=== PATIENT | female | born 1940 | race Caucasian/White ===

== ENCOUNTER 2018-11-20 01:53 | Inpatient (IN) | payer OTHER ==
--- OUTSIDE RECORDS SUMMARY | 2018-11-20 01:56 | XMS REPORT | Continuity of Care Document ---
:1940 Author Organization Interface Problems Problem Status Onset Classification Date Comments Source Date Reported INFECTION Active [address] WOUND INFECTION Active 017 [facility] Alzheimer's dementia Active Problem 05/30/2017 [facility] Benign hypertension Resolved Problem 05/30/2017 [facility] Cerebral embolism with Resolved Problem 05/30/2017 transient ischemic [place] attack (<span ID="[id number]">Conf irmed</span>) Chronic CHF Active Problem 05/30/2017 [facility] Hypercholesterolemia Active Problem 05/30/2017 [facility] Arthritis Active Problem 05/30/2017 [facility] UNSPECIFIED INFECTIOUS Active DISEASE [facility] Medications Medication Details Route Status Patient Ordering Order Source Instructions Provider Date 24 HR Nicotine =1 patch, Active 0.583 MG/HR TOP, Daily, X 2017 [facility] Transdermal 14 day, # 14 Patch patch, 0 Refill(s) Streptococcus 0.5 mL, Inactive pneumoniae Route: IM, 2017 [facility] serotype 1 Drug Form: capsular antigen INJ, Daily, diphtheria Start date: [id number] protein 05/27/17 conjugate 9:00:00 CDT, vaccine / Duration: 1 Streptococcus doses or pneumoniae times, Stop serotype 14 date: capsular antigen 05/27/17 diphtheria 9:00:00 [id number] protein CDTNotes: conjugate Shake well vaccine / prior to use Streptococcus (Same as: pneumoniae Prevnar 13) serotype 18C capsular antigen d tramadol 50 mg=1 tab, Active hydrochloride 50 PO, Q6H, PRN 2016 [place] [facility] Oral Tablet Pain, X 10 day, # 40 tab, 0 Refill(s) Acetaminophen 1 tab, PO, Active 300 MG / Codeine Q4H, PRN 2016 [facility] Phosphate 30 MG Pain, X 7 Oral Tablet day, # 42 [Tylenol with tab, 0 Codeine #3] Refill(s) potassium 40 mEq, 2 No Longer chloride 20 mEq tab, Route: Active 2016 oral tablet, PO, Drug extended release form: ERTAB, Daily, Dosing Weight 55.909, kg, Start date: 05/24/17 9:00:00 CDT, Duration: 30 day, Stop date: 06/22/17 9:00:00 CDTNotes: (Same as: K-Dur 20) "Do Not Crush" With food and full glass of water sodium chloride 1,000 mL, No Longer 05/24/ 0.9% 1000 ml INJ Rate: 75 Active 2016 [facility] 1,000 mL ml/hr, Infuse over: 13.3 hr, Route: IV, Dosing Weight 55.909 kg, Total Volume: 1,000, Start date: 05/24/17 8:04:00 CDT, Duration: 30 day, Stop date: 06/23/17 8:03:00 CDT potassium 10 mEq, 100 Inactive chloride mL, Route: 2016 [facility] IVPB, Drug form: INJ, Q1H, Dosing Weight 55.909, kg, Total Dose=40 meq, Start date: 05/23/17 11:00:00 CDT, Duration: 4 doses or times, Stop date: 05/23/17 14:00:00 CDT, Peripheral LineNotes: Infuse at a rate of 10 mEq/hr. (Same as: KCL) potassium 20 mEq, 1 No Longer chloride tab, Route: Active 2016 [facility] PO, Drug form: ERTAB, PRN, Dosing Weight 55.909, kg, PRN Abnormal Lab Result, For NON-ICU Patients Only, Start date: 05/23/17 9:32:00 CDT, Duration: 30 day, Stop date: 06/22/17 9:31:00 CDTNotes: (Same as: K-Dur 20) "Do Not Crush" With food and full glass of water potassium 30 mmol, 10 No Longer phosphate + mL, Route: Active 2016 [facility] sodium chloride IVPB, PRN, 0.9% INJ 250 mL Dosing Weight 55.909, kg, PRN Abnormal Lab Result, For NON-ICU Patients Only., Start date: 05/23/17 9:32:00 CDT, Duration: 30 day, Stop date: 06/22/17 9:31:00 CDTNotes: (Same as: K Phosphate.) 1 mMol phoshate has 1.47 mEq potassium Infuse over 4 hours potassium 2 pkt, Route: No Longer phosphate-sodium PO, Drug Active 2016 [facility] phosphate 250 Form: mg-280 mg-160 mg PDR/REC, oral powder for Dosing Weight reconstitution 55.909, kg, PRN, PRN Abnormal Lab Result, For NON-ICU Patients Only, Start date: 05/23/17 9:32:00 CDT, Duration: 30 day, Stop date: 06/22/17 9:31:00 CDTNotes: (Same as: Phos-NaK) Each 1.5 gm pkt has 250mg phosphorous. Mix w/2.5oz water and stir. sodium phosphate 15 mmol, 5 No Longer + D5W 250 mL mL, Route: Active 2016 [facility] IVPB, PRN, Dosing Weight 55.909, kg, PRN Abnormal Lab Result, For NON-ICU Patients Only., Start date: 05/23/17 9:32:00 CDT, Duration: 30 day, Stop date: 06/22/17 9:31:00 CDT Magnesium 1 gm, 100 mL, No Longer Sulfate Route: IVPB, Active 2016 [facility] Drug form: INJ, PRN, Dosing Weight 55.909, kg, PRN Abnormal Lab Result, For NON-ICU Patients Only., Start date: 05/23/17 9:32:00 CDT, Duration: 30 day, Stop date: 06/22/17 9:31:00 CDTNotes: WASTE: F/P - Sink; E - [employer] Trash [employer] Calcium 2 gm, 20 mL, No Longer Gluconate Route: IVPB, Active 2016 [facility] PRN, Dosing Weight 55.909, kg, PRN Abnormal Lab Result, For NON-ICU Patients Only., Start date: 05/23/17 9:32:00 CDT, Duration: 30 day, Stop date: 06/22/17 9:31:00 CDTNotes: WASTE: F/P - Sink; E - [employer]ash [employer] Magnesium Oxide 800 mg, 2 No Longer tab, Route: Active 2016 [facility] PO, Drug form: TAB, PRN, Dosing Weight 55.909, kg, PRN Abnormal Lab Result, For NON-ICU Patients Only., Start date: 05/23/17 9:32:00 CDT, Duration: 30 day, Stop date: 06/22/17 9:31:00 CDTNotes: (Same as: Mag-Ox 400) Magnesium oxide [id number] elemental magnesium Dose=____mg magnesium oxide (___mg elemental magnesium) Bacitracin 0.5 1 appl, No Longer UNT/MG / Route: TOP, Active 2016 [facility] Polymyxin B 10 BID, Drug UNT/MG Topical form: OINT, Ointment Start date: 05/21/17 17:00:00 CDT, Duration: 30 day, Stop date: 06/20/17 9:00:00 CDTNotes: (Same As: Polysporin) potassium 10 mEq, 100 Inactive chloride mL, Route: 2016 [facility] IVPB, Drug form: INJ, Q1H, Dosing Weight 55.909, kg, Total Dose=20 meq, Start date: 05/21/17 12:00:00 CDT, Duration: 2 doses or times, Stop date: 05/21/17 13:00:00 CDT, Peripheral LineNotes: Infuse at a rate of 10 mEq/hr. (Same as: KCL) potassium 40 mEq, 2 Inactive chloride 20 mEq tab, Route: 2016 [facility] oral tablet, PO, Drug extended release form: ERTAB, ONCE, Dosing Weight 55.909, kg, Start date: 05/21/17 10:45:00 CDT, Stop date: 05/21/17 10:45:00 CDTNotes: (Same as: K-Dur 20) "Do Not Crush" With food and full glass of water Bacitracin 1 appl, No Longer Route: [facility], Active 2016 [facility] Daily, Drug form: OINT, Start date: 05/20/17 9:00:00 CDT, Duration: 30 day, Stop date: 06/18/17 9:00:00 CDT Nicotine 21 mg, 1 No Longer patch, Route: Active 2016 [facility] TOP, Drug form: ERFILM, Daily, Dosing Weight 55.909, kg, Start date: 05/20/17 9:00:00 CDT, Duration: 30 day, Stop date: 06/18/17 9:00:00 CDTNotes: (Same as: Habitrol) "Remove old patch before application of new patch" WASTE: F/P - P Waste Black; E - P Waste Black Thyroxine 50 microgram, No Longer 1 tab, Route: Active 2016 [facility] PO, Drug form: TAB, Q630AM, Dosing Weight 55.909, kg, Start date: 05/20/17 6:30:00 CDT, Duration: 30 day, Stop date: 06/18/17 6:30:00 CDTNotes: Take 1 hour before or 2 hours after meal; Enteral feeds may interefere with the absorption of this medication.(S julia as:Levothroid , Synthroid) Lipitor 20 mg, 2 tab, No Longer Route: PO, Active 2016 [facility] Drug form: TAB, Bedtime, Start date: 05/19/17 21:00:00 CDT, Duration: 30 day, Stop date: 06/17/17 21:00:00 CDTNotes: (Same As: Lipitor) Trazodone 100 mg, 2 No Longer Hydrochloride tab, Route: Active 2016 100 MG Oral PO, Drug Tablet form: TAB, Bedtime, Dosing Weight 55.909, kg, Start date: 05/19/17 21:00:00 CDT, Duration: 30 day, Stop date: 06/17/17 21:00:00 CDTNotes: (Same As: Desyrel) Lovastatin 40 mg, Route: Inactive PO, Drug 2016 [facility] form: TAB, Bedtime, Dosing Weight 55.909, kg, Start date: 05/19/17 21:00:00 CDT, Duration: 30 day, Stop date: 06/17/17 21:00:00 CDT metoprolol 50 mg, 1 tab, No Longer tartrate Route: PO, Active 2016 [facility] Drug form: TAB, Q12H, Dosing Weight 55.909, kg, Start date: 05/19/17 9:00:00 CDT, Duration: 30 day, Stop date: 06/17/17 21:00:00 CDTNotes: (Same as: Lopressor) Furosemide 40 MG 40 mg, 1 tab, No Longer Oral Tablet Route: PO, Active 2016 [facility] Drug form: TAB, BID, Dosing Weight 55.909, kg, Start date: 05/19/17 9:00:00 CDT, Duration: 30 day, Stop date: 06/17/17 17:00:00 CDTNotes: (Same as: Lasix) May cause GI upset. Give with food or milk. Folic Acid 1 mg, 1 tab, No Longer Route: PO, Active 2016 [facility] Drug form: TAB, Daily, Dosing Weight 55.909, kg, Start date: 05/19/17 9:00:00 CDT, Duration: 30 day, Stop date: 06/17/17 9:00:00 CDTNotes: (Same as: Folvite) clopidogrel 75 mg, 1 tab, No Longer Route: PO, Active 2016 [facility] Drug form: TAB, Daily, Dosing Weight 55.909, kg, Start date: 05/19/17 9:00:00 CDT, Duration: 30 day, Stop date: 06/17/17 9:00:00 CDTNotes: (Same As: Plavix) Fentanyl 1 patch, No Longer Route: TOP, 2016 [facility] Drug form: ERFILM, Q72H, Dosing Weight 55.909, kg, Start date: 05/19/17 9:00:00 CDT, Duration: 30 day, Stop date: 06/15/17 9:00:00 CDTNotes: (Same as: Duragesic) Check for product integrity. Apply to intact skin "Remove old patch before application of new patch" Amitriptyline 10 mg, 1 tab, No Longer Route: PO, Active 2016 [facility] Drug form: TAB, Daily, Dosing Weight 55.909, kg, Start date: 05/19/17 9:00:00 CDT, Duration: 30 day, Stop date: 06/17/17 9:00:00 CDTNotes: (Same as: Elavil) Alprazolam 1 MG 1 mg, 1 tab, No Longer Oral Tablet Route: PO, Active 2016 [facility] Drug form: TAB, BID, Dosing Weight 55.909, kg, Start date: 05/19/17 9:00:00 CDT, Duration: 30 day, Stop date: 06/17/17 17:00:00 CDTNotes: With food or milk (Same as: Xanax) Nitroglycerin 0.4 mg, 1 No Longer 0.4 MG tab, Route: Active 2016 [facility] Sublingual SL, Drug Tablet form: TAB, Q5Min, Dosing Weight 55.909, kg, PRN Chest Pain, Start date: 05/19/17 8:09:00 CDT, Duration: 30 day, Stop date: 06/18/17 8:08:00 CDTNotes: (Same as:Nitroquick , Nitrostat) "Do Not Crush" Sublingual tablet potassium 40 mEq, 2 Inactive chloride 20 mEq tab, Route: 2016 [facility] oral tablet, PO, Drug extended release form: ERTAB, ONCE, Dosing Weight 55.909, kg, Start date: 05/19/17 7:56:00 CDT, Stop date: 05/19/17 7:56:00 CDTNotes: (Same as: K-Dur 20) "Do Not Crush" With food and full glass of water clopidogrel 75 75 mg=1 tab, Active MH mg oral tablet PO, Daily, 0 2016 Refill(s) potassium 20 mEq=1 tab, Active chloride 20 mEq PO, Daily, 0 2016 [facility] oral tablet, Refill(s) extended release Metoprolol 50 mg=1 tab, Active Tartrate 50 mg PO, BID, 0 2016 oral tablet Refill(s) lovastatin 40 mg 40 mg=1 tab, Active MH oral tablet PO, Bedtime, 2016 0 Refill(s) Furosemide 40 MG 40 mg=1 tab, Active [facility] Oral Tablet PO, BID, 0 2016 Refill(s) Folic Acid 1 MG 1 mg=1 tab, Active MH Oral Tablet PO, Daily, 0 2016 Refill(s) Alprazolam 1 MG 1 mg=1 tab, Active Oral Tablet PO, BID, 0 2016 Refill(s) Trazodone 100 mg=1 tab, Active Hydrochloride PO, Bedtime, 2016 [facility] 100 MG Oral 0 Refill(s) Tablet amitriptyline 10 10 mg=1 tab, Active mg oral tablet PO, Daily, 0 2016 [facility] Refill(s) Acetaminophen 1 tab, PO, Active 325 MG / Q6H, PRN Pain 2016 [facility] Hydrocodone Score 4-6, 0 Bitartrate 10 MG Refill(s) Oral Tablet [Alice 10/325] fentaNYL 50 50 Active mcg/hr microgram/hr= 2016 [facility] transdermal , TOP, Q72H, film, extended 0 Refill(s) release Nitroglycerin 0.4 mg=1 tab, Active 0.4 MG SL, Q5Min, 2016 [facility] Sublingual PRN as needed Tablet for chest pain, 0 Refill(s) levothyroxine 50 50 Active mcg (0.05 mg) microgram=1 2016 [facility] oral tablet tab, PO, Q630AM, 0 Refill(s) Unasyn 3 gm, 1 ea, No Longer Route: IVPB, Active 2016 [facility] ABXQ6H, Dosing Weight 55.455, kg, Start date: 05/18/17 17:00:00 CDT, Duration: 30 day, Stop date: 06/17/17 9:00:00 CDTNotes: Dosing based on Ampicillin component (Same as: Unasyn) Ondansetron 4 mg, 2 mL, No Longer Route: IVP, Active 2016 [facility] Drug form: INJ, Q6H, Dosing Weight 55.455, kg, PRN Nausea & Vomiting, Start date: 05/18/17 16:45:00 CDT, Duration: 30 day, Stop date: 06/17/17 16:44:00 CDTNotes: (Same as: Kathleen) MEDICATION WASTE Product Size: 4 mg Product Wasted: ___ mg Morphine 2 mg, 1 mL, No Longer Route: IVP, Active 2016 [facility] Drug form: SOLN, Q4H, Dosing Weight 55.455, kg, PRN Pain Score 7-10, Start date: 05/18/17 16:45:00 CDT, Duration: 30 day, Stop date: 06/17/17 16:44:00 CDT Acetaminophen 1 tab, Route: No Longer 325 MG / PO, Drug Active 2016 [facility] Hydrocodone Form: TAB, Bitartrate 5 MG Dosing Weight Oral Tablet 55.455, kg, Q4H, PRN Pain Score 4-6, Start date: 05/18/17 16:45:00 CDT, Duration: 30 day, Stop date: 06/17/17 16:44:00 CDTNotes: (Same as: Alice 325/5) Do not exceed 4gm/day of acetaminophen . Acetaminophen 650 mg, 2 No Longer tab, Route: Active 2016 [facility] PO, Drug form: TAB, Q4H, Dosing Weight 55.455, kg, PRN Pain 1-3/Temp > 100.4 F, Start date: 05/18/17 16:45:00 CDT, Duration: 30 day, Stop date: 06/17/17 16:44:00 CDTNotes: Do not exceed 4 gm/day. (Same as: Tylenol) Unasyn 3 gm, 1 ea, Inactive Route: IVPB, 2016 [facility] ONCE, Dosing Weight 55.455, kg, Priority: STAT, Start date: 05/18/17 15:12:00 CDT, Stop date: 05/18/17 15:12:00 CDTNotes: Dosing based on Ampicillin component (Same as: Unasyn) Morphine 4 mg, 1 mL, Inactive Route: IVP, 2016 [facility] Drug form: SOLN, ONCE, Dosing Weight 55.455, kg, Priority: STAT, Start date: 05/18/17 15:12:00 CDT, Stop date: 05/18/17 15:12:00 CDTNotes: (Same as:MORPhine Sulfate) Vancomycin 1 gm, Route: Inactive IVPB, ONCE, 2016 [facility] kg, Priority: STAT, Start date: 05/18/17 13:43:00 CDT, Stop date: 05/18/17 13:43:00 CDT, ABX Indication: Other (specify in Comments)Note s: TIME CRITICAL MEDICATION (Same As: Vancocin) Infusion rate 2001 mg: infuse over 2.5 hours MEDICATION WASTE Product Size: 1000 mg Product Wasted: ___ mg Allergies, Adverse Reactions, Alerts Substance Category Reaction Severity Reaction Status Date Comments Source type Reported iodine Assertion Drug Active allergy [facility] sulfa drugs Assertion Drug Active allergy [facility] Versed Assertion Drug Active allergy [facility] Immunizations Immunization Date Site Status Last Comments Source Given Updated pneumococcal Left completed [facility] 13-valent 7 deltoid vaccine Results Order Name Results Value Reference Date Interpretation Comments Source Range ELECTROLYT Potassium 3.7 meq/L 3.5 - 5.1 05/26 [facility] Lv [facility] ELECTROLYT AGAP 9.1 meq/L 10.0 - 05/26 [facility] 20.0 [facility] ELECTROLYT Calcium Lvl 8.7 mg/dL 8.5 - 10.5 05/26 [facility] ELECTROLYT Potassium 3.1 meq/L 3.5 - 5.1 05/26 [facility] ELECTROLYT Sodium Lvl 139 meq/L 135 - 145 05/26 [facility] ELECTROLYT eGFR 87 05/26 Result Comment: The eGFR is calculated using the CKD-EPI formula. In most young, healthy individuals the eGFR will be >90 mL/ min/1.73m2. The eGFR declines with age. An eGFR of 60-89 may be normal in mL/min/1. some populations, particularly the elderly, for whom the CKD-EPI formula has not been extensively validated. Use of the eGFR is not recommended in the following populations: [facility] 3m2 Individuals with unstable creatinine concentrations, including patients and those with serious co-morbid conditions. Patients with extremes in muscle mass or diet. The data above are obtained from the National Kidney Disease Education Program (NKDEP) which additionally recommends that when the eGFR is used in patients with extremes of body mass index for purposes of drug dosing, the eGFR should be multiplied by the estimated BMI. ELECTROLYT CO2 31 meq/L 24 - 32 05/26 [facility] ELECTROLYT Chloride Lvl 102 meq/L 95 - 109 05/26 [facility] ELECTROLYT Glucose Lvl 89 mg/dL 70 - 99 05/26 [facility] ELECTROLYT BUN 11 mg/dL 7 - 22 05/26 [facility] ELECTROLYT Creatinine 0.59 mg/dL 0.50 - 05/26 ES Lvl 1.40 /2016 [facility] HEMATOLOGY Hct 28.2 % 36.0 - 05/26 MH 48.0 /2016 [facility] MCH 31.5 pg 27.0 - 05/26 MH 31.0 [facility] Hgb 9.8 g/dL 12.0 - 05/26 MH 16.0 /2016 [facility] MCHC 35.0 g/dL 32.0 - 05/26 MH 36.0 /2016 [facility] MCV 90.0 fL 80.0 - 07 MH 98.0 /2016 [facility] RDW 12.8 % 11.5 - 07 MH 14.5 /2016 [facility] Platelet 274 K/CMM 133 - 450 05/26 [facility] MPV 8.1 fL 7.4 - 10.4 05/26 [facility] WBC 6.6 K/CMM 3.7 - 10.4 05/26 [facility] RBC 3.13 M/CMM 4.20 - 05/26 MH 5.40 [facility] HEMATOLOGY Segs 47.9 % 45.0 - 07 MH 75.0 /2016 [facility] HEMATOLOGY Lymphocytes 31.3 % 20.0 - 07 MH 40.0 [facility] HEMATOLOGY Monocytes 14.8 % 2.0 - 12.0 05/26 [facility] HEMATOLOGY Eosinophils 5.2 % 0.0 - 4.0 05/26 [facility] HEMATOLOGY Segs-Bands # 3.1 K/CMM 1.5 - 8.1 05/26 [facility] HEMATOLOGY Basophils 0.8 % 0.0 - 1.0 05/26 [facility] HEMATOLOGY Eosinophils 0.3 K/CMM 0.0 - 0.5 05/26 /2016 [facility] HEMATOLOGY Monocytes # 1.0 K/CMM 0.0 - 0.8 05/26 [facility] HEMATOLOGY Lymphocytes 2.1 K/CMM 1.0 - 5.5 05/26 [facility] HEMATOLOGY Basophils # 0.1 K/CMM 0.0 - 0.2 05/26 [facility] CHEM PANEL eGFR 85 05/25 Result Comment: The eGFR is calculated using the CKD-EPI formula. In most young, healthy individuals the eGFR will be >90 mL/ min/1.73m2. The eGFR declines with age. An eGFR of 60-89 may be normal in MH mL/min/1. some populations, particularly the elderly, for whom the CKD-EPI formula has not been extensively validated. Use of the eGFR is not recommended in the following populations: [address] Individuals with unstable creatinine concentrations, including patients and those with serious co-morbid conditions. Patients with extremes in muscle mass or diet. The data above are obtained from the National Kidney Disease Education Program (NKDEP) which additionally recommends that when the eGFR is used in patients with extremes of body mass index for purposes of drug dosing, the eGFR should be multiplied by the estimated BMI. CHEM PANEL Sodium Lvl 140 meq/L 135 - 145 05/25 [facility] CHEM PANEL Creatinine 0.64 mg/dL 0.50 - 05/25 Lvl 1.40 /2016 [facility] CHEM PANEL BUN 11 mg/dL 7 - 22 05/25 [facility] CHEM PANEL Chloride Lvl 103 meq/L 95 - 109 05/25 [facility] CHEM PANEL Potassium 3.3 meq/L 3.5 - 5.1 05/25 Lvl [facility] CHEM PANEL Glucose Lvl 83 mg/dL 70 - 99 05/25 [facility] CHEM PANEL CO2 29 meq/L 24 - 32 05/25 [facility] CHEM PANEL Calcium Lvl 8.0 mg/dL 8.5 - 10.5 05/25 [facility] CHEM PANEL AGAP 11.3 meq/L 10.0 - 05/25 MH 20.0 [facility] CHEM PANEL eGFR 90 05/25 Result Comment: The eGFR is calculated using the CKD-EPI formula. In most young, healthy individuals the eGFR will be >90 mL/ min/1.73m2. The eGFR declines with age. An eGFR of 60-89 may be normal in MH mL/min/1. some populations, particularly the elderly, for whom the CKD-EPI formula has not been extensively validated. Use of the eGFR is not recommended in the following populations: [address] Individuals with unstable creatinine concentrations, including patients and those with serious co-morbid conditions. Patients with extremes in muscle mass or diet. The data above are obtained from the National Kidney Disease Education Program (NKDEP) which additionally recommends that when the eGFR is used in patients with extremes of body mass index for purposes of drug dosing, the eGFR should be multiplied by the estimated BMI. CHEM PANEL Calcium Lvl 6.4 mg/dL 8.5 - 10.5 / [facility] CHEM PANEL AGAP 20.4 meq/L 10.0 - 07 MH 20.0 [facility] CHEM PANEL CO2 25 meq/L 24 - 32 05/25 [facility] CHEM PANEL Glucose Lvl 69 mg/dL 70 - 99 05/25 [facility] CHEM PANEL Sodium Lvl 155 meq/L 135 - 145 / [facility] CHEM PANEL BUN 10 mg/dL 7 - 22 05/25 [facility] CHEM PANEL Chloride Lvl 112 meq/L 95 - 109 07/ [facility] CHEM PANEL Creatinine 0.55 mg/dL 0.50 - 05/25 Lvl 1.40 /2016 [facility] HEMATOLOGY Hct 25.0 % 36.0 - 07 MH 48.0 /2016 [facility] HEMATOLOGY MCV 90.5 fL 80.0 - 05/25 MH 98.0 [facility] HEMATOLOGY Hgb 8.4 g/dL 12.0 - 05/25 16.0 [facility] HEMATOLOGY MCH 30.4 pg 27.0 - 05/25 MH 31.0 [facility] HEMATOLOGY MCHC 33.6 g/dL 32.0 - 05/25 MH 36.0 [facility] HEMATOLOGY RDW 13.2 % 11.5 - 05/25 MH 14.5 [facility] HEMATOLOGY MPV 8.1 fL 7.4 - 10.4 05/25 /2016 [facility] HEMATOLOGY Platelet 212 K/CMM 133 - 450 05/25 /2016 [facility] HEMATOLOGY RBC 2.76 M/CMM 4.20 - 07 MH 5.40 [facility] HEMATOLOGY WBC 5.7 K/CMM 3.7 - 10.4 05/25 [facility] HEMATOLOGY Monocytes # 0.8 K/CMM 0.0 - 0.8 /10 [facility] HEMATOLOGY Eosinophils 0.2 K/CMM 0.0 - 0.5 /10 MH # /2016 [facility] HEMATOLOGY Lymphocytes 26.0 % 20.0 - 07 MH 40.0 [facility] HEMATOLOGY Segs-Bands # 3.2 K/CMM 1.5 - 8.1 05/25 [facility] HEMATOLOGY Lymphocytes 1.5 K/CMM 1.0 - 5.5 07/10 MH # /2016 [facility] HEMATOLOGY Eosinophils 3.7 % 0.0 - 4.0 07/ /2016 [facility] HEMATOLOGY Monocytes 14.4 % 2.0 - 12.0 07/ /2016 [facility] HEMATOLOGY Basophils 0.5 % 0.0 - 1.0 / /2016 [facility] HEMATOLOGY Segs 55.4 % 45.0 - 07/ MH 75.0 /2016 [facility] ANEMIA Folate Lvl 54.1 ng/mL >=3.0 05/24 STUDY ng/mL /2016 [facility] ANEMIA Vitamin B12 1022 pg/mL 254 - 1320 / STUDY Lvl /2016 [facility] HEMATOLOGY MPV 7.6 fL 7.4 - 10.4 05/24 [facility] HEMATOLOGY Platelet 232 K/CMM 133 - 450 05/24 [facility] HEMATOLOGY MCV 89.7 fL 80.0 - 05/24 98.0 [facility] HEMATOLOGY Hct 30.2 % 36.0 - 05/24 MH 48.0 [facility] HEMATOLOGY RDW 13.4 % 11.5 - 05/24 MH 14.5 [facility] HEMATOLOGY MCHC 34.5 g/dL 32.0 - 05/24 36.0 /2016 [facility] HEMATOLOGY MCH 31.0 pg 27.0 - 05/24 MH 31.0 [facility] HEMATOLOGY WBC 7.2 K/CMM 3.7 - 10.4 05/24 [facility] HEMATOLOGY Hgb 10.4 g/dL 12.0 - 05/24 16.0 [facility] HEMATOLOGY RBC 3.36 M/CMM 4.20 - 05/24 MH 5.40 [facility] HEMATOLOGY Eosinophils 0.2 K/CMM 0.0 - 0.5 07/ MH # /2016 [facility] HEMATOLOGY Monocytes # 0.9 K/CMM 0.0 - 0.8 07/ [facility] HEMATOLOGY Lymphocytes 1.6 K/CMM 1.0 - 5.5 07/ MH # /2016 [facility] HEMATOLOGY Segs-Bands # 4.4 K/CMM 1.5 - 8.1 05/24 [facility] HEMATOLOGY Lymphocytes 22.1 % 20.0 - 07 MH 40.0 [facility] HEMATOLOGY Eosinophils 3.3 % 0.0 - 4.0 / [facility] HEMATOLOGY Monocytes 12.6 % 2.0 - 12.0 / [facility] HEMATOLOGY Basophils 0.5 % 0.0 - 1.0 05/24 [facility] HEMATOLOGY Segs 61.5 % 45.0 - 05/24 75.0 [facility] Chest Chest 1view Patient Name: REX VIVEROS 05/21 - [facility] Hospital : 1940; Age: 77 years y/o Female MR: [id number] Read by: Abisai Freire MD Dictated Date/time: 05/21/17 14:39 Electronically Signed by: Abisai Freire MD 05/21/17 14:40 FINAL REPORT * CHEST, portable, 1 view HISTORY: Status post PICC placement COMPARISON: None TECHNIQUE: A portable frontal radiograph of the chest was obtained following PICC placement IMPRESSION: 1. The tip of the right upper extremity PICC is in the lower superior vena cava. The catheter appears to be in good position to utilize for venous access. 2. No evidence of an active or acute process. The lungs are clear. There are no pleural effusions. 3. The heart is normal in size. 4. The regional skeleton is unremarkable. SL: [id number] URINE AND UA WBC null 0 - 5 05/18 [facility] URINE AND UA [place] Yeast Occasional None Seen 05/18 STOOL /HPF /HPF [facility] URINE AND UA Trans Epi 1 /LPF <=0 /LPF 05/18 [facility] URINE AND UA RBC 1 /HPF 0 - 2 05/18 STOOL [facility] URINE AND UA Bacteria Occasional None Seen 05/18 STOOL /HPF /HPF /2016 [facility] URINE AND UA Leuk Est Negative Negative 05/18 (05/18/17 3:37 PM) URINE AND UA Nitrite Negative Negative 05/18 (05/18/17 3:37 PM) URINE AND UA Sq Epi Few /LPF Few /LPF 05/18 URINE AND UA Bili Negative Negative 05/18 [facility] *NA* (05/18/17 3:37 PM) URINE AND UA Blood Negative Negative 05/18 [facility] (05/18/17 3:37 PM) URINE AND UA <=1.0 0.1 - 1.0 05/18 [facility] Urobilinogen mg/dL /2016 URINE AND UA Color Ltyellow 05/18 STOOL /2016 [facility] URINE AND UA Glucose Negative Negative 05/18 STOOL mg/dL mg/dL /2016 [facility] URINE AND UA Ketones Negative Negative 05/18 STOOL mg/dL mg/dL [facility] URINE AND UA pH 7.0 5.0 - 8.0 05/18 STOOL [facility] URINE AND UA Protein Negative Negative 05/18 STOOL mg/dL mg/dL [facility] URINE AND UA Turbidity Clear Clear 05/18 STOOL [facility] (05/18/17 3:37 PM) URINE AND UA Spec Grav 1.009 <=1.030 05/18 STOOL /2016 [facility] HEMATOLOGY PTT 28.0 s 22.9 - 05/18 MH 35.8 /2016 [facility] HEMATOLOGY INR 0.99 0.85 - 05/18 1.17 [facility] HEMATOLOGY PT 13.3 s 12.0 - 05/18 MH 14.7 /2016 [facility] CARDIAC Troponin-I 0.20 ng/mL 0.00 - 05/18 ENZYMES 0.40 /2016 [facility] CHEM PANEL ALT 17 unit/L 0 - 65 05/18 [facility] CHEM PANEL AST 30 unit/L 0 - 37 05/18 [facility] CHEM PANEL Albumin Lvl 3.1 g/dL 3.5 - 5.0 05/18 [facility] CHEM PANEL Alk Phos 63 unit/L 39 - 136 05/18 [facility] CHEM PANEL Bili Total 0.6 mg/dL 0.2 - 1.3 05/18 [facility] CHEM PANEL Total 7.1 g/dL 6.4 - 8.4 05/18 [facility] CHEM PANEL Globulin 4.0 g/dL 2.7 - 4.2 05/18 [facility] CHEM PANEL A/G Ratio 0.8 0.7 - 1.6 05/18 [facility] CHEM PANEL B/C Ratio 15 6 - 25 05/18 [facility] CHEM PANEL Lactic Acid 0.8 mMol/L 0.5 - 2.2 05/18 Lvl [facility] Hand 3 Hand 3 views Study: Right hand, 4 views 05/18 - views DX - Clinical Indication: Right hand pain post injury Read by: Marcus Tellez MD Dictated Date/time: 05/18/17 14:33 Electronically Signed by: Marcus Tellez MD 05/18/17 14:34 FINAL REPORT Comparison: None FINDINGS: Multiple views of the right hand show no acute bony fracture, joint dislocation, or discrete osseous erosion. Bones are demineralized. Diffuse soft tissue swelling along the dorsum of the hand is seen extending into the index and middle fingers. Lacerations throughout the index finger soft tissues about the middle phalanx are seen. No definitive radiopaque foreign body is seen. IMPRESSION: No acute bony abnormality of the right hand. SL: [id number] Vital Signs Vital Sign Value Date Comments Source Systolic (mm Hg) 102 05/27/2017 [facility] Diastolic (mm Hg) 58 05/27/2017 [facility] Heart Rate 85 05/27/2017 [facility] Respitory Rate 17 05/27/2017 [facility] Temperature Oral (F) 98.1 F 05/27/2017 [facility] Respitory Rate 18 05/27/2017 [facility] Systolic (mm Hg) 98 05/27/2017 [facility] Diastolic (mm Hg) 61 05/27/2017 [facility] Heart Rate 83 05/27/2017 [facility] Temperature Oral (F) 98.4 F 05/27/2017 [facility] Respitory Rate 18 05/27/2017 [facility] Systolic (mm Hg) 92 05/27/2017 [facility] Diastolic (mm Hg) 47 05/27/2017 [facility] Heart Rate 83 05/27/2017 [facility] Temperature Oral (F) 99.0 F 05/27/2017 [facility] BMI Calculated 19.3 05/19/2017 [facility] Weight 55.909 05/19/2017 [facility] Height 170.18 cm 05/19/2017 [facility] Weight 55.455 05/18/2017 [facility] Encounters Location Location Encounter Encounter Reason Attending ADM DC Status Source Details Type Number For Provider Date Date [facility] [id number] [facility] 05/18 05/27 [facility] /2016 [facility] Procedures Procedure Code Date Perfomer Comments Source
--- OUTSIDE RECORDS SUMMARY | 2018-11-20 01:57 | XMS REPORT | Summary of Care ---
:1940 Author Organization [facility] Address [address] [place], [place] [address]- Encounter HQ [email or web address]_yo(FIN) [id number] Date(s): 05/18/17 - 05/27/17 [facility] [address] [place] [address]- Discharge Disposition: Home or Self Care Attending Physician: Pastor Baca MD Admitting Physician: Pastor Baca MD Vital Signs Most recent to oldest 1 2 3 [Reference Range]: Height 170.18 cm (05/18/17 7:40 PM) Temperature Oral [96.4-99.1 98.1 DegF 98.4 DegF 99.0 DegF DegF] (05/27/17 8:42 AM) (05/27/17 4:00 AM) (05/27/17 12:00 AM) Blood Pressure [90-140/60-90 102/58 mmHg 98/61 mmHg 92/47 mmHg mmHg] (05/27/17 8:42 AM) (05/27/17 4:00 AM) (05/27/17 12:00 AM) Respiratory Rate [14-20 BRMIN] 17 BRMIN 18 BRMIN 18 BRMIN (05/27/17 8:42 AM) (05/27/17 4:00 AM) (05/27/17 12:00 AM) Peripheral Pulse Rate [60-100 85 bpm 83 bpm 83 bpm bpm] (05/27/17 8:42 AM) (05/27/17 4:00 AM) (05/27/17 12:00 AM) Weight 55.909 kg 55.455 kg (05/18/17 7:40 PM) (05/18/17 1:42 PM) Body Mass Index 19.3 m2 (05/18/17 7:40 PM) Problem List Condition Effective Dates Status Health Status Informant Alzheimer's dementia(Confirmed) Active Benign hypertension(Confirmed) Resolved Cerebral embolism with transient Resolved ischemic attack (TIA)(Confirmed) Chronic CHF(Confirmed) Active Hypercholesterolemia(Confirmed) Active Arthritis(Confirmed) Active Allergies, Adverse Reactions, Alerts Substance Reaction Severity Status iodine Active sulfa drugs Active Versed Active Medications acetaminophen 650 mg, 2 tab, Route: PO, Drug form: TAB, Q4H, Dosing Weight 55.455, kg, PRN Pain 1-3/Temp > 100.4 F, Start date: 05/18/17 16:45:00 CDT, Duration: 30 day, Stop date: 06/17/17 16:44:00 CDT Notes: Do not exceed 4 gm/day. (Same as: Tylenol) Start Date: 05/18/17 Stop Date: 05/27/17 Status: Discontinuedacetaminophen-hydrocodone 325 mg-5 mg oral tablet 1 tab, Route: PO, Drug Form: TAB, Dosing Weight 55.455, kg, Q4H, PRN Pain Score 4-6, Start date: 05/18/17 16:45:00 CDT, Duration: 30 day, Stop date: 06/17/17 16 :44:00 CDT Notes: (Same as: [place] 325/5) Do not exceed 4gm/day of acetaminophen. Start Date: 05/18/17 Stop Date: 05/27/17 Status: DiscontinuedALPRAZOLam 1 mg oral tablet 1 mg=1 tab, PO, BID, 0 Refill(s) Start Date: 05/18/17 Status: OrderedALPRAZOLam 1 mg oral tablet 1 mg, 1 tab, Route: PO, Drug form: TAB, BID, Dosing Weight 55.909, kg, Start date: 05/19/17 9:00:00 CDT, Duration: 30 day, Stop date: 06/17/17 17:00:00 CDT Notes: With food or milk(Same as: Xanax) Start Date: 05/19/17 Stop Date: 05/27/17 Status: Discontinuedamitriptyline 10 mg, 1 tab, Route: PO, Drug form: TAB, Daily, Dosing Weight 55.909, kg, Start date: 05/19/17 9:00:00 CDT, Duration: 30 day, Stop date: 06/17/17 9:00:00 CDT Notes: (Same as: Elavil) Start Date: 05/19/17 Stop Date: 05/27/17 Status: Discontinuedamitriptyline 10 mg oral tablet 10 mg=1 tab, PO, Daily, 0 Refill(s) Start Date: 05/18/17 Status: Orderedbacitracin topical 1 appl, Route: TOP, Daily, Drug form: OINT, Start date: 05/20/17 9:00:00 CDT, Duration: 30 day, Stopdate: 06/18/17 9:00:00 CDT Start Date: 05/20/17 Stop Date: 05/27/17 Status: Discontinuedbacitracin-polymyxin B topical ointment 1 appl, Route: TOP, BID, Drug form: OINT, Start date: 05/21/17 17:00:00 CDT, Duration: 30 day, Stop date: 06/20/17 9:00:00 CDT Notes: (Same As: Polysporin) Start Date: 05/21/17 Stop Date: 05/22/17 Status: Discontinuedcalcium gluconate + sodium chloride 0.9% INJ 120 mL 3 gm, 30 mL, Route: IVPB, Drug form: INJ, PRN, Dosing Weight 55.909, kg, PRN Abnormal Lab Result, For NON-ICU Patients Only., Start date: 05/23/17 9:32:00 CDT, Duration: 30 day, Stop date: 06/22/17 9:31:00 CDT Notes: WASTE: F/P - Sink; E - Municipal Trash Bin Start Date: 05/23/17 Stop Date: 05/27/17 Status: Discontinuedcalcium gluconate + sodium chloride 0.9% INJ 80 mL 2 gm, 20 mL, Route: IVPB, PRN, Dosing Weight 55.909, kg, PRN Abnormal Lab Result , For NON-ICU Patients Only., Start date: 05/23/17 9:32:00 CDT, Duration: 30 day , Stop date: 06/22/17 9:31:00 CDT Notes: WASTE: F/P - Sink; E - Municipal Trash Bin Start Date: 05/23/17 Stop Date: 05/27/17 Status: Discontinuedclopidogrel 75 mg, 1 tab, Route: PO, Drug form: TAB, Daily, Dosing Weight 55.909, kg, Start date: 05/19/17 9:00:00 CDT, Duration: 30 day, Stop date: 06/17/17 9:00:00 CDT Notes: (Same As: Plavix) Start Date: 05/19/17 Stop Date: 05/27/17 Status: Discontinuedclopidogrel 75 mg oral tablet 75 mg=1 tab, PO, Daily, 0 Refill(s) Start Date: 05/18/17 Status: OrderedfentaNYL 1 patch, Route: TOP, Drug form: ERFILM, Q72H, Dosing Weight 55.909, kg, Start date: 05/19/17 9:00:00CDT, Duration: 30 day, Stop date: 06/15/17 9:00:00 CDT Notes: (Same as: Duragesic)Check for product integrity. Apply to intact skin "Remove old patch before application of new patch" Start Date: 05/19/17 Stop Date: 05/27/17 Status: DiscontinuedfentaNYL 50 mcg/hr transdermal film, extended release 50 microgram/hr=, TOP, Q72H, 0 Refill(s) Start Date: 05/18/17 Status: Orderedfolic acid 1 mg, 1 tab, Route: PO, Drug form: TAB, Daily, Dosing Weight 55.909, kg, Start date: 05/19/17 9:00:00 CDT, Duration: 30 day, Stop date: 06/17/17 9:00:00 CDT Notes: (Same as: Folvite) Start Date: 05/19/17 Stop Date: 05/27/17 Status: Discontinuedfolic acid 1 mg oral tablet 1 mg=1 tab, PO, Daily, 0 Refill(s) Start Date: 05/18/17 Status: Orderedfurosemide 40 mg oral tablet 40 mg=1 tab, PO, BID, 0 Refill(s) Start Date: 05/18/17 Status: Orderedfurosemide 40 mg oral tablet 40 mg, 1 tab, Route: PO, Drug form: TAB, BID, Dosing Weight 55.909, kg, Start date: 05/19/17 9:00:00CDT, Duration: 30 day, Stop date: 06/17/17 17:00:00 CDT Notes: (Same as: Lasix) May cause GI upset. Give with food or milk. Start Date: 05/19/17 Stop Date: 05/27/17 Status: Discontinuedlevothyroxine 50 microgram, 1 tab, Route: PO, Drug form: TAB, Q630AM, Dosing Weight 55.909, kg , Start date: 05/20/17 6:30:00 CDT, Duration: 30 day, Stop date: 06/18/17 6:30: 00 CDT Notes: Take 1 hour before or 2 hours after meal; Enteral feeds may interefere with the absorption ofthis medication.(Same as:Levothroid, Synthroid) Start Date: 05/20/17 Stop Date: 05/27/17 Status: Discontinuedlevothyroxine 50 mcg (0.05 mg) oral tablet 50 microgram=1 tab, PO, Q630AM, 0 Refill(s) Start Date: 05/18/17 Status: OrderedLipitor 20 mg, 2 tab, Route: PO, Drug form: TAB, Bedtime, Start date: 05/19/17 21:00:00 CDT, Duration: 30 day, Stop date: 06/17/17 21:00:00 CDT Notes: (Same As: Lipitor) Start Date: 05/19/17 Stop Date: 05/27/17 Status: Discontinuedlovastatin 40 mg, Route: PO, Drug form: TAB, Bedtime, Dosing Weight 55.909, kg, Start date : 05/19/17 21:00:00 CDT, Duration: 30 day, Stop date: 06/17/17 21:00:00 CDT Start Date: 05/19/17 Stop Date: 05/19/17 Status: Deletedlovastatin 40 mg oral tablet 40 mg=1 tab, PO, Bedtime, 0 Refill(s) Start Date: 05/18/17 Status: Orderedmagnesium oxide 800 mg, 2 tab, Route: PO, Drug form: TAB, PRN, Dosing Weight 55.909, kg, PRN Abnormal Lab Result, For NON-ICU Patients Only., Start date: 05/23/17 9:32:00 CDT, Duration: 30 day, Stop date: 06/22/17 9:31:00 CDT Notes: (Same as: Mag-Ox 400)Magnesium oxide [id number] elemental magnesiumDose= ____mg magnesium oxide (___mg elemental magnesium) Start Date: 05/23/17 Stop Date: 05/27/17 Status: Discontinuedmagnesium sulfate 1 gm, 100 mL, Route: IVPB, Drug form: INJ, PRN, Dosing Weight 55.909, kg, PRN Abnormal Lab Result, For NON-ICU Patients Only., Start date: 05/23/17 9:32:00 CDT, Duration: 30 day, Stop date: 06/22/17 9:31:00 CDT Notes: WASTE: F/P - Sink; E - Municipal Trash Bin Start Date: 05/23/17 Stop Date: 05/27/17 Status: Discontinuedmagnesium sulfate 2 gm, 50 mL, Route: IVPB, Drug form: INJ, PRN, Dosing Weight 55.909, kg, PRN Abnormal Lab Result, For NON-ICU Patients Only., Start date: 05/23/17 9:32:00 CDT, Duration: 30 day, Stop date: 06/22/17 9:31:00 CDT Notes: WASTE: F/P - Sink; E - Municipal Trash Bin Start Date: 05/23/17 Stop Date: 05/27/17 Status: Discontinuedmetoprolol tartrate 50 mg, 1 tab, Route: PO, Drug form: TAB, Q12H, Dosing Weight 55.909, kg, Start date: 05/19/17 9:00:00 CDT, Duration: 30 day, Stop date: 06/17/17 21:00:00 CDT Notes: (Same as: Lopressor) Start Date: 05/19/17 Stop Date: 05/27/17 Status: DiscontinuedMetoprolol Tartrate 50 mg oral tablet 50 mg=1 tab, PO, BID, 0 Refill(s) Start Date: 05/18/17 Status: Orderedmorphine Sulfate 2 mg, 1 mL, Route: IVP, Drug form: SOLN, Q4H, Dosing Weight 55.455, kg, PRN Pain Score 7-10, Start date: 05/18/17 16:45:00 CDT, Duration: 30 day, Stop date : 06/17/17 16:44:00 CDT Start Date: 05/18/17 Stop Date: 05/27/17 Status: Discontinuedmorphine Sulfate 4 mg, 1 mL, Route: IVP, Drug form: SOLN, ONCE, Dosing Weight 55.455, kg, Priority: STAT, Start date:05/18/17 15:12:00 CDT, Stop date: 05/18/17 15:12:00 CDT Notes: (Same as:MORPhine Sulfate) Start Date: 05/18/17 Stop Date: 05/18/17 Status: Completednicotine 21 mg, 1 patch, Route: TOP, Drug form: ERFILM, Daily, Dosing Weight 55.909, kg, Start date: 179:00:00 CDT, Duration: 30 day, Stop date: 06/18/17 9:00:00 CDT Notes: (Same as: Habitrol)"Remove old patch before application of new patch "WASTE: F/P - P Waste Black; E - P Waste Black Start Date: 05/20/17 Stop Date: 05/27/17 Status: Discontinuednicotine 14 mg/24 hr transdermal film, extended release =1 patch, TOP, Daily, X 14 day, # 14 patch, 0 Refill(s) Start Date: 05/27/17 Stop Date: 06/10/17 Status: Orderednitroglycerin 0.4 mg sublingual tablet 0.4 mg, 1 tab, Route: SL, Drug form: TAB, Q5Min, Dosing Weight 55.909, kg, PRN Chest Pain, Start date: 05/19/17 8:09:00 CDT, Duration: 30 day, Stop date: 06/18 8:08:00 CDT Notes: (Same as:Nitroquick, Nitrostat)"Do Not Crush" Sublingual tablet Start Date: 05/19/17 Stop Date: 05/27/17 Status: Discontinuednitroglycerin 0.4 mg sublingual tablet 0.4 mg=1 tab, SL, Q5Min, PRN as needed for chest pain, 0 Refill(s) Start Date: 05/18/17 Status: OrderedNorco 10/325 oral tablet 1 tab, PO, Q6H, PRN Pain Score 4-6, 0 Refill(s) Start Date: 05/18/17 Status: Orderedondansetron 4 mg, 2 mL, Route: IVP, Drug form: INJ, Q6H, Dosing Weight 55.455, kg, PRN Nausea & Vomiting, Start date: 05/18/17 16:45:00 CDT, Duration: 30 day, Stop date: 06/17/17 16:44:00 CDT Notes: (Same as: Kathleen) MEDICATION WASTE Product Size: 4 mgProduct Wasted: ___ mg Start Date: 05/18/17 Stop Date: 05/27/17 Status: Discontinuedpneumococcal 13-valent vaccine 0.5 mL, Route: IM, Drug Form: INJ, Daily, Start date: 05/27/17 9:00:00 CDT, Duration: 1 doses or times, Stop date: 05/27/17 9:00:00 CDT Notes: Shake well prior to use (Same as: Prevnar 13) Start Date: 05/27/17 Stop Date: 05/27/17 Status: Completedpotassium chloride 20 mEq, 1 tab, Route: PO, Drug form: ERTAB, PRN, Dosing Weight 55.909, kg, PRN Abnormal Lab Result, For NON-ICU Patients Only, Start date: 05/23/17 9:32:00 CDT , Duration: 30 day, Stop date: 06/22/17 9:31:00 CDT Notes: (Same as: K-Dur 20)"Do Not Crush" With food and full glass of water Start Date: 05/23/17 Stop Date: 05/27/17 Status: Discontinuedpotassium chloride 20 mEq, 15 mL, Route: NJ, Drug form: LIQ, PRN, Dosing Weight 55.909, kg, PRN Abnormal Lab Result, For NON-ICU Patients Only, Start date: 05/23/17 9:32:00 CDT , Duration: 30 day, Stop date: 06/22/17 9:31:00 CDT Notes: (Same as: Potassium Chloride) Start Date: 05/23/17 Stop Date: 05/27/17 Status: Discontinuedpotassium chloride 10 mEq, 100 mL, Route: IVPB, Drug form: INJ, PRN, Dosing Weight 55.909, kg, PRN Abnormal Lab Result,For NON-ICU Patients Only, Start date: 05/23/17 9:32:00 CDT , Duration: 30 day, Stop date: 06/22/17 9:31:00 CDT Notes: Infuse at a rate of 10 mEq/hr.(Same as: KCL) Start Date: 05/23/17 Stop Date: 05/27/17 Status: Discontinuedpotassium chloride 10 mEq, 100 mL, Route: IVPB, Drug form: INJ, Q1H, Dosing Weight 55.909, kg, Total Dose=40 meq, Startdate: 05/23/17 11:00:00 CDT, Duration: 4 doses or times , Stop date: 05/23/17 14:00:00 CDT, Peripheral Line Notes: Infuse at a rate of 10 mEq/hr.(Same as: KCL) Start Date: 05/23/17 Stop Date: 05/23/17 Status: Completedpotassium chloride 10 mEq, 100 mL, Route: IVPB, Drug form: INJ, Q1H, Dosing Weight 55.909, kg, Total Dose=20 meq, Startdate: 05/21/17 12:00:00 CDT, Duration: 2 doses or times , Stop date: 05/21/17 13:00:00 CDT, Peripheral Line Notes: Infuse at a rate of 10 mEq/hr.(Same as: KCL) Start Date: 05/21/17 Stop Date: 05/21/17 Status: Completedpotassium chloride 20 mEq oral tablet, extended release 40 mEq, 2 tab, Route: PO, Drug form: ERTAB, ONCE, Dosing Weight 55.909, kg, Start date: 05/19/17 7:56:00 CDT, Stop date: 05/19/17 7:56:00 CDT Notes: (Same as: K-Dur 20)"Do Not Crush" With food and full glass of water Start Date: 05/19/17 Stop Date: 05/19/17 Status: Completedpotassium chloride 20 mEq oral tablet, extended release 20 mEq=1 tab, PO, Daily, 0 Refill(s) Start Date: 05/18/17 Status: Orderedpotassium chloride 20 mEq oral tablet, extended release 40 mEq, 2 tab, Route: PO, Drug form: ERTAB, Daily, Dosing Weight 55.909, kg, Start date: 05/24/17 9:00:00 CDT, Duration: 30 day, Stop date: 06/22/17 9:00:00 CDT Notes: (Same as: K-Dur 20)"Do Not Crush" With food and full glass of water Start Date: 05/24/17 Stop Date: 05/27/17 Status: Discontinuedpotassium chloride 20 mEq oral tablet, extended release 40 mEq, 2 tab, Route: PO, Drug form: ERTAB, ONCE, Dosing Weight 55.909, kg, Start date: 05/21/17 10:45:00 CDT, Stop date: 05/21/17 10:45:00 CDT Notes: (Same as: K-Dur 20)"Do Not Crush" With food and full glass of water Start Date: 05/21/17 Stop Date: 05/21/17 Status: Completedpotassium phosphate + sodium chloride 0.9% INJ 250 mL 30 mmol, 10 mL, Route: IVPB, PRN, Dosing Weight 55.909, kg, PRN Abnormal Lab Result, For NON-ICU Patients Only., Start date: 05/23/17 9:32:00 CDT, Duration: 30 day, Stop date: 06/22/17 9:31:00 CDT Notes: (Same as: K Phosphate.) 1 mMol phoshate has 1.47 mEq potassium Infuse over 4 hours Start Date: 05/23/17 Stop Date: 05/27/17 Status: Discontinuedpotassium phosphate + sodium chloride 0.9% INJ 250 mL 15 mmol, 5 mL, Route: IVPB, PRN, Dosing Weight 55.909, kg, PRN Abnormal Lab Result, For NON-ICU Patients Only., Start date: 05/23/17 9:32:00 CDT, Duration: 30 day, Stop date: 06/22/17 9:31:00 CDT Notes: (Same as: K Phosphate.) 1 mMol phoshate has 1.47 mEq potassium Infuse over 4 hours Start Date: 05/23/17 Stop Date: 05/27/17 Status: Discontinuedpotassium phosphate-sodium phosphate 250 mg-280 mg-160 mg oral powder for reconstitution 2 pkt, Route: PO, Drug Form: PDR/REC, Dosing Weight 55.909, kg, PRN, PRN Abnormal Lab Result, For NON-ICU Patients Only, Start date: 05/23/17 9:32:00 CDT , Duration: 30 day, Stop date: 06/22/17 9:31:00 CDT Notes: (Same as: Phos-NaK) Each 1.5 gm pkt has 250mg phosphorous. Mix w/2.5oz water and stir. Start Date: 05/23/17 Stop Date: 05/27/17 Status: Discontinuedsodium chloride 0.9% 1000 ml INJ 1,000 mL 1,000 mL, Rate: 75 ml/hr, Infuse over: 13.3 hr, Route: IV, Dosing Weight 55.909 kg, Total Volume: 1,000, Start date: 05/24/17 8:04:00 CDT, Duration: 30 day, Stop date: 06/23/17 8:03:00 CDT Start Date: 05/24/17 Stop Date: 05/25/17 Status: Discontinuedsodium phosphate + D5W 250 mL 15 mmol, 5 mL, Route: IVPB, PRN, Dosing Weight 55.909, kg, PRN Abnormal Lab Result, For NON-ICU Patients Only., Start date: 05/23/17 9:32:00 CDT, Duration: 30 day, Stop date: 06/22/17 9:31:00 CDT Start Date: 05/23/17 Stop Date: 05/27/17 Status: Discontinuedsodium phosphate + D5W 250 mL 30 mmol, 10 mL, Route: IVPB, PRN, Dosing Weight 55.909, kg, PRN Abnormal Lab Result, For NON-ICU Patients Only., Start date: 05/23/17 9:32:00 CDT, Duration: 30 day, Stop date: 06/22/17 9:31:00 CDT Start Date: 05/23/17 Stop Date: 05/27/17 Status: Discontinuedtramadol 50 mg oral tablet 50 mg=1 tab, PO, Q6H, PRN Pain, X 10 day, # 40 tab, 0 Refill(s) Start Date: 05/26/17 Stop Date: 06/05/17 Status: Orderedtrazodone 100 mg oral tablet 100 mg=1 tab, PO, Bedtime, 0 Refill(s) Start Date: 05/18/17 Status: Orderedtrazodone 100 mg oral tablet 100 mg, 2 tab, Route: PO, Drug form: TAB, Bedtime, Dosing Weight 55.909, kg, Start date: 05/19/17 21:00:00 CDT, Duration: 30 day, Stop date: 06/17/17 21:00: 00 CDT Notes: (Same As: Rimma) Start Date: 05/19/17 Stop Date: 05/27/17 Status: DiscontinuedTylenol with Codeine #3 oral tablet 1 tab, PO, Q4H, PRN Pain, X 7 day, # 42 tab, 0 Refill(s) Start Date: 05/26/17 Stop Date: 06/02/17 Status: OrderedUnasyn + sodium chloride 0.9% INJ 100 mL 3 gm, 1 ea, Route: IVPB, ABXQ6H, Dosing Weight 55.455, kg, Start date: 05/18/17 17:00:00 CDT, Duration: 30 day, Stop date: 06/17/17 9:00:00 CDT Notes: Dosing based on Ampicillin component (Same as: Unasyn) Start Date: 05/18/17 Stop Date: 05/27/17 Status: DiscontinuedUnasyn + sodium chloride 0.9% INJ 100 mL 3 gm, 1 ea, Route: IVPB, ONCE, Dosing Weight 55.455, kg, Priority: STAT, Start date: 05/18/17 15:12:00 CDT, Stop date: 05/18/17 15:12:00 CDT Notes: Dosing based on Ampicillin component (Same as: Unasyn) Start Date: 05/18/17 Stop Date: 05/18/17 Status: Completedvancomycin + sodium chloride 0.9% INJ 250 mL 1 gm, Route: IVPB, ONCE, kg, Priority: STAT, Start date: 05/18/17 13:43:00 CDT, Stop date: 05/18/17 13:43:00 CDT, ABX Indication: Other (specify in Comments) Notes: TIME CRITICAL MEDICATION(Same As: Vancocin)Infusion rate< 1000 mg: infuse over 1 [id number] - 1500 mg: infuse over 1.5 [id number] - 2000 mg: infuse over 2 hours> 2001 mg: infuse over 2.5 hours MEDICATION WASTE Product Size: 1000 mgProduct Wasted: ___ mg Start Date: 05/18/17 Stop Date: 05/18/17 Status: Completed Results ELECTROLYTES Most recent to oldest 1 2 3 [Reference Range]: Sodium Lvl [135-145 mEq/L] 139 mEq/L 140 mEq/L 155 mEq/L (05/26/17 4:48 AM) (05/25/17 10:09 AM) *HI* (05/25/17 7:31 AM) Potassium Lvl [3.5-5.1 3.7 mEq/L 3.1 mEq/L 3.3 mEq/L mEq/L] (05/26/17 12:29 PM) *LOW* *LOW* (05/26/17 4:48 AM) (05/25/17 10:09 AM) Chloride Lvl [95-109 mEq/L] 102 mEq/L 103 mEq/L 112 mEq/L (05/26/17 4:48 AM) (05/25/17 10:09 AM) *HI* (05/25/17 7:31 AM) CO2 [24-32 mEq/L] 31 mEq/L 29 mEq/L 25 mEq/L (05/26/17 4:48 AM) (05/25/17 10:09 AM) (05/25/17 7:31 AM) AGAP [10.0-20.0 mEq/L] 9.1 mEq/L 11.3 mEq/L 20.4 mEq/L *LOW* (05/25/17 10:09 AM) *HI* (05/26/17 4:48 AM) (05/25/17 7:31 AM) CHEM PANEL Most recent to oldest 1 2 3 [Reference Range]: Creatinine Lvl [0.50-1.40 0.59 mg/dL 0.64 mg/dL 0.55 mg/dL mg/dL] (05/26/17 4:48 AM) (05/25/17 10:09 AM) (05/25/17 7:31 AM) eGFR 87 mL/min/1.73m2 1 85 mL/min/1.73m2 2 90 mL/min/1.73m2 3 *NA* *NA* *NA* (05/26/17 4:48 AM) (05/25/17 10:09 AM) (05/25/17 7:31 AM) BUN [7-22 mg/dL] 11 mg/dL 11 mg/dL 10 mg/dL (05/26/17 4:48 AM) (05/25/17 10:09 AM) (05/25/17 7:31 AM) B/C Ratio [6-25] 15 (05/18/17 3:19 PM) Glucose Lvl [70-99 mg/dL] 89 mg/dL 83 mg/dL 69 mg/dL (05/26/17 4:48 AM) (05/25/17 10:09 AM) *LOW* (05/25/17 7:31 AM) Total Protein [6.4-8.4 g/dL] 7.1 g/dL (05/18/17 3:19 PM) Albumin Lvl [3.5-5.0 g/dL] 3.1 g/dL *LOW* (05/18/17 3:19 PM) Globulin [2.7-4.2 g/dL] 4.0 g/dL (05/18/17 3:19 PM) A/G Ratio [0.7-1.6] 0.8 (05/18/17 3:19 PM) Calcium Lvl [8.5-10.5 mg/dL] 8.7 mg/dL 8.0 mg/dL 6.4 mg/dL (05/26/17 4:48 AM) *LOW* *CRIT* (05/25/17 10:09 AM) (05/25/17 7:31 AM) ALT [0-65 unit/L] 17 unit/L (05/18/17 3:19 PM) AST [0-37 unit/L] 30 unit/L (05/18/17 3:19 PM) Alk Phos [39-136 unit/L] 63 unit/L (05/18/17 3:19 PM) Bili Total [0.2-1.3 mg/dL] 0.6 mg/dL (05/18/17 3:19 PM) Lactic Acid Lvl [0.5-2.2 0.8 mMol/L mMol/L] (05/18/17 3:19 PM) 1Result Comment: The eGFR is calculated using the CKD-EPI formula. In most young , healthy individualsthe eGFR will be >90 mL/min/1.73m2. The eGFR declines with age. An eGFR of 60-89 may be normal in some populations, particularly the elderly, for whom the CKD-EPI formula has not been extensively validated. Use of the eGFR is not recommended in the following populations: Individuals with unstable creatinine concentrations, including patients and those with serious co-morbid conditions. Patients with extremes in muscle mass or diet. The data above are obtained from the National Kidney Disease Education Program ( NK[employer]) which additionally recommends that when the eGFR is used in patients with extremes of body mass index for purposesof drug dosing, the eGFR should be multiplied by the estimated BMI.2Result Comment: The eGFR is calculated using the CKD-EPI formula. In most young, healthy individualsthe eGFR will be >90 mL/ min/1.73m2. The eGFR declines with age. An eGFR of 60-89 may be normal in some populations, particularly the elderly, for whom the CKD-EPI formula has not been extensively validated. Use of the eGFR is not recommended in the following populations: Individuals with unstable creatinine concentrations, including patients and those with serious co-morbid conditions. Patients with extremes in muscle mass or diet. The data above are obtained from the National Kid[employer] Disease Education Program ( NKDEP) which additionally recommends that when the eGFR is used in patients with extremes of body mass index for purposesof drug dosing, the eGFR should be multiplied by the estimated BMI.3Result Comment: The eGFR is calculated using the CKD-EPI formula. In most young, healthy individualsthe eGFR will be >90 mL/ min/1.73m2. The eGFR declines with age. An eGFR of 60-89 may be normal in some populations, particularly the elderly, for whom the CKD-EPI formula has not been extensively validated. Use of the eGFR is not recommended in the following populations: Individuals with unstable creatinine concentrations, including patients and those with serious co-morbid conditions. Patients with extremes in muscle mass or diet. The data above are obtained from the National Kidney Disease Education Program ( NKDEP) which additionally recommends that when the eGFR is used in patients with extremes of body mass index for purposesof drug dosing, the eGFR should be multiplied by the estimated BMI.CARDIAC ENZYMES Most recent to oldest [Reference Range]: 1 2 3 Troponin-I [0.00-0.40 ng/mL] 0.20 ng/mL (05/18/17 3:19 PM) ANEMIA STUDY Most recent to oldest [Reference Range]: 1 2 3 Vitamin B12 Lvl [254-1320 pg/mL] 1022 pg/mL (05/24/17 8:15 AM) Folate Lvl [>=3.0 ng/mL] 54.1 ng/mL (05/24/17 8:15 AM) URINE AND STOOL Most recent to oldest [Reference Range]: 1 2 3 UA Turbidity [Clear] Clear (05/18/17 3:37 PM) UA Color Ltyellow *NA* (05/18/17 3:37 PM) UA pH [5.0-8.0] 7.0 (05/18/17 3:37 PM) UA Spec Grav [<=1.030] 1.009 (05/18/17 3:37 PM) UA Glucose [Negative mg/dL] Negative mg/dL *NA* (05/18/17 3:37 PM) UA Blood [Negative] Negative (05/18/17 3:37 PM) UA Ketones [Negative mg/dL] Negative mg/dL *NA* (05/18/17 3:37 PM) UA Protein [Negative mg/dL] Negative mg/dL (05/18/17 3:37 PM) UA Urobilinogen [0.1-1.0 mg/dL] <=1.0 mg/dL *NA* (05/18/17 3:37 PM) UA Bili [Negative] Negative *NA* (05/18/17 3:37 PM) UA Leuk Est [Negative] Negative (05/18/17 3:37 PM) UA Nitrite [Negative] Negative (05/18/17 3:37 PM) UA WBC [0-5 /HPF] <1 /HPF (05/18/17 3:37 PM) UA RBC [0-2 /HPF] 1 /HPF (05/18/17 3:37 PM) UA Bacteria [None Seen /HPF] Occasional /HPF *NA* (05/18/17 3:37 PM) UA Sq Epi [Few /LPF] Few /LPF *NA* (05/18/17 3:37 PM) UA [place] Yeast [None Seen /HPF] Occasional /HPF *ABN* (05/18/17 3:37 PM) UA Trans Epi [<=0 /LPF] 1 /LPF *HI* (05/18/17 3:37 PM) HEMATOLOGY Most recent to oldest 1 2 3 [Reference Range]: WBC [3.7-10.4 K/CMM] 6.6 K/CMM 5.7 K/CMM 7.2 K/CMM (05/26/17 4:48 AM) (05/25/17 7:31 AM) (05/24/17 6:45 AM) RBC [4.20-5.40 M/CMM] 3.13 M/CMM 2.76 M/CMM 3.36 M/CMM *LOW* *LOW* *LOW* (05/26/17 4:48 AM) (05/25/17 7:31 AM) (05/24/17 6:45 AM) Hgb [12.0-16.0 g/dL] 9.8 g/dL 8.4 g/dL 10.4 g/dL *LOW* *LOW* *LOW* (05/26/17 4:48 AM) (05/25/17 7:31 AM) (05/24/17 6:45 AM) Hct [36.0-48.0 %] 28.2 % 25.0 % 30.2 % *LOW* *LOW* *LOW* (05/26/17 4:48 AM) (05/25/17 7:31 AM) (05/24/17 6:45 AM) MCV [80.0-98.0 fL] 90.0 fL 90.5 fL 89.7 fL (05/26/17 4:48 AM) (05/25/17 7:31 AM) (05/24/17 6:45 AM) MCH [27.0-31.0 pg] 31.5 pg 30.4 pg 31.0 pg *HI* (05/25/17 7:31 AM) (05/24/17 6:45 AM) (05/26/17 4:48 AM) MCHC [32.0-36.0 g/dL] 35.0 g/dL 33.6 g/dL 34.5 g/dL (05/26/17 4:48 AM) (05/25/17 7:31 AM) (05/24/17 6:45 AM) RDW [11.5-14.5 %] 12.8 % 13.2 % 13.4 % (05/26/17 4:48 AM) (05/25/17 7:31 AM) (05/24/17 6:45 AM) Platelet [133-450 K/CMM] 274 K/CMM 212 K/CMM 232 K/CMM (05/26/17 4:48 AM) (05/25/17 7:31 AM) (05/24/17 6:45 AM) MPV [7.4-10.4 fL] 8.1 fL 8.1 fL 7.6 fL (05/26/17 4:48 AM) (05/25/17 7:31 AM) (05/24/17 6:45 AM) Segs [45.0-75.0 %] 47.9 % 55.4 % 61.5 % (05/26/17 4:48 AM) (05/25/17 7:31 AM) (05/24/17 6:45 AM) Lymphocytes [20.0-40.0 %] 31.3 % 26.0 % 22.1 % (05/26/17 4:48 AM) (05/25/17 7:31 AM) (05/24/17 6:45 AM) Monocytes [2.0-12.0 %] 14.8 % 14.4 % 12.6 % *HI* *HI* *HI* (05/26/17 4:48 AM) (05/25/17 7:31 AM) (05/24/17 6:45 AM) Eosinophils [0.0-4.0 %] 5.2 % 3.7 % 3.3 % *HI* (05/25/17 7:31 AM) (05/24/17 6:45 AM) (05/26/17 4:48 AM) Basophils [0.0-1.0 %] 0.8 % 0.5 % 0.5 % (05/26/17 4:48 AM) (05/25/17 7:31 AM) (05/24/17 6:45 AM) Segs-Bands # [1.5-8.1 K/CMM] 3.1 K/CMM 3.2 K/CMM 4.4 K/CMM (05/26/17 4:48 AM) (05/25/17 7:31 AM) (05/24/17 6:45 AM) Lymphocytes # [1.0-5.5 K/CMM] 2.1 K/CMM 1.5 K/CMM 1.6 K/CMM (05/26/17 4:48 AM) (05/25/17 7:31 AM) (05/24/17 6:45 AM) Monocytes # [0.0-0.8 K/CMM] 1.0 K/CMM 0.8 K/CMM 0.9 K/CMM *HI* (05/25/17 7:31 AM) *HI* (05/26/17 4:48 AM) (05/24/17 6:45 AM) Eosinophils # [0.0-0.5 K/CMM] 0.3 K/CMM 0.2 K/CMM 0.2 K/CMM (05/26/17 4:48 AM) (05/25/17 7:31 AM) (05/24/17 6:45 AM) Basophils # [0.0-0.2 K/CMM] 0.1 K/CMM (05/26/17 4:48 AM) PT [12.0-14.7 seconds] 13.3 seconds (05/18/17 3:20 PM) INR [0.85-1.17] 0.99 (05/18/17 3:20 PM) PTT [22.9-35.8 seconds] 28.0 seconds (05/18/17 3:20 PM) Immunizations Given and Recorded Vaccine Date Status Refusal Reason pneumococcal 13-valent vaccine 05/27/17 Given Procedures No data available for this section Social History Social History Type Response Smoking Status Former smoker; Exposure to Tobacco Smoke None; Cigarette Smoking Last 365 Days No; Reg Smoking Cessation Counseling No Assessment and Plan Extracted from: Title: DC Summary Author: Marine Smith MD Date: 05/26/17 Discharge Summary Name: Rex Viveros Record Number: [id number] Diagnoses: Animal bite, cellulitis, deep wound infection Procedures: Incision and debridement Chief Complaint -pain secondary to animal bite Hospital course: Patient is a 77-year-old female who presents after dog bite to right hand. Patient initially presented to outside clinic where stitches were placed however the affected hand was training pulse with wor sening erythema patient presented to emergency department for further evaluation. Patient admitted for empiric therapy, started on broad-spectrum antibiotics. Plastic surgery was called for evaluation . Patient was evaluated by plastic surgery, bedside I&D, patient with no signs of nerve or tendon damage at that time. Plastic surgery recommending 7 days of IV antibiotics and follow-up as an out patient. It was attempted to transfer patient to [facility] however due to funding that was not successful. Patient completed 7 days of antibiotic therapy 2016. Patient was discharged home to follow-up with plastic surgery in 1 day. Patient and family understand importance and will follow up. No complications during hospital stay. Discharge condition: Stable Recent signficant physical findings: General: No acute distress, Alert. Eye: Extraocular movements are intact, Normal conjunctiva, Poor dentition. HENT: Normocephalic, Hard of hearing. Respiratory: Lungs are clear to auscultation, Respirations are non-labored. Cardiovascular: Normal rate, Regular rhythm, Good pulses equal in all extremities, No edema. Gastrointestinal: Soft, Normal bowel sounds. Integumentary: Right upper extremity with stitches present, bandaged, tender to touch. First digit edematous. Neurologic: Alert, Normal sensory, No focal deficits, Cranial Nerves II-XII are grossly intact. Psychiatric: Cooperative, Appropriate mood & affect. Discharge therapy: Medications printed and given the patient Diet -regular diet Activity as tolerated Follow up with plastic surgery, Santos Ashton MD, as soon as possible , likely tomorrow. Marine Smith MD Extracted from: Title: Progress Note * Author: Marine Smith MD Date: 05/25/17 Impression and Plan --Right hand wound with infection, traumatic, secondary to dog bite -WBC within normal limits, patient remains afebrile -We will continue empiric antibiotic therapy with IV Zosyn day 6/7 -Supportive care and pain management --Congestive heart failure, likely ischemic. Systolic, compensated -We will continue current management with Lasix, beta-sanjay (holding) -We will continue aspirin and statin --Hyperlipidemia, history of TIA, continue statin ASA --Bilateral foot pain, unknown etiology -Likely to be secondary to dog bite or infection -Neuropathy workup with B12 and folate negative, will continue to monitor --Hypertension, benign essential -Controlled, holding hypertensive secondary to low blood pressure --Dementia -We will continue supportive care, delirium precautions --Anemia, likely multifactorial -Hemoglobin 8.4, no evidence of blood loss. Unsure if this is curious, as patient had many spurious results this a.m. -We will repeat CBC in a.m. , if still low will need to investigate cause -no need for intervention at this time Code: FULL Diet: Heart healthy diet Ppx: SCDTEDS Dispo: Will likely discharge tomorrow to follow up with Plastic Surgery as an outpatient. Patient seen by Marine Smith MD Internal Medicine Hospitalist Extracted from: Title: History and Physical Author: Porfirio Stevens DO Date: 05/18/17 Assessment/Plan 1.Infection in right hand s/p stitch placements Ordered: Admit/Condition, 05/18/17 16:42:00 CDT, Status: Inpatient, Telemetry, Expected LOS: 3 or [facility], Porfirio Stevens DO, Admit MD Review/Approve Yes 2.Dementia supportive care, resume home meds 3.CHF (congestive heart failure) unknown EF, no exacerbations per daughter recently 4.HLD (hyperlipidemia) resume home meds once meds verified 5.HTN (hypertension) resume home meds as BP tolerates 6.TIA (transient ischemic attack) per history, appears confused at this time Prophylaxis amb Disposition pending hand/plastic surg evaluation
[2018-11-20 03:29] LABS: Absolute Lymphocytes (CBC) 0.9 K/uL (0.7-4.9); Absolute Monocytes 0.7 K/uL (0.1-1.3); Absolute Neutrophil 8.4 K/uL (1.8-8.0); Basophils % 0.4 % (0-1.3); Eosinophils % 1.4 % (0-4.4); Hematocrit 38.6 % (36.0-45.0); Lymphocytes % 9.1 % (15.3-44.8); MPV 8.4 fL (7.6-11.3); Monocytes % 6.8 % (3.3-12.3); RBC Red Blood Cell Count 4.17 M/uL (3.86-4.86)
[2018-11-20 03:36] LABS: Protime INR 0.9
[2018-11-20 03:49] LABS: ALT/SGPT 127 U/L (12-78); AST/SGOT 265 U/L (15-37); Albumin 3.5 g/dL (3.4-5.0); Alkaline Phosphatase 158 U/L (45-117); BUN Blood Urea Nitrogen 21 mg/dL (7-18); Bicarbonate 32 mmol/L (21-32); Bilirubin Direct 0.3 mg/dL (0-0.2); Bilirubin Total 0.5 mg/dL (0.2-1.0); Glucose Level 95 mg/dL (74-106); Magnesium 2.3 mg/dL (1.8-2.4); NT PRO-BNP 233 pg/mL (<450); Sodium Level 139 mmol/L (136-145); Troponin (Emerg Dept Use Only) < 0.02 ng/mL (0.0-0.045)
--- NOTE | 2018-11-20 05:12 | ER ---
Nurse's Notes [facility] Name: Dianna Marcano Age: 78 yrs Sex: Female : 1940 Arrival Date: 11/20/2018 Time: 02:10 Bed 16 Private MD: Diagnosis: Chest pain. Elevated liver functions Presentation: 11/20 01:45 Presenting complaint: EMS states: chest pain radiating to back 30 minutes prior to cc3 consult. Transition of care: patient was not received from another setting of care. Onset of symptoms was November 20, 2018. Risk Assessment: Do you want to hurt yourself or someone else? Patient reports no desire to harm self or others. Initial Sepsis Screen: Does the patient meet any 2 criteria? No. Patient's initial sepsis screen is negative. Does the patient have a suspected source of infection? No. Patient's initial sepsis screen is negative. Care prior to arrival: Medication(s) given: Aspirin 324 mg oral given by EMS. 01:45 Method Of Arrival: EMS: [facility] cc3 01:45 Acuity: SHERLYN 3 cc3 Triage Assessment: 01:45 General: Appears in no apparent distress. comfortable, Behavior is calm, cooperative, cc3 appropriate for age. Pain: Complains of pain in chest Pain radiates to back Pain currently is 2 out of 10 on a pain scale. Historical: - Allergies: 01:45 Iodine; cc3 01:45 Sulfa (Sulfonamide Antibiotics); cc3 01:45 Versed; cc3 - Home Meds: 01:45 amitriptyline 10 mg Oral tab daily [Active]; fentanyl 50 mcg/hr Topical pt72 1 patch cc3 every 72 hours [Active]; folic acid 1 mg Oral tab once daily [Active]; furosemide 40 mg Oral tab 1 tab 2 times per day [Active]; hydrocodone-acetaminophen 10-325 mg Oral tab 1 tab twice a day [Active]; levothyroxine 50 mcg tab 1 tab once daily [Active]; lovastatin 40 mg Oral tab 1 tab 2 times per day [Active]; metoprolol tartrate 50 mg Oral tab 1 tab 2 times per day [Active]; Nitrostat 0.4 mg SL subl 1 tab every 5 minutes [Active]; potassium chloride 20 mEq Oral TbER 1 tab once daily [Active]; trazadone nightly [Active]; Xanax 1 mg Oral tab 1 tab BID [Active]; - PMHx: 01:45 Anxiety; CHF; chronic back pain; Dementia; Hypertension; Hypothyroidism; cc3 - PSHx: 01:45 Appendectomy; Tonsillectomy; Hysterectomy; cc3 - Immunization history:: Adult Immunizations not up to date. - Social history:: Smoking status: Patient uses tobacco products, denies chronic smoking, but will smoke occasionally. - Ebola Screening: : No symptoms or risks identified at this time. Screenin:45 Abuse screen: Denies threats or abuse. Denies injuries from another. Nutritional cc3 screening: No deficits noted. Tuberculosis screening: No symptoms or risk factors identified. Fall Risk Ambulatory Aid- None/Bed Rest/Nurse Assist (0 pts). Gait- Normal/Bed Rest/Wheelchair (0 pts) Mental Status- Oriented to own ability (0 pts). Assessment: 02:20 Reassessment: Patient appears in no apparent distress at this time. Patient and/or cc3 family updated on plan of care and expected duration. Pain level reassessed. Patient is alert, oriented x 3, equal unlabored respirations, skin warm/dry/pink. 03:12 Reassessment: Patient appears in no apparent distress at this time. Patient and/or cc3 family updated on plan of care and expected duration. Pain level reassessed. Patient is alert, oriented x 3, equal unlabored respirations, skin warm/dry/pink. 04:18 Reassessment: Patient appears in no apparent distress at this time. Patient and/or cc3 family updated on plan of care and expected duration. Pain level reassessed. Patient is alert, oriented x 3, equal unlabored respirations, skin warm/dry/pink. 05:28 Reassessment: Patient and/or family updated on plan of care and expected duration. Pain ea level reassessed. Patient is alert, oriented x 3, equal unlabored respirations, skin warm/dry/pink. Pt ambulated to restroom tolerated well. Patient denies pain at this time. Patient states feeling better. 06:30 Reassessment: Patient appears in no apparent distress at this time. Patient and/or cc3 family updated on plan of care and expected duration. Pain level reassessed. Patient is alert, oriented x 3, equal unlabored respirations, skin warm/dry/pink. Patient for admission, room available at 405. Charge nurse Jackeline said to transfer patient after shift change, informed staff Padmini Castro from telemetry unit. 06:50 Reassessment: Dr. Baca at bedside assessing the patient. cc3 Vital Signs: 01:45 BP 133 / 53; Pulse 72; Resp 18 S; Temp 98.2(O); Pulse Ox 98% on R/A; Weight 51.26 kg cc3 (R); Height 5 ft. 7 in. (170.18 cm) (R); Pain 2/10; 02:30 BP 122 / 53; Pulse 65; Resp 19 S; Pulse Ox 97% on R/A; cc3 03:45 BP 154 / 64; Pulse 70; Resp 20 S; Pulse Ox 100% on R/A; cc3 04:45 BP 151 / 72; Pulse 83; Resp 18 S; Pulse Ox 100% on R/A; cc3 05:15 BP 96 / 78; Pulse 73; Resp 18; Pulse Ox 100% ; ea 06:12 BP 157 / 64; Pulse 80; Resp 19 S; Pulse Ox 99% on R/A; cc3 01:45 Body Mass Index 17.70 (51.26 kg, 170.18 cm) cc3 ED Course: 01:45 Arm band placed on right wrist. cc3 01:45 Patient has correct armband on for positive identification. Bed in low position. Call cc3 light in reach. Side rails up X 1. monitoring coordinator on. Pulse ox on. NIBP on. 02:10 Patient arrived in ED. em1 02:16 Liz Laurent is Primary Nurse. cc3 02:22 Triage completed. cc3 02:39 Taj Salinas MD is Attending Physician. pkl 02:56 X-ray completed. Portable x-ray completed in exam room. Patient tolerated procedure sg4 well. 02:58 XRAY Chest (1 view) In Process Unspecified. EDMS 03:12 Inserted saline lock: 22 gauge in left antecubital area, using aseptic technique. Blood gm collected. 03:13 Initial lab(s) drawn, by me, sent to lab. gm 03:40 Notified ED physician of a critical lab result(s). d dimer 720. fc 05:10 Emmy Baca MD is Hospitalizing Provider. pkl 07:00 Report given to JOSE ALBERTO Wall. cc3 07:45 Mae Pena, RN is Primary Nurse. jl7 07:50 No provider procedures requiring assistance completed. Patient admitted, IV remains in jl7 place. intact, No redness/swelling at site. Administered Medications: 07:05 Drug: Albuterol 2.5 mg Route: Inhalation; cc3 07:47 Follow up: Response: No adverse reaction jl7 Outcome: 05:11 Decision to Hospitalize by Provider. pk 07:50 Admitted to Tele accompanied by tech, via wheelchair, room 405, with chart, Report jl7 called to JOSE ALBERTO Guerra 07:50 Condition: stable 07:50 Discharge instructions given to patient, Instructed on the need for admit, Demonstrated understanding of instructions. 07:51 Patient left the ED. 7 Signatures: Dispatcher [employer] EDMS Taj Salinas MD MD pkJackeline Yousif RN Sylvester Gomes em1 Mae Pena RN RN jl7 Mindy Ervin RN Liz Topete ea cc3 Jody Ware 4 Sofya Srivastava gm Corrections: (The following items were deleted from the chart) 03:50 03:45 BP 154 / 64; cc3 cc3
--- NOTE | 2018-11-20 05:12 | EDPHYS ---
Physician Documentation [facility] Name: Dianna Marcano Age: 78 yrs Sex: Female : 1940 Arrival Date: 11/20/2018 Time: 02:10 Bed 16 Private MD: ED Physician Taj Salinas HPI: 11/20 02:45 This 78 yrs old Female presents to ER via EMS with complaints of Chest Pain. pkl 02:45 The patient or guardian reports chest pain that is located primarily in the substernal pkl area. Onset: just prior to arrival, 1 hour(s) ago. The pain radiates to back. Associated signs and symptoms: The patient has no apparent associated signs or symptoms. The chest pain is described as dull. The patient has experienced similar episodes in the past, a few times. Historical: - Allergies: 01:45 Iodine; cc3 01:45 Sulfa (Sulfonamide Antibiotics); cc3 01:45 Versed; cc3 - Home Meds: 01:45 amitriptyline 10 mg Oral tab daily [Active]; fentanyl 50 mcg/hr Topical pt72 1 patch cc3 every 72 hours [Active]; folic acid 1 mg Oral tab once daily [Active]; furosemide 40 mg Oral tab 1 tab 2 times per day [Active]; hydrocodone-acetaminophen 10-325 mg Oral tab 1 tab twice a day [Active]; levothyroxine 50 mcg tab 1 tab once daily [Active]; lovastatin 40 mg Oral tab 1 tab 2 times per day [Active]; metoprolol tartrate 50 mg Oral tab 1 tab 2 times per day [Active]; Nitrostat 0.4 mg SL subl 1 tab every 5 minutes [Active]; potassium chloride 20 mEq Oral TbER 1 tab once daily [Active]; trazadone nightly [Active]; Xanax 1 mg Oral tab 1 tab BID [Active]; - PMHx: 01:45 Anxiety; CHF; chronic back pain; Dementia; Hypertension; Hypothyroidism; cc3 - PSHx: 01:45 Appendectomy; Tonsillectomy; Hysterectomy; cc3 - Immunization history:: Adult Immunizations not up to date. - Social history:: Smoking status: Patient uses tobacco products, denies chronic smoking, but will smoke occasionally. - Ebola Screening: : No symptoms or risks identified at this time. ROS: 02:45 Eyes: Negative for injury, pain, redness, and discharge, ENT: Negative for injury, pkl pain, and discharge, Neck: Negative for injury, pain, and swelling. 02:45 Cardiovascular: Positive for chest pain. 02:45 Respiratory: Negative for cough, shortness of breath. 02:45 Abdomen/GI: Negative for abdominal pain, nausea, vomiting, and diarrhea. 02:45 Back: Negative for acute changes. 02:45 : Negative for urinary symptoms. 02:45 MS/extremity: Negative for acute changes. 02:45 Skin: Negative for rash. 02:45 Neuro: Negative for altered mental status. Exam: 02:45 Head/Face: Normocephalic, atraumatic. Eyes: Pupils equal round and reactive to light, pkl extra-ocular motions intact. Lids and lashes normal. Conjunctiva and sclera are non-icteric and not injected. Cornea within normal limits. Periorbital areas with no swelling, redness, or edema. ENT: Nares patent. No nasal discharge, no septal abnormalities noted. Tympanic membranes are normal and external auditory canals are clear. Oropharynx with no redness, swelling, or masses, exudates, or evidence of obstruction, uvula midline. Mucous membranes moist. Neck: Trachea midline, no thyromegaly or masses palpated, and no cervical lymphadenopathy. Supple, full range of motion without nuchal rigidity, or vertebral point tenderness. No Meningismus. Chest/axilla: Normal chest wall appearance and motion. Nontender with no deformity. No lesions are appreciated. Cardiovascular: Regular rate and rhythm with a normal S1 and S2. No gallops, murmurs, or rubs. Normal PMI, no JVD. No pulse deficits. Respiratory: Lungs have equal breath sounds bilaterally, clear to auscultation and percussion. No rales, rhonchi or wheezes noted. No increased work of breathing, no retractions or nasal flaring. Abdomen/GI: Soft, non-tender, with normal bowel sounds. No distension or tympany. No guarding or rebound. No evidence of tenderness throughout. Back: No spinal tenderness. No costovertebral tenderness. Full range of motion. Skin: Warm, dry with normal turgor. Normal color with no rashes, no lesions, and no evidence of cellulitis. MS/ Extremity: Pulses equal, no cyanosis. Neurovascular intact. Full, normal range of motion. Neuro: Awake and alert, GCS 15, oriented to person, place, time, and situation. Cranial nerves II-XII grossly intact. Motor strength 5/5 in all extremities. Sensory grossly intact. Cerebellar exam normal. Normal gait. Vital Signs: 01:45 BP 133 / 53; Pulse 72; Resp 18 S; Temp 98.2(O); Pulse Ox 98% on R/A; Weight 51.26 kg cc3 (R); Height 5 ft. 7 in. (170.18 cm) (R); Pain 2/; 02:30 BP 122 / 53; Pulse 65; Resp 19 S; Pulse Ox 97% on R/A; cc3 03:45 BP 154 / 64; Pulse 70; Resp 20 S; Pulse Ox 100% on R/A; cc3 04:45 BP 151 / 72; Pulse 83; Resp 18 S; Pulse Ox 100% on R/A; cc3 05:15 BP 96 / 78; Pulse 73; Resp 18; Pulse Ox 100% ; ea 06:12 BP 157 / 64; Pulse 80; Resp 19 S; Pulse Ox 99% on R/A; cc3 01:45 Body Mass Index 17.70 (51.26 kg, 170.18 cm) cc3 MDM: 02:39 Patient medically screened. pkl 05:10 Data reviewed: vital signs, nurses notes, lab test result(s), EKG, radiologic studies, pkl plain films. 11/20 02:44 Order name: Basic Metabolic Panel; Complete Time: 03:53 pkl 11/20 02:44 Order name: CBC with Diff; Complete Time: 03:40 pkl 11/20 02:44 Order name: LFT's; Complete Time: 03:53 pkl 11/20 02:44 Order name: Magnesium; Complete Time: 03:53 pkl 11/20 02:44 Order name: NT PRO-BNP; Complete Time: 03:53 pkl 11/20 02:44 Order name: PT-INR; Complete Time: 03:41 pkl 11/20 02:44 Order name: Troponin (emerg Dept Use Only); Complete Time: 03:53 pkl 11/20 02:44 Order name: D-Dimer; Complete Time: 03:41 pkl 11/20 05:53 Order name: Urinalysis EDMS 11/20 05:53 Order name: CBC with Automated Diff EDMS 11/20 05:53 Order name: CBC with Automated Diff EDMS 11/20 05:53 Order name: Comprehensive Metabolic Panel EDMS 11/20 05:53 Order name: Comprehensive Metabolic Panel EDMS 11/20 05:53 Order name: Magnesium EDMS 11/20 02:44 Order name: XRAY Chest (1 view) pkl 11/20 02:44 Order name: EKG; Complete Time: 02:44 pkl 11/20 05:53 Order name: CONS Physician Consult EDMS 11/20 05:53 Order name: Magnesium EDMS 11/20 05:53 Order name: Phosphorus EDMS 11/20 05:53 Order name: Phosphorus EDMS 11/20 05:53 Order name: Protime (+INR) EDMS 11/20 05:53 Order name: Protime (+INR) EDMS 11/20 05:53 Order name: PTT, Activated Partial Thromb EDMS 11/20 05:53 Order name: PTT, Activated Partial Thromb EDMS 11/20 05:53 Order name: Troponin I EDMS 11/20 05:53 Order name: Troponin I EDMS 11/20 05:53 Order name: Troponin I EDMS 11/20 02:44 Order name: Cardiac monitoring; Complete Time: 03:48 pkl 11/20 02:44 Order name: EKG - Nurse/Tech; Complete Time: 03:48 pkl 11/20 02:44 Order name: IV Saline Lock; Complete Time: 03:48 pkl 11/20 02:44 Order name: Labs collected and sent; Complete Time: 03:48 pkl 11/20 02:44 Order name: O2 Per Protocol; Complete Time: 03:48 pkl 11/20 02:44 Order name: O2 Sat Monitoring; Complete Time: 03:48 pkl 11/20 05:53 Order name: Heart Healthy EDMS 11/20 05:53 Order name: EKG Electrocardiogram EDMS 11/20 05:53 Order name: EKG Electrocardiogram EDMS Administered Medications: 07:05 Drug: Albuterol 2.5 mg Route: Inhalation; cc3 07:47 Follow up: Response: No adverse reaction jl7 Disposition: 11/20/18 05:11 Hospitalization ordered by Emmy Baca for Observation. Preliminary diagnosis is Chest pain. Elevated liver functions. - Bed requested for Telemetry/MedSurg (observation). - Status is Observation. jl7 - Condition is Stable. - Problem is new. - Symptoms are unchanged. UTI on Admission? No Signatures: Dispatcher [employer] EDTaj Skinner MD MD pkl Ruthie Ware, RN RN cg Mae Pena RN RN jl7 Liz Laurent cc3 Corrections: (The following items were deleted from the chart) 04:39 03:56 Abdomen Pelvis W Con+CT.RAD.BRZ ordered. EDKS EDMS 04:40 03:56 Chest For PE Angio+CT.RAD.BRZ ordered. [facility] EDKS 06:02 05:11 Hospitalization Ordered by Emmy Baca MD for Observation. Preliminary cg diagnosis is Chest pain. Elevated liver functions. Bed requested for Telemetry/MedSurg (observation). Status is Observation. Condition is Stable. Problem is new. Symptoms are unchanged. UTI on Admission? No. pkl 07:51 06:02 11/20/2018 05:11 Hospitalization Ordered by Emmy Baca MD for Observation. jl7 Preliminary diagnosis is Chest pain. Elevated liver functions. Bed requested for Telemetry/MedSurg (observation). Status is Observation. Condition is Stable. Problem is new. Symptoms are unchanged. UTI on Admission? No. cg
[2018-11-20] MEDS ORDERED: ONDANSETRON 4 MG/2 ML VIAL IV PRN (05:47)
[2018-11-20] MEDS ORDERED: ACETAMINOPHEN 500 MG TAB PO PRN (05:47)
[2018-11-20] MEDS ORDERED: ALPRAZOLAM 0.25 MG TABLET PO PRN (05:47)
[2018-11-20] MEDS ORDERED: MAGNESIUM HYDROXIDE 8% 30 ML PO PRN (05:47)
[2018-11-20] MEDS ORDERED: NA CHLORIDE 0.9% 1,000 ML IV SCH (06:00)
[2018-11-20] MEDS ORDERED: ALBUTEROL 2.5 MG/3 ML NEB SOL ONE (07:17)
--- NOTE | 2018-11-20 07:35 | P.HP ---
Certification for Inpatient Patient admitted to: Observation With expected LOS: <2 Midnights Patient will require the following post-hospital care: None Practitioner: I am a practitioner with admitting privileges, knowledge of patient current condition, hospital course, and medical plan of care. Services: Services provided to patient in accordance with Admission requirements found in Title 42 Section 412.3 of the Code of Federal Regulations Patient History Date of Service: 11/20/18 Reason for admission: Chest pain rule out acute coronary syndrome History of Present Illness: Patient is an 78-year-old female came to the hospital with chest discomfort. Pain was mainly in the sternal region and radiated to her back. This occurred when she woke up this evening. However the pain had gone away after a couple of hr. She came to the ER after she had taken a couple of nitros and the pain subsided. She still is a little short of breath. She uses an inhaler every day and she is requesting a treatment. Decision was made to admit patient to the hospital for further evaluation. Patient has a history of hypertension and tobacco use. She will need further evaluation at this time. Allergies iodine Allergy (Verified 03/11/17 18:10) Anaphylaxis midazolam [From Versed] Allergy (Verified 08/01/17 17:36) Unknown Sulfa (Sulfonamide Antibiotics) Allergy (Verified 08/01/17 17:36) Unknown unknown antibio Allergy (Uncoded 03/11/17 11:38) Unknown unknown antibiotic Allergy (Uncoded 04/03/17 20:39) Unknown Home Medications: ALPRAZolam [Xanax*] 1 mg PO BID PRN 08/01/17 Amitriptyline [Elavil*] 10 mg PO DAILY 08/01/17 Fentanyl 1 each TD EVERY 3RD DAY 08/01/17 Furosemide 1 tab PO DAILY 08/01/17 Hydrocodone/Acetaminophen [Hydrocodone-Acetamin 10-325 mg] 1 each PO BID PRN Levothyroxine [Synthroid*] 50 mcg PO [id number] 08/01/17 Lovastatin 40 mg PO BEDTIME 08/01/17 Potassium Chloride 20 meq PO DAILY 08/01/17 Trazodone HCl 1 tab PO BEDTIME 08/01/17 Albuterol Inhaler [Ventolin Inhaler*] 2 puff IH Q6H PRN #1 hfa.aer.ad 08/02/17 Hydrocodone/Chlorphen Polis [Tussionex Oral Susp*] 5 ml PO BID PRN #30 osyr levoFLOXacin [Levaquin] 500 mg PO DAILY #14 tab 08/02/17 - Past Medical/Surgical History Diabetic: No -: TIA -: HTN -: Hypothyroidism -: Anxiety -: Chronic back pain -: dementia -: Cholecystectomy -: Appendititis -: Hysterectomy - Family History Father Family History: Reviewed- Non-Contributory - Social History Smoking Status: Heavy Tobacco smoker (>10 cigarettes/day) Alcohol use: No CD- Drugs: No Caffeine use: Yes Review of Systems 10-point ROS is otherwise unremarkable Physical Examination - Vital Signs Temperature: 98 F Blood Pressure: 150/80 Pulse: 87 Respirations: 18 Pulse Ox (%): 96 - Physical Exam General: Alert, In no apparent distress, Oriented x3 HEENT: Atraumatic, PERRLA, Mucous membr. moist/pink, EOMI, Sclerae nonicteric Neck: Supple, 2+ carotid pulse no bruit, No LAD, Without JVD or thyroid abnormality Respiratory: Clear to auscultation bilaterally, Normal air movement Cardiovascular: Regular rate/rhythm, Normal S1 S2, No murmurs Gastrointestinal: Normal bowel sounds, Soft and benign, Non-distended, No tenderness Musculoskeletal: No clubbing, No swelling, No tenderness Integumentary: No rashes Neurological: Normal gait, Normal speech, Normal strength at 5/5 x4 extr, Normal tone, Sensation intact, Cranial nerves 3-12 intact, Normal affect Lymphatics: No axilla or inguinal lymphadenopathy - Studies Laboratory Data (last 24 hrs) 11/20/18 03:09: PT 10.6, INR 0.90 11/20/18 03:09: WBC 10.3, Hgb 13.2, Hct 38.6, Plt Count 246 11/20/18 03:09: Sodium 139, Potassium 4.0, BUN 21 H, Creatinine 1.15, Glucose 95 , Magnesium 2.3, Total Bilirubin 0.5, AST 265 H, ALT 127 H, Alkaline Phosphatase 158 H Assessment & Plan - Problems (Diagnosis) (1) Chest pain, rule out acute myocardial infarction Current Visit: Yes Status: Acute (2) Chronic obstructive pulmonary disease Onset Date: 03/12/17 Current Visit: No Status: Chronic Qualifiers: (3) Essential (primary) hypertension Onset Date: 03/12/17 Current Visit: No Status: Chronic (4) Hyperlipidemia Onset Date: 03/12/17 Current Visit: No Status: Chronic Qualifiers: (5) Hypothyroidism Onset Date: 03/12/17 Current Visit: No Status: Chronic Qualifiers: - Plan Plan: 1. Serial troponins and EKG 2. Cardiology consultation 3. Echocardiogram and stress test if cardiology is agreeable 4. Anti-platelet therapy, anti coagulation, beta-sanjay, statin, and O2 as needed 5. IV morphine for pain 6. Nitro p.r.n. 7. Albuterol inhaler therapy 8. V/Q scan has been ordered 9. GI and DVT prophylaxis Discharge Plan: Home Plan to discharge in: Greater than 2 days - Advance Directives Does patient have a Living Will: No Does patient have a Durable POA for Healthcare: Yes - Code Status/Comfort Care Code Status Assessed: Yes Code Status: Full Code Critical Care: No Time Spent Managing PTS Care (In Minutes): 50
[2018-11-20] MEDS: IPRATROPIUM BROM 0.5MG/2.5ML NEB SCH ×3 (08:58→20:32)
[2018-11-20] MEDS: ALBUTEROL 2.5 MG/3 ML NEB SOL NEB SCH ×3 (08:58→20:32)
[2018-11-20 09:27] VITALS: BMI 17.4
--- NOTE | 2018-11-20 10:48 | RAD REPORT ---
EXAM DESCRIPTION: Bhargavi Single View11/20/2018 2:58 am CLINICAL HISTORY: Chest pain COMPARISON: July 2017 FINDINGS: The lungs appear clear of acute infiltrate. The heart is normal size IMPRESSION: No acute abnormalities displayed
[2018-11-20] MEDS ORDERED: PNEUMOCOCCAL VACCINE 0.5 ML IMVAC ONE (12:00)
[2018-11-20] MEDS ORDERED: HYDROCODONE/APAP 10/325 TAB PO PRN (12:24)
--- NOTE | 2018-11-20 13:54 | EKG ---
Test Date: 2018-11-20 Test Time: 02:06:51 Conciliator: FABIAN MEASUREMENT RESULTS: Intervals: Rate: 66 NE: 152 QRSD: 76 QT: 428 QTc: 448 [place]: P: 83 NE: 152 QRS: 82 T: 81 INTERPRETIVE STATEMENTS: Normal sinus rhythm Normal ECG Compared to ECG 08/01/2017 15:03:35 Sinus arrhythmia no longer present Prolonged QT interval no longer present Electronically Signed On 11-20-18 13:53:39 UNDERGROUND HEAVY EQUIPMENT OPERATOR by Tres Alvarado
[2018-11-20 15:36] LABS: Albumin 3.2 g/dL (3.4-5.0); Bilirubin Total 0.4 mg/dL (0.2-1.0); Potassium 3.6 mmol/L (3.5-5.1); Protein, Total 6.4 g/dL (6.4-8.2)
[2018-11-20] MEDS ORDERED: POTASSIUM CL SA 10 MEQ TAB PO ONE (16:00)
[2018-11-20] MEDS: NICOTINE 14 MG/PAT TD SCH (16:23)
[2018-11-20] MEDS: ENOXAPARIN 40 MG/0.4 ML SQ SCH (16:23)
[2018-11-20] MEDS ORDERED: ACETYLCYST 6,000 MG/30 ML VIAL PO ONE (18:03)
[2018-11-20] MEDS ORDERED: HYDROMORPHONE HCL 0.5 MG/0.5 ML INJ IV ONE (19:44)
[2018-11-20] MEDS ORDERED: ATORVASTATIN 20 MG TAB PO SCH (21:00)
[2018-11-20] MEDS ORDERED: HYDRALAZINE HCL 25 MG TABLET PO SCH (21:00)
[2018-11-20] MEDS: ACETYLCYST 6,000 MG/30 ML VIAL PO SCH (21:59)
[2018-11-20] MEDS: TRAMADOL HCL 50 MG TAB PO PRN (23:52)
[2018-11-20] MEDS: TRAZODONE 50 MG TABLET PO SCH (23:52)
[2018-11-21] MEDS: ACETYLCYST 6,000 MG/30 ML VIAL PO SCH ×6 (01:37→22:18)
[2018-11-21] MEDS: IPRATROPIUM BROM 0.5MG/2.5ML NEB SCH ×4 (01:55→19:34)
[2018-11-21] MEDS: ALBUTEROL 2.5 MG/3 ML NEB SOL NEB SCH ×4 (01:55→19:34)
[2018-11-21 02:19] LABS: Urine Appearance CLEAR; Urine Bilirubin NEGATIVE (NEG); Urine Blood NEGATIVE (NEG); Urine Color YELLOW; Urine Glucose NEGATIVE (NEG); Urine Microscopic Reflex ORDER UMIC; Urine Protein NEGATIVE (NEG); Urine pH 6.5 (5.0-7.0)
[2018-11-21 02:38] LABS: Urine Bacteria <20 /HPF (<20); Urine Culture Reflex Order REFLEXED; Urine RBC <5 /HPF (NONE SEEN)
[2018-11-21] MEDS: METOPROLOL TAR 25 MG TAB PO SCH ×2 (05:54→17:08)
[2018-11-21 06:39] LABS: Absolute Lymphocytes (CBC) 0.9 K/uL (0.7-4.9); Absolute Monocytes 0.6 K/uL (0.1-1.3); Absolute Neutrophil 6.3 K/uL (1.8-8.0); Basophils % 0.6 % (0-1.3); Eosinophils % 0.6 % (0-4.4); Hematocrit 38.5 % (36.0-45.0); MPV 8.2 fL (7.6-11.3); RBC Red Blood Cell Count 4.22 M/uL (3.86-4.86)
[2018-11-21 06:43] LABS: Protime INR 0.98
[2018-11-21 07:32] LABS: ALT/SGPT 318 U/L (12-78); AST/SGOT 280 U/L (15-37); Albumin 3.1 g/dL (3.4-5.0); Alkaline Phosphatase 164 U/L (45-117); BUN Blood Urea Nitrogen 12 mg/dL (7-18); Bicarbonate 25 mmol/L (21-32); Bilirubin Total 0.5 mg/dL (0.2-1.0); Glucose Level 97 mg/dL (74-106); Magnesium 2.1 mg/dL (1.8-2.4); Phosphorus 2.8 mg/dL (2.5-4.9); Potassium 3.1 mmol/L (3.5-5.1); Protein, Total 6.7 g/dL (6.4-8.2); Sodium Level 142 mmol/L (136-145)
[2018-11-21] MEDS ORDERED: POTASSIUM CL SA 10 MEQ TAB PO ONE ×4 (07:35→21:00)
[2018-11-21] MEDS: ENOXAPARIN 40 MG/0.4 ML SQ SCH (08:57)
[2018-11-21] MEDS: NICOTINE 14 MG/PAT TD SCH (08:57)
[2018-11-21] MEDS: HYDRALAZINE HCL 25 MG TABLET PO SCH ×3 (08:58→20:40)
[2018-11-21] MEDS: FUROSEMIDE 40 MG TABLET PO SCH (08:58)
[2018-11-21] MEDS: FOLIC ACID 1 MG TABLET PO SCH (08:59)
[2018-11-21] MEDS ORDERED: METOPROLOL TAR 50 MG TAB PO SCH (09:00)
[2018-11-21] MEDS ORDERED: FENTANYL 25 MCG/PATCH TD SCH (12:00)
[2018-11-21] MEDS ORDERED: FENTANYL 50 MCG/PATCH TD SCH (12:00)
--- NOTE | 2018-11-21 12:08 | RAD REPORT ---
EXAM DESCRIPTION: US - Abdomen Exam Complete - 11/21/2018 11:27 am CLINICAL HISTORY: Abdominal pain. Elevated liver enzymes COMPARISON: No comparisons FINDINGS: The liver is normal in size, shape and echotexture. No focal liver lesions or intrahepatic biliary dilatation is seen. Cholecystectomy. Common bile duct is normal in caliber measuring 5-6 mm. Both kidneys are normal in size, shape and echotexture. No hydronephrosis, focal lesion of concern or perinephric fluid. The spleen is normal in size measuring 8 cm. The pancreas and aorta are obscured by bowel gas. The visualized aspects of the IVC are grossly normal. IMPRESSION: Cholecystectomy.
[2018-11-21 13:07] LABS: Albumin 3.5 g/dL (3.4-5.0); Bilirubin Total 0.5 mg/dL (0.2-1.0); Potassium 3.1 mmol/L (3.5-5.1); Protein, Total 7.4 g/dL (6.4-8.2)
--- NOTE | 2018-11-21 13:59 | P.PN ---
Subjective Date of Service: 11/21/18 Chief Complaint: Chest pain rule out acute coronary syndrome Patient seen and examined at bedside with RN. Chart reviewed. Case discussed with cardiology at this time. No complaints to offer overnight. Doing well overall Review of Systems 10-point ROS is otherwise unremarkable Physical Examination - Vital Signs Temperature: 97.7 F Blood Pressure: 168/82 Pulse: 82 Respirations: 20 Pulse Ox (%): 97 - Physical Exam General: Alert, In no apparent distress HEENT: Atraumatic, PERRLA, EOMI Neck: Supple, JVD not distended Respiratory: Clear to auscultation bilaterally, Normal air movement Cardiovascular: Regular rate/rhythm, Normal S1 S2 Gastrointestinal: Normal bowel sounds, No tenderness Musculoskeletal: No tenderness Integumentary: No rashes Neurological: Normal speech, Normal tone, Normal affect Lymphatics: No axilla or inguinal lymphadenopathy - Studies Medications List Reviewed: Yes Assessment And Plan - Current Problems (Diagnosis) (1) Tylenol toxicity Current Visit: Yes Status: Acute Plan: Patient states that she takes hydrocodone with her pain management doctor for pain in her back. Has been taking a couple of extra tablets due to increasing pain. -started on Mucomyst at this time. -AST ALT improving today. -Will continue at time. Qualifiers: Encounter type: initial encounter Injury intent: accidental or unintentional Qualified Code(s): T39.1X1A - Poisoning by 4-Aminophenol derivatives, accidental (unintentional), initial encounter (2) Chest pain, rule out acute myocardial infarction Current Visit: Yes Status: Acute Plan: Chest pain rule out acute PR. No more chest pain noted -cardiology consulted appreciated recommendations at this time -medical management an echocardiogram on Thursday (3) Essential (primary) hypertension Onset Date: 03/12/17 Current Visit: No Status: Chronic (4) Hyperlipidemia Onset Date: 03/12/17 Current Visit: No Status: Chronic Qualifiers: Hyperlipidemia type: mixed hyperlipidemia Qualified Code(s): E78.2 - Mixed hyperlipidemia (5) Hypothyroidism Onset Date: 03/12/17 Current Visit: No Status: Chronic Qualifiers: Hypothyroidism type: acquired Qualified Code(s): E03.9 - Hypothyroidism, unspecified (6) Chronic obstructive pulmonary disease Onset Date: 03/12/17 Current Visit: No Status: Chronic Qualifiers: COPD type: chronic bronchitis Chronic bronchitis type: simple Qualified Code(s): J41.0 - Simple chronic bronchitis Discharge Plan: Home Plan to discharge in: 48 Hours - Code Status/Comfort Care Code Status Assessed: Yes Critical Care: Yes
[2018-11-21 17:24] VITALS: O2SAT 98
[2018-11-21] MEDS: TRAZODONE 50 MG TABLET PO SCH (20:41)
[2018-11-21] MEDS: ENSURE ENLIVE 237 ML CAN PO SCH (20:44)
--- NOTE | 2018-11-21 23:07 | CON ---
Date of Consultation: 11/20/[address] Caslte's service on 11/20/2018. I saw the patient on 11/20/2018. Reason For Consultation: Chest pain. History Of Present Illness: The patient is an 78-year-old woman, has a history of anxiety, congestiv e heart failure, dementia, hypothyroidism, hypertension, and dyslipidemia. She came in complaining o f sharp stabbing chest pain that was moving around from her left chest to her right chest and left sh oulder. No nausea, vomiting, diaphoresis, PND, orthopnea, pedal edema, palpitations, or syncope. Allergies: INCLUDE IODINE AND SULFA. Review of Systems: Negative. Social History: Positive for tobacco and alcohol. Family History: Negative. Medications: At home include Xanax, inhalers, fentanyl, Lasix, hydralazine, metoprolol, lovastatin, and potassium. Physical Examination: General: Ms. Marcano was anxious to go home because she wanted to take care of her dog, otherwise did not complain any chest pain. HEENT: Negative. Neck: Supple without any bruit, lymphadenopathy, JVD, or thyromegaly. Chest: Revealed wheezing on expiration. Cardiac: Revealed a regular rhythm and rate with occasional ectopy. No murmurs, gallops, or rubs. Abdomen: Benign. Extremities: Revealed no clubbing, cyanosis, or edema. Diagnostic Data: She had an elevated D-dimer of 720. Her AST, ALT, and alkaline phosphatase were el evated. Impression And Plan: 1.Atypical chest pain. If the patient stays in the hospital, certainly an echocardiogram and a Deysi scan would be indicated. 2.History of congestive heart failure. I do not have any records documenting that. 3.Dementia. 4.Chronic pain. 5.Hypothyroidism. 6.Hypertension. 7.Dyslipidemia. 8.Alcohol abuse. 9.Elevated liver function enzymes, probably secondary to alcohol. I will continue to follow the patient along. ANTONIO/NHUNG Voice ID: [id number] Report ID: [id number]
[2018-11-22] MEDS: ACETYLCYST 6,000 MG/30 ML VIAL PO SCH ×3 (01:52→12:07)
[2018-11-22] MEDS: METOPROLOL TAR 25 MG TAB PO SCH (01:52)
[2018-11-22] MEDS: ALBUTEROL 2.5 MG/3 ML NEB SOL NEB SCH ×2 (02:38→08:15)
[2018-11-22] MEDS: IPRATROPIUM BROM 0.5MG/2.5ML NEB SCH ×2 (02:38→08:15)
[2018-11-22 03:50] LABS: Potassium 4.1 mmol/L (3.5-5.1)
[2018-11-22 08:32] VITALS: TEMP 98.1
[2018-11-22] MEDS ORDERED: REGADENOSON 0.4 MG/5 ML SYR IV ONE (08:53)
[2018-11-22] MEDS: ENSURE ENLIVE 237 ML CAN PO SCH (09:00)
--- NOTE | 2018-11-22 10:08 | ECHO ---
HEIGHT: 5 ft 7 in WEIGHT: 111 lb 0 oz DATE OF STUDY: 11/22/[address]: Tres Alvarado MD 2-DIMENSIONAL: YES M.MODE: YES DOPPLER: YES COLOR FLOW: YES TDS: NO PORTABLE: NO DEFINITY: NO BUBBLE STUDY: NO DIAGNOSIS: CHEST PAIN CARDIAC HISTORY: CATHERIZATION: NO SURGERY: NO PROSTHETIC VALVE: NO PACEMAKER: NO MEASUREMENTS (cm) DIASTOLIC (NORMALS) SYSTOLIC (NORMALS) IVSd 1.1 (0.6-1.2) LA Diam (1.9-4.0) LVEF 67% LVIDd 4.2 (3.5-5.7) LVIDs (2.0-3.5) %FS 37% LVPWd 1.0 (0.6-1.2) Ao Diam 2.7 (2.0-3.7) 2 DIMENSIONAL ASSESSMENT: RIGHT ATRIUM: NORMAL LEFT ATRIUM: NORMAL RIGHT VENTRICLE: NORMAL LEFT VENTRICLE: NORMAL TRICUSPID VALVE: NORMAL MITRAL VALVE: NORMAL PULMONIC VALVE: NORMAL AORTIC VALVE: SCLEROSIS PERICARDIAL EFFUSION: NONE AORTIC ROOT: NORMAL LEFT VENTRICULAR WALL MOTION: NORMAL DOPPLER/COLOR FLOW: NORMAL NO AORTIC STENOSIS OR AORTIC REGURGITATION. COMMENTS: NORMAL LEFT VENTRICULAR EJECTION FRACTION. AORTIC SCLEROSIS WITH NO AORTIC STENOSIS OR AORTIC REGURGITATION. OTHERWISE NORMAL 2D ECHOCARDIOGRAM WITH DOPPLER. TECHNOLOGIST: Conrado CHILDS
--- NOTE | 2018-11-22 10:19 | TREADPHA ---
DX: CHEST PAIN Date of Study: 11/22/2018 Ht: 5 7 Wt: 111 lb 0 oz Consulting Physician: VIVIAN MEDICATIONS: ACETYLCYSTEINE, ALBUTEROL, LOVENOX, FENTANL HISTORY: 78 YEAR OLD FEMALE HERE FOR CHEST PAIN. HISTORY OF ANXIETY, CONGESTIVE HEART FAILURE, HYPERTENSION, CHRONIC BACK PAIN, DEMENTIA AND HYPOTHROIDISM. PHYSICIAL EXAMINATION: RESTING B.P.: 148/84 RESTING H.R.: 82 RESTING EKG: NORMAL PROTOCOL: LEXISCAN EXERCISE TIME: 3:30 B.P. AT PEAK STRESS: 148/71 IMPRESSION: LEXISCAN STRESS TEST PERFORMED. CARDIOLITE INJECTED PER PROTOCOL. NO PREMATURE VENTRICULAR COMPLEXES AND PREMATURE ATRIAL COMPLEXES NOTED. DENIES ANY PAIN. SEE NUCLEAR MEDICINE REPORT. NON DIAGNOSTIC EKG WITH LEXISCAN STRESS
[2018-11-22 10:20] LABS: Albumin 3.2 g/dL (3.4-5.0); Bilirubin Direct 0.2 mg/dL (0-0.2); Bilirubin Total 0.4 mg/dL (0.2-1.0)
[2018-11-22] MEDS: NICOTINE 14 MG/PAT TD SCH (11:04)
[2018-11-22] MEDS: ENOXAPARIN 40 MG/0.4 ML SQ SCH (11:06)
[2018-11-22] MEDS: HYDRALAZINE HCL 25 MG TABLET PO SCH (11:07)
[2018-11-22] MEDS: FOLIC ACID 1 MG TABLET PO SCH (11:07)
[2018-11-22] MEDS: FUROSEMIDE 40 MG TABLET PO SCH (11:07)
--- NOTE | 2018-11-22 11:07 | RAD REPORT ---
EXAM DESCRIPTION: NM - Rest Stress Cardiac Imaging - 11/22/2018 10:54 am CLINICAL HISTORY: CP Chest pain. COMPARISON: REST STRESS CARDIAC dated 12/23/2012 TECHNIQUE: The patient was administered approximately 10mCi of Tc 99m Sestamibi prior to resting SPE CT imaging of the heart. The patient was then administered approximately 30 mCi of Tc 99m Sestamibi f ollowing exercise or pharmacologic stress. Multiplanar SPECT images were reviewed. FINDINGS: No stress induced ischemic defect is seen to suggest stress induced ischemia. Diminished r adiopharmaceutical accumulation involving the inferior wall likely related to scarring. The end diastolic volume is 74 ml, the end systolic volume is 28 ml, and the ejection fraction is 63 %. IMPRESSION: No stress induced ischemia.
[2018-11-22] MEDS: TRAMADOL HCL 50 MG TAB PO PRN (11:16)
[2018-11-22 12:53] VITALS: BP 137/70
--- NOTE | 2018-11-22 16:08 | P.DS ---
Admission Date: 11/21/18 Discharge Date: 11/22/18 Disposition: ROUTINE DISCHARGE Discharge Condition: GOOD Reason for Admission: Chest pain rule out acute coronary syndrome Consultations: Cardiology - Problems (1) Tylenol toxicity Onset Date: 11/22/18 Status: Acute Qualifiers: Encounter type: initial encounter Injury intent: accidental or unintentional Qualified Code(s): T39.1X1A - Poisoning by 4-Aminophenol derivatives, accidental (unintentional), initial encounter (2) Chest pain, rule out acute myocardial infarction Onset Date: 11/22/18 Status: Acute (3) Essential (primary) hypertension Onset Date: 03/12/17 Status: Chronic (4) Hyperlipidemia Onset Date: 03/12/17 Status: Chronic Qualifiers: Hyperlipidemia type: mixed hyperlipidemia Qualified Code(s): E78.2 - Mixed hyperlipidemia (5) Hypothyroidism Onset Date: 03/12/17 Status: Chronic Qualifiers: Hypothyroidism type: acquired Qualified Code(s): E03.9 - Hypothyroidism, unspecified (6) Chronic obstructive pulmonary disease Onset Date: 03/12/17 Status: Chronic Qualifiers: COPD type: chronic bronchitis Chronic bronchitis type: simple Qualified Code(s): J41.0 - Simple chronic bronchitis Brief History of Present Illness: Patient is an 78-year-old female came to the hospital with chest discomfort. Pain was mainly in the sternal region and radiated to her back. This occurred when she woke up this evening. However the pain had gone away after a couple of hr. She came to the ER after she had taken a couple of nitros and the pain subsided. She still is a little short of breath. She uses an inhaler every day and she is requesting a treatment. Decision was made to admit patient to the hospital for further evaluation. Patient has a history of hypertension and tobacco use. She will need further evaluation at this time. Hospital Course: Patient seen and examined at bedside with RN. Chart reviewed. Overall patient did well while here in the hospital Patient was initially admitted to the hospital for chest pain rule out ACS. Cardiology was consulted who recommended patient get a stress test and echocardiogram. Patient had echocardiogram and stress test done here in the hospital which were both within normal limits. And negative for any acute cardiac abnormality. Cardiology at that time cleared patient for discharge home. Patient also had elevated LFTs was found to have Tylenol toxicity is she was taking multiple pills of her Printer for pain. Patient was asked to stop taking the Printer and continue with the fentanyl patch. Mucomyst was started. Patient's LFT did improved here significantly. Patient then was discharged home under stable condition was continued on Mucomyst for total of 11 more doses. Patient was asked to not take Tylenol or any Tylenol containing products. Patient demonstrated understanding and thus was discharged home under stable condition. Patient was able to ambulate and tolerate her diet well before discharge. No other complaints were offered. Vital Signs/Physical Exam: Temp Pulse Resp BP Pulse Ox 98.1 F 66 18 137/70 99 11/22/18 12:00 11/22/18 12:00 11/22/18 12:00 11/22/18 12:00 11/22/18 12:00 General: Alert, In no apparent distress HEENT: Atraumatic, PERRLA, EOMI Neck: Supple, JVD not distended Respiratory: Clear to auscultation bilaterally, Normal air movement Cardiovascular: Regular rate/rhythm, Normal S1 S2 Gastrointestinal: Normal bowel sounds, No tenderness Musculoskeletal: No tenderness Integumentary: No rashes Neurological: Normal speech, Normal tone, Normal affect Lymphatics: No axilla or inguinal lymphadenopathy Laboratory Data at Discharge: WBC 7.9 K/uL (4.3-10.9) D 11/21/18 06:12 Hgb 13.2 g/dL (12.0-15.0) 11/21/18 06:12 Hct 38.5 % (36.0-45.0) 11/21/18 06:12 Plt Count 253 K/uL (152-406) 11/21/18 06:12 PT 11.6 SECONDS (9.5-12.5) 11/21/18 06:12 INR 0.98 11/21/18 06:12 APTT 28.5 SECONDS (24.3-36.9) 11/21/18 06:12 Sodium 143 mmol/L (136-145) 11/22/18 03:26 Potassium 4.1 mmol/L (3.5-5.1) 11/22/18 03:26 BUN 19 mg/dL (7-18) H 11/22/18 03:26 Creatinine 0.73 mg/dL (0.55-1.3) 11/22/18 03:26 Glucose 96 mg/dL (74-106) 11/22/18 03:26 Phosphorus 2.8 mg/dL (2.5-4.9) 11/21/18 06:12 Magnesium 2.1 mg/dL (1.8-2.4) 11/21/18 06:12 Total Bilirubin 0.4 mg/dL (0.2-1.0) 11/22/18 03:26 AST 114 U/L (15-37) H D 11/22/18 03:26 ALT 242 U/L (12-78) H 11/22/18 03:26 Alkaline Phosphatase 143 U/L (45-117) H 11/22/18 03:26 Troponin I < 0.02 ng/mL (0.0-0.045) 11/20/18 16:30 Home Medications: ALPRAZolam [Xanax*] 1 mg PO BID PRN 08/01/17 Fentanyl 1 each TD EVERY 3RD DAY 08/01/17 Furosemide 1 tab PO DAILY 08/01/17 Lovastatin 40 mg PO BEDTIME 08/01/17 Potassium Chloride 20 meq PO DAILY 08/01/17 Trazodone HCl 1 tab PO BEDTIME 08/01/17 Albuterol Inhaler [Ventolin Inhaler*] 2 puff IH Q6H PRN #1 hfa.aer.ad 08/02/17 Budesonide/Formoterol Fumarate [Symbicort 160-4.5 Mcg Inhaler] 1 puff IH BID 04/03 Folic Acid 1 mg PO DAILY 11/20/18 Hydralazine HCl [Apresoline] 50 mg PO BID 11/20/18 Metoprolol Tartrate [Lopressor*] 50 mg PO DAILY 11/20/18 Acetylcyst [Mucomyst 20%*] 18 ml PO Q4H #7 vial 11/22/18 New Medications: Acetylcyst [Mucomyst 20%*] 18 ml PO Q4H #7 vial Patient Discharge Instructions: Please f.u with PCP and GI in 1 to 2 week post discharge. New medication. Mucomyst 18ml PO q4h for total of 11 more dose. You are not to take Acetomenophen or Acetomenophen containing products like Tylenol or NORCO as it will cause worsening of your liver Toxicity. Diet: Regular Activity: Ad shree Followup: Carlos Marie MD [ASSOCIATE-ACTIVE - CAN ADMIT] - 1 Week (call to schedule appoinment)
[2018-11-24 04:45] LABS: HBsAG Nonreactive (Nonreactive); Hepatitis A IgM Antibody Nonreactive
== END 2018-11-22 13:29 | disposition home or self-care (01) | DRG 918 ==
LOC: ER 01:53 → ERHOLD 06:11 → 4TH 06:22 → OBSVTOIN 11-21 20:52
PROVIDERS: ADMIT Hospitalist; ATTEND Family Medicine
DX: T39.1X1A Poisoning by 4-Aminophenol derivatives, accidental (unintentional), initial encounter (principal); E03.9 Hypothyroidism, unspecified; F41.9 Anxiety disorder, unspecified; G89.29 Other chronic pain; F03.90 Unspecified dementia, unspecified severity, without behavioral disturbance, psychotic disturbance, mood disturbance, and anxiety; Z86.73 Personal history of transient ischemic attack (TIA), and cerebral infarction without residual deficits; F17.210 Nicotine dependence, cigarettes, uncomplicated; J44.9 Chronic obstructive pulmonary disease, unspecified; E78.5 Hyperlipidemia, unspecified; I10 Essential (primary) hypertension; Y92.019 Unspecified place in single-family (private) house as the place of occurrence of the external cause; Z88.2 Allergy status to sulfonamides; Z91.048 Other nonmedicinal substance allergy status; F10.10 Alcohol abuse, uncomplicated; R94.5 Abnormal results of liver function studies; R07.89 Other chest pain
CPT/HCPCS: 36415; 71045; 76700; 78452; 80048; 80053; 80074; 80076; 80329; 81003; 81015; 83735; 83880; 84100; 84132; 84484; 85025; 85379; 85610; 85730; 87086; 87088; 93005; 93017; 93306; 99285; A9500; J1170; J1650; J2785; J7030

== ENCOUNTER 2019-12-20 08:39 | Inpatient (IN) | payer OTHER ==
--- NOTE | 2019-12-20 09:31 | RAD REPORT ---
EXAM DESCRIPTION: RAD - Chest Single View - 12/20/2019 9:23 am CLINICAL HISTORY: Cough;COPD Chest pain. COMPARISON: Chest Single View dated 11/20/2018; Chest Single View dated 08/01/2017; Chest Single View d ated 04/03/2017; Chest Single View dated 03/12/2017 FINDINGS: Portable technique limits examination quality. The lungs are underinflated resulting in vascular crowding. Mild elevation left hemidiaphragm, chroni c. The heart is normal in size. No displaced fractures. IMPRESSION: No acute intrathoracic process suspected.
[2019-12-20] MEDS ORDERED: NA CHLORIDE 0.9% 500 ML ONE (09:46)
--- NOTE | 2019-12-20 09:48 | RAD REPORT ---
EXAM DESCRIPTION: CT - Head Brain Wo Cont - 12/20/2019 9:37 am CLINICAL HISTORY: weakness, syncope Recent fall with head injury COMPARISON: Ct Stroke Brain Wo Cont dated 03/11/2017; HEAD BRAIN W O CONTRAST dated 04/06/2014; Abdome n Pelvis Wo Contrast dated 12/20/2019 TECHNIQUE: All CT scans are performed using dose optimization technique as appropriate and may inclu de automated exposure control or mA/KV adjustment according to patient size. FINDINGS: No intracranial hemorrhage, hydrocephalus or extra-axial fluid collection.Mild brain atrop hy is present. Mild periventricular deep white matter chronic microvascular ischemic changes.No areas of brain edema or evidence of midline shift. The paranasal sinuses and mastoids are clear. The calvarium is intact. IMPRESSION: No acute intracranial abnormality.
--- NOTE | 2019-12-20 09:59 | RAD REPORT ---
EXAM DESCRIPTION: CT - Abdomen Pelvis Wo Contrast - 12/20/2019 9:37 am CLINICAL HISTORY: Abdominal pain. abd pain, syncope COMPARISON: No comparisons TECHNIQUE: CT imaging of the abdomen and pelvis was performed without contrast. Solid organ, bowel a nd vascular assessment is limited due to lack of IV and oral contrast. All CT scans are performed using dose optimization technique as appropriate and may include automated exposure control or mA/KV adjustment according to patient size. FINDINGS: Linear subsegmental atelectasis is present posterior left lung base. The liver, spleen, pancreas, adrenal glands and kidneys are within normal limits for a limited non-co ntrast examination.Cholecystectomy clips. No bowel obstruction, free air, free fluid or abscess. The appendix is not identified as a discrete structure, however, no secondary findings of appendicitis are identified. Degenerative changes are present lower lumbar spine.No acute fracture evident. IMPRESSION: No acute intra-abdominal or pelvic findings. A limited non-contrast examination was performed as detailed.
[2019-12-20 10:23] LABS: Urine Blood TRACE (NEG); Urine Glucose NEGATIVE (NEG); Urine Protein NEGATIVE (NEG); Urine pH 6.5 (5.0-7.0)
[2019-12-20 10:32] LABS: Absolute Lymphocytes (CBC) 0.6 K/uL (0.7-4.9); Basophils % 0.2 % (0-1.3); Lymphocytes % 5.7 % (15.3-44.8); MPV 7.6 fL (7.6-11.3); RBC Red Blood Cell Count 3.84 M/uL (3.86-4.86)
[2019-12-20 10:40] LABS: Urine Bacteria NONE SEEN /HPF (<20)
[2019-12-20 10:41] LABS: Urine Culture Reflex Order NOT NEEDED; Urine Urothelial Cells <5 /HPF (NONE SEEN)
[2019-12-20 10:49] LABS: Albumin 2.8 g/dL (3.4-5.0); Bilirubin Direct 0.4 mg/dL (0-0.2); Bilirubin Total 0.8 mg/dL (0.2-1.0); Potassium 3.7 mmol/L (3.5-5.1); Protein, Total 6.7 g/dL (6.4-8.2)
--- NOTE | 2019-12-20 11:12 | EDPHYS ---
Physician Documentation [facility] Name: Dianna Marcano Age: 79 yrs Sex: Female : 1940 Arrival Date: 12/20/2019 Time: 08:47 Bed 17 Private MD: ED Physician Swapnil Layton HPI: 12/20 09:30 This 79 yrs old Female presents to ER via Ambulatory with complaints of Fall rn Injury. 09:30 This 79 yrs old Female presents to ER via Ambulatory with complaints of rn weakness. 09:31 Reports on living room floor for unknown period of time, not sure if she fell or passed rn out, reports decreased PO intake, no fever, reports a few days of congestion, no sob. No focal pain. . Onset: The symptoms/episode began/occurred today. Severity of symptoms: At their worst the symptoms were mild in the emergency department the symptoms are unchanged. It is unknown whether or not the patient has had similar symptoms in the past. The patient has not recently seen a physician. Historical: - Allergies: 08:54 Iodine; jl7 08:54 Sulfa (Sulfonamide Antibiotics); jl 08:54 Versed; jl7 - Home Meds: 08:54 amitriptyline 10 mg Oral tab daily [Active]; fentanyl 50 mcg/hr Topical pt72 1 patch jl7 every 72 hours [Active]; folic acid 1 mg Oral tab once daily [Active]; furosemide 40 mg Oral tab 1 tab 2 times per day [Active]; hydrocodone-acetaminophen 10-325 mg Oral tab 1 tab twice a day [Active]; levothyroxine 50 mcg tab 1 tab once daily [Active]; lovastatin 40 mg Oral tab 1 tab 2 times per day [Active]; metoprolol tartrate 50 mg Oral tab 1 tab 2 times per day [Active]; Nitrostat 0.4 mg SL subl 1 tab every 5 minutes [Active]; potassium chloride 20 mEq Oral TbER 1 tab once daily [Active]; trazadone nightly [Active]; Xanax 1 mg Oral tab 1 tab BID [Active]; - PMHx: 08:54 Anxiety; CHF; chronic back pain; Dementia; Hypertension; Hypothyroidism; jl7 - PSHx: 08:54 Hysterectomy; Tonsillectomy; Appendectomy; jl7 - Immunization history:: Adult Immunizations unknown. - Coronavirus screen:: The patient has NOT traveled to [place] [address], [place], or [place] in the past 14 days. Proceed with normal triage process as indicated. - Social history:: Smoking status: Patient denies any tobacco usage or history of. - Family history:: not pertinent. - Ebola Screening: : No symptoms or risks identified at this time. - Hospitalizations: : No recent hospitalization is reported. ROS: 09:31 Constitutional: Negative for fever, chills, and weight loss, Eyes: Negative for injury, rn pain, redness, and discharge, ENT: Negative for injury, pain, and discharge, Neck: Negative for injury, pain, and swelling, Cardiovascular: Negative for chest pain, palpitations, and edema, Respiratory: Negative for shortness of breath, cough, wheezing, and pleuritic chest pain, Abdomen/GI: Negative for abdominal pain, nausea, vomiting, diarrhea, and constipation, Back: Negative for injury and pain, : Negative for injury, bleeding, discharge, and swelling, MS/Extremity: Negative for injury and deformity, Skin: Negative for injury, rash, and discoloration, Neuro: Negative for headache, numbness, tingling, and seizure. Exam: 09:31 Constitutional: This is a well developed, well nourished patient who is awake, alert, rn and in no acute distress. Head/Face: Normocephalic, atraumatic. Eyes: Pupils equal round and reactive to light, extra-ocular motions intact. Lids and lashes normal. Conjunctiva and sclera are non-icteric and not injected. Cornea within normal limits. Periorbital areas with no swelling, redness, or edema. ENT: dry MM with dry cracked lips Neck: Trachea midline, no thyromegaly or masses palpated, and no cervical lymphadenopathy. Supple, full range of motion without nuchal rigidity, or vertebral point tenderness. No Meningismus. Cardiovascular: Regular rate and rhythm. No pulse deficits. Respiratory: Faint exp wheezing. No increased work of breathing, no retractions or nasal flaring. Abdomen/GI: soft, non-tender, no masses Back: No spinal tenderness. No costovertebral tenderness. Full range of motion. MS/ Extremity: Pulses equal, no cyanosis. Neurovascular intact. Full, normal range of motion. Equal circumference. Neuro: Awake and alert, GCS 15, oriented to person, place and situation. Cranial nerves II-XII grossly intact. Motor strength 4/5 in all extremities. Sensory grossly intact Vital Signs: 08:51 BP 138 / 55; Pulse 65; Resp 19 S; Temp 97.8(O); Pulse Ox 100% on R/A; jl7 09:44 BP 138 / 62; Pulse 74; Resp 13; Temp 98.0(O); Pulse Ox 100% on R/A; mh5 10:00 BP 143 / 57; Pulse 70; Resp 14 S; Pulse Ox 98% on R/A; jl7 11:00 BP 150 / 59; Pulse 70; Resp 15 S; Pulse Ox 98% on R/A; jl7 13:27 BP 155 / 58; Pulse 77; Resp 17 S; Pulse Ox 97% on R/A; jl7 Chinyere Coma Score: 08:51 Eye Response: spontaneous(4). Verbal Response: oriented(5). Motor Response: obeys jl7 commands(6). Total: 15. 09:44 Eye Response: spontaneous(4). Verbal Response: oriented(5). Motor Response: obeys jl7 commands(6). Total: 15. 10:00 Eye Response: spontaneous(4). Verbal Response: oriented(5). Motor Response: obeys jl7 commands(6). Total: 15. Trauma Score (Adult): 08:51 Eye Response: spontaneous(1); Verbal Response: oriented(1); Motor Response: obeys jl7 commands(2); Systolic BP: > 89 mm Hg(4); Respiratory Rate: 10 to 29 per min(4); Chinyere Score: 15; Trauma Score: 12 MDM: 08:50 Patient medically screened. rn 11:08 Differential Diagnosis UTI, dehydration, CVA, worsening dementia, pneumonia, viral rn syndrome. Data reviewed: vital signs, nurses notes, lab test result(s), EKG, radiologic studies, CT scan, plain films, and as a result, I will admit patient. Counseling: I had a detailed discussion with the patient and/or guardian regarding: the historical points, exam findings, and any diagnostic results supporting the discharge/admit diagnosis, lab results, radiology results, the need for further work-up and treatment in the hospital. Response to treatment: the patient's symptoms have mildly improved after treatment, and as a result, I will admit patient. Admission orders: after a detailed discussion of the patient's condition and case, the admit orders are written by me. ED course: Patient without acute traumatic findings, + clinically dehydrated but bloodwork well appearing, family here, state not at baseline, seems much weaker than normal, will admit to Dr. Pantoja for further w/u and observation/fluids.. 12/20 08:57 Order name: Urine Microscopic Only; Complete Time: 10:55 rn 12/20 08:57 Order name: CBC with Diff rn 12/20 08:57 Order name: Basic Metabolic Panel; Complete Time: 10:55 rn 12/20 08:57 Order name: Creatinine for Radiology; Complete Time: 10:55 rn 12/20 08:57 Order name: Hepatic Function; Complete Time: 10:55 rn 12/20 08:57 Order name: Lipase; Complete Time: 10:55 rn 12/20 08:57 Order name: CT Head Brain wo Cont; Complete Time: 10:35 rn 12/20 08:57 Order name: CT Abd/Pelvis - Without Contrast; Complete Time: 10:35 rn 12/20 08:57 Order name: Flu; Complete Time: 10:55 rn 12/20 08:57 Order name: XRAY Chest (1 view) rn 12/20 09:34 Order name: RAD; Complete Time: 10:35 EDMS 12/20 10:16 Order name: Urine Dipstick--Ancillary (enter results); Complete Time: 10:35 bd 12/20 12:21 Order name: CBC Smear Scan EDMS 12/20 08:57 Order name: IV Start; Complete Time: 10:17 rn 12/20 08:57 Order name: Urine Dipstick-Ancillary (obtain specimen); Complete Time: 10:17 rn 12/20 08:57 Order name: Labs collected and sent; Complete Time: 10:17 rn Administered Medications: 10:16 Drug: NS 0.9% 500 ml Route: IV; Rate: bolus; Site: left antecubital; jl7 10:45 Follow up: Response: No adverse reaction; IV Status: Completed infusion; IV Intake: jl7 500ml Disposition: 12/20/19 11:10 Hospitalization ordered by Lyle Pantoja for Observation. Preliminary diagnosis are Dehydration, Weakness, Altered mental status, unspecified. - Bed requested for Telemetry/MedSurg (observation). - Status is Observation. jl7 - Condition is Stable. - Problem is new. - Symptoms are unchanged. Signatures: Dispatcher [employer] Denita Singh RN RN dw Nieto, Roman, MD MD rn Leal, Jahala, RN RN jl7 Corrections: (The following items were deleted from the chart) 12:53 11:10 Hospitalization Ordered by Lyle Pantoja DO for Observation. Preliminary dw diagnosis is Dehydration; Weakness; Altered mental status, unspecified. Bed requested for Telemetry/MedSurg (observation). Status is Observation. Condition is Stable. Problem is new. Symptoms are unchanged. rn 13:51 12:53 12/20/2019 11:10 Hospitalization Ordered by Lyle Pantoja DO for Observation. jl7 Preliminary diagnosis is Dehydration; Weakness; Altered mental status, unspecified. Bed requested for Telemetry/MedSurg (observation). Status is Observation. Condition is Stable. Problem is new. Symptoms are unchanged. juan pablo
--- NOTE | 2019-12-20 11:12 | ER ---
Nurse's Notes [facility] Name: Dianna Marcano Age: 79 yrs Sex: Female : 1940 Arrival Date: 12/20/2019 Time: 08:47 Bed 17 Private MD: Diagnosis: Dehydration;Weakness;Altered mental status, unspecified Presentation: 12/20 08:47 Presenting complaint: EMS states: She fell last night, could not get off the floor for jl7 3 hours, EMS went through the window to get to her, daughter told EMS she hasn't been drinking a lot of water and she's been feeling weak for a few days now. Care prior to arrival: Medication(s) given: Normal saline infusion, 100 cc IV initiated. 20 GA, in the left antecubital area. Mechanism of Injury: Fall unknown. 08:47 Acuity: SHERLYN 3 jl7 08:47 Method Of Arrival: Ambulatory jl7 09:00 Transition of care: patient was not received from another setting of care. Onset of jl7 symptoms is unknown. Risk Assessment: Do you want to hurt yourself or someone else? Patient reports no desire to harm self or others. Initial Sepsis Screen: Does the patient meet any 2 criteria? No. Patient's initial sepsis screen is negative. Does the patient have a suspected source of infection? No. Patient's initial sepsis screen is negative. Triage Assessment: 09:00 General: Appears in no apparent distress. uncomfortable, Behavior is calm, cooperative, jl7 appropriate for age. Pain: Denies pain. Historical: - Allergies: 08:54 Iodine; jl7 08:54 Sulfa (Sulfonamide Antibiotics); jl7 08:54 Versed; jl7 - Home Meds: 08:54 amitriptyline 10 mg Oral tab daily [Active]; fentanyl 50 mcg/hr Topical pt72 1 patch jl7 every 72 hours [Active]; folic acid 1 mg Oral tab once daily [Active]; furosemide 40 mg Oral tab 1 tab 2 times per day [Active]; hydrocodone-acetaminophen 10-325 mg Oral tab 1 tab twice a day [Active]; levothyroxine 50 mcg tab 1 tab once daily [Active]; lovastatin 40 mg Oral tab 1 tab 2 times per day [Active]; metoprolol tartrate 50 mg Oral tab 1 tab 2 times per day [Active]; Nitrostat 0.4 mg SL subl 1 tab every 5 minutes [Active]; potassium chloride 20 mEq Oral TbER 1 tab once daily [Active]; trazadone nightly [Active]; Xanax 1 mg Oral tab 1 tab BID [Active]; - PMHx: 08:54 Anxiety; CHF; chronic back pain; Dementia; Hypertension; Hypothyroidism; jl7 - PSHx: 08:54 Hysterectomy; Tonsillectomy; Appendectomy; jl7 - Immunization history:: Adult Immunizations unknown. - Coronavirus screen:: The patient has NOT traveled to [place], [place], or [place] in the past 14 days. Proceed with normal triage process as indicated. - Social history:: Smoking status: Patient denies any tobacco usage or history of. - Family history:: not pertinent. - Ebola Screening: : No symptoms or risks identified at this time. - Hospitalizations: : No recent hospitalization is reported. Screenin:00 Abuse screen: Denies threats or abuse. Denies injuries from another. Tuberculosis jl7 screening: No symptoms or risk factors identified. Fall Risk Fall in past 12 months (25 points). Secondary diagnosis (15 points) dementia, IV access (20 points). Ambulatory Aid- None/Bed Rest/Nurse Assist (0 pts). Gait- Weak (10 pts.). Mental Status- Overestimates/Forgets Limitations (15 pts.). Total Gerardo Fall Scale indicates High Risk Score (45 or more points). Fall prevention measures have been instituted. Side Rails Up X 2 Placed Close to Nursing Station Frequent Obs/Assessments Occuring Family Present and informed to notify staff if the need to leave the bedside As available patient and family educated on Fall Prevention Program and Strategies. 11:00 Nutritional screening: No deficits noted. jl7 11:10 The patient has not been NPO before screening. The patient is currently on the jl7 following diet: Regular The patient is alert, able to follow commands. The patient does not exhibit slurred or garbled speech The patient is not exhibiting difficulty speaking. The patient does not exhibit difficulty understanding words. The patient is able to swallow own secretions with no drooling or need for suction. Patient tolerated one teaspoon of water. No drooling, immediate coughing, gurgling, or clearing of the throat was noted. The patient tolerated 90mL of water. No drooling, immediate coughing, gurgling, or clearing of the throat was noted. The patient passed the bedside swallow screening. Oral medications may be given as ordered. Contact Physician for further diet orders. Provider notified of bedside swallow screening results: Swapnil Layton MD. Assessment: 08:47 General: Appears. jl7 10:00 Reassessment: Patient appears in no apparent distress at this time. No changes from jl7 previously documented assessment. Patient and/or family updated on plan of care and expected duration. Pain level reassessed. Patient is alert, oriented x 3, equal unlabored respirations, skin warm/dry/pink. 11:04 Reassessment: Patient appears in no apparent distress at this time. Patient and/or jl7 family updated on plan of care and expected duration. Pain level reassessed. Pt laying in bed with eyes closed, respirations even and unlabored. Family and bedside. ERD at bedside discussing results and POC with family. Daughter reports "She is not acting right. She does not just lay around and sleep." Family leaving at this time, call daughter Samira with any changes [phone]. Vital Signs: 08:51 BP 138 / 55; Pulse 65; Resp 19 S; Temp 97.8(O); Pulse Ox 100% on R/A; jl7 09:44 BP 138 / 62; Pulse 74; Resp 13; Temp 98.0(O); Pulse Ox 100% on R/A; mh5 10:00 BP 143 / 57; Pulse 70; Resp 14 S; Pulse Ox 98% on R/A; jl7 11:00 BP 150 / 59; Pulse 70; Resp 15 S; Pulse Ox 98% on R/A; jl7 13:27 BP 155 / 58; Pulse 77; Resp 17 S; Pulse Ox 97% on R/A; jl7 Chinyere Coma Score: 08:51 Eye Response: spontaneous(4). Verbal Response: oriented(5). Motor Response: obeys jl7 commands(6). Total: 15. 09:44 Eye Response: spontaneous(4). Verbal Response: oriented(5). Motor Response: obeys jl7 commands(6). Total: 15. 10:00 Eye Response: spontaneous(4). Verbal Response: oriented(5). Motor Response: obeys jl7 commands(6). Total: 15. Trauma Score (Adult): 08:51 Eye Response: spontaneous(1); Verbal Response: oriented(1); Motor Response: obeys jl7 commands(2); Systolic BP: > 89 mm Hg(4); Respiratory Rate: 10 to 29 per min(4); Chinyere Score: 15; Trauma Score: 12 ED Course: 08:47 Patient arrived in ED. jl7 08:50 Swapnil Layton MD is Attending Physician. rn 08:50 Triage completed. jl7 08:54 Arm band placed on right wrist. jl7 09:00 Maintain EMS IV. Dressing intact. Good blood return noted. Site clean \\T\\ dry. Gauge \\T\\ jl 7 site: 20 left AC. 09:25 Mae Pena RN is Primary Nurse. jl7 09:42 CT Head Brain wo Cont In Process Unspecified. EDMS 09:42 CT Abd/Pelvis - Without Contrast In Process Unspecified. EDMS 09:44 Patient has correct armband on for positive identification. Placed in gown. Bed in low mh5 position. Call light in reach. Side rails up X2. Warm blanket given. security monitor on. Pulse ox on. NIBP on. 09:51 EKG done, by business office technology instructor. reviewed by Swapnil Layton MD. at1 10:00 Initial lab(s) drawn, by nc, sent to lab. Flu and/or RSV swab sent to lab. jl7 10:00 Straight cath inserted, using sterile technique, 16 Fr. Specimen obtained. Returned jl7 clear yellow urine. Patient tolerated well. 11:10 Lyle Pantoja DO is Hospitalizing Provider. rn 12:05 Admitting physician to see patient. jl7 13:25 Inserted saline lock: 22 gauge in right wrist, using aseptic technique. jl7 13:25 No provider procedures requiring assistance completed. Patient admitted, IV remains in jl7 place. intact, No redness/swelling at site. Administered Medications: 10:16 Drug: NS 0.9% 500 ml Route: IV; Rate: bolus; Site: left antecubital; jl7 10:45 Follow up: Response: No adverse reaction; IV Status: Completed infusion; IV Intake: jl7 500ml Intake: 10:45 IV: 500ml; Total: 500ml. jl7 Outcome: 11:10 Decision to Hospitalize by Provider. rn 13:50 Admitted to Med/surg accompanied by tech, via stretcher, room 427, with chart, Report jl7 called to JOSE ALBERTO Bowles 13:50 Condition: stable 13:50 Discharge instructions given to patient, family, Instructed on the need for admit, Demonstrated understanding of instructions. 13:51 Patient left the ED. [email or web address] Signatures: Dispatcher [employer] EDMS Swapnil Layton MD MD rn Gonzales, Amanda, finance teacher EKG [facility] Valery Arce [facility] Mae Pena RN RN [email or web address]
[2019-12-20 12:20] LABS: Blood Morphology Comment NOT SEEN (NOT SEEN); Platelet Estimate ADEQ; Urine White Blood Cell Casts OK
--- NOTE | 2019-12-20 13:59 | P.HP ---
Certification for Inpatient Patient admitted to: Observation With expected LOS: <2 Midnights Patient will require the following post-hospital care: Home Health Services Practitioner: I am a practitioner with admitting privileges, knowledge of patient current condition, hospital course, and medical plan of care. Services: Services provided to patient in accordance with Admission requirements found in Title 42 Section 412.3 of the Code of Federal Regulations Patient History Date of Service: 12/20/19 Primary Care Provider: Dr. Portillo; Neurology-Dr. Jimenez Reason for admission: Altered mental status History of Present Illness: 79-year-old female with history of COPD, hypertension, hyperlipidemia , hypothyroidism, chronic back pain and dementia. Most information came from the ER physician and nurse. Patient was brought in by EMS after she was found on the ground in her house likely for several hr. There was no evidence of trauma. Patient was not able to recall the events. ER physician reports family did not indicate that she had had any recent upper respiratory infection. Patient was recently hospitalized in November for chest pain. Echocardiogram and cardiac stress test unremarkable. She also had elevated liver function tests likely related to Tylenol toxicity. Patient has chronic pain and uses pain medication. Patient was evaluated the emergency room. CT head unremarkable. CT abdomen unremarkable. Chest x-ray unremarkable. Influenza test negative. Urinalysis unremarkable. White count 10.4, hemoglobin 11.9. Sodium 130, potassium 3.7. Blood sugar 101. AST 107, ALT 134, alk-phos 208. Patient was admitted for further evaluation. When I saw the patient ER, she did not appear septic. Blood pressure stable. Patient was able to converse and appropriate to commands. Allergies iodine Allergy (Verified 03/11/17 18:10) Anaphylaxis midazolam [From Versed] Allergy (Verified 08/01/17 17:36) Unknown Sulfa (Sulfonamide Antibiotics) Allergy (Verified 08/01/17 17:36) Unknown unknown antibio Allergy (Uncoded 03/11/17 11:38) Unknown unknown antibiotic Allergy (Uncoded 04/03/17 20:39) Unknown Home medications list reviewed: Yes Home Medications: ALPRAZolam [Xanax*] 1 mg PO BID PRN 08/01/17 Fentanyl 1 each TD EVERY 3RD DAY 08/01/17 Furosemide 1 tab PO DAILY 08/01/17 Lovastatin 40 mg PO BEDTIME 08/01/17 Potassium Chloride 20 meq PO DAILY 08/01/17 Trazodone HCl 1 tab PO BEDTIME 08/01/17 Albuterol Inhaler [Ventolin Inhaler*] 2 puff IH Q6H PRN #1 [id number] 08/02/17 Budesonide/Formoterol Fumarate [Symbicort 160-4.5 Mcg Inhaler] 1 puff IH BID 04/03 Folic Acid 1 mg PO DAILY 11/20/18 Hydralazine HCl [Apresoline] 50 mg PO BID 11/20/18 Metoprolol Tartrate [Lopressor*] 50 mg PO DAILY 11/20/18 Acetylcyst [Mucomyst 20%*] 18 ml PO Q4H #7 vial 11/22/18 - Past Medical/Surgical History Diabetic: No -: History TIA -: HTN -: Hypothyroidism -: Depression with anxiety -: Chronic back pain -: Dementia -: Cholecystectomy -: Appendititis -: Hysterectomy Psychosocial/ Personal History: Patient lives at home - Family History Family History: Reviewed- Non-Contributory - Social History Smoking Status: Unknown if ever smoked Alcohol use: No CD- Drugs: No Caffeine use: Yes Place of Residence: Home Review of Systems is unable to be obtained Physical Examination - Physical Exam General: Alert, In no apparent distress, Cooperative, Other (Patient likely with underlying dementia. Patient was confused but cooperative) HEENT: Atraumatic, Normocephalic, Other (Dry mucous membranes) Neck: Supple Respiratory: Clear to auscultation bilaterally, Normal air movement Cardiovascular: Normal pulses, Regular rate/rhythm Gastrointestinal: Normal bowel sounds, Soft and benign, Non-distended, No tenderness, No masses, No rebound, No guarding Musculoskeletal: No erythema, No tenderness, No warmth Integumentary: No tenderness/swelling, No erythema, No warmth, No cyanosis Neurological: Normal speech, Normal strength at 5/5 x4 extr, Normal tone, Other (As above), Dementia - Studies Laboratory Data (last 24 hrs) 12/20/19 09:50: Creatinine 0.80 12/20/19 09:50: Sodium 130 L, Potassium 3.7, BUN 13, Creatinine 0.76, Glucose 101, Total Bilirubin 0.8, AST 107 H, ALT 134 H, Alkaline Phosphatase 205 H, Lipase 100 12/20/19 09:50: WBC 10.4, Hgb 11.9 L, Hct 34.0 L, Plt Count 279 Microbiology Data (last 24 hrs): 12/20/19 09:50 Nasopharnyx Influenza Type A Antigen Screen - Final 12/20/19 09:50 Nasopharnyx Influenza Type B Antigen Screen - Final Assessment and Plan - Plan Impression: Altered mental status with syncope complicated with history of dementia Mild dehydration Recent history of Tylenol toxicity due to over use of pain medication Hypertension Hyperlipidemia COPD Hypothyroidism Chronic back pain Plan: Altered mental status with syncope complicated with history of dementia: Patient admitted for further evaluation and treatment. Neurology consulted. Case discussed with Neurology. Will rule out CVA. Will obtain stroke protocol MRI, echo, and carotid Doppler. Will obtain procalcitonin to rule out infection. Blood cultures obtained. No evidence of infection at this time. Will start DVT prophylaxis-Lovenox. Will hold off on restarting statin medication due to recent elevation of liver function test. Need to rule out overuse of pain medication. Will need to get an accurate record of what she takes at home. Will need to obtain further information from family. Patient likely with worsening dementia. Will have physical therapy assess ambulation tomorrow. Will monitor lab closely. Will provide aspirin 81 mg and folic acid. Will continue to reassess. Fall precautions in place. I will turn the service over to the hospitalist team tomorrow. I will go over the plan of care with him. Anticipate discharge within the next 24 hr with clinical improvement. Mild dehydration: Will provide IV fluids. Will monitor electrolytes closely. Replacement protocol in place. Recent history of Tylenol toxicity due to over use of pain medication: Patient is seen in November for Tylenol toxicity likely related to overuse of pain medication. Will need to verify home medications at home. Will recommend to discontinue Tylenol or pain medication at this time. Will monitor and reassess. Monitor liver function test. Patient received Mucomyst on the last hospitalization. Will obtain Tylenol level. Hypertension: Will need to obtain and restart home medication. Hyperlipidemia: Will hold off on restarting statin medication due to elevated liver function. COPD: Restart home medication. Maintain sats above 90%. Hypothyroidism: Will check tsh and free T4. Continue medication. Chronic back pain: Will hold all pain medication at this time. Will confirm what she is taking at home. Will need to eliminate as much pain medication as possible. This may be contributing to the altered mental status. Discharge Plan: Home Plan to discharge in: 24 Hours - Advance Directives Does patient have a Living Will: No Does patient have a Durable POA for Healthcare: Yes - Code Status/Comfort Care Code Status Assessed: No (Unknown) Time Spent Managing Pts Care (In Minutes): 55
[2019-12-20] MEDS ORDERED: ALBUTEROL 2.5 MG/3 ML NEB SOL NEB PRN (14:25)
[2019-12-20] MEDS ORDERED: ONDANSETRON 4 MG/2 ML VIAL IV PRN (14:25)
[2019-12-20] MEDS ORDERED: IPRATROPIUM BROM 0.5MG/2.5ML NEB PRN (14:25)
[2019-12-20 14:38] VITALS: BMI 21.7
[2019-12-20] MEDS ORDERED: POTASSIUM CL SA 10 MEQ TAB PO ONE (15:02)
[2019-12-20] MEDS: NA CHLORIDE 0.9% 1,000 ML IV SCH (16:06)
[2019-12-20] MEDS: ENOXAPARIN 40 MG/0.4 ML SQ SCH (16:06)
--- NOTE | 2019-12-20 18:21 | RAD REPORT ---
EXAM DESCRIPTION: MRI - MRA Head Wo Cont - 12/20/2019 5:50 pm CLINICAL HISTORY: Syncope, fall, altered mental status, history of CVA COMPARISON: None. TECHNIQUE: Axial and coronal 3D [id number] image acquisition was performed. 3D rotational images were generated with source and reconstruction images reviewed. Horizontal and vertical axis rotation al views generated using MIP protocol. FINDINGS: No aneurysm or vascular malformation identified. The basilar artery and distal internal ca rotid arteries show no stenosis, dissection or significant vascular finding. Mild to moderate atherosclerotic changes are present in the left anterior cerebral artery A1 segment with moderate disease in the peripheral branches of the left middle cerebral artery. Prominent athero sclerotic narrowing present in the M2 branches of the right middle cerebral artery. Posterior cerebra l artery branches show no significant disease. IMPRESSION: Basilar artery and distal internal carotid artery show no significant finding. Advanced atherosclerotic changes in the right middle cerebral artery distribution with mild to modera te atherosclerotic changes in the left anterior and middle cerebral artery distributions.
--- NOTE | 2019-12-20 18:28 | RAD REPORT ---
EXAM DESCRIPTION: MRI - MRA Neck W/Wo Cont - 12/20/2019 5:50 pm CLINICAL HISTORY: Altered mental status, stroke-like symptoms, syncope TECHNIQUE: MR angiography of the cervical vasculature performed. Coronal imaging plane acquisition u tilized. A 14 MultiHance contrast volume was utilized. Coronal reformatted images were generated and reviewed. Vertical axis 3D rotational projections obtained using maximum intensity projection protoco l. FINDINGS: Innominate artery shows no significant finding. The right subclavian and right common lucas tid arteries are without significant finding. Proximal portion of the right internal carotid artery i s very tortuous but otherwise unremarkable. Right-side basilar artery without suspicious finding. The left vertebral artery also without suspicious finding. Left common carotid artery origin is obscu red somewhat by a brachiocephalic vein contrast contamination. Stenosis is not suspected. No left com mon carotid or internal carotid artery stenosis or dissection. The left subclavian artery origin is truncated between its origin and the left vertebral artery origi n. This may be from atherosclerotic disease or surgical procedure. There is collateralized or bypasse d vasculature supply to the left subclavian artery. No acute finding seen. Primary supply to the left subclavian artery appears to come from an anastomosis with the left common carotid artery. No aneurysm or vascular malformation. IMPRESSION: No stenosis, dissection or acute vascular finding identifiable. 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 Primary left subclavian supply comes fr om anastomosis with the left common carotid artery.
--- NOTE | 2019-12-20 18:29 | RAD REPORT ---
EXAM DESCRIPTION: MRI - Brain W/Wo Cont - 12/20/2019 5:50 pm CLINICAL HISTORY: Syncope, weakness, stroke-like symptoms COMPARISON: CT head December 20 TECHNIQUE: Sagittal and axial T1-weighted images were obtained. Axial PD/heavily T2-weighted and T2- FLAIR images were obtained along with axial DWI/ADC mapping sequences. Coronal heavily T2 weighted s equence obtained. Axial and coronal post-contrast T1-weighted images were also obtained. A 14 ml Mul tihance contrast following utilized. FINDINGS: No intracranial hemorrhage, mass or acute infarction. There is no edema or shift of midli ne structures. No extra-axial fluid collections. Blanco-matter/white matter junction is preserved. Sig nal voids are seen as a normal finding in the major intracranial vessels. Mild to moderate atrophy ch anges are present along with moderate chronic ischemic change. Ventricles are in proportion to volume loss. Post-contrast images show normal enhancement. No dural thickening. Mastoid air cells and paranasal sinuses are clear. IMPRESSION: No acute infarction change. No mass, hemorrhage or acute intracranial finding. Mild to moderate atrophy and moderate chronic ischemic change. Ventricles are in proportion to volume loss.
--- NOTE | 2019-12-20 18:57 | RAD REPORT ---
EXAM DESCRIPTION: US - CP - 12/20/2019 6:20 pm CLINICAL HISTORY: Syncope COMPARISON: MRA Neck W/Wo Cont dated 12/20/2019 TECHNIQUE: Real-time sonographic evaluation of bilateral carotid and vertebral systems was performed . Blanco scale and Doppler interrogation were performed with waveform tracing bilaterally. FINDINGS: Normal high resistance waveforms are noted in both external carotid arteries. The common c arotid arteries and internal carotid arteries show normal low resistance waveforms. Calcified plaquing changes are present at the right carotid bulb. This does not cause significant lum inal narrowing. This does not create stenosis or abnormal velocity values. Peak systolic and end cai tolic velocity values and the ICA/CCA ratios are in the non-hemodynamically significant range. Antegrade flow seen in both vertebral arteries. Velocity values and ratios were recorded and are retained in the patient's imaging records. IMPRESSION: Calcified plaquing changes are present at the right carotid bulb. Currently the atherosclerotic changes do not cause hemodynamically significant stenosis.
[2019-12-20 19:49] LABS: Troponin I < 0.02 ng/mL (0.0-0.045)
[2019-12-20 19:55] LABS: Creatine Phosphokinase 1033 U/L (26-192)
[2019-12-20] MEDS ORDERED: HOME MED 1 EA UNK (Lovastatin [Lovastatin] 40 MG) PO SCH (21:00)
[2019-12-20] MEDS ORDERED: METOPROLOL TAR 50 MG TAB PO SCH (21:00)
[2019-12-20] MEDS ORDERED: HOME MED 1 EA UNK (Trazodone Hcl [Trazodone Hcl] 1 TAB) PO SCH (21:00)
[2019-12-20] MEDS: TRAZODONE 50 MG TABLET PO SCH (21:07)
[2019-12-20 21:41] LABS: Urine Appearance CLEAR; Urine Bilirubin NEGATIVE (NEG); Urine Blood NEGATIVE (NEG); Urine Color YELLOW; Urine Glucose NEGATIVE (NEG); Urine Protein NEGATIVE (NEG); Urine pH 6.5 (5.0-7.0)
[2019-12-20 21:42] LABS: Urine Microscopic Reflex ORDER UMIC
[2019-12-20 22:04] LABS: Barbiturates NEGATIVE (NEGATIVE); Benzodiazepines POSITIVE (NEGATIVE); Cocaine NEGATIVE (NEGATIVE); METHAMPHETAM NEGATIVE (NEGATIVE); Methadone NEGATIVE (NEGATIVE); Opiates NEGATIVE (NEGATIVE); Phencyclidine NEGATIVE (NEGATIVE); THC Cannibis NEGATIVE (NEGATIVE)
[2019-12-20 22:14] LABS: Urine Bacteria 20-50 /HPF (<20); Urine Culture Reflex Order REFLEXED; Urine RBC <5 /HPF (NONE SEEN); Urine Urothelial Cells <5 /HPF (NONE SEEN)
--- NOTE | 2019-12-21 02:04 | CON ---
Date of Consultation: 12/20/2019 Reason For Consultation: Possible stroke. History: This is an 79-year-old patient with history of chronic pain and some memory problems as wel l as hypertension and hypothyroidism. She was just found down by family this morning, just found on the ground apparently unresponsive. EMS had to by history crawl in through the window. She was brou ght to the emergency department. Patient was recently hospitalized in November for chest discomfort. Evaluation in the emergency department was unremarkable with regard to the neurologic issues. White count normal, hemoglobin 11.9. Patient does have some elevated liver function tests with ALT of 134 and AST of 107. CPK is elevated as at 1000, procalcitonin is also elevated at 1.9, acetaminophen is negative. There was a question if patient may have possibly experienced TIA. She does appear to carvalho ve truncated left subclavian, but brain MRI does not demonstrate any evidence of an acute infarct. C arotid Doppler, calcified plaque right carotid without hemodynamically significant stenosis. MRA of the cervical vessels, no dissection, no stenosis. Left subclavian was noted to be truncated with zaira johanna supply coming from the left common carotid. She feels well now. She is not complaining of head ache and visual difficulties, focal numbness or weakness. Consultation was requested. Past Medical History: Prior TIA, hypertension, depression, chronic pain, hypothyroidism. Social History: Does not drink. Smoking status unknown. Medications: Chronically, Synthroid, amitriptyline, meloxicam, gabapentin, Xanax, Lasix, Ventolin, f olic acid, fentanyl, Lopressor, lovastatin, trazodone, and potassium. Allergies: SULFA, IODINE, MIDAZOLAM. SOCIAL HISTORY; ALLUDED TO. Review of Systems: General: Chronically ill. Eyes: Negative. Ears, Nose, Throat: Negative. Cardiovascular: As alluded to. Pulmonary: Negative. GI: Negative. : Negative. Musculoskeletal: Chronic pain. Neurologic: As noted. Psychiatric: Negative. Endocrine: Negative. Physical Examination: Vital Signs: 98.6, 82, 18, 149/66. General: She is a pleasant lady, lying in bed, awake, alert, knows she is in the hospital. Knows he r name, knows the year. HEENT: Pupils reactive. Extraocular motions full. Visual salmeron full. Facial strength and sensati on normal. Tongue protrudes evenly. Soft palate elevates symmetrically bilaterally. Neuro: Extremity strength is full. Sensation decreased symmetrically distally. Reflexes are 1/4. Ankle jerks are trace. Toes are downgoing. Cerebellar exam demonstrates no ataxia. Impression: Syncope. There is no evidence for a stroke. There is some questionable subclavian sten osis versus occlusion that is what appears to have good collateralization suggesting a chronic proble m. Plan: In general supportive care as you are doing. We will check an EEG given the syncope. Procalc itonin is somewhat elevated as well. We will have nursing check blood pressure both arm every shift to further evaluate the possible subclavian stenosis, although it is unclear at 79 if an intervention would be necessary. I think trying to taper the patient's fentanyl and benzodiazepines as well as p ossibly decreasing the amitriptyline may provide to be fruitful as intervention as well. Continue as pirin as you are doing. If the EEG cannot be done tomorrow, it can readily be done as outpatient. P atient should not be driving post discharge after the syncopal spell. Thank you for the consult. DIANA/NHUNG Voice ID: [id number] Report ID: [id number]
[2019-12-21 04:31] LABS: Absolute Lymphocytes (CBC) 1.1 K/uL (0.7-4.9); Basophils % 0.7 % (0-1.3); CKMB Creatine Kinase MB 3.4 ng/mL (0.3-3.6); Creatine Phosphokinase 570 U/L (26-192); Hematocrit 32.6 % (36.0-45.0); Lymphocytes % 12.8 % (15.3-44.8); MPV 8.1 fL (7.6-11.3); RBC Red Blood Cell Count 3.64 M/uL (3.86-4.86); Troponin I < 0.02 ng/mL (0.0-0.045)
[2019-12-21 04:36] LABS: Albumin 2.3 g/dL (3.4-5.0); Bilirubin Total 0.4 mg/dL (0.2-1.0); Potassium 3.6 mmol/L (3.5-5.1); Protein, Total 5.6 g/dL (6.4-8.2); Thyroid Stimulating Hormone 2.16 uIU/mL (0.360-3.740)
[2019-12-21] MEDS: TRAMADOL HCL 50 MG TAB PO PRN ×2 (04:50→14:40)
[2019-12-21] MEDS: LEVOTHYROXINE SOD 0.05 MG TABLET PO SCH (04:51)
[2019-12-21 05:14] LABS: Blood Morphology Comment NOTED (NOT SEEN); Burr Cells 2+; Platelet Estimate ADEQ
[2019-12-21] MEDS ORDERED: POTASSIUM CL SA 10 MEQ TAB PO ONE (08:00)
--- NOTE | 2019-12-21 08:03 | ECHO ---
HEIGHT: 5 ft 7 in WEIGHT: 138 lb 9.6 oz DATE OF STUDY: 12/20/[address]: Lyle Pantoja DO 2-DIMENSIONAL: YES M.MODE: YES DOPPLER: YES COLOR FLOW: YES TDS: NO PORTABLE: NO DEFINITY: NO BUBBLE STUDY: NO DIAGNOSIS: SYNCOPE CARDIAC HISTORY: CATHERIZATION: NO SURGERY: NO PROSTHETIC VALVE: NO PACEMAKER: NO MEASUREMENTS (cm) DIASTOLIC (NORMALS) SYSTOLIC (NORMALS) IVSd 1.0 (0.6-1.2) LA Diam 3.0 (1.9-4.0) LVEF 81% LVIDd 4.1 (3.5-5.7) LVIDs 2.1 (2.0-3.5) %FS 49% LVPWd 1.1 (0.6-1.2) Ao Diam 2.4 (2.0-3.7) 2 DIMENSIONAL ASSESSMENT: RIGHT ATRIUM: NORMAL LEFT ATRIUM: NORMAL RIGHT VENTRICLE: NORMAL LEFT VENTRICLE: NORMAL TRICUSPID VALVE: NORMAL MITRAL VALVE: NORMAL PULMONIC VALVE: NORMAL AORTIC VALVE: MILD SCLEROSIS PERICARDIAL EFFUSION: NONE AORTIC ROOT: NORMAL LEFT VENTRICULAR WALL MOTION: NORMAL DOPPLER/COLOR FLOW: NO AORTIC STENOSIS OR AORTIC REGURGITATION. MILD MITRAL AND TRICUSPID REGURGITATION. NORMAL RIGHT VENTRICULAR SYSTOLIC PRESSURE. COMMENTS: NORMAL LEFT VENTRICULAR EJECTION FRACTION. MILD AORTIC SCLEROSIS WITH NO AORTIC STENOSIS OR AORTIC REGURGITATION. MILD MITRAL AND TRICUSPID REGURGITATION. TECHNOLOGIST: Jasen GEE
[2019-12-21] MEDS: THIAMINE HCL 100 MG TABLET PO SCH (08:32)
[2019-12-21] MEDS: METOPROLOL TAR 25 MG TAB PO SCH (08:33)
[2019-12-21] MEDS: ENOXAPARIN 40 MG/0.4 ML SQ SCH (08:33)
[2019-12-21] MEDS: FOLIC ACID 1 MG TABLET PO SCH (08:33)
[2019-12-21] MEDS ORDERED: FOLIC ACID 1 MG TABLET PO SCH (09:00)
[2019-12-21] MEDS ORDERED: LEVOTHYROXINE SOD 0.05 MG TABLET PO SCH (09:00)
[2019-12-21] MEDS ORDERED: METOPROLOL TAR 50 MG TAB PO SCH (09:00)
--- NOTE | 2019-12-21 09:15 | EKG ---
Test Date: 2019-12-20 Test Time: 09:48:23 Telegraphic Typewriter Repairer: ANAMARIA MEASUREMENT RESULTS: Intervals: Rate: 67 UT: 154 QRSD: 76 QT: 442 QTc: 467 [place]: P: 90 UT: 154 QRS: 85 T: 87 INTERPRETIVE STATEMENTS: Sinus rhythm with premature atrial complexes Otherwise normal ECG Compared to ECG 11/20/2018 02:06:51 Atrial premature complex(es) now present Electronically Signed On 12-21-19 09:14:52 [employer] by Chris Thomas
--- NOTE | 2019-12-21 12:47 | P.PN ---
Subjective Date of Service: 12/21/19 Primary Care Provider: Dr. Portillo; Neurology-Dr. Jimenez Chief Complaint: Altered mental status Subjective: No C/O voiced (seen today , conversant , state she feels she can ambulate but held by staff - no confuion or agitation overnight -she recall syncope episode but denies nay chest pain or dizziness prior to event), New changes, Doing well Review of Systems 10-point ROS is otherwise unremarkable Physical Examination - Vital Signs Temperature: 97.1 F Blood Pressure: 136/60 Pulse: 89 Respirations: 16 Pulse Ox (%): 94 - Physical Exam General: Alert, Oriented x3, Cooperative HEENT: Normocephalic, PERRLA Neck: 2+ carotid pulse no bruit, JVD not distended Respiratory: Clear to auscultation bilaterally, Normal air movement Cardiovascular: Normal pulses, Regular rate/rhythm, Normal S1 S2 Gastrointestinal: Normal bowel sounds, Soft and benign, Non-distended Integumentary: No rashes, No breakdown Neurological: Normal speech, Normal tone - Studies Laboratory Last Values WBC 8.5 K/uL (4.3-10.9) D 12/21/19 03:34 RBC 3.64 M/uL (3.86-4.86) L 12/21/19 03:34 Hgb 11.0 g/dL (12.0-15.0) L 12/21/19 03:34 Hct 32.6 % (36.0-45.0) L 12/21/19 03:34 MCV 89.3 fL (80-100) 12/21/19 03:34 MCH 30.3 pg (27.0-35.0) 12/21/19 03:34 MCHC 33.9 g/dL (32.0-36.0) 12/21/19 03:34 RDW 13.3 % (12.1-15.2) 12/21/19 03:34 Plt Count 237 K/uL (152-406) 12/21/19 03:34 MPV 8.1 fL (7.6-11.3) 12/21/19 03:34 Neutrophils % 72.3 % (41.7-73.7) 12/21/19 03:34 Lymphocytes % 12.8 % (15.3-44.8) L 12/21/19 03:34 Monocytes % 10.6 % (3.3-12.3) 12/21/19 03:34 Eosinophils % 3.6 % (0-4.4) 12/21/19 03:34 Basophils % 0.7 % (0-1.3) 12/21/19 03:34 Absolute Neutrophils 6.2 K/uL (1.8-8.0) 12/21/19 03:34 Segmented Neutrophils 61 % (40-80) 12/21/19 03:34 Band Neutrophils 11 % (0-1) H* 12/21/19 03:34 Absolute Lymphocytes 1.1 K/uL (0.7-4.9) 12/21/19 03:34 Lymphocytes 15 % (15-42) 12/21/19 03:34 Monocytes 7 % (0-10) 12/21/19 03:34 Absolute Monocytes 0.9 K/uL (0.1-1.3) 12/21/19 03:34 Eosinophils 3 % (0-3) 12/21/19 03:34 Absolute Eosinophils 0.3 K/uL (0-0.5) 12/21/19 03:34 Basophils 2 % (0-1) H 12/21/19 03:34 Absolute Basophils 0.1 K/uL (0-0.5) 12/21/19 03:34 Reactive Lymphocytes 1 % 12/21/19 03:34 [place] Cells 2+ 12/21/19 03:34 Morphology Comment Noted (NOT SEEN) 12/21/19 03:34 Sodium 134 mmol/L (136-145) L 12/21/19 03:34 Potassium 3.6 mmol/L (3.5-5.1) 12/21/19 03:34 Chloride 101 mmol/L (98-107) 12/21/19 03:34 Carbon Dioxide 27 mmol/L (21-32) 12/21/19 03:34 BUN 12 mg/dL (7-18) 12/21/19 03:34 Creatinine 0.86 mg/dL (0.55-1.3) 12/21/19 03:34 Estimated GFR 63 mL/min (=/>90) L 12/21/19 03:34 Glucose 91 mg/dL (74-106) 12/21/19 03:34 Calcium 7.6 mg/dL (8.5-10.1) L 12/21/19 03:34 Magnesium 2.0 mg/dL (1.8-2.4) 12/21/19 03:34 Total Bilirubin 0.4 mg/dL (0.2-1.0) 12/21/19 03:34 Direct Bilirubin 0.4 mg/dL (0-0.2) H 12/20/19 09:50 AST 72 U/L (15-37) H 12/21/19 03:34 ALT 91 U/L (12-78) H 12/21/19 03:34 Alkaline Phosphatase 166 U/L (45-117) H 12/21/19 03:34 Creatine Kinase 570 U/L (26-192) H 12/21/19 03:34 CK-MB (CK-2) 3.4 ng/mL (0.3-3.6) 12/21/19 03:34 Troponin I < 0.02 ng/mL (0.0-0.045) 12/21/19 03:34 Serum Total Protein 5.6 g/dL (6.4-8.2) L 12/21/19 03:34 Albumin 2.3 g/dL (3.4-5.0) L 12/21/19 03:34 Globulin 3.3 g/dL (2.3-3.5) D 12/21/19 03:34 Albumin/Globulin Ratio 0.7 (1.1-1.8) L 12/21/19 03:34 Triglycerides 157 mg/dL (<150) H 12/21/19 03:34 Cholesterol 104 mg/dL (<200) 12/21/19 03:34 LDL Cholesterol, Calc 49 (<130) 12/21/19 03:34 HDL Cholesterol 24 mg/dL (40-60) L 12/21/19 03:34 Cholesterol/HDL Ratio 4.33 12/21/19 03:34 Lipase 100 U/L (73-393) 12/20/19 09:50 Procalcitonin 1.90 ng/mL (<0.50) H 12/20/19 14:22 TSH 2.160 uIU/mL (0.360-3.740) 12/21/19 03:34 Free T4 1.09 ng/dL (0.76-1.46) 12/21/19 03:34 Urine Color Yellow 12/20/19 21:21 Urine Appearance Clear 12/20/19 21:21 Urine pH 6.5 (5.0-7.0) 12/20/19 21:21 Ur Specific [place] 1.010 (1.005-1.030) 12/20/19 21:21 Glucose (UA)(Auto) Negative (NEG) 12/20/19 21:21 Urine Ketones 1+ (NEG) H 12/20/19 21:21 Urine Blood Negative (NEG) 12/20/19 21:21 Urine Nitrite Negative (NEG) 12/20/19 21:21 Urine Bilirubin Negative (NEG) 12/20/19 21:21 Urine Urobilinogen 1.0 mg/dL (0.2-1.0) 12/20/19 21:21 Ur Leukocyte Esterase 1+ (NEG) H 12/20/19 21:21 Urine RBC <5 /HPF (NONE SEEN) 12/20/19 21:21 Urine WBC 5-10 /HPF (<5) H 12/20/19 21:21 Ur Squamous Epith Cells <5 /HPF (NONE SEEN) 12/20/19 21:21 Ur Urothelial Cells <5 /HPF (NONE SEEN) 12/20/19 21:21 Urine Bacteria 20-50 /HPF (<20) H 12/20/19 21:21 Urine Culture Reflexed Reflexed 12/20/19 21:21 Urine Total Protein Negative (NEG) 12/20/19 21:21 Opiates Screen Negative (NEGATIVE) 12/20/19 21:21 Methadone Screen Negative (NEGATIVE) 12/20/19 21:21 Acetaminophen < 2.0 ug/mL (10.0-30.0) L 12/20/19 14:22 Ur Barbiturates Screen Negative (NEGATIVE) 12/20/19 21:21 Ur Phencyclidine Scrn Negative (NEGATIVE) 12/20/19 21:21 Amphetamines Screen Negative (NEGATIVE) 12/20/19 21:21 Benzodiazepines Screen Positive (NEGATIVE) H 12/20/19 21:21 Cocaine Screen Negative (NEGATIVE) 12/20/19 21:21 Ur THC Screen Negative (NEGATIVE) 12/20/19 21:21 Microbiology Data (last 24 hrs): 12/20/19 09:50 Nasopharnyx Influenza Type A Antigen Screen - Final 12/20/19 09:50 Nasopharnyx Influenza Type B Antigen Screen - Final Assessment & Plan - Problems (Diagnosis) (1) Altered mental status Onset Date: 03/12/17 Current Visit: No Status: Acute (2) Syncope and collapse Onset Date: 04/06/17 Current Visit: No Status: Acute (3) Urinary tract infection Onset Date: 03/12/17 Current Visit: No Status: Acute (4) Essential (primary) hypertension Onset Date: 03/12/17 Current Visit: No Status: Chronic (5) Hyperlipidemia Onset Date: 03/12/17 Current Visit: No Status: Chronic Qualifiers: Hyperlipidemia type: mixed hyperlipidemia Qualified Code(s): E78.2 - Mixed hyperlipidemia Physician Review: Patient Assessed, Agree with Above Assessment and Plan Physician Review Additional Text: carotid US -Currently the atherosclerotic changes do not cause hemodynamically significant stenosis. Echo - normal EF , no valve disease Impression: Altered mental status with syncope complicated with history of dementia Mild dehydration Recent history of Tylenol toxicity due to over use of pain medication Hypertension Hyperlipidemia COPD Hypothyroidism Chronic back pain Rhabdomyolysis UTI Plan: Altered mental status with syncope complicated with history of dementia: resolved -syncope episode may be due to pain meds but will need to r/o any arrhythmias -no tele changes since admission but continue for now -may be due to UTI -agree with teleneuro- follow EEG , carotid US noted but no intervention needed now as brain MRI was normal -c/w aspirin 81 mg and folic acid. -c/w to hold her pain meds- fentanyl Rhabdomyolysis - improving , continue gentle IVF -follow repeat in am UTI - with gram neg rods -may be reason for elevated procalcitonin and bandemia -follow urine cx -start emprical Rocephin Mild dehydration: c/w IVF Recent history of Tylenol toxicity due to over use of pain medication: normaL TYLENOL LEVEL NOW Hypertension: Will need to obtain and restart home medication. Hyperlipidemia: Will hold off on restarting statin medication due to elevated liver function. COPD: Restart home medication. Maintain sats above 90%. Hypothyroidism: normal tsh and free T4. Continue medication. Chronic back pain: hold pain medication at this time.
--- NOTE | 2019-12-21 14:28 | CON ---
Identification: 79-year-old woman. Reason For Consult: Syncope. History Of Present Illness: Mrs. Marcano has no memory of the event. She remembers awakening being o n the floor and unable to get up and ambulance was called, and since being here, she has had a lot of tests indicating no significant abnormality. There are no signs of stroke or carotid stenosis. 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 She seemed to have some memory problems. She is treated as an outpatient with fentanyl patch, potassium chloride, furos emide, lovastatin, trazodone, alprazolam, metoprolol, folic acid, amitriptyline, meloxicam, gabapenti n, levothyroxine, and albuterol inhaler. She denies tobacco use now. She denies chest pain, shortne ss of breath. She does not recall any episodes of syncope between the one in 2017 and now, although again her memory is suspect. Physical Examination: General: She is 5 feet 7 inches, 138 pounds. HEENT: Unremarkable. Neck: No carotid bruit. Lungs: Clear. Cardiac: Normal. Radial pulses are symmetric. Vital Signs: Her blood pressure is 150/68, pulse 90, O2 saturation 93% on room air. I think the patient should have blood pressures taken simultaneously right and left arm to compare an d should have orthostatic vital signs done. Most likely, we need to cut down on the number of medica tion she takes, even allowing her to be slightly hypertensive and probably better than having a fall as mu ch as she does. SH/MODL Voice ID: [id number] Report ID: [id number]
[2019-12-21] MEDS: CEFTRIAXONE/SWI 1gm 1 GM/10 ML SYR IV SCH (14:35)
[2019-12-21] MEDS: NA CHLORIDE 0.9% 1,000 ML IV SCH (14:36)
[2019-12-21] MEDS: TRAZODONE 50 MG TABLET PO SCH (21:17)
[2019-12-22 04:41] LABS: Absolute Lymphocytes (CBC) 1.1 K/uL (0.7-4.9); Basophils % 0.8 % (0-1.3); Hematocrit 29.6 % (36.0-45.0); Lymphocytes % 17.6 % (15.3-44.8); MPV 7.7 fL (7.6-11.3); RBC Red Blood Cell Count 3.32 M/uL (3.86-4.86)
[2019-12-22 04:48] LABS: Albumin 2.3 g/dL (3.4-5.0); Bilirubin Total 0.4 mg/dL (0.2-1.0); Potassium 3.7 mmol/L (3.5-5.1); Protein, Total 5.4 g/dL (6.4-8.2)
[2019-12-22] MEDS: LEVOTHYROXINE SOD 0.05 MG TABLET PO SCH (05:47)
[2019-12-22] MEDS: NA CHLORIDE 0.9% 1,000 ML IV SCH (05:48)
[2019-12-22] MEDS: ENOXAPARIN 40 MG/0.4 ML SQ SCH (08:08)
[2019-12-22] MEDS: THIAMINE HCL 100 MG TABLET PO SCH (08:08)
[2019-12-22] MEDS: CEFTRIAXONE/SWI 1gm 1 GM/10 ML SYR IV SCH (08:08)
[2019-12-22] MEDS: FOLIC ACID 1 MG TABLET PO SCH (08:08)
[2019-12-22] MEDS: METOPROLOL TAR 25 MG TAB PO SCH (08:08)
[2019-12-22] MEDS ORDERED: POTASSIUM CL SA 10 MEQ TAB PO ONE (09:00)
--- NOTE | 2019-12-22 13:28 | P.PN ---
Subjective Date of Service: 12/22/19 Primary Care Provider: Dr. Portillo; Neurology-Dr. Jimenez Chief Complaint: Altered mental status Subjective: Tolerating diet, Working w/ PT (- pt reports she lives alone , states family unable to provide assist for her now -), Doing well Review of Systems 10-point ROS is otherwise unremarkable Physical Examination - Vital Signs Temperature: 97.4 F Blood Pressure: 147/83 Pulse: 56 Respirations: 18 Pulse Ox (%): 99 - Physical Exam General: Alert, In no apparent distress, Oriented x3 HEENT: Atraumatic, Normocephalic, PERRLA Neck: Supple, 2+ carotid pulse no bruit Respiratory: Clear to auscultation bilaterally, Diminished Cardiovascular: No edema, Regular rate/rhythm, Normal S1 S2 Gastrointestinal: Normal bowel sounds, Soft and benign, Non-distended Musculoskeletal: No clubbing, No swelling Neurological: Normal speech, Cranial nerves 3-12 intact, Abnormal strength - Studies Laboratory Last Values WBC 6.3 K/uL (4.3-10.9) D 12/22/19 03:45 RBC 3.32 M/uL (3.86-4.86) L 12/22/19 03:45 Hgb 10.1 g/dL (12.0-15.0) L 12/22/19 03:45 Hct 29.6 % (36.0-45.0) L 12/22/19 03:45 MCV 89.1 fL (80-100) 12/22/19 03:45 MCH 30.4 pg (27.0-35.0) 12/22/19 03:45 MCHC 34.1 g/dL (32.0-36.0) 12/22/19 03:45 RDW 13.3 % (12.1-15.2) 12/22/19 03:45 Plt Count 248 K/uL (152-406) 12/22/19 03:45 MPV 7.7 fL (7.6-11.3) 12/22/19 03:45 Neutrophils % 60.1 % (41.7-73.7) 12/22/19 03:45 Lymphocytes % 17.6 % (15.3-44.8) 12/22/19 03:45 Monocytes % 16.6 % (3.3-12.3) H 12/22/19 03:45 Eosinophils % 4.9 % (0-4.4) H 12/22/19 03:45 Basophils % 0.8 % (0-1.3) 12/22/19 03:45 Absolute Neutrophils 3.8 K/uL (1.8-8.0) 12/22/19 03:45 Segmented Neutrophils 61 % (40-80) 12/21/19 03:34 Band Neutrophils 11 % (0-1) H* 12/21/19 03:34 Absolute Lymphocytes 1.1 K/uL (0.7-4.9) 12/22/19 03:45 Lymphocytes 15 % (15-42) 12/21/19 03:34 Monocytes 7 % (0-10) 12/21/19 03:34 Absolute Monocytes 1.1 K/uL (0.1-1.3) 12/22/19 03:45 Eosinophils 3 % (0-3) 12/21/19 03:34 Absolute Eosinophils 0.3 K/uL (0-0.5) 12/22/19 03:45 Basophils 2 % (0-1) H 12/21/19 03:34 Absolute Basophils 0.0 K/uL (0-0.5) 12/22/19 03:45 Reactive Lymphocytes 1 % 12/21/19 03:34 Platinum Cells 2+ 12/21/19 03:34 Morphology Comment Noted (NOT SEEN) 12/21/19 03:34 Sodium 137 mmol/L (136-145) 12/22/19 03:45 Potassium 3.7 mmol/L (3.5-5.1) 12/22/19 03:45 Chloride 105 mmol/L (98-107) 12/22/19 03:45 Carbon Dioxide 26 mmol/L (21-32) 12/22/19 03:45 BUN 8 mg/dL (7-18) 12/22/19 03:45 Creatinine 0.68 mg/dL (0.55-1.3) 12/22/19 03:45 Estimated GFR 83 mL/min (=/>90) L 12/22/19 03:45 Glucose 86 mg/dL (74-106) 12/22/19 03:45 Calcium 7.9 mg/dL (8.5-10.1) L 12/22/19 03:45 Magnesium 2.0 mg/dL (1.8-2.4) 12/21/19 03:34 Total Bilirubin 0.4 mg/dL (0.2-1.0) 12/22/19 03:45 Direct Bilirubin 0.4 mg/dL (0-0.2) H 12/20/19 09:50 AST 50 U/L (15-37) H 12/22/19 03:45 ALT 68 U/L (12-78) 12/22/19 03:45 Alkaline Phosphatase 148 U/L (45-117) H 12/22/19 03:45 Creatine Kinase 570 U/L (26-192) H 12/21/19 03:34 CK-MB (CK-2) 3.4 ng/mL (0.3-3.6) 12/21/19 03:34 Troponin I < 0.02 ng/mL (0.0-0.045) 12/21/19 03:34 Serum Total Protein 5.4 g/dL (6.4-8.2) L 12/22/19 03:45 Albumin 2.3 g/dL (3.4-5.0) L 12/22/19 03:45 Globulin 3.1 g/dL (2.3-3.5) 12/22/19 03:45 Albumin/Globulin Ratio 0.7 (1.1-1.8) L 12/22/19 03:45 Triglycerides 157 mg/dL (<150) H 12/21/19 03:34 Cholesterol 104 mg/dL (<200) 12/21/19 03:34 LDL Cholesterol, Calc 49 (<130) 12/21/19 03:34 HDL Cholesterol 24 mg/dL (40-60) L 12/21/19 03:34 Cholesterol/HDL Ratio 4.33 12/21/19 03:34 Lipase 100 U/L (73-393) 12/20/19 09:50 Procalcitonin 1.90 ng/mL (<0.50) H 12/20/19 14:22 TSH 2.160 uIU/mL (0.360-3.740) 12/21/19 03:34 Free T4 1.09 ng/dL (0.76-1.46) 12/21/19 03:34 Urine Color Yellow 12/20/19 21:21 Urine Appearance Clear 12/20/19 21:21 Urine pH 6.5 (5.0-7.0) 12/20/19 21:21 Ur Specific [place] 1.010 (1.005-1.030) 12/20/19 21:21 Glucose (UA)(Auto) Negative (NEG) 12/20/19 21:21 Urine Ketones 1+ (NEG) H 12/20/19 21:21 Urine Blood Negative (NEG) 12/20/19 21:21 Urine Nitrite Negative (NEG) 12/20/19 21:21 Urine Bilirubin Negative (NEG) 12/20/19 21:21 Urine Urobilinogen 1.0 mg/dL (0.2-1.0) 12/20/19 21:21 Ur Leukocyte Esterase 1+ (NEG) H 12/20/19 21:21 Urine RBC <5 /HPF (NONE SEEN) 12/20/19 21:21 Urine WBC 5-10 /HPF (<5) H 12/20/19 21:21 Ur Squamous Epith Cells <5 /HPF (NONE SEEN) 12/20/19 21:21 Ur Urothelial Cells <5 /HPF (NONE SEEN) 12/20/19 21:21 Urine Bacteria 20-50 /HPF (<20) H 12/20/19 21:21 Urine Culture Reflexed Reflexed 12/20/19 21:21 Urine Total Protein Negative (NEG) 12/20/19 21:21 Opiates Screen Negative (NEGATIVE) 12/20/19 21:21 Methadone Screen Negative (NEGATIVE) 12/20/19 21:21 Acetaminophen < 2.0 ug/mL (10.0-30.0) L 12/20/19 14:22 Ur Barbiturates Screen Negative (NEGATIVE) 12/20/19 21:21 Ur Phencyclidine Scrn Negative (NEGATIVE) 12/20/19 21:21 Amphetamines Screen Negative (NEGATIVE) 12/20/19 21:21 Benzodiazepines Screen Positive (NEGATIVE) H 12/20/19 21:21 Cocaine Screen Negative (NEGATIVE) 12/20/19 21:21 Ur THC Screen Negative (NEGATIVE) 12/20/19 21:21 Assessment & Plan - Problems (Diagnosis) (1) Altered mental status Onset Date: 03/12/17 Current Visit: No Status: Acute (2) Syncope and collapse Onset Date: 04/06/17 Current Visit: No Status: Acute (3) Urinary tract infection Onset Date: 03/12/17 Current Visit: No Status: Acute (4) Essential (primary) hypertension Onset Date: 03/12/17 Current Visit: No Status: Chronic (5) Hyperlipidemia Onset Date: 03/12/17 Current Visit: No Status: Chronic Qualifiers: Hyperlipidemia type: mixed hyperlipidemia Qualified Code(s): E78.2 - Mixed hyperlipidemia Discharge Plan: [facility] Plan to discharge in: 48 Hours Physician Review: Patient Assessed, Agree with Above Assessment and Plan Physician Review Additional Text: carotid US -Currently the atherosclerotic changes do not cause hemodynamically significant stenosis. Echo - normal EF , no valve disease Impression: Altered mental status with syncope complicated with history of dementia Mild dehydration Recent history of Tylenol toxicity due to over use of pain medication Hypertension Hyperlipidemia COPD Hypothyroidism Chronic back pain Rhabdomyolysis UTI Plan: Altered mental status with syncope complicated with history of dementia: resolved - no new issues /-syncope episode may be due to pain meds but will need to r/o any arrhythmias -no tele changes since admission but continue for now -may be due to UTI -agree with teleneuro- follow EEG , carotid US noted but no intervention needed now as brain MRI was normal -c/w aspirin 81 mg and folic acid. -c/w to hold her pain meds- fentanyl Rhabdomyolysis - improving , will dc IVF and follow now UTI - improving , c/w abx - with gram neg rods -may be reason for elevated procalcitonin and bandemia Weakness/Debility - due to acute illness, follow PT/OT -Noted with some cognitive difficulties -will consult case management for SNF -Daughter d/w today Mild dehydration: c/w IVF Recent history of Tylenol toxicity due to over use of pain medication: normaL TYLENOL LEVEL NOW Hypertension: controlled Hyperlipidemia: c/w to hold statin medication due to elevated liver function. COPD: c/w home medication. Maintain sats above 90%. Hypothyroidism: normal tsh and free T4. Continue medication. Chronic back pain: hold pain medication at this time.
[2019-12-22] MEDS: TRAMADOL HCL 50 MG TAB PO PRN (15:50)
[2019-12-22] MEDS: TRAZODONE 50 MG TABLET PO SCH (20:34)
[2019-12-23] MEDS: MELATONIN 5 MG TABLET PO SCH ×2 (00:41→20:18)
--- NOTE | 2019-12-23 01:25 | PN ---
Reason: Syncope. History: The patient is stable, ambulating with PT. No recurrent episodes of syncope. Seen by Card teddyogdonald as well. No epileptiform abnormalities on EEG. Generalized slowing with some intermittent fr ontal delta, primarily consistent with the patient's age in use of multiple medications. Likewise, b lood pressure left and right arm are the same. She is not orthostatic. The patient states she does not drive anyway normally. Physical Examination: Vital Signs: On exam, she is afebrile. Vitals are stable. General: She is awake, alert, oriented. Neurologic: Pupils reactive. Ocular motion full. Gregory full. Facial strength and sensation gloria l. Tongue protrudes evenly. Soft palate elevates symmetrically bilaterally. Extremity strength ful l. Sensation intact. Reflexes symmetric. Pertinent Laboratory Data: White count 6.3, hemoglobin 10.1. She had a neutrophilic predominance ye sterday, but that is not present on today's CBC. Transaminases are improving. ALT down to 68 and CP K was down to 570 yesterday. Impression: Syncope. Plan: Continue aspirin. No evidence for stroke or seizure. We did not initiate any medications emp irically. The patient has chronic pain and it is unlikely she will be able to come off all narcotics abruptly or in the [facility] consider discharging her on a lower dose of the benzodiazepine and carmen riptyline that she normally takes. Thank you for the consult. As noted, there is no neurologic contraindication at [facility]. DIANA/NHUNG Voice ID: [id number] Report ID: [id number]
[2019-12-23 04:45] LABS: Absolute Lymphocytes (CBC) 1.2 K/uL (0.7-4.9); Basophils % 0.7 % (0-1.3); Hematocrit 31.7 % (36.0-45.0); Lymphocytes % 17.9 % (15.3-44.8); MPV 7.9 fL (7.6-11.3); RBC Red Blood Cell Count 3.54 M/uL (3.86-4.86)
[2019-12-23 04:59] LABS: Albumin 2.5 g/dL (3.4-5.0); BUN Blood Urea Nitrogen 8 mg/dL (7-18); Bicarbonate 26 mmol/L (21-32); CKMB Creatine Kinase MB 1.5 ng/mL (0.3-3.6); Glucose Level 86 mg/dL (74-106); Phosphorus 3.7 mg/dL (2.5-4.9); Potassium 3.9 mmol/L (3.5-5.1); Sodium Level 139 mmol/L (136-145)
[2019-12-23] MEDS ORDERED: POTASSIUM CL SA 10 MEQ TAB PO ONE (05:08)
[2019-12-23] MEDS: LEVOTHYROXINE SOD 0.05 MG TABLET PO SCH (05:38)
[2019-12-23] MEDS: TRAMADOL HCL 50 MG TAB PO PRN (09:05)
[2019-12-23] MEDS: THIAMINE HCL 100 MG TABLET PO SCH (09:06)
[2019-12-23] MEDS: ENOXAPARIN 40 MG/0.4 ML SQ SCH (09:06)
[2019-12-23] MEDS: FOLIC ACID 1 MG TABLET PO SCH (09:06)
[2019-12-23] MEDS: CEFTRIAXONE/SWI 1gm 1 GM/10 ML SYR IV SCH (09:06)
[2019-12-23] MEDS: METOPROLOL TAR 25 MG TAB PO SCH (09:07)
--- NOTE | 2019-12-23 09:59 | EEG ---
CHART: [id number] TEST ID#: [id number] DATE OF STUDY: 12/21/2019 THE EEG WAS RECORDED PORTABLE IN THE PATIENTS ROOM ON A 17 CHANNEL MACHINE. ELECTRODES WERE APPLIED IN THE USUAL MANNER USING THE INTERNATIONAL 10-20 SYSTEM. THE WAKING BACKGROUND RHYTHM IN THIS RECORD CONSISTS OF POORLY DEVELOPED AND POORLY ORGANIZED WAVES OF 7.5-8 HZ., IN A WIDE DISTRIBUTION WHICH ATTENUATE POORLY WITH EYE OPENING. MODERATE VOLTAGE 4-6 HZ ACTIVITY MIXED WITH OCCASIONAL 1.5-3 HZ ACTIVITY IS EXPRESSED IN THE FRONTAL REGIONS. THERE ARE NO FOCAL OR LATERALIZING FEATURES. NO EPILEPTIFORM ACTIVITY APPEARS. SLEEP DID NOT OCCUR. HYPERVENTILATION WAS NOT PERFORMED. PHOTIC STIMULATION PRODUCED NO DRIVING BILATERALLY. IMPRESSION: THI SIS A MILDLY ABNORMAL ROUTINE AWAKE EEG DUE TO THE PRESENCE OF A MILDLY SLOW BACKGROUND AND POSTERIOR DOMINANT RHYTHM. THESE ARE NON-SPECIFIC FINDINGS CONSISTENT WITH A MILD DIFFUSE DISTURBANCE IN CEREBRAL FUNCTION.
--- NOTE | 2019-12-23 12:39 | P.PN ---
Subjective Date of Service: 12/23/19 Primary Care Provider: Dr. Portillo; Neurology-Dr. Jimenez Chief Complaint: Altered mental status Subjective: No new changes, No C/O voiced (anxious to go home , refusing NH) Review of Systems 10-point ROS is otherwise unremarkable Physical Examination - Vital Signs Temperature: 97.3 F Blood Pressure: 140/80 Pulse: 53 Respirations: 16 Pulse Ox (%): 98 - Physical Exam General: In no apparent distress, Oriented x3 HEENT: Atraumatic, Normocephalic, PERRLA Neck: 2+ carotid pulse no bruit, JVD not distended Respiratory: Clear to auscultation bilaterally, Normal air movement Cardiovascular: Normal pulses, Regular rate/rhythm, Normal S1 S2 Gastrointestinal: Normal bowel sounds, Soft and benign, Non-distended Musculoskeletal: No clubbing Integumentary: No rashes, No breakdown Neurological: Normal speech, Normal strength at 5/5 x4 extr, Normal tone - Studies Laboratory Data (last 24 hrs) 12/23/19 03:35: WBC 6.9, Hgb 10.7 L, Hct 31.7 L, Plt Count 292 12/23/19 03:31: Sodium 139, Potassium 3.9, BUN 8, Creatinine 0.59, Glucose 86, Phosphorus 3.7 Laboratory Last Values WBC 6.9 K/uL (4.3-10.9) 12/23/19 03:35 RBC 3.54 M/uL (3.86-4.86) L 12/23/19 03:35 Hgb 10.7 g/dL (12.0-15.0) L 12/23/19 03:35 Hct 31.7 % (36.0-45.0) L 12/23/19 03:35 MCV 89.5 fL (80-100) 12/23/19 03:35 MCH 30.2 pg (27.0-35.0) 12/23/19 03:35 MCHC 33.8 g/dL (32.0-36.0) 12/23/19 03:35 RDW 13.4 % (12.1-15.2) 12/23/19 03:35 Plt Count 292 K/uL (152-406) 12/23/19 03:35 MPV 7.9 fL (7.6-11.3) 12/23/19 03:35 Neutrophils % 63.7 % (41.7-73.7) 12/23/19 03:35 Lymphocytes % 17.9 % (15.3-44.8) 12/23/19 03:35 Monocytes % 13.6 % (3.3-12.3) H 12/23/19 03:35 Eosinophils % 4.1 % (0-4.4) 12/23/19 03:35 Basophils % 0.7 % (0-1.3) 12/23/19 03:35 Absolute Neutrophils 4.4 K/uL (1.8-8.0) 12/23/19 03:35 Segmented Neutrophils 61 % (40-80) 12/21/19 03:34 Band Neutrophils 11 % (0-1) H* 12/21/19 03:34 Absolute Lymphocytes 1.2 K/uL (0.7-4.9) 12/23/19 03:35 Lymphocytes 15 % (15-42) 12/21/19 03:34 Monocytes 7 % (0-10) 12/21/19 03:34 Absolute Monocytes 0.9 K/uL (0.1-1.3) 12/23/19 03:35 Eosinophils 3 % (0-3) 12/21/19 03:34 Absolute Eosinophils 0.3 K/uL (0-0.5) 12/23/19 03:35 Basophils 2 % (0-1) H 12/21/19 03:34 Absolute Basophils 0.0 K/uL (0-0.5) 12/23/19 03:35 Reactive Lymphocytes 1 % 12/21/19 03:34 Roney Cells 2+ 12/21/19 03:34 Morphology Comment Noted (NOT SEEN) 12/21/19 03:34 Sodium 139 mmol/L (136-145) 12/23/19 03:31 Potassium 3.9 mmol/L (3.5-5.1) 12/23/19 03:31 Chloride 107 mmol/L (98-107) 12/23/19 03:31 Carbon Dioxide 26 mmol/L (21-32) 12/23/19 03:31 BUN 8 mg/dL (7-18) 12/23/19 03:31 Creatinine 0.59 mg/dL (0.55-1.3) 12/23/19 03:31 Estimated GFR > 90 mL/min (=/>90) 12/23/19 03:31 Glucose 86 mg/dL (74-106) 12/23/19 03:31 Calcium 8.5 mg/dL (8.5-10.1) 12/23/19 03:31 Phosphorus 3.7 mg/dL (2.5-4.9) 12/23/19 03:31 Magnesium 2.0 mg/dL (1.8-2.4) 12/21/19 03:34 Total Bilirubin 0.4 mg/dL (0.2-1.0) 12/22/19 03:45 Direct Bilirubin 0.4 mg/dL (0-0.2) H 12/20/19 09:50 AST 50 U/L (15-37) H 12/22/19 03:45 ALT 68 U/L (12-78) 12/22/19 03:45 Alkaline Phosphatase 148 U/L (45-117) H 12/22/19 03:45 Creatine Kinase 570 U/L (26-192) H 12/21/19 03:34 CK-MB (CK-2) 1.5 ng/mL (0.3-3.6) 12/23/19 03:31 Troponin I < 0.02 ng/mL (0.0-0.045) 12/21/19 03:34 Serum Total Protein 5.4 g/dL (6.4-8.2) L 12/22/19 03:45 Albumin 2.5 g/dL (3.4-5.0) L 12/23/19 03:31 Globulin 3.1 g/dL (2.3-3.5) 12/22/19 03:45 Albumin/Globulin Ratio 0.7 (1.1-1.8) L 12/22/19 03:45 Triglycerides 157 mg/dL (<150) H 12/21/19 03:34 Cholesterol 104 mg/dL (<200) 12/21/19 03:34 LDL Cholesterol, Calc 49 (<130) 12/21/19 03:34 HDL Cholesterol 24 mg/dL (40-60) L 12/21/19 03:34 Cholesterol/HDL Ratio 4.33 12/21/19 03:34 Lipase 100 U/L (73-393) 12/20/19 09:50 Procalcitonin 1.90 ng/mL (<0.50) H 12/20/19 14:22 TSH 2.160 uIU/mL (0.360-3.740) 12/21/19 03:34 Free T4 1.09 ng/dL (0.76-1.46) 12/21/19 03:34 Urine Color Yellow 12/20/19 21:21 Urine Appearance Clear 12/20/19 21:21 Urine pH 6.5 (5.0-7.0) 12/20/19 21:21 Ur Specific [place] 1.010 (1.005-1.030) 12/20/19 21:21 Glucose (UA)(Auto) Negative (NEG) 12/20/19 21:21 Urine Ketones 1+ (NEG) H 12/20/19 21:21 Urine Blood Negative (NEG) 12/20/19 21:21 Urine Nitrite Negative (NEG) 12/20/19 21:21 Urine Bilirubin Negative (NEG) 12/20/19 21:21 Urine Urobilinogen 1.0 mg/dL (0.2-1.0) 12/20/19 21:21 Ur Leukocyte Esterase 1+ (NEG) H 12/20/19 21:21 Urine RBC <5 /HPF (NONE SEEN) 12/20/19 21:21 Urine WBC 5-10 /HPF (<5) H 12/20/19 21:21 Ur Squamous Epith Cells <5 /HPF (NONE SEEN) 12/20/19 21:21 Ur Urothelial Cells <5 /HPF (NONE SEEN) 12/20/19 21:21 Urine Bacteria 20-50 /HPF (<20) H 12/20/19 21:21 Urine Culture Reflexed Reflexed 12/20/19 21:21 Urine Total Protein Negative (NEG) 12/20/19 21:21 Opiates Screen Negative (NEGATIVE) 12/20/19 21:21 Methadone Screen Negative (NEGATIVE) 12/20/19 21:21 Acetaminophen < 2.0 ug/mL (10.0-30.0) L 12/20/19 14:22 Ur Barbiturates Screen Negative (NEGATIVE) 12/20/19 21:21 Ur Phencyclidine Scrn Negative (NEGATIVE) 12/20/19 21:21 Amphetamines Screen Negative (NEGATIVE) 12/20/19 21:21 Benzodiazepines Screen Positive (NEGATIVE) H 12/20/19 21:21 Cocaine Screen Negative (NEGATIVE) 12/20/19 21:21 Ur THC Screen Negative (NEGATIVE) 12/20/19 21:21 Medications List Reviewed: Yes Assessment & Plan - Problems (Diagnosis) (1) Altered mental status Onset Date: 03/12/17 Current Visit: No Status: Acute (2) Syncope and collapse Onset Date: 04/06/17 Current Visit: No Status: Acute (3) Urinary tract infection Onset Date: 03/12/17 Current Visit: No Status: Acute (4) Essential (primary) hypertension Onset Date: 03/12/17 Current Visit: No Status: Chronic (5) Hyperlipidemia Onset Date: 03/12/17 Current Visit: No Status: Chronic Qualifiers: Hyperlipidemia type: mixed hyperlipidemia Qualified Code(s): E78.2 - Mixed hyperlipidemia Physician Review: Patient Assessed, Agree with Above Assessment and Plan Physician Review Additional Text: carotid US -Currently the atherosclerotic changes do not cause hemodynamically significant stenosis. Echo - normal EF , no valve disease Impression: Altered mental status with syncope complicated with history of dementia Mild dehydration Recent history of Tylenol toxicity due to over use of pain medication Hypertension Hyperlipidemia COPD Hypothyroidism Chronic back pain Rhabdomyolysis UTI Plan: Altered mental status with syncope complicated with history of dementia: resolved -no new issues 2/5-syncope episode may be due to pain meds but will need to r/o any arrhythmias -no tele changes since admission but continue for now -may be due to UTI -agree with teleneuro- follow EEG , carotid US noted but no intervention needed now as brain MRI was normal -c/w aspirin 81 mg and folic acid. -c/w to hold her pain meds- fentanyl Rhabdomyolysis - improving , will dc IVF UTI - improving , c/w abx - with gram neg rods -may be reason for elevated procalcitonin and bandemia Weakness/Debility - follow case management for SNF -Daughter d/w today - still wants rehab placement for patient -after discussion patient agreeable to short term rehab Mild dehydration: c/w IVF Recent history of Tylenol toxicity due to over use of pain medication: normaL TYLENOL LEVEL NOW Hypertension: controlled Hyperlipidemia: c/w to hold statin medication due to elevated liver function. COPD: c/w home medication. Maintain sats above 90%. Hypothyroidism: normal tsh and free T4. Continue medication. Chronic back pain: hold pain medication at this time.
[2019-12-23] MEDS: TRAZODONE 50 MG TABLET PO SCH (20:18)
[2019-12-24 05:51] LABS: Absolute Lymphocytes (CBC) 1.5 K/uL (0.7-4.9); Basophils % 0.9 % (0-1.3); Hematocrit 34.4 % (36.0-45.0); Lymphocytes % 18.9 % (15.3-44.8); MPV 7.6 fL (7.6-11.3); RBC Red Blood Cell Count 3.91 M/uL (3.86-4.86)
[2019-12-24 05:52] LABS: BUN Blood Urea Nitrogen 8 mg/dL (7-18); Bicarbonate 24 mmol/L (21-32); Glucose Level 89 mg/dL (74-106); Potassium 3.6 mmol/L (3.5-5.1); Sodium Level 136 mmol/L (136-145)
[2019-12-24] MEDS ORDERED: POTASSIUM CL SA 10 MEQ TAB PO ONE (05:57)
[2019-12-24] MEDS: LEVOTHYROXINE SOD 0.05 MG TABLET PO SCH (06:21)
[2019-12-24 08:05] LABS: Blood Morphology Comment NOT SEEN (NOT SEEN); Platelet Estimate ADEQ
[2019-12-24] MEDS: FOLIC ACID 1 MG TABLET PO SCH (08:05)
[2019-12-24] MEDS: METOPROLOL TAR 25 MG TAB PO SCH (08:05)
[2019-12-24] MEDS: THIAMINE HCL 100 MG TABLET PO SCH (08:05)
[2019-12-24] MEDS: CEFTRIAXONE/SWI 1gm 1 GM/10 ML SYR IV SCH (08:08)
[2019-12-24] MEDS: ENOXAPARIN 40 MG/0.4 ML SQ SCH (08:09)
[2019-12-24] MEDS: TRAMADOL HCL 50 MG TAB PO PRN ×3 (08:09→23:59)
--- NOTE | 2019-12-24 13:09 | P.DS ---
Admission Date: 12/23/19 Discharge Date: 12/24/19 Primary Care Provider: Dr. Portillo; Neurology-Dr. Jimenez Disposition: DC HOME/HOME HEALTH CARE Discharge Condition: FAIR Reason for Admission: Altered mental status - Problems (1) Altered mental status Onset Date: 03/12/17 Current Visit: No Status: Acute (2) Syncope and collapse Onset Date: 04/06/17 Current Visit: No Status: Acute (3) Urinary tract infection Onset Date: 03/12/17 Current Visit: No Status: Acute (4) Essential (primary) hypertension Onset Date: 03/12/17 Current Visit: No Status: Chronic (5) Hyperlipidemia Onset Date: 03/12/17 Current Visit: No Status: Chronic Qualifiers: Hyperlipidemia type: mixed hyperlipidemia Qualified Code(s): E78.2 - Mixed hyperlipidemia Brief History of Present Illness: History of Present Illness: 79-year-old female with history of COPD, hypertension, hyperlipidemia , hypothyroidism, chronic back pain and dementia. Most information came from the ER physician and nurse. Patient was brought in by EMS after she was found on the ground in her house likely for several hr. There was no evidence of trauma. Patient was not able to recall the events. ER physician reports family did not indicate that she had had any recent upper respiratory infection. Patient was recently hospitalized in November for chest pain. Echocardiogram and cardiac stress test unremarkable. She also had elevated liver function tests likely related to Tylenol toxicity. Patient has chronic pain and uses pain medication. Patient was evaluated the emergency room. CT head unremarkable. CT abdomen unremarkable. Chest x-ray unremarkable. Influenza test negative. Urinalysis unremarkable. White count 10.4, hemoglobin 11.9. Sodium 130, potassium 3.7. Blood sugar 101. AST 107, ALT 134, alk-phos 208. Patient was admitted for further evaluation. When I saw the patient ER, she did not appear septic. Blood pressure stable. Patient was able to converse and appropriate to commands. Allergies iodine Allergy (Verified 03/11/17 18:10) Anaphylaxis midazolam [From Versed] Allergy (Verified 08/01/17 17:36) Unknown Sulfa (Sulfonamide Antibiotics) Allergy (Verified 08/01/17 17:36) Unknown unknown antibio Allergy (Uncoded 03/11/17 11:38) Unknown unknown antibiotic Allergy (Uncoded 04/03/17 20:39) Unknown Hospital Course: Patient on admission was workup for dizziness and syncope. MRI of the brain was negative for any acute infarct. MRI of the head and neck did not show any abnormality except for one significant plaque in the right carotid. She had a carotid ultrasound done with similar findings. She was evaluated by Cardiology and no intervention was recommended. Patient was noted to have a urinary tract infection, started on empirical antibiotics. She subsequently improved after hold off of her multiple sedative medications including discontinuation of her fentanyl and initial hold of her Xanax. Alprazolam will be restarted at a low dose. She was evaluated by Physical therapy started on ambulation exercises. Patient subsequently improve and able to ambulate independently. Family wanted patient to go to SNF however patient insistent on going home. She is anxious to go home today and will be discharged home as she states she will have her ex- spouse provide help for her at home. Vital Signs/Physical Exam: Temp Pulse Resp BP Pulse Ox 97.6 F 84 17 135/82 97 12/24/19 08:00 12/24/19 08:05 12/24/19 09:09 12/24/19 08:05 12/24/19 09:09 General: Alert, In no apparent distress, Oriented x3 HEENT: Atraumatic, Normocephalic, PERRLA Respiratory: Clear to auscultation bilaterally, Normal air movement Cardiovascular: No edema, Normal pulses, Regular rate/rhythm Capillary refill: <2 Seconds Gastrointestinal: Normal bowel sounds, Soft and benign, Non-distended Musculoskeletal: No clubbing, No swelling Neurological: Normal speech, Normal strength at 5/5 x4 extr, Sensation intact Laboratory Data at Discharge: WBC 7.8 K/uL (4.3-10.9) 12/24/19 05:17 Hgb 11.5 g/dL (12.0-15.0) L 12/24/19 05:17 Hct 34.4 % (36.0-45.0) L 12/24/19 05:17 Plt Count 340 K/uL (152-406) 12/24/19 05:17 Sodium 136 mmol/L (136-145) 12/24/19 05:17 Potassium 3.6 mmol/L (3.5-5.1) 12/24/19 05:17 BUN 8 mg/dL (7-18) 12/24/19 05:17 Creatinine 0.60 mg/dL (0.55-1.3) 12/24/19 05:17 Glucose 89 mg/dL (74-106) 12/24/19 05:17 Phosphorus 3.7 mg/dL (2.5-4.9) 12/23/19 03:31 Magnesium 2.0 mg/dL (1.8-2.4) 12/21/19 03:34 Total Bilirubin 0.4 mg/dL (0.2-1.0) 12/22/19 03:45 AST 50 U/L (15-37) H 12/22/19 03:45 ALT 68 U/L (12-78) 12/22/19 03:45 Alkaline Phosphatase 148 U/L (45-117) H 12/22/19 03:45 Troponin I < 0.02 ng/mL (0.0-0.045) 12/21/19 03:34 Triglycerides 157 mg/dL (<150) H 12/21/19 03:34 Cholesterol 104 mg/dL (<200) 12/21/19 03:34 HDL Cholesterol 24 mg/dL (40-60) L 12/21/19 03:34 Cholesterol/HDL Ratio 4.33 12/21/19 03:34 Lipase 100 U/L (73-393) 12/20/19 09:50 Home Medications: Furosemide 1 tab PO BID 08/01/17 Lovastatin 40 mg PO BEDTIME 08/01/17 Potassium Chloride 20 meq PO DAILY 08/01/17 Trazodone HCl 1 tab PO BEDTIME 08/01/17 Folic Acid 1 mg PO DAILY 11/20/18 Metoprolol Tartrate [Lopressor*] 25 mg PO DAILY 11/20/18 Albuterol Inhaler [Ventolin Inhaler*] 2 puff IH BID 12/20/19 Amitriptyline [Elavil*] 50 mg PO DAILY 12/20/19 Gabapentin [Neurontin*] 100 mg PO BID 12/20/19 Levothyroxine [Synthroid*] 1 tab PO DAILY 12/20/19 Meloxicam [Mobic*] 7.5 mg PO DAILY 12/20/19 ALPRAZolam [Xanax*] 1 mg PO BID #60 tab 12/24/19 Ciprofloxacin HCl [Cipro 250 MG Tablet*] 250 mg PO BID 4 Days #8 tab 12/24/19 New Medications: ALPRAZolam [Xanax*] 1 mg PO BID #60 tab Ciprofloxacin HCl [Cipro 250 MG Tablet*] 250 mg PO BID 4 Days #8 tab Patient Discharge Instructions: -follow with her PCP in 3-5 days. -follow-up plans for home physical therapy Diet: Regular Activity: Fall precautions Time spent managing pt's care (in minutes): 35
[2019-12-24] MEDS: MELATONIN 5 MG TABLET PO SCH (20:00)
[2019-12-24] MEDS: TRAZODONE 50 MG TABLET PO SCH (20:00)
[2019-12-25] MEDS: LEVOTHYROXINE SOD 0.05 MG TABLET PO SCH (05:43)
[2019-12-25 05:51] LABS: BUN Blood Urea Nitrogen 8 mg/dL (7-18); Bicarbonate 25 mmol/L (21-32); Glucose Level 89 mg/dL (74-106); Potassium 3.7 mmol/L (3.5-5.1); Sodium Level 137 mmol/L (136-145)
[2019-12-25] MEDS ORDERED: POTASSIUM CL SA 10 MEQ TAB PO ONE (06:54)
[2019-12-25] MEDS: METOPROLOL TAR 25 MG TAB PO SCH (07:47)
[2019-12-25] MEDS: FOLIC ACID 1 MG TABLET PO SCH (07:47)
[2019-12-25] MEDS: THIAMINE HCL 100 MG TABLET PO SCH (07:47)
[2019-12-25] MEDS: ENOXAPARIN 40 MG/0.4 ML SQ SCH (07:48)
[2019-12-25] MEDS: CEFTRIAXONE/SWI 1gm 1 GM/10 ML SYR IV SCH (09:00)
--- NOTE | 2019-12-25 10:24 | P.PN ---
Subjective Date of Service: 12/25/19 Primary Care Provider: Dr. Portillo; Neurology-Dr. Jimenez Chief Complaint: Altered mental status Subjective: No new changes, No C/O voiced (after discussion with family yesterday , patient now agreeable with daughter for SNF - dc not done again - flees fine today) Review of Systems Unremarkable Physical Examination - Vital Signs Temperature: 97.4 F Blood Pressure: 169/87 Pulse: 97 Respirations: 16 Pulse Ox (%): 98 - Physical Exam General: Alert, In no apparent distress, Oriented x3 HEENT: Atraumatic, Normocephalic Neck: Supple, 2+ carotid pulse no bruit Respiratory: Clear to auscultation bilaterally, Normal air movement Cardiovascular: No edema, Normal pulses Neurological: Normal speech, Cranial nerves 3-12 intact, Normal reflexes 2+ - Studies Microbiology Data (last 24 hrs): 12/20/19 21:21 Clean Catch Urine [place] Count - Final BETWEEN 10,000 & 100,000 CFU/ML 12/20/19 21:21 Clean Catch Urine - Final Escherichia Coli Medications List Reviewed: Yes Assessment & Plan - Problems (Diagnosis) (1) Altered mental status Onset Date: 03/12/17 Current Visit: No Status: Acute (2) Syncope and collapse Onset Date: 04/06/17 Current Visit: No Status: Acute (3) Urinary tract infection Onset Date: 03/12/17 Current Visit: No Status: Acute (4) Essential (primary) hypertension Onset Date: 03/12/17 Current Visit: No Status: Chronic (5) Hyperlipidemia Onset Date: 03/12/17 Current Visit: No Status: Chronic Qualifiers: Hyperlipidemia type: mixed hyperlipidemia Qualified Code(s): E78.2 - Mixed hyperlipidemia Physician Review: Patient Assessed, Agree with Above Assessment and Plan Physician Review Additional Text: carotid US -Currently the atherosclerotic changes do not cause hemodynamically significant stenosis. Echo - normal EF , no valve disease Impression: Altered mental status with syncope complicated with history of dementia Mild dehydration Recent history of Tylenol toxicity due to over use of pain medication Hypertension Hyperlipidemia COPD Hypothyroidism Chronic back pain Rhabdomyolysis UTI Plan: Altered mental status with syncope complicated with history of dementia: resolved -no new issues 2/5-syncope episode may be due to pain meds but will need to r/o any arrhythmias -no tele changes since admission but continue for now -may be due to UTI -agree with teleneuro- follow EEG , carotid US noted but no intervention needed now as brain MRI was normal -c/w aspirin 81 mg and folic acid. -c/w to hold her pain meds- fentanyl Rhabdomyolysis - improved UTI - with E coli - switch abx to cipro po -was cause of elevated procalcitonin and bandemia Weakness/Debility - follow case management for SNF Mild dehydration: c/w IVF Hypertension: controlled Hyperlipidemia: c/w to hold statin medication due to elevated liver function. COPD: c/w home medication. Maintain sats above 90%. Hypothyroidism: normal tsh and free T4. Continue medication. Chronic back pain: hold pain medication at this time.
[2019-12-25] MEDS: CIPROFLOXACIN HCL 250 MG TAB PO SCH ×2 (10:52→20:28)
[2019-12-25] MEDS: TRAMADOL HCL 50 MG TAB PO PRN ×2 (16:59→23:38)
[2019-12-25] MEDS: MELATONIN 5 MG TABLET PO SCH (20:27)
[2019-12-25] MEDS: TRAZODONE 50 MG TABLET PO SCH (20:28)
[2019-12-26] MEDS: LEVOTHYROXINE SOD 0.05 MG TABLET PO SCH (05:33)
[2019-12-26] MEDS: METOPROLOL TAR 25 MG TAB PO SCH (07:56)
[2019-12-26] MEDS: CIPROFLOXACIN HCL 250 MG TAB PO SCH ×2 (07:57→20:34)
[2019-12-26] MEDS: THIAMINE HCL 100 MG TABLET PO SCH (07:57)
[2019-12-26] MEDS: FOLIC ACID 1 MG TABLET PO SCH (07:57)
[2019-12-26] MEDS: ENOXAPARIN 40 MG/0.4 ML SQ SCH (07:58)
[2019-12-26] MEDS: TRAMADOL HCL 50 MG TAB PO PRN ×3 (08:23→20:33)
[2019-12-26 09:23] VITALS: O2SAT 98
--- NOTE | 2019-12-26 13:42 | P.PN ---
Subjective Date of Service: 12/26/19 Primary Care Provider: Dr. Portillo; Neurology-Dr. Jimenez Chief Complaint: Altered mental status Subjective: No new changes, Doing well Review of Systems General: Weakness Eyes: Unremarkable ENT: Unremarkable Respiratory: Unremarkable Cardiovascular: Unremarkable Gastrointestinal: Unremarkable Genitourinary: Unremarkable Musculoskeletal: Unremarkable Neurological: Unremarkable Physical Examination - Vital Signs Temperature: 97.7 F Blood Pressure: 162/75 Pulse: 70 Respirations: 16 Pulse Ox (%): 99 - Physical Exam General: Alert, Oriented x2, Cooperative HEENT: Atraumatic, Normocephalic, PERRLA Neck: Supple, No LAD Respiratory: Clear to auscultation bilaterally, Normal air movement Cardiovascular: No edema, Normal pulses Gastrointestinal: Normal bowel sounds, Hypoactive Musculoskeletal: No clubbing, No swelling Neurological: Normal gait, Normal speech - Studies Microbiology Data (last 24 hrs): 12/20/19 15:21 Blood - Blood Aerobic Blood Culture - Final No growth in 5 days. 12/20/19 15:21 Blood - Blood Anaerobic Blood Culture - Final No growth in 5 days. Medications List Reviewed: Yes Assessment And Plan - Current Problems (Diagnosis) (1) Altered mental status Onset Date: 03/12/17 Current Visit: No Status: Acute (2) Syncope and collapse Onset Date: 04/06/17 Current Visit: No Status: Acute (3) Urinary tract infection Onset Date: 03/12/17 Current Visit: No Status: Acute (4) Essential (primary) hypertension Onset Date: 03/12/17 Current Visit: No Status: Chronic (5) Hypothyroidism Onset Date: 03/12/17 Current Visit: No Status: Chronic Qualifiers: Hypothyroidism type: acquired Qualified Code(s): E03.9 - Hypothyroidism, unspecified - Plan Patient will be transferred to SNF for PT. Waiting for placement. Altered mental status with syncope complicated with history of dementia: resolved -no new issues 2/5-syncope episode may be due to pain meds -no tele changes since admission but continue for now -may be due to UTI -brain MRI was normal -c/w aspirin 81 mg and folic acid. -c/w to hold her pain meds- fentanyl Rhabdomyolysis - improved UTI - with E coli - switch abx to cipro po. Will give ceftin on DC -was cause of elevated procalcitonin and bandemia Weakness/Debility - follow case management for SNF Mild dehydration: c/w IVF Hypertension: controlled Hyperlipidemia: c/w to hold statin medication due to elevated liver function. COPD: c/w home medication. Maintain sats above 90%. Hypothyroidism: normal tsh and free T4. Continue medication. Chronic back pain: hold pain medication at this time. Discharge Plan: Long-Term Plan to discharge in: 24 Hours Physician Review: Patient Assessed, Agree with Above Assessment and Plan
[2019-12-26] MEDS: TRAZODONE 50 MG TABLET PO SCH (20:34)
[2019-12-26] MEDS: MELATONIN 5 MG TABLET PO SCH (20:34)
[2019-12-27] MEDS: TRAMADOL HCL 50 MG TAB PO PRN ×3 (02:36→20:35)
[2019-12-27] MEDS: LEVOTHYROXINE SOD 0.05 MG TABLET PO SCH (05:49)
[2019-12-27] MEDS: ENOXAPARIN 40 MG/0.4 ML SQ SCH (08:24)
[2019-12-27] MEDS: THIAMINE HCL 100 MG TABLET PO SCH (08:24)
[2019-12-27] MEDS: CIPROFLOXACIN HCL 250 MG TAB PO SCH ×2 (08:24→20:35)
[2019-12-27] MEDS: METOPROLOL TAR 25 MG TAB PO SCH (08:25)
[2019-12-27] MEDS: FOLIC ACID 1 MG TABLET PO SCH (08:25)
[2019-12-27] MEDS: AMLODIPINE 5 MG TAB PO SCH (09:00)
--- NOTE | 2019-12-27 15:51 | P.PN ---
Subjective Date of Service: 12/27/19 Primary Care Provider: Dr. Portillo; Neurology-Dr. Jimenez Chief Complaint: Altered mental status Subjective: No new changes, New changes, Doing well Review of Systems General: Weakness Eyes: Unremarkable ENT: Unremarkable Respiratory: Unremarkable Cardiovascular: Unremarkable Gastrointestinal: Unremarkable Genitourinary: Unremarkable Musculoskeletal: Unremarkable Neurological: Unremarkable Physical Examination - Vital Signs Temperature: 97.3 F Blood Pressure: 158/68 Pulse: 61 Respirations: 18 Pulse Ox (%): 95 - Physical Exam General: Alert, In no apparent distress, Oriented x3, Cooperative HEENT: Atraumatic, Normocephalic, PERRLA, Mucous membr. moist/pink Neck: Supple, 2+ carotid pulse no bruit, JVD not distended Respiratory: Clear to auscultation bilaterally, Normal air movement Cardiovascular: No edema, Normal pulses, Regular rate/rhythm Gastrointestinal: Normal bowel sounds, Soft and benign, Non-distended Musculoskeletal: No clubbing, No swelling, No contractures, No erythema, No tenderness, No warmth Neurological: Normal gait, Normal speech - Studies Medications List Reviewed: Yes Assessment And Plan - Current Problems (Diagnosis) (1) Altered mental status Onset Date: 03/12/17 Current Visit: No Status: Acute (2) Syncope and collapse Onset Date: 04/06/17 Current Visit: No Status: Acute (3) Urinary tract infection Onset Date: 03/12/17 Current Visit: No Status: Acute (4) Essential (primary) hypertension Onset Date: 03/12/17 Current Visit: No Status: Chronic (5) Hypothyroidism Onset Date: 03/12/17 Current Visit: No Status: Chronic Qualifiers: Hypothyroidism type: acquired Qualified Code(s): E03.9 - Hypothyroidism, unspecified - Plan Pt is doing well. Waiting for SNF placement. Avoidable day. Altered mental status with syncope complicated with history of dementia: resolved -no new issues 2/5-syncope episode may be due to pain meds -no tele changes since admission but continue for now -may be due to UTI -brain MRI was normal -c/w aspirin 81 mg and folic acid. -c/w to hold her pain meds- fentanyl Rhabdomyolysis - improved UTI - with E coli - switch abx to cipro po. Will give ceftin on DC -was cause of elevated procalcitonin and bandemia -Will be given ceftin on DC Weakness/Debility - follow case management for SNF Mild dehydration: s/p IVF Hypertension: controlled Hyperlipidemia: c/w to hold statin medication due to elevated liver function. COPD: c/w home medication. Maintain sats above 90%. Hypothyroidism: normal tsh and free T4. Continue medication. Chronic back pain: hold pain medication at this time. Physician Review: Patient Assessed, Agree with Above Assessment and Plan
[2019-12-27] MEDS: MELATONIN 5 MG TABLET PO SCH (20:35)
[2019-12-27] MEDS: TRAZODONE 50 MG TABLET PO SCH (20:35)
[2019-12-28] MEDS: TRAMADOL HCL 50 MG TAB PO PRN ×3 (03:01→14:41)
[2019-12-28] MEDS: LEVOTHYROXINE SOD 0.05 MG TABLET PO SCH (05:52)
[2019-12-28] MEDS: THIAMINE HCL 100 MG TABLET PO SCH (08:15)
[2019-12-28] MEDS: AMLODIPINE 5 MG TAB PO SCH (08:16)
[2019-12-28] MEDS: ENOXAPARIN 40 MG/0.4 ML SQ SCH (08:16)
[2019-12-28] MEDS: CIPROFLOXACIN HCL 250 MG TAB PO SCH (08:16)
[2019-12-28] MEDS: METOPROLOL TAR 25 MG TAB PO SCH (08:18)
[2019-12-28] MEDS: FOLIC ACID 1 MG TABLET PO SCH (08:18)
[2019-12-28 16:16] VITALS: BP 123/73; TEMP 97.1
--- NOTE | 2019-12-29 01:55 | DS ---
Date of Discharge: 12/28/2019 Hospital Course: This patient is an 79-year-old female, who presented for altered mental status. She has a history of COPD, hypertension, hyperlipidemia, hypothyroidism, chronic back pain, and dementia. This patient was found to be on the floor in her house. There was no evidence of trauma. The patient could not remember what happened. Thus, patient was brought to the emergency room. Her head CT was unremarkable. CT abdomen, unremarkable. Influenza test negative. Sodium 130, potassium 3.7, AST 107, ALT 134, alkaline phosphatase 208. The patient was admitted. Neurologist was consulted. MRI unremarkable. Head and cervical MRA does not demonstrate significant findings. Carotid ultrasound demonstrated calcified plaquing without hemodynamically significant stenosis. Echo demonstrates ejection fraction 81%. Urine culture grew E coli, which is pansensitive. The patient was treated with IV fluid and IV Levaquin. She has been getting much better. Her mental status is greatly improved. She is orientedx3. Initially, family requested SNF placement, and bilingual patient support caseworker was consulted. However, physical therapy reported that the patient can walk more than 200 yards. The request for SNF placement was declined by her insurance company. The patient is eager to go home. We discussed the situation with her daughter, Xochitl who understood the situation and agreed with home with home health. Her vitals are stable. No confusion. Instructed her to follow her PCP in 1 week. Physical Examination On Discharge: Vital Signs: Temperature 97.5, pulse 69, blood pressure 144/62, oxygen saturation 97 on room air. HEENT: PERRLA. EOMI. Chest: Clear to auscultation. No respiratory distress or wheezing. Heart: Normal S1, S2. No murmur. Regular rhythm and rate. Abdomen: Soft, nontender. Bowel sounds present. Extremities: No edema. No cyanosis. Neuro: Patient is awake, alert, and oriented x3. Nonfocal. Laboratory Data: WBC 7.8, hemoglobin 9.5, platelet is 340. Sodium 137, potassium 4, creatinine 0.69. Discharge Diagnoses: 1. Altered mental status, this has resolved. 2. Syncope, this has resolved. 3. Urinary tract infection. 4. Hypertension. 5. Hypothyroidism. 6. Dementia. 7. Rhabdomyolysis. 8. Dehydration. 9. Chronic obstructive pulmonary disease. 10. Chronic back pain. Discharge Instructions: 1. Please follow PCP in 1 week. 2. Please be compliant with physical therapy with home health. 3. Please call emergency room if having confusion, fall, or other concerns. Discharge Medications: Please see discharge medication list. Discharge Activity: As tolerated, fall precaution. Discharge Diet: Healthy heart diet. I spent at least 30 minutes to discharge patient including reviewing the chart, educating the patient, prescription and discharge summary. QT/MODL Voice ID: [id number] Report ID: [id number]
== END 2019-12-28 16:59 | disposition home health service (06) | DRG 690 ==
LOC: ER 08:39 → ERHOLD 12:32 → 4TH 13:42 → OBSVTOIN 12-23 09:38
PROVIDERS: ADMIT Family Medicine; ATTEND Internal Medicine
DX: N39.0 Urinary tract infection, site not specified (principal); M62.82 Rhabdomyolysis; R41.82 Altered mental status, unspecified; B96.20 Unspecified Escherichia coli [E. coli] as the cause of diseases classified elsewhere; R55 Syncope and collapse; E86.0 Dehydration; R53.81 Other malaise; D72.825 Bandemia; J44.9 Chronic obstructive pulmonary disease, unspecified; I10 Essential (primary) hypertension; E78.2 Mixed hyperlipidemia; E03.9 Hypothyroidism, unspecified; M54.9 Dorsalgia, unspecified; F03.90 Unspecified dementia, unspecified severity, without behavioral disturbance, psychotic disturbance, mood disturbance, and anxiety; Y92.009 Unspecified place in unspecified non-institutional (private) residence as the place of occurrence of the external cause
CPT/HCPCS: 36415; 51702; 70450; 70544; 70549; 70553; 71045; 74176; 80048; 80053; 80061; 80069; 80076; 80307; 80329; 81003; 81015; 82550; 82553; 83690; 83735; 84145; 84439; 84443; 84484; 85025; 87040; 87070; 87077; 87086; 87088; 87186; 87205; 87804; 93005; 93306; 93880; 95819; 97112; 97116; 97161; 97165; 97530; 99285; A9577; G0378; J0696; J1650; J7030; J7040

== ENCOUNTER 2021-02-10 16:12 | Inpatient (IN) | payer OTHER ==
--- OUTSIDE RECORDS SUMMARY | 2021-02-10 16:16 | XMS REPORT | Continuity of Care Document ---
:1940 Author Organization [facility] t Address [address] [place] [address] 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 AND/OR AND/OR 00:00: Practic anxiolytic Anxiolytic 00 e -related -related disorder Disorder Chronic Chronic Problem Active [facility] kidney Kidney 8-14 Family disease Disease 00:00: Practic stage 3 Stage 3 00 e Recurrent Recurrent Problem Active Chante shanda falls Falls 3-30 Family 00:00: Practic 00 e 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 00 e 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 1-13 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 Failure 00:00: Practic 00 e Dementia Dementia Problem Active [place] ge 7- Family 00:00: Practic 00 e Anxiety Anxiety Problem Active [place] 7- Family 00:00: Practic 00 e Chronic Chronic Problem Active [facility] pain Pain 7- Family 00:00: Practic 00 e Essential Essential Problem Active Chante shanda hypertensi Hypertensi 05-16 Alejandro pearce on on 00:00: Practic 00 e Chronic Chronic Problem Active [place] obstructiv Obstructiv 05-16 Alejandro pearce e lung e Lung 00:00: Practic disease Disease 00 e Arthritis Arthritis Problem Active Chante marcuse 05-16 Family 00:00: Practic 00 e WOUND Diagnosis Active 2017-05-18 Mem oria INFECTION 05-18 15:19:00 l WOUND 00:00: Chemo INFECTION 00 Active 05/18/2017 [facility] INFECTION Diagnosis Active 2017-06-08 Memoria 05-18 22:00:00 l 00:00: Chemo INFECTION 00 Active 05/18/2017 [facility] Alzheimer' Problem Active 2017-05-30 M emoria s disease 00:46:38 l (disorder) Alfredo n Alzheimer' s disease (disorder) Active Problem 05/30/2017 [facility] Chronic Problem Active 2017-05-30 Chase katie congestive 00:46:38 l heart Chronic Chemo failure congestive (disorder) heart failure (disorder) Active Problem 05/30/2017 [facility] Hyperchole Problem Active 2017-05-30 M emoria sterolemia 00:46:38 l (disorder) Alfredo n Hyperchole sterolemia (disorder) Active Problem 05/30/2017 [facility] UNSPECIFIE Diagnosis Active 2017-06-08 Memoria D 22:00:00 l INFECTIOUS Alfredo n DISEASE UNSPECIFIE D INFECTIOUS DISEASE Active [facility] Benign Problem Resolve 2017-05-30 Chase katie hypertensi d 00:46:38 l on Benign Chemo (disorder) hypertensi on (disorder) Resolved Problem 05/30/2017 [facility] Cerebral Problem Resolve 2017-05-30 Me moria embolism d 00:46:38 l (disorder) Cerebral He rmann embolism (disorder) Resolved Problem 05/30/2017 [facility] Allergies, Adverse Reactions, Alerts Allergy Allergy Status Severity Reaction(s) Onset Inactive Treating Comm ents Source Name Type Date Date Clinician iodine iodine Active Memoria l Chemo sulfa sulfa Active Memoria drugs drugs l Chemo Versed Versed Active Memoria l Cheom Social History Smoking Status Start Date Stop Date Source Social History 2017-05-18 19:31:53 2017-05-18 19:31:53 [facility] Chemo Medications Ordered Filled Start Stop Current Ordering Indication Dosage Frequency Signature Comments Components Source Medication Medication Date Date Medication? Clinician (SIG) Name Name 24 HR Yes = 1 patch, Memori a Nicotine 12 TOP, l 0.583 MG/HR 15:55: Daily, X He rmann Transdermal 00 14 day, # Patch 14 patch, 0 Refill(s) Streptococc No Notes: Chase katie us 05-27 Shake well l pneumoniae 14:00: prior to Her [place] serotype 1 00 use (Same capsular as: antigen Prevnar diphtheria 13) [id number] protein conjugate vaccine / Streptococc us pneumoniae serotype 14 capsular antigen diphtheria CIX028 protein conjugate vaccine / Streptococc us pneumoniae serotype 18C capsular antigen d tramadol Yes 50 mg = 1 Chase katie hydrochlori 7-11 tab, PO, l de 50 MG 19:32: Q6H, PRN Kamla nn Oral Tablet 00 Pain, X 10 day, # 40 tab, 0 Refill(s) Acetaminoph Yes 1 tab, PO, Memoria en 300 MG / 7-11 Q4H, PRN l Codeine 19:32: Pain, X 7 Kamla nn Phosphate 00 day, # 42 30 MG Oral tab, 0 Tablet Refill(s) [Tylenol with Codeine #3] potassium No Notes: Memori a chloride 20 - (Same as: l mEq oral 14:00: K-Dur 20) Herm levy tablet, 00 "Do Not extended Crush" release With food and full glass of water sodium No 1,000 mL, Memori a chloride 05-24 Rate: 75 l 0.9% 1000 13:04: ml/hr, Alfredo n ml INJ 00 Infuse 1,000 mL over: 13.3 hr, Route: IV, Dosing Weight 55.909 kg, Total Volume: 1,000, Start date: 05/24/17 8:04:00 CDT, Duration: 30 day, Stop date: 06/23/17 8:03:00 CDT potassium No Notes: Memori a chloride 7-08 Infuse at l 16:00: a rate of Chemo 00 10 mEq/hr. (Same as: KCL) potassium No Notes: Memori a chloride -08 (Same as: l 14:32: K-Dur 20) Cameron 00 "Do Not Crush" With food and full glass of water potassium No Notes: Memori a phosphate + 7-08 (Same as: l sodium 14:32: K Chemo chloride 00 Phosphate. 0.9% INJ ) 1 mMol 250 mL phoshate has 1.47 mEq potassium Infuse over 4 hours potassium No Notes: Memori a phosphate-s -08 (Same as: l odium 14:32: Phos-NaK) Cheom phosphate 00 Each 1.5 250 mg-280 gm pkt has mg-160 mg 250mg oral powder phosphorou for s. Mix reconstitut w/2.5oz ion water and stir. sodium No 15 mmol, 5 Memor ia phosphate + 7-08 mL, Route: l D5W 250 mL 14:32: IVPB, PRN, H ermann 00 Dosing Weight 55.909, kg, PRN Abnormal Lab Result, For NON-ICU Patients Only., Start date: 05/23/17 9:32:00 CDT, Duration: 30 day, Stop date: 06/22/17 9:31:00 CDT Magnesium No Notes: Memori a Sulfate 05-23 WASTE: F/P l 14:32: - Sink; E Chemo - [employer] Trash Bin Calcium No Notes: Memoria Gluconate 05-23 WASTE: F/P l 14:32: - Sink; E Cameron - [facility] Trash Bin Magnesium No Notes: Memori a Oxide 05-23 (Same as: l 14:32: Mag-Ox Cameron 00 400) Magnesium oxide 877lc=812g g elemental magnesium Dose=____m g magnesium oxide (___mg elemental magnesium) Bacitracin No Notes: Memor ia 0.5 UNT/MG 05-21 (Same As: l / Polymyxin 22:00: Polysporin Cameron B 10 UNT/MG 00 ) Topical Ointment potassium No Notes: Memori a chloride 7-06 Infuse at l 17:00: a rate of Cameron 00 10 mEq/hr. (Same as: KCL) potassium No Notes: Memori a chloride 20 7-06 (Same as: l mEq oral 15:45: K-Dur 20) Herm levy tablet, 00 "Do Not extended Crush" release With food and full glass of water Bacitracin No 1 appl, Chase katie 7-05 Route: l 14:00: TOP, Cameron 00 Daily, Drug form: OINT, Start date: 05/20/17 9:00:00 CDT, Duration: 30 day, Stop date: 06/18/17 9:00:00 CDT Nicotine No Notes: Memoria 7-05 (Same as: l 14:00: Habitrol) Chemo 00 "Remove old patch before applicatio n of new patch" WASTE: F/P - P Waste Black; E - P Waste Black Thyroxine No Notes: Memori a 7-05 Take 1 l 11:30: hour before or 2 hours after meal; Enteral feeds may interefere with the absorption of this medication .(Same as:Levothr oid, Synthroid) Lipitor No Notes: Memoria 7-05 (Same As: l 02:00: Lipitor) Trazodone No Notes: Memori a Hydrochlori -05 (Same As: l de 100 MG 02:00: Desyrel) Herm levy Oral Tablet 00 Lovastatin No 40 mg, Memor ia 05-20 Route: PO, l 02:00: Drug form: Chemo 00 TAB, Bedtime, Dosing Weight 55.909, kg, Start date: 05/19/17 21:00:00 CDT, Duration: 30 day, Stop date: 06/17/17 21:00:00 CDT metoprolol No Notes: Memor ia tartrate 7-04 (Same as: l 14:00: Lopressor) Furosemide No Notes: Memor ia 40 MG Oral 7-04 (Same as: l Tablet 14:00: Lasix) May cause GI upset. Give with food or milk. Folic Acid No Notes: Memor ia 7-04 (Same as: l 14:00: Folvite) clopidogrel No Notes: Chase katie 7-04 (Same As: l 14:00: Plavix) Fentanyl No Notes: Memoria 7-04 (Same as: l 14:00: Duragesic) Cameron 00 Check for product integrity. Apply to intact skin "Remove old patch before applicatio n of new patch" Amitriptyli No Notes: Chase katie ne 05-19 (Same as: l 14:00: Elavil) Chemo 00 Alprazolam No Notes: Memor ia 1 MG Oral 05-19 With food l Tablet 14:00: or milk Chemo (Same as: Xanax) Nitroglycer No Notes: Chase katie in 0.4 MG 05-19 (Same l Sublingual 13:09: as:Nitroqu H ermann Tablet 00 ick, Nitrostat) "Do Not Crush" Sublingual tablet potassium No Notes: Memori a chloride 20 05-19 (Same as: l mEq oral 12:56: K-Dur 20) Herm levy tablet, 00 "Do Not extended Crush" release With food and full glass of water clopidogrel Yes 75 mg = 1 M emoria 75 mg oral 7-03 tab, PO, l tablet 22:22: Daily, 0 Chemo 00 Refill(s) potassium Yes 20 mEq = 1 Me moria chloride 20 7-03 tab, PO, l mEq oral 22:21: Daily, 0 Kamla nn tablet, 00 Refill(s) extended release Metoprolol Yes 50 mg = 1 Me moria Tartrate 50 7-03 tab, PO, l mg oral 22:21: BID, 0 Cameron tablet 00 Refill(s) lovastatin Yes 40 mg = 1 Me moria 40 mg oral 7-03 tab, PO, l tablet 22:21: Bedtime, 0 Kamla nn 00 Refill(s) Furosemide Yes 40 mg = 1 Me moria 40 MG Oral 7-03 tab, PO, l Tablet 22:21: BID, 0 Cameron 00 Refill(s) Folic Acid Yes 1 mg = 1 Mem oria 1 MG Oral 7-03 tab, PO, l Tablet 22:21: Daily, 0 Cameron 00 Refill(s) Alprazolam Yes 1 mg = 1 Mem oria 1 MG Oral 7-03 tab, PO, l Tablet 22:21: BID, 0 Chemo 00 Refill(s) Trazodone Yes 100 mg = 1 Me moria Hydrochlori 7-03 tab, PO, l de 100 MG 22:20: Bedtime, 0 He rmann Oral Tablet 00 Refill(s) amitriptyli Yes 10 mg = 1 M emoria ne 10 mg 7-03 tab, PO, l oral tablet 22:20: Daily, 0 He rmann 00 Refill(s) Acetaminoph Yes 1 tab, PO, Memoria en 325 MG / -03 Q6H, PRN l Hydrocodone 22:20: Pain Score Chemo Bitartrate 00 4-6, 0 10 MG Oral Refill(s) Tablet [[place] 10/325] fentaNYL 50 Yes 50 Memori a mcg/hr 7-03 microgram/ l transdermal 22:20: hr =, TOP, Chemo film, 00 Q72H, 0 extended Refill(s) release Nitroglycer Yes 0.4 mg = 1 Memoria in 0.4 MG -03 tab, SL, l Sublingual 22:20: Q5Min, PRN H ermann Tablet 00 as needed for chest pain, 0 Refill(s) levothyroxi Yes 50 Memori a ne 50 mcg 7-03 microgram l (0.05 mg) 22:19: = 1 tab, Herm levy oral tablet 00 PO, Q630AM, 0 Refill(s) Unasyn No Notes: Memoria - Dosing l 22:00: based on Ampicillin component (Same as: Unasyn) Ondansetron No Notes: Chase katie 05-18 (Same as: l 21:45: Zofran) MEDICATION WASTE Product Size: 4 mg Product Wasted: ___ mg Morphine No 2 mg, 1 Memori a 05-18 mL, Route: l 21:45: IVP, Drug form: SOLN, Q4H, Dosing Weight 55.455, kg, PRN Pain Score 7-10, Start date: 05/18/17 16:45:00 CDT, Duration: 30 day, Stop date: 06/17/17 16:44:00 CDT Acetaminoph No Notes: Chase katie en 325 MG / 7-03 (Same as: l Hydrocodone 21:45: [place] Kamla nn Bitartrate 00 325/5) Do 5 MG Oral not exceed Tablet 4gm/day of acetaminop hen. Acetaminoph No Notes: Do M emoria en 05-18 not exceed l 21:45: 4 gm/day. Cameron 00 (Same as: Tylenol) Unasyn No Notes: Memoria 05-18 Dosing l 20:12: based on Ampicillin component (Same as: Unasyn) Morphine No Notes: Memoria 05-18 (Same l 20:12: as:MORPhin e Sulfate) Vancomycin No 2000 mg: Me moria 05-18 infuse l 18:43: over 2.5 hours MEDICATION WASTE Product Size: 1000 mg Product Wasted: ___ mg albuterol albuterol No 2puff(s Q4H albuterol [facility] sulf 90 sulf 90 ) sulf 90 Family mcg/actuati mcg/actuati mcg/actuat Practic on breath on breath ion breath e activated activated activated powder powder powder inhaler,sen inhaler,sen inhaler,se sor Inhale sor Inhale nsor 2 puffs 2 puffs Inhale 2 every 4 every 4 puffs hours by hours by every 4 inhalation inhalation hours by route. route. inhalation route. alprazolam alprazolam No 1 Q1D alprazolam [facility] 0.5 mg 0.5 mg 0.5 mg Family disintegrat disintegrat disintegra Practic ing tablet ing tablet ting e Take 1 Take 1 tablet tablet tablet Take 1 every day every day tablet by oral by oral every day route. route. by oral route. amitriptyli amitriptyli No 1 Q1D amitriptyl [facility] ne 50 mg ne 50 mg ine 50 mg Fa ramses tablet Take tablet Take tablet Practic 1 tablet 1 tablet Take 1 e every day every day tablet by oral by oral every day route. route. by oral route. furosemide furosemide No 1 Q1D furosemide [facility] 20 mg 20 mg 20 mg Family tablet Take tablet Take tablet Practic 1 tablet 1 tablet Take 1 e every day every day tablet by oral by oral every day route. route. by oral route. gabapentin gabapentin No 1capsul TID gabapentin [facility] 100 mg 100 mg e(s) 100 mg Family capsule capsule capsule Practi c Take 1 Take 1 Take 1 e capsule 3 capsule 3 capsule 3 times a day times a day times a by oral by oral day by route. route. oral route. levothyroxi levothyroxi No 1capsul Q1D levothyrox [facility] ne 50 mcg ne 50 mcg e(s) ine 50 mcg Family capsule capsule capsule Practi c Take 1 Take 1 Take 1 e capsule capsule capsule every day every day every day by oral by oral by oral route. route. route. lovastatin lovastatin No 1 Q1D lovastatin [facility] 40 mg 40 mg 40 mg Family tablet Take tablet Take tablet Practic 1 tablet 1 tablet Take 1 e every day every day tablet by oral by oral every day route. route. by oral route. meloxicam meloxicam No 1 Q1D meloxicam [facility] 7.5 mg 7.5 mg 7.5 mg Family tablet Take tablet Take tablet Practic 1 tablet 1 tablet Take 1 e every day every day tablet by oral by oral every day route. route. by oral route. metoprolol metoprolol No 1capsul Q1D metoprolol [facility] succinate succinate e(s) succinate [facility] ER 25 mg ER 25 mg ER 25 mg Pra ctic capsule capsule capsule e sprinkle, sprinkle, sprinkle, ext. ext. ext. release 24 release 24 release 24 hr Take 1 hr Take 1 hr Take 1 capsule capsule capsule every day every day every day by oral by oral by oral route. route. route. potassium potassium No 1 Q1D potassium [facility] chloride ER chloride ER chloride [facility] 20 mEq 20 mEq ER 20 mEq Practi c tablet,exte tablet,exte tablet,ext e nded nded ended release release release Take 1 Take 1 Take 1 tablet tablet tablet every day every day every day by oral by oral by oral route. route. route. Symbicort Symbicort No 2puff(s BID Symbicort [facility] 160 mcg-4.5 160 mcg-4.5 ) 160 F amily mcg/actuati mcg/actuati mcg-4.5 Practic on HFA on HFA mcg/actuat e aerosol aerosol ion HFA inhaler inhaler aerosol Inhale 2 Inhale 2 inhaler puffs twice puffs twice Inhale 2 a day by a day by puffs inhalation inhalation twice a route. route. day by inhalation route. trazodone trazodone No 1 BID trazodone [facility] 100 mg 100 mg 100 mg Family tablet Take tablet Take tablet Practic 1 tablet 1 tablet Take 1 e twice a day twice a day tablet by oral by oral twice a route. route. day by oral route. Vital Signs Vital Name Observation Time Observation Value Comments Source Height 2020-08-31 00:00:00 67 [in_i] [facility] BMI (Body Mass Index) 2020-08-31 00:00:00 21.1 kg/m2 [facility] Body Weight 2020-08-31 00:00:00 135 [lb_av] [facility] Systolic (mm Hg) 2017-05-27 13:42:00 Chase rial Cameron Diastolic (mm Hg) 2017-05-27 13:42:00 Mem orial Chemo Heart Rate 2017-05-27 13:42:00 [facility] Chemo Respitory Rate 2017-05-27 13:42:00 Memori al Cameron Temperature Oral (F) 2017-05-27 13:42:00 98.1 F [facility] Respitory Rate 2017-05-27 09:00:00 Memori al Cameron Systolic (mm Hg) 2017-05-27 09:00:00 Chase rial Cameron Diastolic (mm Hg) 2017-05-27 09:00:00 Mem orial Cameron Heart Rate 2017-05-27 09:00:00 [facility] Chemo Temperature Oral (F) 2017-05-27 09:00:00 98.4 F [facility] Respitory Rate 2017-05-27 05:00:00 Memori al Chemo Systolic (mm Hg) 2017-05-27 05:00:00 Chase rial Chemo Diastolic (mm Hg) 2017-05-27 05:00:00 Mem orial Chemo Heart Rate 2017-05-27 05:00:00 [facility] Chemo Temperature Oral (F) 2017-05-27 05:00:00 99.0 F [facility] Chemo BMI Calculated 2017-05-19 00:40:00 Memori al Cameron Weight 2017-05-19 00:40:00 [facility] Chemo Height 2017-05-19 00:40:00 170.18 cm [facility] Weight 2017-05-18 18:42:00 [facility] This patient has no known procedures. Encounters Start End Encounter Admission Attending Care Care Encounter Source Date/Time Date/Time Type Type Clinicians Facility Department ID 2020-11-05 2020-11-05 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 2017-05-18 2017-05-27 Outpatient ROGER Baca [facility] [id number] 13:25:00 11:02:00 Pastor 00 Faiz Results Test Description Test Time Test Comments Results Result Comments Source ELECTROLYTES 2017-05-26 3.7 [facility] [place] 17:29:00 ELECTROLYTES 2017-05-26 139 [facility] [place] 09:48:36 ELECTROLYTES 2017-05-26 87 [facility] [place] 09:48:36 ELECTROLYTES 2017-05-26 31 [facility] [place] 09:48:36 ELECTROLYTES 2017-05-26 102 [facility] [place] 09:48:36 ELECTROLYTES 2017-05-26 89 [facility] [place] 09:48:36 ELECTROLYTES 2017-05-26 11 [facility] [place] 09:48:36 ELECTROLYTES 2017-05-26 0.59 [facility] [place] 09:48:36 HEMATOLOGY 2017-05-26 28.2 [facility] Kamla nn 09:48:36 HEMATOLOGY 2017-05-26 09:48:36 Test Item Value Reference Range Interpretation Comme nts MCH (test code = MCH) 31.5 pg 27.0-31.0 [facility] BryfjhoLAQNOEAEWY0839-04-30 09:48:369.8[facility]annHEMATOLOGY 2017-05-26 09:48:3635.0[facility] UettlroBRAZDMZPCA1719-39-28 09:48:3690.0[facility] EvrczsvQBRZOCTTAY9703-24-22 09:48:3612.8[facility] MzuwudoGZKZBTGUTR2766-21-52 09:48:28225Ekwbnomn PadyjihGRYZKGBXTO3070-41-90 09:48:368.1[facility] ANFTLQAHPF7207-00-70 09:48:366.6[facility] GserlhiPQELDGOVCD6987-56-67 09:48:36 3.13[facility] DumrvgyVCRKZDFEKU8117-61-60 09:48:3647.9[facility] HermannHEMATOLOGY 2017-05-26 09:48:3631.3[facility] SudcnwtUETYAUDXGR0651-46-12 09:48:3614.8[facility] PoqiuakJAJUZDOWLS8953-05-40 09:48:365.2[facility] EqubknpVSCCYWSOCE4583-22-12 09:48:363.1[facility] XfcccmyWCOMCTYWYA4515-38-64 09:48:360.8[facility] MWHMFYHFYS5018-44-48 09:48:360.3[facility] NshnsvmSOFAONAADJ2937-09-32 09:48:361.0 [facility] ZgvlmlkGWEIRQINRE7449-80-14 09:48:362.1[facility] HermannHEMATOLOGY 2017-05-26 09:48:360.1[facility] UwwcedrNNDVOHWIUKZG5762-67-22 09:48:369.1[facility] OwwoqmpJTPIJANCFJJE4523-33-22 09:48:368.7[facility] OvrdbmhTHOJYMKWAYBM6839-41-42 09:48:363.1[facility] HermannCHEM XRUAH8621-81-41 15:09:0085[facility] HermannCHEM KYKTC4204-78-46 15:09:00611Pnhzpnqp HermannCHEM NUHPY7507-28-47 15:09:000.64 [facility] HermannCHEM ZTXXF9341-07-21 15:09:0011[facility] HermannCHEM PANEL 2017-05-25 15:09:62593Rkqcybtg HermannCHEM LZIUJ8894-65-09 15:09:003.3[facility] HermannCHEM DCCMB7690-82-83 15:09:0083[facility] HermannCHEM LRWKX6004-52-30 15:09:0029[facility] HermannCHEM HCUIZ8609-45-06 15:09:008.0[facility] HermannCHEM UQBQH7569-13-45 15:09:0011.3[facility] HermannCHEM WWZQN7818-39-52 12:31:0090 [facility] HermannCHEM HZAJM9784-89-32 12:31:006.4[facility] HermannCHEM PANEL 2017-05-25 12:31:0020.4[facility] HermannCHEM WXOLR9808-70-73 12:31:0025[facility] HermannCHEM MALVR7437-58-10 12:31:0069[facility] HermannCHEM KEOJM3498-01-48 12:31:88802Klgfwaew HermannCHEM KFKEQ4987-89-61 12:31:0010[facility] HermannCHEM QSPHD5423-42-82 12:31:54861Lfinabuc HermannCHEM GYWCG5538-29-52 12:31:000.55 [facility] KvinvoiWBDRXYAGGE1125-15-13 12:31:0025.0[facility] HermannHEMATOLOGY 2017-05-25 12:31:0090.5[facility] XsjpaohHEWDOVFKFI6058-11-65 12:31:008.4[facility] DldwbefPTTHQJANPQ3320-67-19 12:31:00 Test Item Value Reference Range Interpretation Comments MCH (test code = MCH) 30.4 pg 27.0-31.0 [facility] OphnumeGVHVQCYUIH9151-92-24 12:31:0033.6[facility] HermannHEMATOLOGY 2017-05-25 12:31:0013.2[facility] GytkvdbDIYYNRKNRY7980-53-69 12:31:008.1[facility] QqcrtqtVIODZOATBX9914-42-06 12:31:10389Eaxcaqpe JprxbhiWFOTEADTCS4006-25-78 12:31:002.76[facility] RndhfyvLIZCIGTOLW9217-52-56 12:31:005.7[facility] NWQHBAKDLS7411-62-40 12:31:000.8[facility] ViqqgrvXUNJFWITZO8958-81-30 12:31:000.2 Memorial ZmoziclPDUNQKERUG8574-84-33 12:31:0026.0[facility] HermannHEMATOLOGY 2017-05-25 12:31:003.2[facility] RwetfkrYSTPIAMRKV7354-69-63 12:31:001.5[facility] UkyfhijMDBGJZILZR0306-34-00 12:31:003.7[facility] GnchxpyTGMWQUQVNM0053-37-46 12:31:0014.4[facility] NytrkdmZFHYDKHNCR5136-16-14 12:31:000.5[facility] CDKNCDRURP0426-38-57 12:31:0055.4[facility] HermannANEMIA SLTOV7493-12-09 13:15:00 54.1[facility] HermannANEMIA JZBII1331-85-35 13:15:587597Lhxrvhdp Chemo CFPQBLZEFZ3261-21-77 11:45:007.6[facility] SklotvzVKETWLSMYI2663-43-29 11:45:25936 Memorial KstxqeiXEARIYMLZG1196-66-03 11:45:0089.7[facility] HermannHEMATOLOGY 2017-05-24 11:45:0030.2[facility] PwoqgrmPTGWEVUBHX5461-70-11 11:45:0013.4[facility] LbfxqxjKBXQBFLWKY2596-99-96 11:45:0034.5[facility] AoxmuvrDCMWWHUPPG6407-83-90 11:45:00 Test Item Value Reference Range Interpretation Comments MCH (test code = MCH) 31.0 pg 27.0-31.0 Memorial IroluqbNZKIUKIJXO5205-97-75 11:45:007.2[facility] HermannHEMATOLOGY 2017-05-24 11:45:0010.4[facility] QvjwnliUJSARCPJDQ8450-20-14 11:45:003.36[facility] KgrjjdnTWETOADZEV0671-80-04 11:45:000.2[facility] OmelqbtPBLHKFXCRW6694-16-77 11:45:000.9[facility] UnmuhblCPZCFEQKQS4654-10-41 11:45:001.6[facility] Chemo NAUWOKAQHY9568-90-25 11:45:004.4[facility] TvfwafaUSIXZXPVCI3851-29-71 11:45:00 22.1[facility] CbdwinsAZNNDNDXAN7172-23-90 11:45:003.3[facility] HermannHEMATOLOGY 2017-05-24 11:45:0012.6[facility] UuqbfhoZHCVNEIXFA0746-92-56 11:45:000.5[facility] UapftkuVYNAJLZBMH0761-54-97 11:45:0061.5[facility] HermannURINE AND STOOL 2017-05-18 20:37:00<1[facility]annURINE AND HUQVB2728-90-65 20:37:001 [facility]ann[facility] AND EHZZJ3055-13-90 20:37:001[facility]annUR[facility] AND UCEBB0454-40-99 20:37:00Negative (05/18/17 3:37 PM)[facility]ann[facility] AND STOOL 2017-05-18 20:37:00Negative (05/18/17 3:37 PM)[facility] 2017-05-18 20:37:00Negative *NA*(05/18/17 3:37 PM)[facility] 2017-05-18 20:37:00Negative (05/18/17 3:37 PM)[facility] 2017-05-18 20:37:007.0[facility] [id number] 20:37:00Clear (05/18/17 3:37 PM)[facility] [id number] 20:37:001.009[facility] [id number] 20:20:00 Test Item Value Reference Range Interpretation Comments PTT (test code = PTT) 28.0 s 22.9-35.8 [facility] [id number] 20:20:000.99[facility] 2017-05-18 20:20:00 Test Item Value Reference Range Interpretation Comments PT (test code = PT) 13.3 s 12.0-14.7 [facility] HermannCARDIAC [id number] 20:19:000.20[facility]annCHEM PANEL 2017-05-18 20:19:0017[facility] HermannCHEM [id number] 20:19:0030[facility] HermannCHEM [id number] 20:19:003.1[facility] HermannCHEM [id number] 20:19:0063[facility] HermannCHEM [id number] 20:19:000.6[facility] HermannCHEM [id number] 20:19:007.1[facility] HermannCHEM [id number] 20:19:004.0 [facility]annCHEM [id number] 20:19:000.8[facility] HermannCHEM PANEL 2017-05-18 20:19:0015[facility] HermannCHEM [id number] 20:19:000.8[facility]
[2021-02-10 17:17] LABS: Protime INR 0.97
[2021-02-10] MEDS ORDERED: NA CHLORIDE 0.9% 500 ML ONE (17:20)
[2021-02-10 17:26] LABS: Absolute Lymphocytes (CBC) 0.6 K/uL (0.7-4.9); Basophils % 0.2 % (0-1.3); Hematocrit 36.6 % (36.0-45.0); Lymphocytes % 4.6 % (15.3-44.8); MPV 7.3 fL (7.6-11.3); RBC Red Blood Cell Count 4.12 M/uL (3.86-4.86)
[2021-02-10 17:46] LABS: Albumin 4.1 g/dL (3.4-5.0); Bilirubin Direct 0.2 mg/dL (0-0.2); Bilirubin Total 0.8 mg/dL (0.2-1.0); Magnesium 1.8 mg/dL (1.8-2.4); Potassium 3.7 mmol/L (3.5-5.1); Protein, Total 8.1 g/dL (6.4-8.2); Troponin (Emerg Dept Use Only) 0.06 ng/mL (0.0-0.045)
--- NOTE | 2021-02-10 17:53 | RAD REPORT ---
EXAM DESCRIPTION: CT - Head Brain Wo Cont - 02/10/2021 5:26 pm CLINICAL HISTORY: Fall with head injury. Head pain and weakness COMPARISON: December 2020 TECHNIQUE: Computed axial tomography of the head was obtained. IV contrast was not requested. All CT scans are performed using dose optimization technique as appropriate and may include automated exposure control or mA/KV adjustment according to patient size. FINDINGS: An intracranial bleed is not seen . The ventricles are normal in caliber. No extra-axial fluid collection is noted. 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 Mild low-density areas within periventricular, deep and subcortical white matter likely represent isc hemic changes secondary to small vessel disease. Fluid within the sinuses/ mastoids is not seen. IMPRESSION: No acute intracranial abnormality is seen. If patient's symptoms persist MRI of the bra in would be recommended.
--- NOTE | 2021-02-10 18:10 | RAD REPORT ---
EXAM DESCRIPTION: Bhargavi Single View02/10/2021 5:37 pm CLINICAL HISTORY: Chest pain status post fall COMPARISON: 2019 FINDINGS: The lungs appear clear of acute infiltrate. The heart is normal size. Left hemidiaphragm elevation unchanged IMPRESSION: No acute abnormalities displayed
--- NOTE | 2021-02-10 18:53 | ER ---
Nurse's Notes [facility] Name: Dianna Marcano Age: 80 yrs Sex: Female : 1940 Arrival Date: 02/10/2021 Time: 16:23 Bed 20 Private MD: Diagnosis: Dehydration;Rhabdomyolysis;Fall on same level, unspecified Presentation: 02/10 16:24 Chief complaint: EMS states: called by pt's daughter. Pt had fallen last night around sv 1999 and has been on the ground since then and managed to crawl herself to her bedroom. Has been on the ground for about 14 hours. Denies head injury or pain. Daughter reports that she has had multiple falls over the last couple of months. Risk Assessment: Do you want to hurt yourself or someone else? Patient reports no desire to harm self or others. Onset of symptoms was February 09, 2021. 16:24 Method Of Arrival: EMS: [facility] 16:24 Acuity: SHERLYN 3 sv 16:31 Care prior to arrival: None. Mechanism of Injury: Fall unknown. Trauma event details: sv Injury occurred in the [facility], Injury occurred: at home. Injury occurred: February 09, 2021. 20:06 Coronavirus screen: Client denies travel out of the [place] in the last 14 days. Ebola rv Screen: No symptoms or risks identified at this time. Initial Sepsis Screen: Does the patient meet any 2 criteria? No. Patient's initial sepsis screen is negative. Does the patient have a suspected source of infection? No. Patient's initial sepsis screen is negative. Triage Assessment: 16:54 General: Appears in no apparent distress. Behavior is calm, cooperative, appropriate bw for age. Pain: Complains of pain in back. EENT: No deficits noted. Neuro: Oriented to person, place, time, situation, Machine Tracer are equal bilaterally Weakness Reports weakness in generalized. Cardiovascular: No deficits noted. Respiratory: No deficits noted. GI: No signs and/or symptoms were reported involving the gastrointestinal system. : No signs and/or symptoms were reported regarding the genitourinary system. Derm: No signs and/or symptoms reported regarding the dermatologic system. Musculoskeletal: Range of motion: limited in all extremities, Reports weakness in generalized. Injury Description: fall at home. Trauma Activation: Not Applicable Physician: ED Physician; Name: ; Notified At: ; Arrived At: Physician: General Surgeon; Name: ; Notified At: ; Arrived At: Physician: Radiology; Name: ; Notified At: ; Arrived At: Physician: Respiratory; Name: ; Notified At: ; Arrived At: Physician: Lab; Name: ; Notified At: ; Arrived At: Historical: - Allergies: 16:24 Iodine; sv 16:24 Sulfa (Sulfonamide Antibiotics); sv 16:24 Versed; sv - PMHx: 16:24 Anxiety; CHF; chronic back pain; Hypothyroidism; Dementia; Hypertension; sv - PSHx: 16:24 Hysterectomy; Tonsillectomy; Appendectomy; sv - Immunization history:: Adult Immunizations up to date. - Immunization history: Last tetanus immunization: - up to date. - Social history:: Smoking status: Patient reports the use of cigarette tobacco products, smokes one pack cigarettes per day. Screenin:56 Abuse screen: Denies threats or abuse. Nutritional screening: No deficits noted. bw Tuberculosis screening: No symptoms or risk factors identified. 20:06 Fall Risk Fall in past 12 months (25 points). Secondary diagnosis (15 points) dementia, rv No IV (0 pts). Ambulatory Aid- None/Bed Rest/Nurse Assist (0 pts). Gait- Normal/Bed Rest/Wheelchair (0 pts) Mental Status- Overestimates/Forgets Limitations (15 pts.). Total Gerardo Fall Scale indicates High Risk Score (45 or more points). Fall prevention measures have been instituted. Side Rails Up X 2 Frequent Obs/Assessments Occuring As available patient and family educated on Fall Prevention Program and Strategies. Primary Survey: 20:06 NO uncontrolled hemorrhage observed. A: Airway: patent. Breathing/Chest: Respiratory rv pattern: regular. Circulation: Cardiac rhythm: sinus rhythm. Disability Alert. Exposure/Environment: There is no evidence of uncontrolled external bleeding. No obvious injuries are noted at this time. A warming method has been applied: A warm blanket has been provided to the patient. 20:07 Reassessment Airway Airway Patent Breathing/Chest Respiratory pattern Regular rv Circulation Heart rhythm Sinus rhythm Disability Alert. Assessment: 16:56 Reassessment: See triage assessment. 18:01 Reassessment: Patient appears in no apparent distress at this time. Patient and/or bw family updated on plan of care and expected duration. Pain level reassessed. Patient is alert, oriented x 3, equal unlabored respirations, skin warm/dry/pink. 20:18 Reassessment: PATIENT IS COMPLAINING OF CHRONIC BACK PAIN. VITAL SIGNS STABLE. REFERRED rv TO BRAYAN RUSSELL, RECEIVED NEW ORDERS. Vital Signs: 16:54 BP 146 / 56; Pulse 78; Resp 18; Temp 98.3; Pulse Ox 100% on R/A; Pain 4/10; bw 18:01 BP 141 / 71; Pulse 76; Resp 12; Pulse Ox 96% on R/A; bw 19:30 BP 127 / 43; Pulse 87; Resp 17; Pulse Ox 100% on R/A; rv 20:08 BP 145 / 67; Pulse 87; Resp 14; Pulse Ox 99% on R/A; rv Chinyere Coma Score: 19:30 Eye Response: spontaneous(4). Verbal Response: oriented(5). Motor Response: obeys rv commands(6). Total: 15. Trauma Score (Adult): 19:30 Eye Response: spontaneous(1); Verbal Response: oriented(1); Motor Response: obeys rv commands(2); Systolic BP: > 89 mm Hg(4); Respiratory Rate: 10 to 29 per min(4); Chinyere Score: 15; Trauma Score: 12 ED Course: 16:23 Patient arrived in ED. sv 16:26 Triage completed. sv 16:27 Arm band placed on. sv 16:28 Valentin Morrison NP is PHCP. pm1 16:28 Swapnil Layton MD is Attending Physician. pm1 16:42 Mirlande Mueller, JOSE ALBERTO is Primary Nurse. bw 16:54 Initial lab(s) drawn, by de, sent to lab. Inserted saline lock: 22 gauge in right jp3 forearm, using aseptic technique. Blood collected. Patient maintains SpO2 saturation greater than 95% on room air. 16:55 Warm blanket given. Pillow given. Verbal reassurance given. Pulse ox on. NIBP on. jp3 16:56 Patient has correct armband on for positive identification. Bed in low position. Call bw light in reach. Side rails up X2. 16:56 No provider procedures requiring assistance completed. bw 17:26 CT Head Brain wo Cont In Process Unspecified. EDMS 17:35 XRAY Chest (1 view) In Process Unspecified. EDMS 17:35 EKG done, by ED staff, reviewed by Valentin Morrison NP. jp3 18:02 CBC with Diff Sent. sv 18:02 Basic Metabolic Panel Sent. sv 18:48 Urine Dipstick--Ancillary (enter results) Sent. sv 18:52 Cory Muñiz PA is Hospitalizing Provider. pm1 19:43 COVID swab sent to lab. jp3 20:07 Thermoregulation: warm blanket given to patient. rv 20:50 IV is patent, with fluids infusing freely, with good blood return, Patient admitted, IV rv remains in place. Administered Medications: 18:18 Drug: NS 0.9% 500 ml Volume: 500 ml; Route: IV; Rate: 1 bolus; Site: right antecubital; bw 20:11 Follow up: IV Status: Completed infusion; IV Intake: 1000ml rv 19:50 Drug: NS 0.9% 1000 ml Route: IV; Rate: 100 ml/hr; Site: right forearm; rv 20:11 Follow up: IV Status: Completed infusion; IV Intake: 1000ml rv 20:17 Drug: morphine 2 mg Route: IVP; Site: right forearm; rv 20:48 Follow up: Response: No adverse reaction; Pain is decreased; RASS: Alert and Calm (0) rv Intake: 20:11 IV: 1000ml; Total: 1000ml. rv 20:11 IV: 1000ml; Total: 2000ml. rv 20:50 IV: 500ml; Total: 2500ml. rv Output: 20:50 Urine: 0ml; Total: 0ml. rv Outcome: 18:52 Decision to Hospitalize by Provider. pm1 20:07 Patient's length of stay in the Emergency Department was greater than 2 hours. rv ADMITTEDPatient's length of stay extended due to 20:49 Admitted to Med/surg accompanied by tech, via stretcher, room 219, Other SBAR, EKG rv Report called to JASPREET ABRAMS 20:49 Condition: good 20:51 Patient left the ED. rv Signatures: Dispatcher [employer] EDAdrianna Denny, RN RN sv Valentin Morrison NP BURLAP SPREADER pm1 Roberth Melendez RN RN rv Duncan Moct[place]uma jp3 Mirlande Mueller RN RN Corrections: (The following items were deleted from the chart) 16:32 16:24 Chief complaint: EMS states: called by pt's daughter. Pt had fallen last night sv around 1999 and has been on the ground since then and managed to crawl herself to her bedroom. Denies head injury or pain. Daughter reports that she has had multiple falls over the last couple of months. sv
--- NOTE | 2021-02-10 18:53 | EDPHYS ---
Physician Documentation [facility] Name: Dianna Marcano Age: 80 yrs Sex: Female : 1940 Arrival Date: 02/10/2021 Time: 16:23 Bed 20 Private MD: ED Physician Swapnil Layton HPI: 02/10 17:06 This 80 yrs old Female presents to ER via EMS with complaints of Fall Injury. pm1 17:06 Details of fall: The patient fell from an upright position, while walking, and struck pm1 Floor. Onset: The symptoms/episode began/occurred last night. Associated injuries: The patient sustained no obvious injury. The patient has experienced similar episodes in the past, a few times. Patient with fall last night in her house. Denies any prior chest pain, shortness of breath, dizziness. Patient with multiple falls over the past few months. Reports that she has been unsteady on her feet. Patient was on the floor unable to get up. She was able to crawl to another room. Reports that she was not eating or drinking well prior to falling and did not eaten or drank fluids during the time she was on the floor. Historical: - Allergies: 16:24 Iodine; sv 16:24 Sulfa (Sulfonamide Antibiotics); sv 16:24 Versed; sv - PMHx: 16:24 Anxiety; CHF; chronic back pain; Hypothyroidism; Dementia; Hypertension; sv - PSHx: 16:24 Hysterectomy; Tonsillectomy; Appendectomy; sv - Immunization history:: Adult Immunizations up to date. - Immunization history: Last tetanus immunization: - up to date. - Social history:: Smoking status: Patient reports the use of cigarette tobacco products, smokes one pack cigarettes per day. ROS: 17:06 Constitutional: Negative for fever, chills, and weight loss, Neck: Negative for injury, pm1 pain, and swelling, Cardiovascular: Negative for chest pain, palpitations, and edema, Respiratory: Negative for shortness of breath, cough, wheezing, and pleuritic chest pain, Abdomen/GI: Negative for abdominal pain, nausea, vomiting, diarrhea, and constipation, MS/Extremity: Negative for injury and deformity, Skin: Negative for injury, rash, and discoloration. 17:06 Back: Positive for chronic back pain. 17:06 Neuro: Positive for Generalized weakness, Negative for numbness, tingling, focal weakness. Exam: 17:06 Head/Face: Normocephalic, atraumatic. pm1 17:06 Skin: Warm, dry with normal turgor. Normal color with no rashes, no lesions, and no evidence of cellulitis. MS/ Extremity: Pulses equal, no cyanosis. Neurovascular intact. Full, normal range of motion. 17:06 Constitutional: The patient appears in no acute distress, alert, awake, comfortable, non-diaphoretic, non-toxic, well developed, unkempt, dirt inside patient's slippers 17:06 Cardiovascular: Exam negative for acute changes, Rate: normal, Rhythm: regular, Pulses: no pulse deficits are appreciated. 17:06 Respiratory: Exam negative for acute changes, respiratory distress, shortness of breath, Breath sounds: are clear throughout. 17:06 Abdomen/GI: Inspection: abdomen appears normal, Palpation: abdomen is soft and non-tender, in all quadrants. 17:06 Neuro: Exam negative for acute changes, Orientation: is normal, to person, place, time, situation, Mentation: appropriate for stated age, Motor: is normal, moves all fours, Sensation: is normal, no obvious gross deficits. Vital Signs: 16:54 BP 146 / 56; Pulse 78; Resp 18; Temp 98.3; Pulse Ox 100% on R/A; Pain 4/10; bw 18:01 BP 141 / 71; Pulse 76; Resp 12; Pulse Ox 96% on R/A; bw 19:30 BP 127 / 43; Pulse 87; Resp 17; Pulse Ox 100% on R/A; rv 20:08 BP 145 / 67; Pulse 87; Resp 14; Pulse Ox 99% on R/A; rv Davenport Coma Score: 19:30 Eye Response: spontaneous(4). Verbal Response: oriented(5). Motor Response: obeys rv commands(6). Total: 15. Trauma Score (Adult): 19:30 Eye Response: spontaneous(1); Verbal Response: oriented(1); Motor Response: obeys rv commands(2); Systolic BP: > 89 mm Hg(4); Respiratory Rate: 10 to 29 per min(4); Chinyere Score: 15; Trauma Score: 12 MDM: 16:41 Patient medically screened. pm1 18:51 Data reviewed: vital signs. Data interpreted: Pulse oximetry: on room air is 96 %. pm1 Interpretation: normal. Counseling: I had a detailed discussion with the patient and/or guardian regarding: the historical points, exam findings, and any diagnostic results supporting the discharge/admit diagnosis, lab results, radiology results, the need for further work-up and treatment in the hospital. 19:28 Physician consultation: Cory CASE was called at 19:28, was contacted at 19:28, pm1 regarding admission, patient's condition, and will see patient. 02/10 16:39 Order name: Basic Metabolic Panel pm1 02/10 16:39 Order name: CBC with Diff pm1 02/10 16:39 Order name: LFT's; Complete Time: 17:49 pm1 02/10 16:39 Order name: Magnesium; Complete Time: 17:50 pm1 02/10 16:39 Order name: NT PRO-BNP; Complete Time: 17:49 pm1 02/10 16:39 Order name: PT-INR; Complete Time: 17:39 pm1 02/10 16:39 Order name: Troponin (emerg Dept Use Only); Complete Time: 17:49 pm1 02/10 16:39 Order name: CPK; Complete Time: 17:49 pm1 02/10 16:39 Order name: Basic Metabolic Panel; Complete Time: 17:50 EDMS 02/10 16:39 Order name: CBC with Automated Diff EDMS 02/10 16:49 Order name: Urine Microscopic Only; Complete Time: 20:08 pm1 02/10 18:47 Order name: Urine Dipstick--Ancillary (enter results); Complete Time: 20:08 eb 02/10 20:10 Order name: CBC Smear Scan EDMS 02/10 16:39 Order name: XRAY Chest (1 view); Complete Time: 18:24 pm1 02/10 16:39 Order name: EKG; Complete Time: 16:39 pm1 02/10 16:39 Order name: Cardiac monitoring; Complete Time: 17:35 pm1 02/10 16:39 Order name: EKG - Nurse/Tech; Complete Time: 17:35 pm1 02/10 16:39 Order name: IV Saline Lock; Complete Time: 16:55 pm1 02/10 16:39 Order name: Labs collected and sent; Complete Time: 16:55 pm1 02/10 16:39 Order name: O2 Per Protocol; Complete Time: 16:55 pm1 02/10 16:39 Order name: O2 Sat Monitoring; Complete Time: 16:55 pm1 02/10 16:49 Order name: Urine Dipstick-Ancillary (obtain specimen); Complete Time: 18:48 pm1 02/10 16:49 Order name: CT Head Brain wo Cont; Complete Time: 18:10 pm1 02/10 20:24 Order name: SARS-COV-2 RT PCR EDMS Administered Medications: 18:18 Drug: NS 0.9% 500 ml Volume: 500 ml; Route: IV; Rate: 1 bolus; Site: right antecubital; bw 20:11 Follow up: IV Status: Completed infusion; IV Intake: 1000ml rv 19:50 Drug: NS 0.9% 1000 ml Route: IV; Rate: 100 ml/hr; Site: right forearm; rv 20:11 Follow up: IV Status: Completed infusion; IV Intake: 1000ml rv 20:17 Drug: morphine 2 mg Route: IVP; Site: right forearm; rv 20:48 Follow up: Response: No adverse reaction; Pain is decreased; RASS: Alert and Calm (0) rv Disposition: 02/10/21 18:52 Hospitalization ordered by Cory Muñiz for Observation. Preliminary diagnosis are Rhabdomyolysis, Dehydration, Fall on same level, unspecified. - Bed requested for Telemetry/MedSurg (observation). - Status is Observation. rv - Condition is Stable. - Problem is new. - Symptoms have improved. Addendum: 02/12/2021 23:04 Co-signature as Attending Physician, Swapnil Layton MD. r n Signatures: Dispatcher [employer] EDIN Adrianna Samayoa RN RN sv Webb, Martha, RN RN mw Nieto, Roman, MD MD rn Marinas, Patrick, WO[employer] NECK WHIPPER [employer] NECK WHIPPER pm1 Roberth Melendez RN RN rv Webb, Bethany, RN RN bw Corrections: (The following items were deleted from the chart) 02/10 19:43 19:25 CORONAVIRUS+MR.LAB.BRZ ordered. EDMS EDMS 20:33 18:52 Hospitalization Ordered by Cory CASE for Observation. Preliminary diagnosis mw is RhabdomyolysisDehydration; Fall on same level, unspecified. Bed requested for Telemetry/MedSurg (observation). Status is Observation. Condition is Stable. Problem is new. Symptoms have improved. pm1 20:51 20:33 02/10/2021 18:52 Hospitalization Ordered by Cory CASE for Observation. rv Preliminary diagnosis is RhabdomyolysisDehydration; Fall on same level, unspecified. Bed requested for Telemetry/MedSurg (observation). Status is Observation. Condition is Stable. Problem is new. Symptoms have improved. mw
[2021-02-10 19:35] LABS: Urine Blood NEGATIVE (Negative); Urine Glucose NEGATIVE (Negative); Urine Protein NEGATIVE (NEG); Urine Specific Gravity 1.015 (1.005-1.030)
[2021-02-10 19:45] LABS: Urine Bacteria <20 /HPF (<20); Urine RBC <5 /HPF (NONE SEEN)
[2021-02-10] MEDS ORDERED: NA CHLORIDE 0.9% 1,000 ML ONE (19:45)
[2021-02-10 20:10] LABS: Blood Morphology Comment NOT SEEN (NOT SEEN); Platelet Estimate ADEQ; White Blood Cell Scan OK (OK)
[2021-02-10] MEDS ORDERED: MORPHINE 2 MG/ML SYR ONE (20:30)
[2021-02-10] MEDS ORDERED: ONDANSETRON 4 MG/2 ML VIAL IV PRN (21:11)
[2021-02-10] MEDS ORDERED: ALBUTEROL INHALER 60 PUFF/8 GM IH PRN (21:11)
[2021-02-10 21:18] VITALS: BMI 21.7
[2021-02-10 21:59] LABS: Thyroid Stimulating Hormone 1.95 uIU/mL (0.360-3.740); Troponin I 0.08 ng/mL (0.0-0.045)
--- NOTE | 2021-02-10 22:11 | P.HP ---
Certification for Inpatient Patient admitted to: Inpatient With expected LOS: >2 Midnights Patient will require the following post-hospital care: None Practitioner: I am a practitioner with admitting privileges, knowledge of patient current condition, hospital course, and medical plan of care. Services: Services provided to patient in accordance with Admission requirements found in Title 42 Section 412.3 of the Code of Federal Regulations <Cory Muñiz - Last Filed: 02/10/21 22:06> Patient History Date of Service: 02/10/21 Primary Care Provider: unknown Reason for admission: rhabdomyolysis, fall History of Present Illness: Ms. Marcano is an 80 yo female with COPD, HTN, HLD, hypothyroidism, and dementia here today after a fall last night. She was in the kitchen when she stood up, lost balance and fell forward. She says she did not hit her head but was unable to get up on her own. She was on the floor over night until she was able to get to her phone to call her daughter. She reports pain in her shoulders. She says she has fallen before. WBC 12.9. Na 128. Cl 92. AST 92. CK 3086. Trop 0.06. BNP 689. CXR with no acute abnormalities. CT head without acute abnormalities. - Past Medical/Surgical History Has patient received pneumonia vaccine in the past: No Diabetic: No -: History TIA -: HTN -: Hypothyroidism -: Depression with anxiety -: Chronic back pain -: Dementia -: Cholecystectomy -: Appendititis -: Hysterectomy Psychosocial/ Personal History: Patient lives at home - Social History Smoking Status: Current every day smoker Counseled patient to stop smoking for: less than 10 minutes Smoking therapy provided: Yes Patient receptive to therapy: No Alcohol use: Yes CD- Drugs: No Caffeine use: Yes Place of Residence: Home <Cory Muñiz - Last Filed: 02/10/21 22:06> Date of Service: 02/11/21 <hunter jasso - Last Filed: 02/11/21 11:28> Allergies iodine Allergy (Verified 02/11/21 00:02) Anaphylaxis midazolam [From Versed] Allergy (Verified 02/11/21 00:02) Unknown Sulfa (Sulfonamide Antibiotics) Allergy (Verified 02/11/21 00:02) Unknown Home Medications: Furosemide 40 mg PO DAILY PRN 08/01/17 Lovastatin 40 mg PO BEDTIME 08/01/17 Potassium Chloride 20 meq PO DAILY 08/01/17 Trazodone HCl 100 mg PO BEDTIME 08/01/17 Folic Acid 1 mg PO DAILY 11/20/18 Metoprolol Tartrate [Lopressor*] 25 mg PO DAILY 11/20/18 Albuterol Inhaler [Ventolin Inhaler*] 2 puff IH Q6HP PRN 12/20/19 Amitriptyline [Elavil*] 50 mg PO DAILY 12/20/19 Gabapentin [Neurontin*] 100 mg PO BID 12/20/19 Levothyroxine [Synthroid*] 0.05 mg PO DAILY 12/20/19 Meloxicam [Mobic*] 7.5 mg PO DAILY 12/20/19 clonazePAM [Klonopin*] 0.5 mg PO BID 02/10/21 Review of Systems General: Unremarkable Eyes: Unremarkable ENT: Unremarkable Respiratory: Unremarkable Cardiovascular: Unremarkable Gastrointestinal: Unremarkable Genitourinary: Unremarkable Musculoskeletal: Shoulder Pain, Back Pain, As per HPI Integumentary: Bruising Neurological: Unremarkable Lymphatics: Unremarkable <Cory Muñiz S - Last Filed: 02/10/21 22:06> Physical Examination - Vital Signs Temperature: 98.0 F Blood Pressure: 160/67 Pulse: 85 Respirations: 16 Pulse Ox (%): 98 - Physical Exam General: Alert, In no apparent distress, Oriented x3, Cooperative, Demented HEENT: Atraumatic, Normocephalic, PERRLA, Mucous membr. moist/pink, EOMI, Sclerae nonicteric Neck: Supple, 2+ carotid pulse no bruit, JVD not distended, No Thyromegaly, No LAD Respiratory: Clear to auscultation bilaterally, Normal air movement Cardiovascular: No edema, Normal pulses, Regular rate/rhythm, Normal S1 S2, No gallops, No rubs, No murmurs Capillary refill: <2 Seconds Gastrointestinal: Normal bowel sounds, Soft and benign, Non-distended, No ascites, No tenderness, No masses, No rebound, No guarding Musculoskeletal: No clubbing, No contractures, No erythema, No warmth, Swelling, Tenderness Integumentary: No rashes, No breakdown, No erythema, No warmth, No cyanosis, Skin lesion (brusing on calfs ), Tenderness/swelling Neurological: Normal speech, Normal tone, Sensation intact, Cranial nerves 3-12 intact, Dementia Lymphatics: No axilla or inguinal lymphadenopathy - Studies Laboratory Data (last 24 hrs) 02/10/21 16:52: PT 11.2, INR 0.97 02/10/21 16:52: WBC 12.90 H, Hgb 12.4, Hct 36.6, Plt Count 290 02/10/21 16:52: Sodium 128 L, Potassium 3.7, BUN 13, Creatinine 0.77, Glucose 88, Magnesium 1.8, Total Bilirubin 0.8, AST 92 H, ALT 42, Alkaline Phosphatase 95 <Cory Muñiz - Last Filed: 02/10/21 22:06> - Studies Laboratory Data (last 24 hrs) 02/10/21 16:52: PT 11.2, INR 0.97 02/10/21 16:52: WBC 12.90 H, Hgb 12.4, Hct 36.6, Plt Count 290 02/10/21 16:52: Sodium 128 L, Potassium 3.7, BUN 13, Creatinine 0.77, Glucose 88, Magnesium 1.8, Total Bilirubin 0.8, AST 92 H, ALT 42, Alkaline Phosphatase 95 <hunter jasso - Last Filed: 02/11/21 11:28> Assessment and Plan - Problems (Diagnosis) (1) Rhabdomyolysis Current Visit: Yes Status: Acute Qualifiers: Rhabdomyolysis type: traumatic Encounter type: initial encounter Qualified Code(s): T79.6XXA - Traumatic ischemia of muscle, initial encounter (2) Fall Current Visit: Yes Status: Acute Qualifiers: Encounter type: initial encounter Qualified Code(s): W19.XXXA - Unspecified fall, initial encounter (3) Chronic obstructive pulmonary disease Onset Date: 03/12/17 Current Visit: No Status: Chronic Qualifiers: COPD type: chronic bronchitis Chronic bronchitis type: simple Qualified Code(s): J41.0 - Simple chronic bronchitis (4) Essential (primary) hypertension Onset Date: 03/12/17 Current Visit: No Status: Chronic (5) Hyperlipidemia Onset Date: 03/12/17 Current Visit: No Status: Chronic Qualifiers: Hyperlipidemia type: mixed hyperlipidemia Qualified Code(s): E78.2 - Mixed hyperlipidemia (6) Hypothyroidism Onset Date: 03/12/17 Current Visit: No Status: Chronic Qualifiers: Hypothyroidism type: acquired Qualified Code(s): E03.9 - Hypothyroidism, unspecified - Plan - gentle rehydration - pain control with morphine 2mg q6hr PRN - recheck CK and BMP in the morning - physical therapy for evaluation of weakness - CXR and CT head within normal limits - reconcile and continue home medications for COPD, HTN, HLD, hypothyroidism - nicotine patch for tobacco use dependence Discharge Plan: Home Plan to discharge in: 48 Hours - Advance Directives Does patient have a Living Will: No Does patient have a Durable POA for Healthcare: No - Code Status/Comfort Care Code Status Assessed: Yes (full code) Critical Care: No Time Spent Managing Pts Care (In Minutes): 70 <Cory Muñiz - Last Filed: 02/10/21 22:06> Physician Review: Patient Assessed, Agree with Above Assessment and Plan Physician Review Additional Text: Fall Rhabdomyolysis History of chronic diastolic heart failure Osteoarthritis. Plan: Slow IV hydration. Hold Lasix Monitor CK levels PT consult. Hold psychotropic medications. <hunter jasso - Last Filed: 02/11/21 11:28>
[2021-02-10] MEDS: NA CHLORIDE 0.9% 1,000 ML IV SCH (22:57)
[2021-02-11] MEDS ORDERED: PNEUMOCOCCAL VACCINE 0.5 ML IMVAC ONE (06:00)
[2021-02-11 06:07] LABS: Absolute Lymphocytes (CBC) 1.3 K/uL (0.7-4.9); Basophils % 0.8 % (0-1.3); Hematocrit 29.8 % (36.0-45.0); Lymphocytes % 20.5 % (15.3-44.8); MPV 7.5 fL (7.6-11.3); RBC Red Blood Cell Count 3.38 M/uL (3.86-4.86)
[2021-02-11 06:39] LABS: ALT/SGPT 31 U/L (12-78); AST/SGOT 60 U/L (15-37); Albumin 2.7 g/dL (3.4-5.0); Alkaline Phosphatase 64 U/L (45-117); BUN Blood Urea Nitrogen 8 mg/dL (7-18); Bicarbonate 28 mmol/L (21-32); Bilirubin Total 0.5 mg/dL (0.2-1.0); Glucose Level 80 mg/dL (74-106); Magnesium 1.7 mg/dL (1.8-2.4); Potassium 3.2 mmol/L (3.5-5.1); Protein, Total 5.7 g/dL (6.4-8.2); Sodium Level 135 mmol/L (136-145)
[2021-02-11 06:40] LABS: Creatine Phosphokinase 1425 U/L (26-192)
[2021-02-11] MEDS: MORPHINE 2 MG/ML SYR IV PRN ×2 (06:46→17:08)
[2021-02-11] MEDS ORDERED: MAGNESIUM SULFATE 1 gm IVPB 1 GM/100 ML BAG IV ONE (07:45)
[2021-02-11] MEDS ORDERED: POTASSIUM CL SA 10 MEQ TAB PO ONE (08:00)
[2021-02-11] MEDS: POTASS/SODIUM PHOSPHATE 1 PKT POWD.PACK PO SCH ×3 (08:18→10:25)
[2021-02-11] MEDS: NICOTINE 7 MG/PAT TD SCH (10:24)
[2021-02-11] MEDS: ACETAMINOPHEN 500 MG TAB PO PRN ×2 (11:18→21:05)
[2021-02-11] MEDS: NA CHLORIDE 0.9% 1,000 ML IV SCH (11:20)
[2021-02-11] MEDS ORDERED: ALBUTEROL INHALER 60 PUFF/8 GM IH PRN (11:21)
--- NOTE | 2021-02-11 11:33 | P.PN ---
Subjective Date of Service: 02/11/21 Primary Care Provider: unknown Chief Complaint: rhabdomyolysis, fall Patient complaining of bilateral knee pain. CK level is trending down. She appear confused. Physical Examination - Vital Signs Temperature: 98.3 F Blood Pressure: 153/70 Pulse: 78 Respirations: 16 Pulse Ox (%): 92 - Physical Exam General: In no apparent distress, Oriented x2 HEENT: Mucous membr. moist/pink Neck: Supple, JVD not distended Respiratory: Clear to auscultation bilaterally, Normal air movement Cardiovascular: No edema, Regular rate/rhythm, Normal S1 S2 Gastrointestinal: Normal bowel sounds, Soft and benign, Non-distended, No tenderness Musculoskeletal: Other (Bilateral knee tenderness. Right knee is swollen compared to the left.) Integumentary: No rashes Neurological: Other (No focal motor deficit.) - Studies Laboratory Data (last 24 hrs) 02/10/21 16:52: PT 11.2, INR 0.97 02/10/21 16:52: WBC 12.90 H, Hgb 12.4, Hct 36.6, Plt Count 290 02/10/21 16:52: Sodium 128 L, Potassium 3.7, BUN 13, Creatinine 0.77, Glucose 88, Magnesium 1.8, Total Bilirubin 0.8, AST 92 H, ALT 42, Alkaline Phosphatase 95 Assessment And Plan - Current Problems (Diagnosis) (1) Osteoarthritis Current Visit: Yes Status: Acute (2) Fall Current Visit: Yes Status: Acute Qualifiers: Encounter type: initial encounter Qualified Code(s): W19.XXXA - Unspecified fall, initial encounter (3) Rhabdomyolysis Current Visit: Yes Status: Acute Qualifiers: Rhabdomyolysis type: traumatic Encounter type: initial encounter Qualified Code(s): T79.6XXA - Traumatic ischemia of muscle, initial encounter (4) Essential (primary) hypertension Onset Date: 03/12/17 Current Visit: No Status: Chronic (5) Hyponatremia Current Visit: Yes Status: Acute (6) Vascular dementia Current Visit: Yes Status: Acute - Plan Continue IV hydration to treat rhabdomyolysis. Hold Lasix Monitor BMP. Hyponatremia likely secondary to Lasix use. Sodium level has improved with IV normal saline. Obtain x-ray of the bilateral knees. She may need joint fluid tap if she has significant right knee effusion. PT to evaluate. Pain management as needed. Resume fentanyl patch. Hold other psychotropic medications as they might have contributed to the falls. Family is looking at long-term care. Disposition: Skilled rehab Lovenox for DVT prophylaxis.
[2021-02-11] MEDS: FENTANYL 25 MCG/PATCH TD SCH (12:22)
--- NOTE | 2021-02-11 14:22 | RAD REPORT ---
EXAM DESCRIPTION: RAD - Knee Right 3 View - 02/11/2021 2:09 pm CLINICAL HISTORY: Knee joint pain and effusion Pain and swelling COMPARISON: No comparisons FINDINGS: The bones are diffusely demineralized. Advanced tricompartmental osteoarthritis is present , greatest in the medial joint compartment. Moderate joint effusion. No acute fracture or dislocation . Mild meniscal chondrocalcinosis seen.
--- NOTE | 2021-02-11 14:26 | RAD REPORT ---
EXAM DESCRIPTION: RAD - Knee Left 3 View - 02/11/2021 2:09 pm CLINICAL HISTORY: Knee joint pain. COMPARISON: Knee Left 3 View dated 04/03/2017 FINDINGS: The bones are demineralized. Severe osteoarthritic changes are present with chondrocalcino sis seen. Small suprapatellar joint effusion is seen with mild calcifications along the joint capsula r. An acute fracture is not seen.
[2021-02-11] MEDS ORDERED: HOME MED 1 EA UNK (Lovastatin [Lovastatin] 40 MG Tablet) PO SCH (21:00)
[2021-02-11] MEDS: ATORVASTATIN 20 MG TAB PO SCH (21:02)
[2021-02-11] MEDS: MELATONIN 5 MG TABLET PO PRN (21:05)
[2021-02-11 22:38] LABS: Urine Appearance CLEAR (Clear); Urine Bilirubin NEGATIVE (NEG); Urine Blood NEGATIVE (Negative); Urine Color YELLOW (Yellow); Urine Glucose NEGATIVE (Negative); Urine Protein NEGATIVE (NEG); Urine pH 6.5 (5.0-7.0)
[2021-02-11 22:39] LABS: Urine Microscopic Reflex NO UMIC
[2021-02-12] MEDS: NA CHLORIDE 0.9% 1,000 ML IV SCH ×2 (00:31→15:57)
[2021-02-12] MEDS: MORPHINE 2 MG/ML SYR IV PRN ×4 (00:36→21:28)
[2021-02-12 04:22] LABS: Absolute Lymphocytes (CBC) 1.1 K/uL (0.7-4.9); Basophils % 0.7 % (0-1.3); Hematocrit 29.2 % (36.0-45.0); Lymphocytes % 17.7 % (15.3-44.8); MPV 7.5 fL (7.6-11.3); RBC Red Blood Cell Count 3.29 M/uL (3.86-4.86)
[2021-02-12 04:35] LABS: BUN Blood Urea Nitrogen 7 mg/dL (7-18); Bicarbonate 26 mmol/L (21-32); Creatine Phosphokinase 636 U/L (26-192); Glucose Level 89 mg/dL (74-106); Magnesium 1.9 mg/dL (1.8-2.4); Phosphorus 2.4 mg/dL (2.5-4.9); Sodium Level 137 mmol/L (136-145)
[2021-02-12] MEDS: LEVOTHYROXINE SOD 0.05 MG TABLET PO SCH (05:58)
[2021-02-12] MEDS: METOPROLOL TAR 25 MG TAB PO SCH (09:33)
[2021-02-12] MEDS: FOLIC ACID 1 MG TABLET PO SCH (09:33)
[2021-02-12] MEDS: ENOXAPARIN 40 MG/0.4 ML SQ SCH (09:34)
[2021-02-12] MEDS: NICOTINE 7 MG/PAT TD SCH (09:41)
--- NOTE | 2021-02-12 12:10 | P.PN ---
Subjective Date of Service: 02/12/21 Primary Care Provider: unknown Chief Complaint: rhabdomyolysis, fall Subjective: No new changes (continues with LLE pain, difficult to obtain accurate history. Reports chronic pain, but this is worse since fall. Unable to answer clearly of where the pain is. seems to grab lower back / thigh. Pain in b/l knees as well but tolerable.) Review of Systems 10-point ROS is otherwise unremarkable Physical Examination - Vital Signs Temperature: 97.8 F Blood Pressure: 129/75 Pulse: 87 Respirations: 17 Pulse Ox (%): 95 Assessment & Plan Physician Review Additional Text: Physical Exam General: mild distress, AAOx2 HEENT: Mucous membr. moist/pink Respiratory: Clear to auscultation bilaterally, Normal air movement Cardiovascular: No edema, Regular rate/rhythm, Normal S1 S2 Gastrointestinal: Soft and benign, Non-distended, No tenderness Musculoskeletal: Bilateral knee tenderness. Right knee more swollen than left, LLE: unable to lift leg secondary to pain, distal intact sensation/pulse Neuro: AAOx2, strength appears intact, however difficult to assess hip flexion due to pain Problem List: Fall b/l knee effusions LLE pain Rhabdomyolysis, traumatic Osteoarthritis Essential (primary) hypertension Hyponatremia Vascular dementia fall likely vasovagal / orthostatic hypotension continue gently IVF hydration for rhabdomyolysis - CPK improving. Hold Lasix Monitor BMP. Hyponatremia likely secondary to Lasix use. Sodium level has improved with IVF b/l knee x -rays: moderate R effusion, mild L effusion, patient seems to tolerate ok pain seems more in LLE - thigh/lower back area will obtain CT pelvis eval for any occult fracture / hematoma that may be contributing to pain Pain management as needed. Resume fentanyl patch. Hold other psychotropic medications as they might have contributed to the falls. PT to evaluate. VTE: lovenox Code: full Dispo: SNF for PT, possible long-term care eventually Time Spent Managing Pts Care (In Minutes): 35
--- NOTE | 2021-02-12 13:52 | RAD REPORT ---
EXAM DESCRIPTION: CT - Pelvis Wo Cont - 02/12/2021 1:40 pm CLINICAL HISTORY: Pelvic pain status post fall COMPARISON: None. TECHNIQUE: Computed axial tomography of the pelvis was obtained. Coronal and sagittal reconstruction performed All CT scans are performed using dose optimization technique as appropriate and may include automated exposure control or mA/KV adjustment according to patient size. FINDINGS: No fracture or dislocation is seen. A large left hip joint effusion is present with marked narrowing of the right hip joint space, subcho ndral sclerosis, osteophytes, subchondral cysts and cortical irregularity. Left gluteus muscle is thickened with stranding in the adjacent fat. IMPRESSION: Large left hip joint effusion Marked degenerative changes left hip Thickened left gluteus muscle with stranding in the adjacent fat could be secondary to prior trauma o r inflammation
[2021-02-12] MEDS: GABAPENTIN 100 MG CAP PO SCH ×2 (14:13→20:31)
[2021-02-12] MEDS: clonazePAM 0.5 MG TAB PO SCH ×2 (14:13→20:31)
[2021-02-12] MEDS: POTASS/SODIUM PHOSPHATE 1 PKT POWD.PACK PO SCH ×3 (19:29→21:29)
[2021-02-12] MEDS: ATORVASTATIN 20 MG TAB PO SCH (20:32)
[2021-02-12] MEDS: AMITRIPTYLINE 50 MG TAB PO SCH (20:32)
[2021-02-12] MEDS: MELATONIN 5 MG TABLET PO PRN (22:38)
[2021-02-13] MEDS: NA CHLORIDE 0.9% 1,000 ML IV SCH ×2 (04:13→15:51)
[2021-02-13 04:24] LABS: Absolute Lymphocytes (CBC) 1.5 K/uL (0.7-4.9); Basophils % 0.7 % (0-1.3); Hematocrit 27.9 % (36.0-45.0); Lymphocytes % 20.4 % (15.3-44.8); MPV 7.2 fL (7.6-11.3); RBC Red Blood Cell Count 3.15 M/uL (3.86-4.86)
[2021-02-13 05:12] LABS: BUN Blood Urea Nitrogen 6 mg/dL (7-18); Bicarbonate 28 mmol/L (21-32); Creatine Phosphokinase 376 U/L (26-192); Glucose Level 89 mg/dL (74-106); Magnesium 1.8 mg/dL (1.8-2.4); Phosphorus 3.2 mg/dL (2.5-4.9); Potassium 3.9 mmol/L (3.5-5.1); Sodium Level 139 mmol/L (136-145)
[2021-02-13] MEDS: LEVOTHYROXINE SOD 0.05 MG TABLET PO SCH (05:53)
[2021-02-13] MEDS ORDERED: POTASSIUM 25 MEQ EFFERV TAB PO ONE (06:00)
[2021-02-13] MEDS ORDERED: MAGNESIUM SULFATE 1 gm IVPB 1 GM/100 ML BAG IV ONE (06:00)
--- NOTE | 2021-02-13 09:04 | RAD REPORT ---
EXAM DESCRIPTION: MRI - Pelvis Wo Cont - 02/12/2021 10:14 pm CLINICAL HISTORY: L hip pain / effusion, eval occult fracture Hip pain, swelling COMPARISON: Pelvis Wo Cont dated 02/12/2021 FINDINGS: Degenerative changes are present involving the left hip, with [id number] along the super ior aspect of the joint space. There is moderate sized left hip joint effusion present. Edema is seen in the surrounding soft tissues. There is an area of linear diminished T1 signal in the intratrochanteric region of the proximal left femur. This linear signal abnormality extends laterally to the region of the greater trochanter. No m arrow surrounding this region is edematous. Findings raise suspicion for a nondisplaced fracture. IMPRESSION: Linear hypointense T1 signal in the intratrochanteric region of the proximal left femur noted. The findings raise suspicion for nondisplaced fracture, particularly if the patient has trauma history and difficulty with weight-bearing. Severe osteoarthritis of the left hip with moderate joint effusion.
[2021-02-13] MEDS: MORPHINE 2 MG/ML SYR IV PRN ×3 (09:07→21:37)
[2021-02-13] MEDS: NICOTINE 7 MG/PAT TD SCH (09:08)
[2021-02-13] MEDS: clonazePAM 0.5 MG TAB PO SCH ×2 (09:08→20:59)
[2021-02-13] MEDS: GABAPENTIN 100 MG CAP PO SCH ×2 (09:08→20:59)
[2021-02-13] MEDS: ENOXAPARIN 40 MG/0.4 ML SQ SCH (09:08)
[2021-02-13] MEDS: FOLIC ACID 1 MG TABLET PO SCH (09:08)
[2021-02-13] MEDS: METOPROLOL TAR 25 MG TAB PO SCH (09:08)
--- NOTE | 2021-02-13 15:17 | P.DS ---
Admission Date: 02/10/21 Discharge Date: 02/13/21 Primary Care Provider: unknown Disposition: TRANSFER TO [facility] Discharge Condition: FAIR Reason for Admission: rhabdomyolysis, fall Procedures: CXR (02/10): The lungs appear clear of acute infiltrate. The heart is normal size. Left hemidiaphragm elevation unchanged CT Head (02/10): No acute intracranial abnormality is seen. Mild low-density areas within periventricular, deep and subcortical white matter likely represent ischemic changes secondary to small vessel disease. L Knee X-ray (02/11): The bones are demineralized. Severe osteoarthritic changes are present with chondrocalcinosis seen. Small suprapatellar joint effusion is seen with mild calcifications along the joint capsular. An acute fracture is not seen. R Knee X-ray (02/11): The bones are diffusely demineralized. Advanced tricompartmental osteoarthritis is present, greatest in the medial joint compartment. Moderate joint effusion. No acute fracture or dislocation. Mild meniscal chondrocalcinosis seen. CT Pelvis (02/12): A large left hip joint effusion is present with marked narrowing of the right hip joint space, subchondral sclerosis, osteophytes, subchondral cysts and cortical irregularity. Left gluteus muscle is thickened with stranding in the adjacent fat. MRI Pelvis (02/12): FINDINGS: Degenerative changes are present involving the left hip, with [id number] along the superior aspect of the joint space. There is moderate sized left hip joint effusion present. Edema is seen in the surrounding soft tissues. There is an area of linear diminished T1 signal in the intratrochanteric region of the proximal left femur. This linear signal abnormality extends laterally to the region of the greater trochanter. No marrow surrounding this region is edematous. Findings raise suspicion for a nondisplaced fracture. IMPRESSION: Linear hypointense T1 signal in the intratrochanteric region of the proximal left femur noted. The findings raise suspicion for nondisplaced fracture, particularly if the patient has trauma history and difficulty with weight-bearing. Severe osteoarthritis of the left hip with moderate joint effusion. Problem list: Fall likely due to orthostasis Left intratrochanteric femur fracture s/p fall b/l knee effusions (R>L) Rhabdomyolysis, traumatic Osteoarthritis Essential (primary) hypertension Vascular dementia Hyponatremia, resolved Brief History of Present Illness: Ms. Marcano is an 80 yo female with COPD, HTN, HLD, hypothyroidism, and dementia presented to ED after a fall on the night prior to presentation. She was in the kitchen when she stood up, lost balance and fell forward. She says she did not hit her head but was unable to get up on her own. She was on the floor over night until she was able to get to her phone to call her daughter. She reports pain in her shoulders. She says she has fallen before. WBC 12.9. Na 128. Cl 92. AST 92. CK 3086. Trop 0.06. BNP 689. CXR with no acute abnormalities. CT head without acute abnormalities. Hospital Course: Patient was admitted, underwent initial evaluation, and social work/case management were looking into possible placement for the patient given her recent falls. The patient continued to report bilateral knee swelling in left lower extremity severe pain. Bilateral knee x-rays were obtained which showed effusions as noted above. Given her ongoing left lower extremity pain and recent fall, a CT was obtained on 02/12 which revealed a moderate left hip effusion. Overnight on 02/12 into 02/13 an MRI was obtained to evaluate for occult femur fracture, and this returned positive. This was discussed with the patient and her daughter, who understood the need for transfer for orthopedic surgery, as we do not have any orthopedic surgeon available at this time. [facility] in [place] was contacted and accepted the patient. (Dr. Holt - hospitalist, and Dr. Pandey, Ortho). Patient's CPK on admission was 3086, which improved down to 376 on day of transf er/discharge with IV fluids. Her mild hyponatremia 128 also resolved to 139 with IVF as well. Patient was monitored on telemetry without any acute events. Vital Signs/Physical Exam: Physical Exam General: NAD, AAOx2 HEENT: Mucous membr. moist/pink, normal conjunctiva, sclerae anicteric Respiratory: Clear to auscultation bilaterally, Normal air movement, nonlabored respirations on room air Cardiovascular: No edema, Regular rate/rhythm, Normal S1 S2 Gastrointestinal: Soft and benign, Non-distended, No tenderness Musculoskeletal: Bilateral knee tenderness. Right knee more swollen than left, LLE: unable to lift leg secondary to pain (with hip flexion/extension), distal intact sensation/pulse Neuro: AAOx2, strength appears intact, however difficult to assess hip flexion/extension due to pain Skin: no erythema/rash Temp Pulse Resp BP Pulse Ox 97.6 F 75 17 148/89 H 95 02/13/21 12:00 02/13/21 12:00 02/13/21 12:00 02/13/21 12:00 02/13/21 12:00 Laboratory Data at Discharge: WBC 7.30 K/uL (4.3-10.9) D 02/13/21 04:09 Hgb 9.9 g/dL (12.0-15.0) L 02/13/21 04:09 Hct 27.9 % (36.0-45.0) L 02/13/21 04:09 Plt Count 235 K/uL (152-406) 02/13/21 04:09 PT 11.2 SECONDS (9.5-12.5) 02/10/21 16:52 INR 0.97 02/10/21 16:52 Sodium 139 mmol/L (136-145) 02/13/21 04:09 Potassium 3.9 mmol/L (3.5-5.1) 02/13/21 04:09 BUN 6 mg/dL (7-18) L 02/13/21 04:09 Creatinine 0.47 mg/dL (0.55-1.3) L 02/13/21 04:09 Glucose 89 mg/dL (74-106) 02/13/21 04:09 Phosphorus 3.2 mg/dL (2.5-4.9) 02/13/21 04:09 Magnesium 1.8 mg/dL (1.8-2.4) 02/13/21 04:09 Total Bilirubin 0.5 mg/dL (0.2-1.0) 02/11/21 05:18 AST 60 U/L (15-37) H 02/11/21 05:18 ALT 31 U/L (12-78) 02/11/21 05:18 Alkaline Phosphatase 64 U/L (45-117) 02/11/21 05:18 Troponin I 0.08 ng/mL (0.0-0.045) H 02/10/21 21:20 Home Medications: Furosemide 40 mg PO DAILY PRN 08/01/17 Lovastatin 40 mg PO BEDTIME 09/16/17 Potassium Chloride 20 meq PO DAILY 08/01/17 Trazodone HCl 100 mg PO BEDTIME 08/01/17 Folic Acid 1 mg PO DAILY 11/20/18 Metoprolol Tartrate [Lopressor*] 25 mg PO DAILY 11/20/18 Albuterol Inhaler [Ventolin Inhaler*] 2 puff IH Q6HP PRN 12/20/19 Amitriptyline [Elavil*] 50 mg PO DAILY 12/20/19 Gabapentin [Neurontin*] 100 mg PO BID 12/20/19 Levothyroxine [Synthroid*] 0.05 mg PO DAILY 12/20/19 Meloxicam [Mobic*] 7.5 mg PO DAILY 12/20/19 clonazePAM [Klonopin*] 0.5 mg PO BID 02/10/21 Followup: NONE,NONE [Primary Care Provider] - Time spent managing pt's care (in minutes): 45
[2021-02-13] MEDS: ACETAMINOPHEN 500 MG TAB PO PRN (19:40)
[2021-02-13] MEDS: ATORVASTATIN 20 MG TAB PO SCH (20:59)
[2021-02-13] MEDS: AMITRIPTYLINE 50 MG TAB PO SCH (20:59)
[2021-02-13] MEDS ORDERED: ACETAMINOPHEN 325 MG TABLET PO ONE (21:18)
[2021-02-13 22:54] LABS: Urine Appearance CLEAR (Clear); Urine Bilirubin NEGATIVE (Negataive); Urine Blood NEGATIVE (Negative); Urine Color YELLOW (Yellow); Urine Glucose NEGATIVE (Negative); Urine Protein NEGATIVE (Negative)
[2021-02-13 23:09] LABS: Urine Bacteria <20 /HPF (<20); Urine RBC <5 /HPF (NONE SEEN); Urine Urothelial Cells <5 /HPF (NONE SEEN)
[2021-02-13 23:31] LABS: SARS-COV-2 RT PCR NEGATIVE (NEGATIVE)
[2021-02-14 04:52] LABS: BUN Blood Urea Nitrogen 9 mg/dL (7-18); Bicarbonate 29 mmol/L (21-32); Glucose Level 93 mg/dL (74-106); Magnesium 1.8 mg/dL (1.8-2.4); Sodium Level 138 mmol/L (136-145)
[2021-02-14 05:10] LABS: Absolute Lymphocytes (CBC) 1.6 K/uL (0.7-4.9); Basophils % 0.7 % (0-1.3); Hematocrit 28.2 % (36.0-45.0); Lymphocytes % 18.1 % (15.3-44.8); MPV 7.9 fL (7.6-11.3); RBC Red Blood Cell Count 3.17 M/uL (3.86-4.86)
[2021-02-14] MEDS: MORPHINE 2 MG/ML SYR IV PRN ×2 (05:17→11:53)
[2021-02-14] MEDS: NA CHLORIDE 0.9% 1,000 ML IV SCH ×2 (05:18→21:23)
[2021-02-14] MEDS: LEVOTHYROXINE SOD 0.05 MG TABLET PO SCH (05:26)
[2021-02-14] MEDS ORDERED: MAGNESIUM SULFATE 1 gm IVPB 1 GM/100 ML BAG IV ONE (05:28)
[2021-02-14] MEDS: GABAPENTIN 100 MG CAP PO SCH ×2 (09:00→21:20)
[2021-02-14] MEDS: FENTANYL 25 MCG/PATCH TD SCH (09:00)
[2021-02-14] MEDS: clonazePAM 0.5 MG TAB PO SCH ×2 (09:00→21:20)
[2021-02-14] MEDS: FOLIC ACID 1 MG TABLET PO SCH (09:00)
[2021-02-14] MEDS: METOPROLOL TAR 25 MG TAB PO SCH (09:00)
[2021-02-14] MEDS: NICOTINE 7 MG/PAT TD SCH (09:00)
--- NOTE | 2021-02-14 10:33 | RAD REPORT ---
EXAM DESCRIPTION: USExtrem Venous W Compress Bil02/14/2021 10:00 am CLINICAL HISTORY: Leg swelling COMPARISON: none FINDINGS: The common femoral, superficial femoral, popliteal and posterior tibial veins bilaterally are compressible and demonstrate augmentation. Doppler demonstrates good flow. Ill-defined fluid is present within the left popliteal fossa IMPRESSION: No evidence of deep venous thrombosis involving either lower extremity. Ill-defined fluid within the left popliteal fossa may be secondary to a ruptured Jhaveri cyst
--- NOTE | 2021-02-14 11:09 | RAD REPORT ---
EXAM DESCRIPTION: RAD - Chest Single View - 02/13/2021 9:39 pm CLINICAL HISTORY: Fever TECHNIQUE: Frontal view of the chest. COMPARISON: No relevant prior studies available. FINDINGS: Lungs: Diffuse mild bilateral bronchovascular thickening identified without consolidatio n. Minimal linear atelectasis or scar present left lung base. Pleural space: No pneumothorax. No pleural effusion. Heart: Normal cardiac size and configuration. Mediastinum: No abnormality noted. Bones/joints: No osseous destruction or sclerosis noted. IMPRESSION: Diffuse mild bilateral bronchial thickening consistent with bronchitis. No confluent p neumonia. Electronically signed by: Dee Ornelas MD 02/13/2021 9:55 PM CDT Due to temporary technical issues with the PACS/Fluency reporting system, reports are being signed by the in house radiologists without review as a courtesy to insure prompt reporting. The interpreting radiologist is fully responsible for the content of the report.
--- NOTE | 2021-02-14 11:12 | P.PN ---
Subjective Date of Service: 02/14/21 Primary Care Provider: unknown Chief Complaint: fall, LLE pain Subjective: Other (Discharge held yesterday. The family did not want patient to go to [facility], after daughter spoke to pt's lease analyst at [facility] stated they would have a bed for her. As of this morning [facility] report no bed availability for the patient. Febrile o/n, asymptomatic) Review of Systems 10-point ROS is otherwise unremarkable Physical Examination - Vital Signs Temperature: 98.6 F Blood Pressure: 118/68 Pulse: 94 Respirations: 18 Pulse Ox (%): 99 Assessment & Plan Physician Review Additional Text: Physical Exam General: NAD, AAOx3, mild confusion/dementia, hard of hearing HEENT: Mucous membr. moist/pink Respiratory: Clear to auscultation bilaterally, Normal air movement Cardiovascular: No edema, Regular rate/rhythm, Normal S1 S2 Gastrointestinal: Soft and benign, Non-distended, No tenderness Musculoskeletal: Bilateral knee tenderness. Right knee more swollen than left, LLE: unable to lift leg secondary to pain, distal intact sensation/pulse skin/Ext: no calf swelling/tenderness, no lesions, no rash Neuro: AAOx3, strength appears intact, however still difficult to assess hip flexion due to pain in L hip Problem List: Fall L intertrochanteric femur fracture b/l knee effusions febrile 02/13 Rhabdomyolysis, traumatic, resolved Osteoarthritis Essential (primary) hypertension Hyponatremia, resolved Vascular dementia reported h/o CHF, diastolic fall likely vasovagal / orthostatic hypotension. improved with IVF continue gentle IVF hydration for rhabdomyolysis - CPK improving. Hold Lasix for now Monitor BMP. Hyponatremia likely secondary to Lasix use. Sodium level has improved with IVF, appears euvolemic at this time b/l knee x -rays: moderate R effusion, mild L effusion, patient seems to tolerate ok pain seems more in LLE - thigh/lower back area MRI pelvis: Consistent with left intratrochanteric hip fracture. Patient was set up to be transferred to [facility] for orthopedic surgery, however last min family did not want patient to go after all. They had spoken with her lease analyst, Dr. Gaines, he stated facilitated transportation to [facility] he is thin. Unfortunately there has been no bed availability for the patient. Orthopedic surgery was available today at our facility, family were in agreement to cancel transfer and stay here. Cardiology consulted for cardiac clearance. Daughter reports the patient has a history of CHF, and "Heart attack" based on blood tests, but did not need any stenting or surgery. Review of EMR reveals negative stress test in 2019, and echocardiogram (12/2019): Normal LV EF, mild aortic sclerosis without aortic stenosis, mild MR, mild TR. Pain management as needed. fever overnight - CXR with possible bronchitis, no leukocytosis, pt reports mild cough, no abdominal pain, no diarrhea afebrile this morning. procal negative. UA with +leuk est, only 5-10 WBCs, <20 bacteria, and without symptoms - more consistent with asymptomatic bacteruria will hold off on antibiotics at this point. VTE: lovenox Code: full Dispo: needs hip repair, then SNF for PT, possible long-term care eventually Time Spent Managing Pts Care (In Minutes): 35
--- NOTE | 2021-02-14 12:20 | P.CNS ---
Date of Consult: 02/14/21 Primary Care Provider: unknown Chief Complaint: fall, LLE pain History of Present Illness: fell at home spending 14-20 hours on the floor before being found. ate breakfast today npo since then. localizes pain to left hip. Allergies iodine Allergy (Verified 02/11/21 00:02) Anaphylaxis midazolam [From Versed] Allergy (Verified 02/11/21 00:02) Unknown Sulfa (Sulfonamide Antibiotics) Allergy (Verified 02/11/21 00:02) Unknown Home Medications: Furosemide 40 mg PO DAILY PRN 08/01/17 Lovastatin 40 mg PO BEDTIME 08/01/17 Potassium Chloride 20 meq PO DAILY 08/01/17 Trazodone HCl 100 mg PO BEDTIME 08/01/17 Folic Acid 1 mg PO DAILY 11/20/18 Metoprolol Tartrate [Lopressor*] 25 mg PO DAILY 11/20/18 Albuterol Inhaler [Ventolin Inhaler*] 2 puff IH Q6HP PRN 12/20/19 Amitriptyline [Elavil*] 50 mg PO DAILY 12/20/19 Gabapentin [Neurontin*] 100 mg PO BID 12/20/19 Levothyroxine [Synthroid*] 0.05 mg PO DAILY 12/20/19 Meloxicam [Mobic*] 7.5 mg PO DAILY 12/20/19 clonazePAM [Klonopin*] 0.5 mg PO BID 02/10/21 - Past Medical/Surgical History Diabetic: No -: History TIA -: HTN -: Hypothyroidism -: Depression with anxiety -: Chronic back pain -: Dementia -: Cholecystectomy -: Appendititis -: Hysterectomy Psychosocial/ Personal History: Patient lives at home - Social History Smoking Status: Current every day smoker Alcohol use: Yes CD- Drugs: No Caffeine use: Yes Place of Residence: Home Review of Systems 10-point ROS is otherwise unremarkable Physical Examination Temp Pulse Resp BP Pulse Ox 97.2 F 69 18 130/63 99 02/14/21 12:00 02/14/21 12:00 02/14/21 12:00 02/14/21 12:00 02/14/21 12:00 General: Alert, In no apparent distress HEENT: Atraumatic Musculoskeletal: Other (left hip pain) Imagings Data: EXAM DESCRIPTION: CT - Pelvis Wo Cont - 02/12/2021 1:40 pm CLINICAL HISTORY: Pelvic pain status post fall COMPARISON: None. TECHNIQUE: Computed axial tomography of the pelvis was obtained. Coronal and sagittal reconstruction performed All CT scans are performed using dose optimization technique as appropriate and may include automated exposure control or mA/KV adjustment according to patient size. FINDINGS: No fracture or dislocation is seen. A large left hip joint effusion is present with marked narrowing of the right hip joint space, subchondral sclerosis, osteophytes, subchondral cysts and cortical irregularity. Left gluteus muscle is thickened with stranding in the adjacent fat. IMPRESSION: Large left hip joint effusion Marked degenerative changes left hip Thickened left gluteus muscle with stranding in the adjacent fat could be secondary to prior trauma or inflammation Dictated By: Fran Patel MD 02/12/21 1352 Signed By: Fran Patel MD 02/12/21 1352 EXAM DESCRIPTION: MRI - Pelvis Wo Cont - 02/12/2021 10:14 pm CLINICAL HISTORY: L hip pain / effusion, eval occult fracture Hip pain, swelling COMPARISON: Pelvis Wo Cont dated 02/12/2021 FINDINGS: Degenerative changes are present involving the left hip, with [id number] along the superior aspect of the joint space. There is moderate sized left hip joint effusion present. Edema is seen in the surrounding soft tissues. There is an area of linear diminished T1 signal in the intratrochanteric region of the proximal left femur. This linear signal abnormality extends laterally to the region of the greater trochanter. No marrow surrounding this region is edematous. Findings raise suspicion for a nondisplaced fracture. IMPRESSION: Linear hypointense T1 signal in the intratrochanteric region of the proximal left femur noted. The findings raise suspicion for nondisplaced fracture, particularly if the patient has trauma history and difficulty with weight-bearing. Severe osteoarthritis of the left hip with moderate joint effusion. - Problems (1) Closed intertrochanteric fracture of left hip Current Visit: Yes Status: Acute Plan: remain NPO, schedule IM rodding left hip for 5:00pm today Qualifiers: Encounter type: initial encounter Fracture alignment: nondisplaced Qualified Code(s): S72.145A - Nondisplaced intertrochanteric fracture of left femur, initial encounter for closed fracture
[2021-02-14] MEDS ORDERED: CEFAZOLIN/SWI 1gm 1 GM/10 ML SYR ONE (17:50)
--- NOTE | 2021-02-14 18:08 | CON ---
Date of Consultation: 02/14/2021 Reason For Consultation: Preoperative evaluation for hip surgery. History Of Present Illness: This is an 80-year-old female with history of dementia, hypertension, hy pothyroidism, depression. She was found in the floor after a fall and sustained left hip pain, found to have left hip fracture. I was consulted for cardiac preop evaluation. The patient is a poor his morenita; however, there is no active chest pain or known history of coronary artery disease and she carvalho s been bed-bound due to the hip fracture. Does not have any shortness of breath or chest pain at the present time. Past Medical History: As outlined above in the HPI. Medications: Refer to reconciliation sheet for detailed list. Allergies: ALLERGY LIST REVIEWED. Social History: She smokes socially. Does not drink. Does not use any drugs. Review of Systems: All systems reviewed and they were negative except what mentioned in the HPI. Physical Examination: Vital Signs: Temperature is 97.2, pulse 69, breathing 18, blood pressure 130/63, saturating 99%. General: Pleasant elderly female, in no apparent distress. Head and Neck: Pupils are equal, reactive to light. Intact eye movements. No JVD. No cervical lym phadenopathy. Neck: Supple. Thyroid is not enlarged. Lungs: Clear to auscultation bilaterally. No rhonchi, rales, or crackles. No accessory muscle use. Heart: Regular rate and rhythm. No extra sounds. Abdomen: Soft, nontender. Bowel sounds positive. No organomegaly. No masses or hernia. No rigidi ty or rebound. Extremities: No clubbing or cyanosis. Intact pulses. Skin: No rash noted. Neurologic: Alert, awake. No acute focal deficits appreciated. Lymph Nodes: No cervical or inguinal lymphadenopathy. Investigations: Labs were reviewed. Troponin initially was 0.06, but with a CK of 3086. Creatinine is 0.7. Hemoglobin is 9.9. Assessment And Recommendations: Preoperative evaluation. The patient does not have any history of c ardiac disease and has no active symptoms. Has a left hip fracture that required intervention. At t his point, she is at moderate cardiac risk for noncardiac surgery and I would recommend to proceed wi th surgery without further testing and due to the urgency at top of the surgery as she is bed-bound i n which more complication will come up delaying the surgery at this point. For the troponin leak, it is likely related to the rhabdomyolysis and elevated CK. Please recheck troponin today before surge ry to make sure that it is not trending up. Since the CK level has come down, likely the troponin wi ll be normalized by now. Again, proceed with the surgery knowing she is at moderate risk, but I rishi mmend no delay on the surgical intervention due to more complication to be expected if the patient co ntinues to be bed-bound. Thank you for the consult. /NHUNG Voice ID: [id number] Report ID: [id number]
[2021-02-14] MEDS ORDERED: LIDOCAINE 1% MPF 2 ML AMPULE ONE (18:50)
[2021-02-14] MEDS ORDERED: LIDOCAINE 1% MPF 30 ML VIAL ONE (18:50)
[2021-02-14] MEDS ORDERED: propofoL 200 MG/20 ML VIAL IV ONE (18:50)
[2021-02-14] MEDS ORDERED: LIDOCAINE 1% MPF 5 ML VIAL ONE (18:51)
[2021-02-14] MEDS ORDERED: EPHEDRINE SULF 50 MG/ML VIAL ONE (18:52)
[2021-02-14] MEDS ORDERED: GLYCOPYRROLATE 0.2 MG/ML SYR ONE (19:12)
[2021-02-14] MEDS ORDERED: Ringers Lactate 1,000 ML IV ONE (19:20)
[2021-02-14] MEDS ORDERED: FENTANYL CITR 100 MCG/2 ML ONE (19:29)
[2021-02-14] MEDS ORDERED: dexAMETHasone 10 MG/ML VIAL ONE (19:30)
[2021-02-14] MEDS ORDERED: KETOROLAC 30 MG/ML INJ ONE (19:30)
[2021-02-14] MEDS ORDERED: ONDANSETRON 4 MG/2 ML VIAL ONE (19:30)
[2021-02-14] MEDS: MORPHINE 4 MG/ML SYR ONE ×5 (19:50→20:27)
--- NOTE | 2021-02-14 20:42 | RAD REPORT ---
EXAM DESCRIPTION: RAD - Hip In Or - 02/14/2021 8:37 pm FINDINGS: A single image from fluoroscopic assisted left femur fracture repair noted. Fluoro time was 0.8 minutes. Cumulative dose was 7.08 mGy.
--- NOTE | 2021-02-14 20:42 | RAD REPORT ---
EXAM DESCRIPTION: RAD - Pelvis - 02/14/2021 8:20 pm CLINICAL HISTORY: S/P LEFT HIP FEM/KIMBERLI COMPARISON: MRI Pelvis Wo Cont dated 02/12/2021 TECHNIQUE: AP imaging of the pelvis was obtained. FINDINGS: Surgical hardware has been placed transfixing proximal femur fracture detailed on the Roman h 30 MRI study. Hardware is in good position. Severe left hip joint degenerative changes are present. Sclerosis and flattening changes are present in the femoral head with deformity of the left acetabulum and advanced joint space narrowing. No acute left hemipelvis finding. Right hip joint degenerative change is comparatively mild. IMPRESSION: Left proximal femur hardware in good positioning.
[2021-02-14] MEDS: ATORVASTATIN 20 MG TAB PO SCH (21:20)
[2021-02-14] MEDS: AMITRIPTYLINE 50 MG TAB PO SCH (21:20)
[2021-02-14] MEDS ORDERED: NACHLORIDE 0.45% 1,000 ML IV SCH (23:00)
[2021-02-15] MEDS ORDERED: CEFAZOLIN/NS 1gm 1 GM/50 ML BAG IVPB SCH (01:00)
[2021-02-15] MEDS: CEFAZOLIN/SWI 1gm 1 GM/10 ML SYR IV SCH ×2 (01:18→09:00)
--- NOTE | 2021-02-15 01:57 | OP ---
Surgeon: Fran Costa MD Preoperative Diagnosis: Left hip occult fracture. Postoperative Diagnosis: Left hip occult fracture. Procedure Performed: IM rodding, left hip. Professional Bass Fisherman: Shakila. Complications: None. Disposition: Recovery room in stable. Procedure In Detail: The patient was taken to the operative suite, placed in supine position, induce d anesthesia. Left hip was prepped and draped in usual sterile fashion. Incision was made over the tip of the greater trochanter. A 9 x 125 andres was selected. The patient was quite tight, 9 was a andie y snug fit. Guidewire was passed. Lag screw was advanced under biplane radiography for 95 lag screw . It was statically locked. The distal interlock screw was then attempted. It was missing the guid e. However, the fracture pattern was quite stable. It was elected not to place a screw. A layered closure was performed followed by application of sterile dressing. The patient should be reversed fr om anesthesia at time of dictation. FINN/NHUNG Voice ID: [id number] Report ID: [id number]
[2021-02-15 05:45] LABS: Absolute Lymphocytes (CBC) 0.6 K/uL (0.7-4.9); Basophils % 0.4 % (0-1.3); Hematocrit 30.3 % (36.0-45.0); Lymphocytes % 6.9 % (15.3-44.8); MPV 7.5 fL (7.6-11.3); RBC Red Blood Cell Count 3.39 M/uL (3.86-4.86)
[2021-02-15] MEDS: LEVOTHYROXINE SOD 0.05 MG TABLET PO SCH (06:02)
[2021-02-15 06:03] LABS: ALT/SGPT 26 U/L (12-78); AST/SGOT 22 U/L (15-37); Albumin 2.4 g/dL (3.4-5.0); Alkaline Phosphatase 57 U/L (45-117); BUN Blood Urea Nitrogen 9 mg/dL (7-18); Bicarbonate 28 mmol/L (21-32); Bilirubin Total 0.3 mg/dL (0.2-1.0); Glucose Level 129 mg/dL (74-106); Magnesium 2.3 mg/dL (1.8-2.4); Potassium 4.5 mmol/L (3.5-5.1); Protein, Total 5.7 g/dL (6.4-8.2); Sodium Level 136 mmol/L (136-145)
[2021-02-15] MEDS: MORPHINE 2 MG/ML SYR IV PRN (06:07)
[2021-02-15 08:27] LABS: Blood Morphology Comment NOT SEEN (NOT SEEN); Platelet Estimate ADEQ; White Blood Cell Scan OK (OK)
[2021-02-15] MEDS: NICOTINE 7 MG/PAT TD SCH (09:00)
[2021-02-15] MEDS: GABAPENTIN 100 MG CAP PO SCH ×2 (09:04→20:28)
[2021-02-15] MEDS: clonazePAM 0.5 MG TAB PO SCH ×2 (09:04→20:29)
[2021-02-15] MEDS: HYDROCODONE/APAP 5/325 MG TAB PO PRN (09:04)
[2021-02-15] MEDS: FOLIC ACID 1 MG TABLET PO SCH (09:04)
[2021-02-15] MEDS: METOPROLOL TAR 25 MG TAB PO SCH (09:04)
[2021-02-15] MEDS: NACHLORIDE 0.45% 500 ML IV SCH ×3 (09:57→20:36)
--- NOTE | 2021-02-15 12:02 | P.PN ---
Subjective Date of Service: 02/15/21 Primary Care Provider: unknown Chief Complaint: fall, LLE pain Subjective: No new changes Review of Systems 10-point ROS is otherwise unremarkable Physical Examination - Vital Signs Temperature: 97.1 F Blood Pressure: 140/57 Pulse: 100 Respirations: 17 Pulse Ox (%): 97 - Physical Exam General: Oriented x3 HEENT: Atraumatic Musculoskeletal: Other (dressings c/d/I. ) Assessment And Plan - Current Problems (Diagnosis) (1) Closed intertrochanteric fracture of left hip Current Visit: Yes Status: Acute Plan: s/p IM rodding left hip touch down weight baring only for 6 weeks, she will go to a retirement facility, anticoagulation 28 days post op, follow up in the office 2 weeks post op with x rays from nursing facility. Qualifiers: Encounter type: initial encounter Fracture alignment: nondisplaced Qualified Code(s): S72.145A - Nondisplaced intertrochanteric fracture of left femur, initial encounter for closed fracture Physician Review: Patient Assessed, Agree with Above Assessment and Plan Physician Review Additional Text: Physical Exam General: NAD, AAOx3, mild confusion/dementia, hard of hearing HEENT: Mucous membr. moist/pink Respiratory: Clear to auscultation bilaterally, Normal air movement Cardiovascular: No edema, Regular rate/rhythm, Normal S1 S2 Gastrointestinal: Soft and benign, Non-distended, No tenderness Musculoskeletal: Bilateral knee tenderness. Right knee more swollen than left, LLE: unable to lift leg secondary to pain, distal intact sensation/pulse skin/Ext: no calf swelling/tenderness, no lesions, no rash Neuro: AAOx3, strength appears intact, however still difficult to assess hip flexion due to pain in L hip Problem List: Fall L intertrochanteric femur fracture b/l knee effusions febrile 02/13 Rhabdomyolysis, traumatic, resolved Osteoarthritis Essential (primary) hypertension Hyponatremia, resolved Vascular dementia reported h/o CHF, diastolic fall likely vasovagal / orthostatic hypotension. improved with IVF continue gentle IVF hydration for rhabdomyolysis - CPK improving. Hold Lasix for now Monitor BMP. Hyponatremia likely secondary to Lasix use. Sodium level has improved with IVF, appears euvolemic at this time b/l knee x -rays: moderate R effusion, mild L effusion, patient seems to tolerate ok pain seems more in LLE - thigh/lower back area MRI pelvis: Consistent with left intratrochanteric hip fracture. Patient was set up to be transferred to [facility] for orthopedic surgery, however last min family did not want patient to go after all. They had spoken with her executive compensation analyst, Dr. Gaines, he stated facilitated transportation to [facility] he is thin. Unfortunately there has been no bed availability for the patient. Orthopedic surgery was available today at our facility, family were in agreement to cancel transfer and stay here. Cardiology consulted for cardiac clearance. Daughter reports the patient has a history of CHF, and "Heart attack" based on blood tests, but did not need any stenting or surgery. Review of EMR reveals negative stress test in 2019, and echocardiogram (12/2019): Normal LV EF, mild aortic sclerosis without aortic stenosis, mild MR, mild TR. Pain management as needed. fever overnight - CXR with possible bronchitis, no leukocytosis, pt reports mild cough, no abdominal pain, no diarrhea afebrile this morning. procal negative. UA with +leuk est, only 5-10 WBCs, <20 bacteria, and without symptoms - more consistent with asymptomatic bacteruria will hold off on antibiotics at this point. VTE: lovenox Code: full Dispo: needs hip repair, then SNF for PT, possible long-term care eventually
[2021-02-15] MEDS ORDERED: ENOXAPARIN 40 MG/0.4 ML SQ SCH (14:00)
--- NOTE | 2021-02-15 16:19 | P.PN ---
Subjective Date of Service: 02/15/21 Primary Care Provider: unknown Chief Complaint: fall, LLE pain Subjective: Improving (s/p OR yesterday for hip fracture. Doing well today. Reports pain is tolerable. passing flatus, alonzo in place) Review of Systems 10-point ROS is otherwise unremarkable Physical Examination - Vital Signs Temperature: 97.1 F Blood Pressure: 140/57 Pulse: 100 Respirations: 17 Pulse Ox (%): 97 Assessment & Plan Physician Review Additional Text: Physical Exam General: NAD, AAOx3 HEENT: Mucous membr. moist/pink Respiratory: Clear to auscultation bilaterally, Normal air movement Cardiovascular: No edema, Regular rate/rhythm, Normal S1 S2 Gastrointestinal: Soft and benign, Non-distended, No tenderness Musculoskeletal: Bilateral knee tenderness. LLE: surgical dressing in place, c/d/i, mild TTP along L hip, intact distal sensation Skin/Ext: no calf swelling/tenderness, no lesions, no rash Problem List: Fall L intertrochanteric femur fracture s/p repair (02/14) b/l knee effusions febrile 02/13 Rhabdomyolysis, traumatic, resolved Osteoarthritis Essential (primary) hypertension Hyponatremia, resolved Vascular dementia reported h/o CHF, diastolic fall likely vasovagal / orthostatic hypotension. improved with IVF Hyponatremia likely secondary to Lasix use. Sodium level has improved with IVF, appears euvolemic at this time b/l knee x -rays: moderate R effusion, mild L effusion, patient seems to tolerate ok MRI pelvis: Consistent with left intratrochanteric hip fracture. s/p repair on 02/[address] Costa Orthopedic surgery was available today at our facility, family were in agreement to cancel transfer and stay here Review of EMR reveals negative stress test in 2019, and echocardiogram (12/2019): Normal LV EF, mild aortic sclerosis without aortic stenosis, mild MR, mild TR. Pain management as needed. remains afebrile doing well, improving VTE: lovenox Code: full Dispo: SNF for PT, possible long-term care eventually Time Spent Managing Pts Care (In Minutes): 35
[2021-02-15] MEDS: ATORVASTATIN 20 MG TAB PO SCH (20:28)
[2021-02-15] MEDS: AMITRIPTYLINE 50 MG TAB PO SCH (20:29)
[2021-02-15] MEDS: MELATONIN 5 MG TABLET PO PRN (20:34)
[2021-02-16] MEDS: NACHLORIDE 0.45% 500 ML IV SCH (04:32)
[2021-02-16] MEDS: LEVOTHYROXINE SOD 0.05 MG TABLET PO SCH (05:57)
[2021-02-16 06:38] LABS: Absolute Lymphocytes (CBC) 1.4 K/uL (0.7-4.9); Basophils % 0.4 % (0-1.3); Hematocrit 26.2 % (36.0-45.0); RBC Red Blood Cell Count 2.94 M/uL (3.86-4.86)
[2021-02-16 06:43] LABS: Potassium 4.1 mmol/L (3.5-5.1)
[2021-02-16] MEDS: GABAPENTIN 100 MG CAP PO SCH ×2 (09:21→20:44)
[2021-02-16] MEDS: NICOTINE 7 MG/PAT TD SCH (09:21)
[2021-02-16] MEDS: MORPHINE 2 MG/ML SYR IV PRN ×4 (09:21→21:10)
[2021-02-16] MEDS: METOPROLOL TAR 25 MG TAB PO SCH (09:21)
[2021-02-16] MEDS: FOLIC ACID 1 MG TABLET PO SCH (09:22)
[2021-02-16] MEDS: RIVAROXABAN 10 MG TABLET PO SCH (09:30)
[2021-02-16] MEDS: clonazePAM 0.5 MG TAB PO SCH ×2 (09:30→20:44)
--- NOTE | 2021-02-16 09:33 | P.PN ---
Subjective Date of Service: 02/16/21 Primary Care Provider: unknown Chief Complaint: fall, LLE pain Subjective: Improving (alert/oriented, baseline dementia. slept well overnight, pain tolerable. no nausea/vomiting, +flatus. ambulated several feet with PT yesterday) Review of Systems 10-point ROS is otherwise unremarkable Physical Examination - Vital Signs Temperature: 97.4 F Blood Pressure: 143/67 Pulse: 80 Respirations: 16 Pulse Ox (%): 97 Assessment & Plan Physician Review Additional Text: Physical Exam General: NAD, AAOx3 HEENT: Mucous membr. moist/pink Respiratory: Clear to auscultation bilaterally, Normal air movement Cardiovascular: No edema, Regular rate/rhythm, Normal S1 S2 Gastrointestinal: Soft and benign, Non-distended, No tenderness Musculoskeletal: LLE: surgical dressing in place, c/d/i, mild TTP along L hip, intact distal sensation Skin/Ext: no calf swelling/tenderness, no lesions, no rash alonzo in place Problem List: Fall L intertrochanteric femur fracture s/p repair (02/14) b/l knee effusions febrile 02/13 Rhabdomyolysis, traumatic, resolved Osteoarthritis Essential (primary) hypertension Hyponatremia, resolved Vascular dementia reported h/o CHF, diastolic fall likely vasovagal / orthostatic hypotension. improved with IVF Hyponatremia secondary to Lasix use. Sodium level has improved with IVF, appears euvolemic at this time. dc IVF b/l knee x -rays: moderate R effusion, mild L effusion, patient seems to tolerate ok - more comfortable MRI pelvis: Consistent with left intratrochanteric hip fracture s/p repair on 02/[address] Costa Pain management & anticoagulation per Ortho - will need 28d of anticoagulation, f/u in 2 weeks remains afebrile doing well, improving dc alonzo today VTE: lovenox Code: Full Dispo: SNF for PT, possible long-term care eventually Time Spent Managing Pts Care (In Minutes): 35
[2021-02-16] MEDS: ATORVASTATIN 20 MG TAB PO SCH (20:44)
[2021-02-16] MEDS: AMITRIPTYLINE 50 MG TAB PO SCH (20:44)
[2021-02-16] MEDS: MELATONIN 5 MG TABLET PO PRN (20:46)
[2021-02-17] MEDS: MORPHINE 2 MG/ML SYR IV PRN ×4 (03:39→23:03)
[2021-02-17] MEDS: LEVOTHYROXINE SOD 0.05 MG TABLET PO SCH (06:06)
[2021-02-17] MEDS: HYDROCODONE/APAP 5/325 MG TAB PO PRN ×3 (06:06→20:42)
[2021-02-17] MEDS: NICOTINE 7 MG/PAT TD SCH (08:51)
[2021-02-17] MEDS: GABAPENTIN 100 MG CAP PO SCH ×2 (08:51→20:41)
[2021-02-17] MEDS: RIVAROXABAN 10 MG TABLET PO SCH (08:51)
[2021-02-17] MEDS: FOLIC ACID 1 MG TABLET PO SCH (08:51)
[2021-02-17] MEDS: clonazePAM 0.5 MG TAB PO SCH ×2 (08:51→20:42)
[2021-02-17] MEDS: METOPROLOL TAR 25 MG TAB PO SCH (08:52)
--- NOTE | 2021-02-17 10:28 | P.PN ---
Subjective Date of Service: 02/17/21 Primary Care Provider: unknown Chief Complaint: fall, LLE pain Subjective: No new changes (doing well, no acute events overnight, Alonzo removed yesterday, patient voiding without issue Left hip pain is tolerable with pain medication, still reporting mild-moderate bilateral knee pain at times - states is getting close to the time she would get injections) Review of Systems 10-point ROS is otherwise unremarkable Physical Examination - Vital Signs Temperature: 98.2 F Blood Pressure: 145/65 Pulse: 92 Respirations: 18 Pulse Ox (%): 98 Assessment & Plan Physician Review Additional Text: Physical Exam General: NAD, AAOx3, dementia HEENT: Mucous membr. moist/pink Respiratory: Clear to auscultation bilaterally, Normal air movement Cardiovascular: Regular rate/rhythm, Normal S1 S2 Gastrointestinal: Soft and benign, Non-distended, No tenderness Musculoskeletal: LLE: dressing in place, c/d/i, mild TTP along L hip, intact distal sensation. b/l swollen knees with mild TTP Skin/Ext: no calf swelling/tenderness, no lesions, no rash Problem List: Fall L intertrochanteric femur fracture s/p repair (02/14) b/l knee effusions febrile 02/13 Rhabdomyolysis, traumatic, resolved Osteoarthritis Essential (primary) hypertension Hyponatremia, resolved Vascular dementia reported h/o CHF, diastolic fall likely vasovagal / orthostatic hypotension. improved with IVF Hyponatremia on admission secondary to Lasix use. Sodium level improved with some IVF, stable, off IVF b/l knee x -rays: moderate R effusion, mild L effusion, patient seems to tolerate ok MRI pelvis: Consistent with left intratrochanteric hip fracture s/p repair on 02/[address] Costa Pain management & anticoagulation per Ortho - will need 28d of anticoagulation, f/u in 2 weeks remains afebrile doing well, improving alonzo removed 02/16, voiding without issue VTE: xarelto prophylaxis Code: Full Dispo: SNF for PT, possible long-term care eventually SW/ CM consulted, have been waiting on insurance auth Time Spent Managing Pts Care (In Minutes): 35
[2021-02-17] MEDS: ATORVASTATIN 20 MG TAB PO SCH (20:41)
[2021-02-17] MEDS: AMITRIPTYLINE 50 MG TAB PO SCH (20:42)
[2021-02-17] MEDS: MELATONIN 5 MG TABLET PO PRN (20:42)
[2021-02-18] MEDS: MORPHINE 2 MG/ML SYR IV PRN (03:48)
[2021-02-18] MEDS: LEVOTHYROXINE SOD 0.05 MG TABLET PO SCH (05:43)
[2021-02-18 06:26] LABS: BUN Blood Urea Nitrogen 10 mg/dL (7-18); Bicarbonate 27 mmol/L (21-32); Glucose Level 89 mg/dL (74-106); Magnesium 1.8 mg/dL (1.8-2.4); Potassium 3.6 mmol/L (3.5-5.1); Sodium Level 138 mmol/L (136-145)
[2021-02-18] MEDS: GABAPENTIN 100 MG CAP PO SCH ×2 (08:21→20:12)
[2021-02-18] MEDS: FOLIC ACID 1 MG TABLET PO SCH (08:21)
[2021-02-18] MEDS: RIVAROXABAN 10 MG TABLET PO SCH (08:22)
[2021-02-18] MEDS: METOPROLOL TAR 25 MG TAB PO SCH (08:22)
[2021-02-18] MEDS: HYDROCODONE/APAP 5/325 MG TAB PO PRN ×3 (08:22→20:12)
[2021-02-18] MEDS: clonazePAM 0.5 MG TAB PO SCH ×2 (08:23→20:13)
[2021-02-18] MEDS ORDERED: POTASSIUM 25 MEQ EFFERV TAB PO ONE (09:51)
[2021-02-18] MEDS ORDERED: MAGNESIUM SULFATE 1 gm IVPB 1 GM/100 ML BAG IV ONE (09:52)
--- NOTE | 2021-02-18 10:12 | P.PN ---
Subjective Date of Service: 02/18/21 Primary Care Provider: unknown Chief Complaint: fall, LLE pain Subjective: Improving (Doing well, tolerating diet, no nausea/vomiting, no shortness of breath, voiding without issue, +flatus pain tolerable at R hip, moderate pain in b/l knees) Review of Systems 10-point ROS is otherwise unremarkable Physical Examination - Vital Signs Temperature: 98.3 F Blood Pressure: 161/72 Pulse: 73 Respirations: 18 Pulse Ox (%): 96 Assessment & Plan Physician Review Additional Text: Physical Exam General: NAD, AAOx2-3, dementia HEENT: Mucous membr. moist/pink Respiratory: Clear to auscultation bilaterally, Normal air movement Cardiovascular: Regular rate/rhythm, Normal S1 S2 Gastrointestinal: Soft and benign, Non-distended, No tenderness Musculoskeletal: LLE: surgical wound lizette, no drainage, no erythema. b/l swollen knees with mild TTP, pain with movement Skin/Ext: no calf swelling/tenderness, no lesions, no rash Problem List: Fall L intertrochanteric femur fracture s/p repair (02/14) b/l knee effusions febrile 02/13 Rhabdomyolysis, traumatic, resolved Osteoarthritis Essential (primary) hypertension Hyponatremia, resolved Vascular dementia reported h/o CHF, diastolic fall likely vasovagal / orthostatic hypotension. improved with IVF Hyponatremia on admission secondary to Lasix use. Sodium level improved with some IVF, stable, off IVF b/l knee x -rays: moderate R effusion, mild L effusion, patient seems to tolerate ok MRI pelvis: Consistent with left intratrochanteric hip fracture s/p repair on 02/[address] Costa Pain management & anticoagulation per Ortho - will need 28d of anticoagulation, f/u in 2 weeks remains afebrile doing well, improving alonzo removed 02/16, voiding without issue VTE: xarelto prophylaxis Code: Full Dispo: SNF for PT, possible long-term care eventually. SW/ CM consulted, have been waiting on insurance auth, patient is stable otherwise Time Spent Managing Pts Care (In Minutes): 35
[2021-02-18] MEDS: NICOTINE 7 MG/PAT TD SCH (10:45)
[2021-02-18] MEDS: AMITRIPTYLINE 50 MG TAB PO SCH (20:12)
[2021-02-18] MEDS: ATORVASTATIN 20 MG TAB PO SCH (20:13)
[2021-02-19] MEDS: FENTANYL 25 MCG/PATCH TD SCH (05:31)
[2021-02-19] MEDS: LEVOTHYROXINE SOD 0.05 MG TABLET PO SCH (05:31)
[2021-02-19] MEDS: FOLIC ACID 1 MG TABLET PO SCH (09:49)
[2021-02-19] MEDS: clonazePAM 0.5 MG TAB PO SCH ×2 (09:49→20:56)
[2021-02-19] MEDS: GABAPENTIN 100 MG CAP PO SCH ×2 (09:50→20:56)
[2021-02-19] MEDS: RIVAROXABAN 10 MG TABLET PO SCH (09:50)
[2021-02-19] MEDS: METOPROLOL TAR 25 MG TAB PO SCH (09:50)
[2021-02-19] MEDS: ACETAMINOPHEN 500 MG TAB PO PRN ×2 (09:51→14:05)
[2021-02-19] MEDS: NICOTINE 7 MG/PAT TD SCH (09:52)
[2021-02-19] MEDS: HYDROCODONE/APAP 5/325 MG TAB PO PRN ×2 (10:00→22:38)
--- NOTE | 2021-02-19 13:19 | P.PN ---
Subjective Date of Service: 02/19/21 Primary Care Provider: unknown Chief Complaint: fall, LLE pain Patient complaining of diarrhea. Status post left hip IM andres. She is awake and alert. Physical Examination - Vital Signs Temperature: 97.8 F Blood Pressure: 151/67 Pulse: 66 Respirations: 16 Pulse Ox (%): 94 - Physical Exam General: Alert, In no apparent distress, Oriented x3 HEENT: Mucous membr. moist/pink Respiratory: Clear to auscultation bilaterally, Normal air movement Cardiovascular: No edema, Regular rate/rhythm, Normal S1 S2 Gastrointestinal: Soft and benign, Non-distended Musculoskeletal: Swelling (Bilateral knee swelling-chronic) Integumentary: No rashes Neurological: Other (No focal motor deficit.) Assessment And Plan - Current Problems (Diagnosis) (1) Osteoarthritis Current Visit: Yes Status: Acute (2) Fall Current Visit: Yes Status: Acute Qualifiers: Encounter type: initial encounter Qualified Code(s): W19.XXXA - Unspecified fall, initial encounter (3) Rhabdomyolysis Current Visit: Yes Status: Acute Qualifiers: Rhabdomyolysis type: traumatic Encounter type: initial encounter Qualified Code(s): T79.6XXA - Traumatic ischemia of muscle, initial encounter (4) Essential (primary) hypertension Onset Date: 03/12/17 Current Visit: No Status: Chronic (5) Hyponatremia Current Visit: Yes Status: Acute (6) Vascular dementia Current Visit: Yes Status: Acute (7) Closed intertrochanteric fracture of left hip Current Visit: Yes Status: Acute Qualifiers: Encounter type: initial encounter Fracture alignment: nondisplaced Qualified Code(s): S72.145A - Nondisplaced intertrochanteric fracture of left femur, initial encounter for closed fracture - Plan Continue IV hydration to treat rhabdomyolysis. Hold Lasix Monitor BMP. Hyponatremia likely secondary to Lasix use. Sodium level has improved with IV normal saline. Obtain x-ray of the bilateral knees. She may need joint fluid tap if she has significant right knee effusion. PT to evaluate. Pain management as needed. Resume fentanyl patch. Hold other psychotropic medications as they might have contributed to the falls. Family is looking at long-term care. Disposition: Skilled rehab Lovenox for DVT prophylaxis. Physician Review: Patient Assessed, Agree with Above Assessment and Plan Physician Review Additional Text: Physical Exam General: NAD, AAOx2-3, dementia HEENT: Mucous membr. moist/pink Respiratory: Clear to auscultation bilaterally, Normal air movement Cardiovascular: Regular rate/rhythm, Normal S1 S2 Gastrointestinal: Soft and benign, Non-distended, No tenderness Musculoskeletal: LLE: surgical wound lizette, no drainage, no erythema. b/l sw ollen knees with mild TTP, pain with movement Skin/Ext: no calf swelling/tenderness, no lesions, no rash Problem List: Fall L intertrochanteric femur fracture s/p repair (02/14) b/l knee effusions febrile 02/13 Rhabdomyolysis, traumatic, resolved Osteoarthritis Essential (primary) hypertension Hyponatremia, resolved Vascular dementia reported h/o CHF, diastolic fall likely vasovagal / orthostatic hypotension. improved with IVF Hyponatremia on admission secondary to Lasix use. Sodium level improved with some IVF, stable, off IVF b/l knee x -rays: moderate R effusion, mild L effusion, this is chronic. Status post multiple intra-articular injections in bilateral knees. MRI pelvis: Consistent with left intratrochanteric hip fracture s/p repair on 02/[address] Costa Pain management & anticoagulation per Ortho - will need 28d of anticoagulation, f/u in 2 weeks per ortho. doing well, improving alonzo removed 02/16, voiding without issue. Check stool for C. diff and start antidiarrheal agents as possible. VTE: xarelto prophylaxis Code: Full Dispo: SNF for PT, possible long-term care eventually. SW/ CM consulted, have been waiting on insurance auth, patient is stable otherwise
[2021-02-19] MEDS ORDERED: LOPERAMIDE HCL 2 MG CAPSULE PO PRN (13:20)
[2021-02-19] MEDS: AMITRIPTYLINE 50 MG TAB PO SCH (20:56)
[2021-02-19] MEDS: ATORVASTATIN 20 MG TAB PO SCH (20:56)
[2021-02-20 04:23] LABS: Absolute Lymphocytes (CBC) 1.7 K/uL (0.7-4.9); Basophils % 1.1 % (0-1.3); Hematocrit 24.4 % (36.0-45.0); Lymphocytes % 28.4 % (15.3-44.8); MPV 7.6 fL (7.6-11.3); RBC Red Blood Cell Count 2.73 M/uL (3.86-4.86)
[2021-02-20] MEDS: LEVOTHYROXINE SOD 0.05 MG TABLET PO SCH (05:35)
[2021-02-20] MEDS: HYDROCODONE/APAP 5/325 MG TAB PO PRN ×3 (09:31→22:46)
[2021-02-20] MEDS: GABAPENTIN 100 MG CAP PO SCH ×2 (09:33→20:53)
[2021-02-20] MEDS: clonazePAM 0.5 MG TAB PO SCH ×2 (09:33→20:53)
[2021-02-20] MEDS: METOPROLOL TAR 25 MG TAB PO SCH (09:34)
[2021-02-20] MEDS: FOLIC ACID 1 MG TABLET PO SCH (09:34)
[2021-02-20] MEDS: NICOTINE 7 MG/PAT TD SCH (10:29)
[2021-02-20] MEDS: RIVAROXABAN 10 MG TABLET PO SCH (10:29)
[2021-02-20 11:59] LABS: C.diff Antigen/Toxin Ag neg : Tox neg (NEG : NEG)
--- NOTE | 2021-02-20 15:30 | P.PN ---
Subjective Date of Service: 02/20/21 Primary Care Provider: unknown Chief Complaint: fall, LLE pain Patient has no complain today. Status post left hip IM andres. She is awake and alert. She is tolerating physical therapy. Physical Examination - Vital Signs Temperature: 97.1 F Blood Pressure: 116/55 Pulse: 57 Respirations: 20 Pulse Ox (%): 97 - Physical Exam General: Alert, In no apparent distress, Oriented x3 Respiratory: Clear to auscultation bilaterally, Normal air movement Cardiovascular: No edema, Regular rate/rhythm, Normal S1 S2 Gastrointestinal: Soft and benign, Non-distended, No tenderness Musculoskeletal: No swelling Integumentary: No rashes Neurological: Normal strength at 5/5 x4 extr, Cranial nerves 3-12 intact Assessment And Plan - Current Problems (Diagnosis) (1) Osteoarthritis Current Visit: Yes Status: Acute (2) Fall Current Visit: Yes Status: Acute Qualifiers: Encounter type: initial encounter Qualified Code(s): W19.XXXA - Unspecified fall, initial encounter (3) Rhabdomyolysis Current Visit: Yes Status: Acute Qualifiers: Rhabdomyolysis type: traumatic Encounter type: initial encounter Qualified Code(s): T79.6XXA - Traumatic ischemia of muscle, initial encounter (4) Essential (primary) hypertension Onset Date: 03/12/17 Current Visit: No Status: Chronic (5) Hyponatremia Current Visit: Yes Status: Acute (6) Vascular dementia Current Visit: Yes Status: Acute (7) Closed intertrochanteric fracture of left hip Current Visit: Yes Status: Acute Qualifiers: Encounter type: initial encounter Fracture alignment: nondisplaced Qualified Code(s): S72.145A - Nondisplaced intertrochanteric fracture of left femur, initial encounter for closed fracture Physician Review Additional Text: Problem List: Fall L intertrochanteric femur fracture s/p repair (02/14) b/l knee effusions febrile 02/13 Rhabdomyolysis, traumatic, resolved Osteoarthritis Essential (primary) hypertension Hyponatremia, resolved Vascular dementia reported h/o CHF, diastolic fall likely vasovagal / orthostatic hypotension. improved with IVF Hyponatremia on admission secondary to Lasix use. Sodium level improved with some IVF, stable, off IVF b/l knee x -rays: moderate R effusion, mild L effusion, this is chronic. Status post multiple intra-articular injections in bilateral knees. MRI pelvis: Consistent with left intratrochanteric hip fracture s/p repair on 02/[address] Costa Pain management & anticoagulation per Ortho - will need 28d of anticoagulation, f/u in 2 weeks per ortho. doing well, improving alonzo removed 02/16, voiding without issue. Stool for C. diff is negative. Antidiarrheal agents p.r.n. VTE: xarelto prophylaxis Code: Full Dispo: SNF for PT, possible long-term care eventually. SW/ CM consulted, have been waiting on insurance auth, patient is stable for discharge.
[2021-02-20] MEDS: ATORVASTATIN 20 MG TAB PO SCH (20:53)
[2021-02-20] MEDS: AMITRIPTYLINE 50 MG TAB PO SCH (20:53)
[2021-02-21] MEDS: LEVOTHYROXINE SOD 0.05 MG TABLET PO SCH (06:07)
[2021-02-21] MEDS: FOLIC ACID 1 MG TABLET PO SCH (08:21)
[2021-02-21] MEDS: METOPROLOL TAR 25 MG TAB PO SCH (08:21)
[2021-02-21] MEDS: clonazePAM 0.5 MG TAB PO SCH ×2 (08:21→21:49)
[2021-02-21] MEDS: RIVAROXABAN 10 MG TABLET PO SCH (08:21)
[2021-02-21] MEDS: NICOTINE 7 MG/PAT TD SCH (08:22)
[2021-02-21] MEDS: GABAPENTIN 100 MG CAP PO SCH ×2 (08:22→21:49)
[2021-02-21] MEDS: HYDROCODONE/APAP 5/325 MG TAB PO PRN ×3 (08:23→21:51)
--- NOTE | 2021-02-21 11:10 | P.PN ---
Subjective Date of Service: 02/21/21 Primary Care Provider: unknown Chief Complaint: fall, LLE pain Subjective: No new changes Physical Examination - Vital Signs Temperature: 97 F Blood Pressure: 153/63 Pulse: 66 Respirations: 18 Pulse Ox (%): 100 - Physical Exam General: Alert, In no apparent distress, Oriented x3 HEENT: Atraumatic, Normocephalic Neck: Supple, 2+ carotid pulse no bruit, JVD not distended Respiratory: Normal air movement, Diminished, Crackles/rales Cardiovascular: No edema, Normal pulses, Regular rate/rhythm, Normal S1 S2 Gastrointestinal: Normal bowel sounds, Soft and benign, Non-distended Neurological: Normal speech, Normal strength at 5/5 x4 extr, Normal tone Assessment And Plan - Current Problems (Diagnosis) (1) Closed intertrochanteric fracture of left hip Current Visit: Yes Status: Acute Qualifiers: Encounter type: initial encounter Fracture alignment: nondisplaced Qualified Code(s): S72.145A - Nondisplaced intertrochanteric fracture of left femur, initial encounter for closed fracture (2) Hyponatremia Current Visit: Yes Status: Acute (3) Rhabdomyolysis Current Visit: Yes Status: Acute Qualifiers: Rhabdomyolysis type: traumatic Encounter type: initial encounter Qualified Code(s): T79.6XXA - Traumatic ischemia of muscle, initial encounter (4) PEGGY (acute kidney injury) Onset Date: 04/06/17 Current Visit: No Status: Acute (5) Altered mental status Onset Date: 03/12/17 Current Visit: No Status: Acute Physician Review: Patient Assessed, Agree with Above Assessment and Plan Physician Review Additional Text: Problem List: Fall L intertrochanteric femur fracture s/p repair (02/14) b/l knee effusions febrile 02/13 Rhabdomyolysis, traumatic, resolved Osteoarthritis Essential (primary) hypertension Hyponatremia, resolved Vascular dementia reported h/o CHF, diastolic PLAN -doing well. Awaiting placement for SNF -hyponatremia/serum sodium improved and controlled -Hemoglobin trended down to 8.2 -follow repeat BMP and CBC in a.m. -fall likely vasovagal / orthostatic hypotension. improved with IVF b/l knee x -rays: moderate R effusion, mild L effusion, this is chronic. Status post multiple intra-articular injections in bilateral knees. MRI pelvis: Consistent with left intratrochanteric hip fracture s/p repair on 02/[address] Costa Pain management & anticoagulation per Ortho - will need 28d of anticoagulation, f/u in 2 weeks per ortho. doing well, improving alonzo removed 02/16, voiding without issue. Stool for C. diff is negative. Antidiarrheal agents p.r.n. VTE: xarelto prophylaxis Code: Full Dispo: SNF for PT, possible long-term care eventually. SW/ CM consulted, have been waiting on insurance auth, patient is stable for discharge. Time Spent Managing PTS Care (In Minutes): 35
[2021-02-21 11:15] VITALS: O2SAT 94
[2021-02-21] MEDS: ATORVASTATIN 20 MG TAB PO SCH (21:48)
[2021-02-21] MEDS: AMITRIPTYLINE 50 MG TAB PO SCH (21:48)
[2021-02-22] MEDS: LEVOTHYROXINE SOD 0.05 MG TABLET PO SCH (05:32)
[2021-02-22 05:41] LABS: Absolute Lymphocytes (CBC) 1.4 K/uL (0.7-4.9); Hematocrit 25.9 % (36.0-45.0); Lymphocytes % 21.1 % (15.3-44.8); MPV 7.3 fL (7.6-11.3)
[2021-02-22 06:00] LABS: Albumin 2.5 g/dL (3.4-5.0); Bilirubin Total 0.4 mg/dL (0.2-1.0); Protein, Total 5.8 g/dL (6.4-8.2)
[2021-02-22] MEDS: HYDROCODONE/APAP 5/325 MG TAB PO PRN ×2 (06:07→12:07)
[2021-02-22] MEDS: NICOTINE 7 MG/PAT TD SCH (09:08)
[2021-02-22] MEDS: FOLIC ACID 1 MG TABLET PO SCH (09:08)
[2021-02-22] MEDS: METOPROLOL TAR 25 MG TAB PO SCH (09:09)
[2021-02-22] MEDS: FENTANYL 25 MCG/PATCH TD SCH (09:09)
[2021-02-22] MEDS: clonazePAM 0.5 MG TAB PO SCH (09:09)
[2021-02-22] MEDS: RIVAROXABAN 10 MG TABLET PO SCH (09:09)
[2021-02-22] MEDS: GABAPENTIN 100 MG CAP PO SCH (09:10)
--- NOTE | 2021-02-22 13:14 | P.DS ---
Admission Date: 02/10/21 Discharge Date: 02/22/21 Primary Care Provider: unknown Disposition: TRANSFER TO HALFWAY Discharge Condition: FAIR Reason for Admission: fall, LLE pain - Problems (1) Osteoarthritis Current Visit: Yes Status: Acute (2) Fall Current Visit: Yes Status: Acute Qualifiers: Encounter type: initial encounter Qualified Code(s): W19.XXXA - Unspecified fall, initial encounter (3) Rhabdomyolysis Current Visit: Yes Status: Acute Qualifiers: Rhabdomyolysis type: traumatic Encounter type: initial encounter Qualified Code(s): T79.6XXA - Traumatic ischemia of muscle, initial encounter (4) Essential (primary) hypertension Onset Date: 03/12/17 Current Visit: No Status: Chronic (5) Hyponatremia Current Visit: Yes Status: Acute (6) Vascular dementia Current Visit: Yes Status: Acute (7) Closed intertrochanteric fracture of left hip Current Visit: Yes Status: Acute Qualifiers: Encounter type: initial encounter Fracture alignment: nondisplaced Qualified Code(s): S72.145A - Nondisplaced intertrochanteric fracture of left femur, initial encounter for closed fracture Brief History of Present Illness: 80 yo female with COPD, HTN, HLD, hypothyroidism, and dementia presented to the ED after a fall at home. She was in the kitchen when she stood up, lost balance and fell forward. She denied hitting her head but was unable to get up. She was on the floor over night until she was able to get to her phone to call her daughter. WBC 12.9. Na 128. Cl 92. AST 92. CK 3086. Trop 0.06. BNP 689. CXR with no acute abnormalities. CT head without acute abnormalities. Patient was admitted for further management. Hospital Course: fall likely vasovagal /orthostatic hypotension. Orthostasis improved with IV fluid. Patient had hyponatremia on admission secondary to Lasix use. Sodium level improved with IVF. b/l knee x -rays: moderate R effusion, mild L effusion, this is chronic. Status post multiple intra-articular injections in bilateral knees. May follow with orthopedic or her pain management doctor as an outpatient for further management. Patient tolerated physical therapy. MRI pelvis: Consistent with left intratrochanteric hip fracture s/p repair on 02/[address] Costa. 28 days anticoagulation with Xarelto as recommended by Dr. Costa. f/u in 2 weeks per ortho. Touchdown weight-bearing for 6 weeks per ortho. She is doing well. Leavitt removed 02/16, voiding without issue. Stool for C. diff is negative. She is needing antidiarrheal agents p.r.n. Vital Signs/Physical Exam: Temp Pulse Resp BP Pulse Ox 97.0 F 57 18 142/71 H 98 02/22/21 08:00 02/22/21 09:09 02/22/21 12:07 02/22/21 09:09 02/22/21 08:00 General: Alert, In no apparent distress Neck: Supple Respiratory: Clear to auscultation bilaterally, Normal air movement Cardiovascular: No edema, Regular rate/rhythm, Normal S1 S2 Gastrointestinal: Normal bowel sounds, Soft and benign, Non-distended, No tenderness Musculoskeletal: No swelling, No tenderness Integumentary: No rashes Neurological: Normal affect, Other (No focal motor deficit.) Laboratory Data at Discharge: WBC 6.70 K/uL (4.3-10.9) 02/22/21 05:06 Hgb 9.0 g/dL (12.0-15.0) L 02/22/21 05:06 Hct 25.9 % (36.0-45.0) L 02/22/21 05:06 Plt Count 388 K/uL (152-406) D 02/22/21 05:06 PT 11.2 SECONDS (9.5-12.5) 02/10/21 16:52 INR 0.97 02/10/21 16:52 Sodium 138 mmol/L (136-145) 02/22/21 05:06 Potassium 4.0 mmol/L (3.5-5.1) 02/22/21 05:06 BUN 14 mg/dL (7-18) 02/22/21 05:06 Creatinine 0.72 mg/dL (0.55-1.3) 02/22/21 05:06 Glucose 83 mg/dL (74-106) 02/22/21 05:06 Phosphorus 3.2 mg/dL (2.5-4.9) 02/13/21 04:09 Magnesium 2.0 mg/dL (1.8-2.4) 02/19/21 03:37 Total Bilirubin 0.4 mg/dL (0.2-1.0) 02/22/21 05:06 AST 20 U/L (15-37) 02/22/21 05:06 ALT 32 U/L (12-78) 02/22/21 05:06 Alkaline Phosphatase 63 U/L (45-117) 02/22/21 05:06 Troponin I 0.08 ng/mL (0.0-0.045) H 02/10/21 21:20 Home Medications: Furosemide 40 mg PO DAILY PRN 08/01/17 Lovastatin 40 mg PO BEDTIME 08/01/17 Potassium Chloride 20 meq PO DAILY 08/01/17 Folic Acid 1 mg PO DAILY 11/20/18 Metoprolol Tartrate [Lopressor*] 25 mg PO DAILY 11/20/18 Albuterol Inhaler [Ventolin Inhaler*] 2 puff IH Q6HP PRN 12/20/19 Amitriptyline [Elavil*] 50 mg PO DAILY 12/20/19 Gabapentin [Neurontin*] 100 mg PO BID 12/20/19 Levothyroxine [Synthroid*] 0.05 mg PO DAILY 12/20/19 clonazePAM [Klonopin*] 0.5 mg PO BID 02/10/21 Hydrocodone 5/APAP 325 [[place] 5/325*] 1 tab PO Q6H PRN tab 02/22/21 Loperamide [Imodium*] 2 mg PO Q4H PRN cap 02/22/21 Melatonin 5 mg PO BEDTIME PRN PRN tablet 02/22/21 Nicotine [Nicoderm*] 7 mg TD DAILY patch.[id number] 02/22/21 Rivaroxaban [Xarelto*] 10 mg PO DAILY #22 tablet 02/22/21 New Medications: Rivaroxaban [Xarelto*] 10 mg PO DAILY #22 tablet Physician Discharge Instructions: Patient will need an x-ray of the left hip within 2 weeks. Follow up with Dr. Costa within 2 weeks. X-ray need to be done before follow up with Dr. Costa. Diet: AHA Activity: Fall precautions Followup: Fran Costa MD [ACTIVE - CAN ADMIT] - NONE,NONE [Primary Care Provider] -
[2021-02-22 13:21] VITALS: BP 124/57; TEMP 97.8
== END 2021-02-22 15:06 | DRG 956 ==
LOC: ER 16:12 → ERHOLD 20:07 → 2ND 20:39
PROVIDERS: ADMIT Internal Medicine; ATTEND Internal Medicine
PROC: 0QH706Z Insertion of Intramedullary Internal Fixation Device into Left Upper Femur, Open Approach (ICD-10-PCS; principal; 2021-02-14 18:30)
DX: S72.145A Nondisplaced intertrochanteric fracture of left femur, initial encounter for closed fracture (principal); T79.6XXA Traumatic ischemia of muscle, initial encounter; I50.32 Chronic diastolic (congestive) heart failure; E87.1 Hypo-osmolality and hyponatremia; N17.9 Acute kidney failure, unspecified; I95.1 Orthostatic hypotension; I11.0 Hypertensive heart disease with heart failure; J41.0 Simple chronic bronchitis; E03.9 Hypothyroidism, unspecified; F17.210 Nicotine dependence, cigarettes, uncomplicated; G89.29 Other chronic pain; M25.461 Effusion, right knee; M25.452 Effusion, left hip; M25.462 Effusion, left knee; M19.90 Unspecified osteoarthritis, unspecified site; F01.50 Vascular dementia, unspecified severity, without behavioral disturbance, psychotic disturbance, mood disturbance, and anxiety; E78.5 Hyperlipidemia, unspecified; T50.1X5A Adverse effect of loop [high-ceiling] diuretics, initial encounter; W18.30XA Fall on same level, unspecified, initial encounter; Z91.81 History of falling; Z88.1 Allergy status to other antibiotic agents; Z88.8 Allergy status to other drugs, medicaments and biological substances; Z86.73 Personal history of transient ischemic attack (TIA), and cerebral infarction without residual deficits; Z88.4 Allergy status to anesthetic agent; Z90.710 Acquired absence of both cervix and uterus; Z90.49 Acquired absence of other specified parts of digestive tract; Z79.01 Long term (current) use of anticoagulants; Z79.890 Hormone replacement therapy; Z79.899 Other long term (current) drug therapy; Z20.822 Contact with and (suspected) exposure to COVID-19
CPT/HCPCS: 0240U; 36415; 70450; 71045; 72170; 72192; 72195; 73530; 80048; 80053; 80076; 81001; 81003; 81015; 82550; 83735; 83880; 84100; 84132; 84145; 84439; 84443; 84484; 85025; 85610; 87040; 87086; 87088; 87324; 87449; 93005; 93970; 94760; 96361; 96374; 97110; 97116; 97161; 97164; 97530; 99285; J0690; J1100; J1650; J2001; J2270; J2405; J2704; J3010; J3475; J7030; J7040; J7120; U0003

== ENCOUNTER 2021-07-31 10:29 | Emergency (ER) | payer OTHER ==
--- OUTSIDE RECORDS SUMMARY | 2021-07-31 10:33 | XMS REPORT | Continuity of Care Document ---
:1940 Author Organization [facility] t Address [address] [place] [address] Care Team Providers Name Role Phone Alexander Nirav Attending Clinician Pob, Lab Main Attending Clinician Unavailable Problems Condition Condition Condition Status Onset Resolution [...] -related disorder Disorder Chronic Chronic Problem Active 2019- [facility] kidney Kidney 8-14 Family disease Disease 00:00: [...] Practic 00 e Chronic Chronic Problem Active [facility] pain Pain 7- Family 00:00: Practic 00 e Essential Essential Problem Active [facility]ante shanda hypertensi Hypertensi 05-16 Fa ramses on on 00:00: Practic 00 e Chronic Chronic Problem Active [facility] obstructiv Obstructiv 05-16 Fa ramses e lung e Lung 00:00: Practic disease Disease e Arthritis Arthritis Problem Active [facility]ante land 05-16 Family 00:00: Practic 00 e Allergies, Adverse Reactions, Alerts This patient has no known allergies or adverse reactions. Social History Social Habit Start Date Stop Date Quantity Comments Source Sex Ass[birth year] At [birth year] ANASTAC[facility] Hinkle kes [facility] Smoking Status Start Date Stop Date Source [facility] Medications Ordered Filled Start Stop Current Ordering Indication Dosage Frequency Signature Comments Components Source Medication Medication Date Date Medication? Clinician (SIG) Name Name albuterol albuterol No 2puff(s Q4H albuterol [facility] sulf 90 sulf 90 ) sulf 90 [...] route. alprazolam alprazolam No 1 Q1D alprazolam [facility] 0.5 mg 0.5 mg 0.5 mg Family disintegrat disintegrat disintegra Practic ing tablet ing tablet ting e Take 1 Take 1 tablet tablet tablet Take 1 every day every day tablet by oral by oral every day route. route. by oral route. amitriptyli amitriptyli No 1 Q1D amitriptyl [facility] ne 50 mg ne 50 mg ine 50 mg [facility] tablet Take tablet Take tablet Practic 1 tablet 1 tablet Take 1 e every day every day tablet by oral by oral every day route. route. by oral route. furosemide furosemide No 1 Q1D furosemide [facility] 20 mg 20 mg 20 mg Family tablet Take tablet Take tablet Practic 1 tablet 1 tablet Take 1 e every day every day tablet by oral by oral every day route. route. by oral route. gabapentin gabapentin No 1capsul TID gabapentin [facility] 100 mg 100 mg e(s) 100 mg Family capsule capsule capsule Practi c Take 1 Take 1 Take 1 e capsule 3 capsule 3 capsule 3 times a day times a day times a by oral by oral day by route. route. oral route. levothyroxi levothyroxi No 1capsul Q1D levothyrox [facility] ne 50 mcg ne 50 mcg e(s) ine 50 mcg Family capsule capsule capsule Practi c Take 1 Take 1 Take 1 e capsule capsule capsule every day every day every day by oral by oral by oral route. route. route. lovastatin lovastatin No 1 Q1D lovastatin [facility] 40 mg 40 mg 40 mg Family tablet Take tablet Take tablet Practic 1 tablet 1 tablet Take 1 e every day every day tablet by oral by oral every day route. route. by oral route. meloxicam meloxicam No 1 Q1D meloxicam [facility] 7.5 mg 7.5 mg 7.5 mg Family tablet Take tablet Take tablet Practic 1 tablet 1 tablet Take 1 e every day every day tablet by oral by oral every day route. route. by oral route. metoprolol metoprolol No 1capsul Q1D metoprolol [facility] succinate succinate e(s) succinate [facility] ER 25 mg ER 25 mg ER 25 mg Pra ctic capsule capsule capsule e sprinkle, sprinkle, sprinkle, ext. ext. ext. release 24 release 24 release 24 hr Take 1 hr Take 1 hr Take 1 capsule capsule capsule every day every day every day by oral by oral by oral route. route. route. potassium potassium No 1 Q1D potassium [facility] chloride ER chloride ER chloride [facility] 20 mEq 20 mEq ER 20 mEq Practi c tablet,exte tablet,exte tablet,ext e nded nded ended release release release Take 1 Take 1 Take 1 tablet tablet tablet every day every day every day by oral by oral by oral route. route. route. Symbicort Symbicort No 2puff(s BID Symbicort [facility] 160 mcg-4.5 160 mcg-4.5 ) 160 F amily mcg/actuati mcg/actuati mcg-4.5 Practic on HFA on HFA mcg/actuat e aerosol aerosol ion HFA inhaler inhaler aerosol Inhale 2 Inhale 2 inhaler puffs twice puffs twice Inhale 2 a day by a day by puffs inhalation inhalation twice a route. route. day by inhalation route. trazodone trazodone No 1 BID trazodone [facility] 100 mg 100 mg 100 mg Family tablet Take tablet Take tablet Practic 1 tablet 1 tablet Take 1 e twice a day twice a day tablet by oral by oral twice a route. route. day by oral route. Vital Signs Vital Name Observation Time Observation Value Comments Source Height 2020-08-31 00:00:00 67 [in_i] [facility] BMI (Body Mass 2020-08-31 00:00:00 21.1 kg/m2 [facility] Practice Body Weight 2020-08-31 00:00:00 135 [lb_av] [facility] Procedures This patient has no known procedures. Encounters Start End Encounter Admission Attending Care Care Encounter Source Date/Time Date/Time Type Type Clinicians Facility Department ID 2020-11-05 2020[facility]11[facility] [id number] 11:30:00 23:59:00 Encounter J Lucina [id number] Mary Alice [id number] [place] [id number] 2020-08-31 2020-08-[address] [facility] [place] - [id number] V illage 00:00:00 00:00:00 [facility] Jourdan morales ADMINISTRATIVE ASSISTANT COORDINATOR: Medical - Practi c [email or web address], [place] [address], [place] [address] , Ph. 2020-07-02 2020-07-[address] [facility] [place] - [id number] V illage 00:00:00 00:00:00 [facility] Jourdan morales ADMINISTRATIVE ASSISTANT COORDINATOR: Medical - Practi keyon [email or web address] [place] [address], [place] [address] , Ph. 2020-06-18 2020-06-18 [employer] Maribel Licona [facility] [id number] 14:44:53 14:59:53 Visit Lab Main Lucina [id number] Mary Alice [id number] [facility] [id number] [address] 2020-05-28 2020-05-[address] [facility] [place] - [id number] V illage 00:00:00 00:00:00 [facility] Jourdan morales ADMINISTRATIVE ASSISTANT COORDINATOR: Medical - Practi c [email or web address], [place] [address], [place] [address] , Ph. 2020-02-13 2020-02-13 Ada [facility] [place] - [id number] V illage 00:00:00 00:00:00 [facility] mello omrales ADMINISTRATIVE ASSISTANT COORDINATOR: Viviane ta [email or web address] [address], [place] [address] , Ph. Results This patient has no known results.
[2021-07-31 11:17] LABS: Urine Blood Negative (Negative); Urine Glucose Negative (Negative); Urine Protein Negative (Negative); Urine pH 6.5 (5.0-7.0)
[2021-07-31 12:11] LABS: Absolute Lymphocytes (CBC) 1.5 K/uL (0.7-4.9); Basophils % 0.7 % (0-1.3); Hematocrit 37.4 % (36.0-45.0); Lymphocytes % 17.2 % (15.3-44.8); MPV 7.2 fL (7.6-11.3); RBC Red Blood Cell Count 4.18 M/uL (3.86-4.86)
--- NOTE | 2021-07-31 13:09 | ER ---
Nurse's Notes [facility] Name: Dianna Marcano Age: 81 yrs Sex: Female : 1940 Arrival Date: 07/31/2021 Time: 10:35 Bed 23 Private MD: Diagnosis: Rash and other nonspecific skin eruption Presentation: 07/31 10:45 Chief complaint: Patient states: Rash on bilateral legs and back x 3 months, purple jl7 feet more than 3 months. Coronavirus screen: Vaccine status: Patient reports receiving the 2nd dose of the covid vaccine. Date May 2021 At this time, the client does not indicate any symptoms associated with coronavirus-19. Ebola Screen: No symptoms or risks identified at this time. Initial Sepsis Screen: Does the patient meet any 2 criteria? No. Patient's initial sepsis screen is negative. Does the patient have a suspected source of infection? No. Patient's initial sepsis screen is negative. Risk Assessment: Do you want to hurt yourself or someone else? Patient reports no desire to harm self or others. Onset of symptoms is unknown. Care prior to arrival: None. 10:45 Method Of Arrival: Wheelchair jl7 10:45 Acuity: SHERLYN 3 jl7 Triage Assessment: 10:48 General: Appears in no apparent distress. uncomfortable, Behavior is calm, cooperative. jl7 Pain: Complains of pain in anterior aspect of left lateral abdomen and left lower quadrant. Historical: - Allergies: 10:48 Iodine; jl7 10:48 Sulfa (Sulfonamide Antibiotics); jl7 10:48 Versed; jl7 - Home Meds: 10:48 amitriptyline 10 mg Oral tab daily [Active]; fentanyl 50 mcg/hr Topical pt72 1 patch jl7 every 72 hours [Active]; folic acid 1 mg Oral tab once daily [Active]; furosemide 40 mg Oral tab 1 tab 2 times per day [Active]; hydrocodone-acetaminophen 10-325 mg Oral tab 1 tab twice a day [Active]; levothyroxine 50 mcg tab 1 tab once daily [Active]; lovastatin 40 mg Oral tab 1 tab 2 times per day [Active]; metoprolol tartrate 50 mg Oral tab 1 tab 2 times per day [Active]; Nitrostat 0.4 mg SL subl 1 tab every 5 minutes [Active]; potassium chloride 20 mEq Oral TbER 1 tab once daily [Active]; trazadone nightly [Active]; Xanax 1 mg Oral tab 1 tab BID [Active]; - PMHx: 10:48 Anxiety; CHF; chronic back pain; Dementia; Hypertension; Hypothyroidism; jl7 - Immunization history:: Adult Immunizations up to date, Client reports receiving the 2nd dose of the Covid vaccine. - Social history:: Smoking status: Patient reports the use of cigarette tobacco products. Screenin:16 Abuse screen: Denies threats or abuse. Denies injuries from another. Nutritional aj2 screening: No deficits noted. Tuberculosis screening: No symptoms or risk factors identified. Fall Risk None identified. Assessment: 11:17 General: Appears in no apparent distress. comfortable, Behavior is calm, cooperative. aj2 Pain: Denies pain. Vital Signs: 10:45 BP 130 / 76; Pulse 74; Resp 17; Temp 97.6; Pulse Ox 100% ; Weight 58.97 kg; Pain 0/10; jl7 ED Course: 10:35 Patient arrived in ED. mr 10:48 Triage completed. jl7 10:48 Arm band placed on right wrist. jl7 10:52 Vaughn Timmons PA is PHCP. jr8 10:52 Swapnil Layton MD is Attending Physician. jr8 11:15 Katie Sheehan is Primary Nurse. aj2 11:16 No apparent distress. Resting quietly. aj2 11:16 Patient has correct armband on for positive identification. aj2 11:16 No provider procedures requiring assistance completed. aj2 12:01 C-Reactive Protein Sent. aj2 12:01 CBC with Diff Sent. aj2 12:01 CMP Sent. aj2 12:01 ESR Sent. aj2 12:01 CRP Sent. aj2 Administered Medications: No medications were administered Outcome: 13:09 Discharge ordered by . jr8 13:36 Discharged to home via wheelchair. aj2 13:36 Condition: stable 13:36 Discharge instructions given to patient, Son Instructed on discharge instructions, follow up and referral plans. Demonstrated understanding of follow-up care, medications, Prescriptions given X 1. 13:38 Patient left the ED. aj2 Signatures: Gali Olivera mr Vaughn Timmons PA PA jr8 Mae Pena RN RN jl7 Katie Sheehan aj2
--- NOTE | 2021-07-31 13:09 | EDPHYS ---
Physician Documentation [facility] Name: Dianna Marcano Age: 81 yrs Sex: Female : 1940 Arrival Date: 07/31/2021 Time: 10:35 Bed 23 Private MD: ED Physician Swapnil Layton HPI: 07/31 12:08 This 81 yrs old Female presents to ER via Wheelchair with complaints of Rash. jr8 12:08 The rash can be described as patchy. Associated signs and symptoms: Pertinent jr8 positives: itching. Severity of symptoms: At their worst the symptoms were moderate in the emergency department the symptoms are unchanged. The patient has not experienced similar symptoms in the past. The patient has not recently seen a physician. This is an 81-year-old female patient that has been having a rash for approximately 3 months. Has tried [id number] and prescriptive medication without relief. Patient stated that it itches and that she is also noticed discoloration of her feet.. Historical: - Allergies: 10:48 Iodine; jl7 10:48 Sulfa (Sulfonamide Antibiotics); jl7 10:48 Versed; jl7 - Home Meds: 10:48 amitriptyline 10 mg Oral tab daily [Active]; fentanyl 50 mcg/hr Topical pt72 1 patch jl7 every 72 hours [Active]; folic acid 1 mg Oral tab once daily [Active]; furosemide 40 mg Oral tab 1 tab 2 times per day [Active]; hydrocodone-acetaminophen 10-325 mg Oral tab 1 tab twice a day [Active]; levothyroxine 50 mcg tab 1 tab once daily [Active]; lovastatin 40 mg Oral tab 1 tab 2 times per day [Active]; metoprolol tartrate 50 mg Oral tab 1 tab 2 times per day [Active]; Nitrostat 0.4 mg SL subl 1 tab every 5 minutes [Active]; potassium chloride 20 mEq Oral TbER 1 tab once daily [Active]; trazadone nightly [Active]; Xanax 1 mg Oral tab 1 tab BID [Active]; - PMHx: 10:48 Anxiety; CHF; chronic back pain; Dementia; Hypertension; Hypothyroidism; jl7 - Immunization history:: Adult Immunizations up to date, Client reports receiving the 2nd dose of the Covid vaccine. - Social history:: Smoking status: Patient reports the use of cigarette tobacco products. ROS: 12:08 Eyes: Negative for injury, pain, redness, and discharge, ENT: Negative for injury, jr8 pain, and discharge, Neck: Negative for injury, pain, and swelling, Cardiovascular: Negative for chest pain, palpitations, and edema, Respiratory: Negative for shortness of breath, cough, wheezing, and pleuritic chest pain, Abdomen/GI: Negative for abdominal pain, nausea, vomiting, diarrhea, and constipation, Back: Negative for injury and pain, MS/Extremity: Negative for injury and deformity, Neuro: Negative for headache, weakness, numbness, tingling, and seizure. 12:08 Skin: Positive for rash. Exam: 12:08 Constitutional: This is a well developed, well nourished patient who is awake, alert, jr8 and in no acute distress. ENT: Nares patent. No nasal discharge, no septal abnormalities noted. Tympanic membranes are normal and external auditory canals are clear. Oropharynx with no redness, swelling, or masses, exudates, or evidence of obstruction, uvula midline. Mucous membranes moist. Cardiovascular: Regular rate and rhythm with a normal S1 and S2. No gallops, murmurs, or rubs. Normal PMI, no JVD. No pulse deficits. Respiratory: Lungs have equal breath sounds bilaterally, clear to auscultation and percussion. No rales, rhonchi or wheezes noted. No increased work of breathing, no retractions or nasal flaring. Abdomen/GI: Soft, non-tender, with normal bowel sounds. No distension or tympany. No guarding or rebound. No evidence of tenderness throughout. Back: No spinal tenderness. No costovertebral tenderness. Full range of motion. MS/ Extremity: Pulses equal, 2+ Pedal and radial. acryl cyanosis present. Neurovascular intact. Full, normal range of motion. Neuro: Awake and alert, GCS 15, oriented to person, place, time, and situation. Cranial nerves II-XII grossly intact. Motor strength 5/5 in all extremities. Sensory grossly intact. Cerebellar exam normal. Normal gait. 12:08 Skin: Patient has patient has slightly hyperpigmented dry circular and patchy rash on her lower extremities and some to her back.. Vital Signs: 10:45 BP 130 / 76; Pulse 74; Resp 17; Temp 97.6; Pulse Ox 100% ; Weight 58.97 kg; Pain 0/10; jl7 MDM: 10:52 Patient medically screened. jr8 13:07 Data reviewed: vital signs, nurses notes, lab test result(s), and as a result, I will jr8 discharge patient. Data interpreted: Pulse oximetry: on room air is 100 %. Interpretation: normal. Counseling: I had a detailed discussion with the patient and/or guardian regarding: the historical points, exam findings, and any diagnostic results supporting the discharge/admit diagnosis, lab results, the need for outpatient follow up, a ornamenter, to return to the emergency department if symptoms worsen or persist or if there are any questions or concerns that arise at home. ED course: Discussed with patient that there is no acute findings on her lab work. That she would need to go to dermatology for punch biopsy and further determination. In the meantime we will try a Medrol Dosepak. If she gets worse or to have other symptoms to come back for further evaluation.. 07/31 11:17 Order name: Urine Dipstick-Ancillary; Complete Time: 11:24 EDMS 07/31 11:23 Order name: CRP jr 07/31 11:23 Order name: ESR; Complete Time: 13:01 8 07/31 11:23 Order name: CBC with Diff; Complete Time: 13:01 jr8 07/31 11:23 Order name: IV; Complete Time: 12:01 jr8 07/31 12:19 Order name: Labs - recollect needed; Complete Time: 13:11 bd Administered Medications: No medications were administered Disposition: 15:41 Co-signature as Attending Physician, Swapnil Layton MD I agree with the assessment and rn plan of care. Attestation: The patient's history, exam findings, diagnostics, and a summary of any interventions or procedures was reviewed in detail with Vaughn CASE. Disposition Summary: 07/31/21 13:09 Discharge Ordered Location: Home jr8 Problem: new jr8 Symptoms: are unchanged jr8 Condition: Stable jr8 Diagnosis - Rash and other nonspecific skin eruption jr8 Followup: jr8 - With: Private Physician - When: 2 - 3 days - Reason: Recheck today's complaints, Continuance of care, Re-evaluation by your physician Discharge Instructions: - Discharge Summary Sheet jr8 - Rash, Adult jr8 Forms: - Medication Reconciliation Form jr8 - Thank You Letter jr8 - Antibiotic Education jr8 - Prescription Opioid Use jr8 Prescriptions: - Medrol (Medardo) 4 mg Oral Tablets, Dose Pack - take 1 tablet by ORAL route as directed - follow package instructions; 1 jr8 packet; Refills: 0, Product Selection Permitted Signatures: Dispatcher [employer] Dee Mchugh Roman, MD MD rn Roszak, Josh, PA PA jr8 Mae Pena RN RN jl7
[2021-07-31 14:32] VITALS: BP 130/76; TEMP 97.6; O2SAT 100
== END 2021-07-31 13:38 | disposition home or self-care (01) ==
LOC: ER 10:29
DX: R21 Rash and other nonspecific skin eruption (principal); I10 Essential (primary) hypertension; E03.9 Hypothyroidism, unspecified; F03.90 Unspecified dementia, unspecified severity, without behavioral disturbance, psychotic disturbance, mood disturbance, and anxiety; I50.9 Heart failure, unspecified; Z72.0 Tobacco use; Z88.2 Allergy status to sulfonamides; Z88.8 Allergy status to other drugs, medicaments and biological substances
CPT/HCPCS: 36415; 81003; 85025; 85652; 99283

== ENCOUNTER 2022-09-05 15:40 | Emergency (ER) | payer OTHER ==
--- OUTSIDE RECORDS SUMMARY | 2022-09-05 15:49 | XMS REPORT | Continuity of Care Document ---
:1940 Author Organization [facility] t Address [address] [place] [address] Care Team Providers Name Role Phone Carlos Portillo Primary Care Physician Samina-Melao_A_AH Attending Clinician Unavailable Doctor Unassigned, [place] Attending Clinician Unavailable Luis Staley MD Attending Clinician LUIS STALEY Attending Clinician Unavailable Tarun Munoz Attending Clinician TARUN MUNOZ Attending Clinician Unavailable RYAN LIEBERMAN Attending Clinician Unavailable Pob, [facility] Main Attending Clinician Unavailable Ryan Lieberman MD Attending Clinician Pastor Baca Attending Clinician Samina-Amishaayo_A_AH Admitting Clinician Unavailable Pastor Baca Admitting Clinician Payers Payer Name Policy Type Policy Number Effective Date Expiration Date S [facility] OF [place] - [id number] 2019 2020 [employer] 00:00:00 00:00:00 (MEDICARE REPLACEMENT/ADVAN TAGE - HMO) Problems Condition Condition Condition Status Onset Resolution Last Treating Co mments Source Name Details Category Date Date Treatment Clinician Date Hypertensi Hypertensi Problem Active 2019-11 [place] [facility] renal ve Renal 0-15 Family disease Disease 00:00: Practic 00 e Sedative, Sedative, 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-14 Family AND/OR AND/OR 00:00: Practic anxiolytic Anxiolytic 00 e -related -related disorder Disorder Chronic Chronic Problem Active [facility] kidney Kidney 8-14 Family disease Disease 00:00: Practic stage 3 Stage 3 00 e Recurrent Recurrent Problem Active [place] 3-30 Family 00:00: Practic 00 e 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 00 e 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 1-13 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 Failure 00:00: Practic 00 e Dementia Dementia Problem Active Carlos felder 7- Family 00:00: Practic 00 e Anxiety Anxiety Problem Active [place] 05-16 Family 00:00: Practic 00 e Chronic Chronic Problem Active [facility] pain Pain 05-16 Family 00:00: Practic 00 e Essential Essential Problem Active [place] hypertensi Hypertensi - Fa ramses on on 00:00: Practic 00 e Chronic Chronic Problem Active [facility] obstructiv Obstructiv 05-16 [facility] e lung e Lung 00:00: Practic disease Disease 00 e Arthritis Arthritis Problem Active [place] 7 Family 00:00: Practic 00 e INFECTION INFECTION Diagnosis Active 2017-06-08 Memoria Active 05-18 22:00:00 l 05/18/2017 00:00: Alfredo rivera 00 [facility] WOUND WOUND Diagnosis Active 2017-05-18 Mem oria INFECTION INFECTION 05-18 15:19:00 l Active 00:00: Chemo 05/18/2017 00 [facility] No known No known Disease Unive rs active active ity of problems problems [facility] Alzheimer' Alzheimer Problem Active 2017-05-30 Memoria s disease 's disease 00:46:38 l (disorder) (disorder) He rmann Active Problem 05/30/2017 [facility] Chronic Chronic Problem Active 2017-05-30 Me moria congestive congestive 00:46:38 l heart heart [place] failure failure (disorder) (disorder) Active Problem 05/30/2017 [facility] Hyperchole Hyperchol Problem Active 2017-05-30 Memoria sterolemia esterolemi 00:46:38 l (disorder) a Alfredo n (disorder) Active Problem 05/30/2017 [facility] UNSPECIFIE UNSPECIFI Diagnosis Active 2017-06-08 Memoria D ED 22:00:00 l INFECTIOUS INFECTIOUS He rmann DISEASE DISEASE Active [facility] Benign Benign Problem Resolve 2017-05-30 Mem oria hypertensi hypertensi d 00:46:38 l on on Chemo (disorder) (disorder) Resolved Problem 05/30/2017 [facility] Cerebral Cerebral Problem Resolve 2017-05-30 Memoria embolism embolism d 00:46:38 l (disorder) (disorder) He rmann Resolved Problem 05/30/2017 [facility] Allergies, Adverse Reactions, Alerts Allergy Allergy Status Severity Reaction(s) Onset Inactive Treating Comm ents Source Name Type Date Date Clinician NO KNOWN Drug Active Univers ALLERGIE Class ity of S [facility] iodine iodine Active Memoria l Chemo sulfa sulfa Active Memoria drugs drugs l Chemo Versed Versed Active Memoria l Chemo Social History Social Habit Start Date Stop Date Quantity Comments Source Exposure to Not sure [facility] SARS-CoV-2 (event) Medica l Branch Sex Assigned At [birth year] [facility] 00:00:00 00:00:00 Center Smoking Status Start Date Stop Date Source Unknown if ever smoked [facility] Social History 2017-05-18 19:31:53 2017-05-18 19:31:53 [facility] Medications Ordered Filled Start Stop Current Ordering Indication Dosage Frequency Signature Comments Components Source Medication Medication Date Date Medication? Clinician (SIG) Name Name No known No Univers medications 5-13 ity of 09:53: [address] 24 HR Yes = 1 patch, Memori a Nicotine 7-12 TOP, l 0.583 MG/HR 15:55: Daily, X He rmann Transdermal 00 14 day, # Patch 14 patch, 0 Refill(s) 24 HR Yes = 1 patch, Memori a Nicotine 7-12 TOP, l 0.583 MG/HR 15:55: Daily, X He rmann Transdermal 00 14 day, # Patch 14 patch, 0 Refill(s) Streptococc No Notes: Chase katie us 7-12 Shake well l pneumoniae 14:00: prior to Her [place] serotype 1 00 use (Same capsular as: antigen Prevnar diphtheria 13) [id number] protein conjugate vaccine / Streptococc us pneumoniae serotype 14 capsular antigen diphtheria [id number] protein conjugate vaccine / Streptococc us pneumoniae serotype 18C capsular antigen d Streptococc No Notes: Chase katie us 7-12 Shake well l pneumoniae 14:00: prior to Her [place] serotype 1 00 use (Same capsular as: antigen Prevnar diphtheria 13) [id number] protein conjugate vaccine / Streptococc us pneumoniae serotype 14 capsular antigen diphtheria [id number] protein conjugate vaccine / Streptococc us pneumoniae serotype 18C capsular antigen d tramadol Yes 50 mg = 1 Chase katie hydrochlori 05-26 tab, PO, l de 50 MG 19:32: Q6H, PRN Kamla nn Oral Tablet 00 Pain, X 10 day, # 40 tab, 0 Refill(s) Acetaminoph Yes 1 tab, PO, Memoria en 300 MG / 05-26 Q4H, PRN l Codeine 19:32: Pain, X 7 Kamla nn Phosphate 00 day, # 42 30 MG Oral tab, 0 Tablet Refill(s) [Tylenol with Codeine #3] tramadol Yes 50 mg = 1 Chase katie hydrochlori 11 tab, PO, l de 50 MG 19:32: Q6H, PRN Kamla nn Oral Tablet 00 Pain, X 10 day, # 40 tab, 0 Refill(s) Acetaminoph Yes 1 tab, PO, Memoria en 300 MG / 05-26 Q4H, PRN l Codeine 19:32: Pain, X 7 Kamla nn Phosphate 00 day, # 42 30 MG Oral tab, 0 Tablet Refill(s) [Tylenol with Codeine #3] potassium No Notes: Memori a chloride 20 05-24 (Same as: l mEq oral 14:00: K-Dur 20) Herm levy tablet, "Do Not extended Crush" release With food and full glass of water potassium No Notes: Memori a chloride 20 05-24 (Same as: l mEq oral 14:00: K-Dur [...] 30 day, Stop date: 06/23/17 8:03:00 CDT sodium 2016- No 1,000 mL, Memori a chloride 7-09 Rate: 75 l 0.9% 1000 13:04: ml/hr, Alfredo n ml INJ 00 Infuse 1,000 mL over: 13.3 hr, Route: IV, Dosing Weight 55.909 kg, Total Volume: 1,000, Start date: 05/24/17 8:04:00 CDT, Duration: 30 day, Stop date: 06/23/17 8:03:00 CDT potassium No Notes: Memori a chloride 7-08 Infuse at l 16:00: a rate of [place] 00 10 mEq/hr. (Same as: KCL) potassium No Notes: Memori a chloride 7-08 Infuse at l 16:00: a rate of [place] 00 10 mEq/hr. (Same as: KCL) potassium No Notes: Memori a chloride 7-08 (Same as: l 14:32: K-Dur 20) Chemo 00 "Do Not Crush" With food and full glass of water potassium No Notes: Memori a phosphate + 7-08 (Same as: l sodium 14:32: K Chemo chloride 00 Phosphate. 0.9% INJ ) 1 mMol 250 mL phoshate has 1.47 mEq potassium Infuse over 4 hours potassium No Notes: Memori a phosphate-s 7-08 (Same as: l odium 14:32: Phos-NaK) [place] phosphate 00 Each 1.5 250 mg-280 gm [...] WASTE: F/P l 14:32: - Sink; E [place] - [facility] Calcium No Notes: Memoria Gluconate 05-23 WASTE: F/P l 14:32: - Sink; E Chemo 00 - [facility] Magnesium No Notes: Memori a Oxide 05-23 (Same as: l 14:32: Mag-Ox [place] 00 400) Magnesium oxide [id number] g elemental magnesium Dose=____m g magnesium oxide (___mg elemental magnesium) potassium No Notes: Memori a chloride 05-23 (Same as: l 14:32: K-Dur 20) "Do Not Crush" With food and full glass of water potassium No Notes: Memori a phosphate + -08 (Same as: l sodium 14:32: K Chemo chloride 00 Phosphate. 0.9% INJ ) 1 mMol 250 mL phoshate has 1.47 mEq potassium Infuse over 4 hours potassium No Notes: Memori a phosphate-s -08 (Same as: l odium 14:32: Phos-NaK) phosphate Each 1.5 250 mg-280 gm pkt has mg-160 mg 250mg oral powder phosphorou for s. Mix reconstitut w/2.5oz ion water and stir. sodium No 15 mmol, 5 Memor ia phosphate + 7-08 mL, Route: l D5W 250 mL 14:32: IVPB, PRN, H ermann Dosing Weight 55.909, kg, PRN Abnormal Lab Result, For NON-ICU Patients Only., Start date: 05/23/17 9:32:00 CDT, Duration: 30 day, Stop date: 06/22/17 9:31:00 CDT Magnesium No Notes: Memori a Sulfate 05-23 WASTE: F/P l 14:32: - Sink; E [place] - [facility] Calcium No Notes: Memoria Gluconate 05-23 WASTE: F/P l 14:32: - Sink; E Chemo 00 - [facility] Magnesium No Notes: Memori a Oxide 7-08 (Same as: l 14:32: Mag-Ox Chemo 00 400) Magnesium oxide 491mu=756f g elemental magnesium Dose=____m g magnesium oxide (___mg elemental magnesium) Bacitracin No Notes: Memor ia 0.5 UNT/MG 7-06 (Same As: l / Polymyxin 22:00: Polysporin Chemo B 10 UNT/MG 00 ) Topical Ointment Bacitracin No Notes: Memor ia 0.5 UNT/MG 7-06 (Same As: l / Polymyxin 22:00: Polysporin [place] B 10 UNT/MG 00 ) Topical Ointment potassium No Notes: Memori a chloride 7-06 Infuse at l 17:00: a rate of [place] 00 10 mEq/hr. (Same as: KCL) potassium No Notes: Memori a chloride 7-06 Infuse at l 17:00: a rate of [place] 00 10 mEq/hr. (Same as: KCL) potassium No Notes: Memori a chloride 20 7-06 (Same as: l mEq oral 15:45: K-Dur 20) Herm levy tablet, 00 "Do Not extended Crush" release With food and full glass of water potassium No Notes: Memori a chloride 20 7-06 (Same as: l mEq oral 15:45: K-Dur 20) Herm levy tablet, 00 "Do Not extended Crush" release With food and full glass of water Bacitracin No 1 appl, Chase katie 05-20 Route: l 14:00: TOP, [place] 00 Daily, Drug form: OINT, Start date: 05/20/17 9:00:00 CDT, Duration: 30 day, Stop date: 06/18/17 9:00:00 CDT Nicotine No Notes: Memoria -05 (Same as: l 14:00: Habitrol) [place] 00 "Remove old patch before applicatio n of new patch" WASTE: F/P - P Waste Black; E - P Waste Black Bacitracin No 1 appl, Chase katie 7-05 Route: l 14:00: TOP, [place] 00 Daily, Drug form: OINT, Start date: 05/20/17 9:00:00 CDT, Duration: 30 day, Stop date: 06/18/17 9:00:00 CDT Nicotine No Notes: Memoria 7-05 (Same as: l 14:00: Habitrol) "Remove old patch before applicatio n of new patch" WASTE: F/P - P Waste Black; E - P Waste Black Thyroxine No Notes: Memori a 7-05 Take 1 l 11:30: hour [place] 00 before or 2 hours after meal; Enteral feeds may interefere with the absorption of this medication .(Same as:Levothr oid, Synthroid) Thyroxine No Notes: Memori a 7-05 Take 1 l 11:30: hour Chemo 00 before or 2 hours after meal; Enteral feeds may interefere with the absorption of this medication .(Same as:Levothr oid, Synthroid) Lipitor No Notes: Memoria 7-05 (Same As: l 02:00: Lipitor) [place] Trazodone No Notes: Memori a Hydrochlori 7-05 (Same As: l de 100 MG 02:00: Desyrel) Herm levy Oral Tablet 00 Lovastatin No 40 mg, Memor ia 7-05 Route: PO, l 02:00: Drug form: [place] 00 TAB, Bedtime, Dosing Weight 55.909, kg, Start date: 05/19/17 21:00:00 CDT, Duration: 30 day, Stop date: 06/17/17 21:00:00 CDT Lipitor No Notes: Memoria 7-05 (Same As: l 02:00: Lipitor) [place] Trazodone No Notes: Memori a Hydrochlori 7-05 (Same As: l de 100 MG 02:00: Desyrel) Herm levy Oral Tablet 00 Lovastatin No 40 mg, Memor ia 7-05 Route: PO, l 02:00: Drug form: [place] 00 TAB, Bedtime, Dosing Weight 55.909, kg, Start date: 05/19/17 21:00:00 CDT, Duration: 30 day, Stop date: 06/17/17 21:00:00 CDT metoprolol No Notes: Memor ia tartrate 7-04 (Same as: l 14:00: Lopressor) Furosemide No Notes: Memor ia 40 MG Oral 7-04 (Same as: l Tablet 14:00: Lasix) May Kamla nn cause GI upset. Give with food or milk. Folic Acid No Notes: Memor ia 7-04 (Same as: l 14:00: Folvite) clopidogrel No Notes: Chase katie 7-04 (Same As: l 14:00: Plavix) Fentanyl No Notes: Memoria 7-04 (Same as: l 14:00: Duragesic) Check for product integrity. Apply to intact skin "Remove old patch before applicatio n of new patch" Amitriptyli No Notes: Chase katie ne 7-04 (Same as: l 14:00: Elavil) [place] 00 Alprazolam No Notes: Memor ia 1 MG Oral 7-04 With food l Tablet 14:00: or milk [place] (Same as: Xanax) metoprolol No Notes: Memor ia tartrate 7-04 (Same as: l 14:00: Lopressor) Furosemide No Notes: Memor ia 40 MG Oral 7-04 (Same as: l Tablet 14:00: Lasix) Marcha nn cause GI upset. Give with food or milk. Folic Acid No Notes: Memor ia 7-04 (Same as: l 14:00: Folvite) clopidogrel No Notes: Chase katie 7-04 (Same As: l 14:00: Plavix) Fentanyl No Notes: Memoria 7-04 (Same as: l 14:00: Duragesic) [place] 00 Check for product integrity. Apply to intact skin "Remove old patch before applicatio n of new patch" Amitriptyli No Notes: Chase katie ne 7-04 (Same as: l 14:00: Elavil) [place] Alprazolam No Notes: Memor ia 1 MG Oral 7-04 With food l Tablet 14:00: or milk [place] 00 (Same as: Xanax) Nitroglycer No Notes: Chase katie in 0.4 MG 7-04 (Same l Sublingual 13:09: as:Nitroqu H ermann Tablet 00 ick, Nitrostat) "Do Not Crush" Sublingual tablet Nitroglycer No Notes: Chase katie in 0.4 MG 7-04 (Same l Sublingual 13:09: as:Nitroqu H ermann Tablet 00 ick, Nitrostat) "Do Not Crush" Sublingual tablet potassium No Notes: Memori a chloride 20 -04 (Same as: l mEq oral 12:56: K-Dur 20) Herm levy tablet, 00 "Do Not extended Crush" release With food and full glass of water potassium No Notes: Memori a chloride 20 7-04 (Same as: l mEq oral 12:56: K-Dur 20) Herm levy tablet, 00 "Do Not extended Crush" release With food and full glass of water clopidogrel Yes 75 mg = 1 M emoria 75 mg oral 7-03 tab, PO, l tablet 22:22: Daily, 0 [place] 00 Refill(s) clopidogrel Yes 75 mg = 1 M [...] PO, l mg oral 22:21: BID, 0 [place] tablet 00 Refill(s) lovastatin Yes 40 mg = 1 Me moria 40 mg oral 7-03 tab, PO, l tablet 22:21: Bedtime, 0 Kamla nn 00 Refill(s) Furosemide Yes 40 mg = 1 Me moria 40 MG Oral 7-03 tab, PO, l Tablet 22:21: BID, 0 [place] 00 Refill(s) Folic Acid Yes 1 mg = 1 Mem oria 1 MG Oral 7-03 tab, PO, l Tablet 22:21: Daily, 0 Chemo 00 Refill(s) Alprazolam 2017 Yes 1 mg = 1 Mem oria 1 MG Oral 7-03 tab, PO, l Tablet 22:21: BID, 0 Chemo 00 Refill(s) potassium 2017 Yes 20 mEq = 1 Me moria chloride 20 7-03 tab, PO, l mEq oral 22:21: Daily, 0 Kamla nn tablet, 00 Refill(s) extended release Metoprolol 2017 Yes 50 mg = 1 Me moria Tartrate 50 7-03 tab, PO, l mg oral 22:21: BID, 0 [place] tablet 00 Refill(s) lovastatin 2017 Yes 40 mg = 1 Me moria 40 mg oral 7-03 tab, PO, l tablet 22:21: Bedtime, 0 Kamla nn 00 Refill(s) Furosemide Yes 40 mg = 1 Me moria 40 MG Oral 7-03 tab, PO, l Tablet 22:21: BID, 0 Chemo 00 Refill(s) Folic Acid Yes 1 mg = 1 Mem oria 1 MG Oral 7-03 tab, PO, l Tablet 22:21: Daily, 0 [place] 00 Refill(s) Alprazolam Yes 1 mg = [...] tab, PO, Memoria en 325 MG / 7- Q6H, PRN l Hydrocodone 22:20: Pain Score [place] Bitartrate 00 4-6, 0 10 MG Oral Refill(s) Tablet [[place] 10/325] fentaNYL 50 Yes 50 Memori a mcg/hr 7-03 microgram/ l transdermal 22:20: hr =, TOP, Chemo film, 00 Q72H, 0 extended Refill(s) release Nitroglycer Yes 0.4 mg = 1 Memoria in 0.4 MG 7-03 tab, SL, l Sublingual 22:20: Q5Min, PRN H ermann Tablet 00 as needed for chest pain, 0 Refill(s) Trazodone Yes 100 mg = 1 Me moria Hydrochlori 7-03 tab, PO, l de 100 MG 22:20: Bedtime, 0 He rmann Oral Tablet 00 Refill(s) amitriptyli Yes 10 mg = 1 M emoria ne 10 mg 7-03 tab, PO, l oral tablet 22:20: Daily, 0 He r[place] 00 Refill(s) Acetaminoph Yes 1 tab, PO, Memoria en 325 MG / 7- Q6H, PRN l Hydrocodone 22:20: Pain Score Chemo Bitartrate 00 4-6, 0 10 MG Oral Refill(s) Tablet [[place] 10/325] fentaNYL 50 Yes 50 Memori a mcg/hr 7-03 microgram/ l transdermal 22:20: hr =, TOP, Chemo film, 00 Q72H, 0 extended Refill(s) release Nitroglycer Yes 0.4 mg = 1 Memoria in 0.4 MG 7-03 tab, SL, l Sublingual 22:20: Q5Min, PRN H ermann Tablet 00 as needed for chest pain, 0 Refill(s) levothyroxi Yes 50 Memori a ne 50 mcg 7-03 microgram l (0.05 mg) 22:19: = 1 tab, Herm levy oral tablet 00 PO, Q630AM, 0 Refill(s) levothyroxi Yes 50 Memori a ne 50 mcg 7-03 microgram l (0.05 mg) 22:19: = 1 tab, Herm levy oral tablet 00 PO, Q630AM, 0 Refill(s) Unasyn No Notes: Memoria 7-03 Dosing l 22:00: based on Ampicillin component (Same as: Unasyn) Unasyn No Notes: Memoria 7-03 Dosing l 22:00: based on Ampicillin component (Same as: Unasyn) Ondansetron No Notes: Chase katie 05-18 (Same as: l 21:45: Zofran) Chemo MEDICATION WASTE Product Size: 4 mg Product Wasted: ___ mg Morphine No 2 mg, 1 Memori a 7- mL, Route: l 21:45: IVP, Drug form: SOLN, Q4H, Dosing Weight 55.455, kg, PRN Pain Score 7-10, Start date: 05/18/17 16:45:00 CDT, Duration: 30 day, Stop date: 06/17/17 16:44:00 CDT Acetaminoph No Notes: Chase katie en 325 MG / 05-18 (Same as: l Hydrocodone 21:45: [place] Kamla nn Bitartrate 00 325/5) Do 5 MG Oral not exceed Tablet 4gm/day of acetaminop hen. Acetaminoph No Notes: Do M emoria en 05-18 not exceed l 21:45: 4 gm/day. Chemo 00 (Same as: Tylenol) Ondansetron No Notes: Chase katie 05-18 (Same as: l 21:45: Zofran) [place] 00 MEDICATION WASTE Product Size: 4 mg Product Wasted: ___ mg Morphine No 2 mg, 1 Memori a 05-18 mL, Route: l 21:45: IVP, Drug form: SOLN, Q4H, Dosing Weight 55.455, kg, PRN Pain Score 7-10, Start date: 05/18/17 16:45:00 CDT, Duration: 30 day, Stop date: 06/17/17 16:44:00 CDT Acetaminoph No Notes: Chase katie en 325 MG / 05-18 (Same as: l Hydrocodone 21:45: [place] Kamla nn Bitartrate 00 325/5) Do 5 MG Oral not exceed Tablet 4gm/day of acetaminop hen. Acetaminoph No Notes: Do M emoria en 05-18 not exceed l 21:45: 4 gm/day. [place] 00 (Same as: Tylenol) Unasyn No Notes: Memoria 05-18 Dosing l 20:12: based on [place] 00 Ampicillin component (Same as: Unasyn) Morphine No Notes: Memoria 05-18 (Same l 20:12: as:MORPhin Chemo 00 e Sulfate) Unasyn No Notes: Memoria 05-18 Dosing l 20:12: based on Chemo 00 Ampicillin component (Same as: Unasyn) Morphine No Notes: Memoria 05-18 (Same l 20:12: as:MORPhin [place] 00 e Sulfate) Vancomycin No 2000 mg: Me moria 05-18 infuse l 18:43: over 2.5 Chemo 00 hours MEDICATION WASTE Product Size: 1000 mg Product Wasted: ___ mg Vancomycin No 2000 mg: Me moria 05-18 infuse l 18:43: over 2.5 Chemo 00 hours MEDICATION WASTE Product Size: 1000 mg Product Wasted: ___ mg No known No [facility] medications ity [facility] No known No [facility] No [facility] No known No [facility] No known No [facility] albuterol albuterol No 2puff(s Q4H albuterol [facility] sulf 90 sulf 90 ) sulf 90 [...] route. alprazolam alprazolam No 1 Q1D alprazolam [facility] 0.5 mg 0.5 mg 0.5 mg Family disintegrat disintegrat disintegra Practic ing tablet ing tablet ting e Take 1 Take 1 tablet tablet tablet Take 1 every day every day tablet by oral by oral every day route. route. by oral route. amitriptyli amitriptyli No 1 Q1D amitriptyl [facility] ne 50 mg ne 50 mg ine 50 mg Fa ramses tablet Take tablet Take tablet Practic 1 tablet 1 tablet Take 1 e every day every day tablet by oral by oral every day route. route. by oral route. furosemide furosemide No 1 Q1D furosemide [facility] 20 mg 20 mg 20 mg Family tablet Take tablet Take tablet Practic 1 tablet 1 tablet Take 1 e every day every day tablet by oral by oral every day route. route. by oral route. gabapentin gabapentin No 1capsul TID gabapentin [facility] 100 mg 100 mg e(s) 100 mg Family capsule capsule capsule Practi c Take 1 Take 1 Take 1 e capsule 3 capsule 3 capsule 3 times a day times a day times a by oral by oral day by route. route. oral route. levothyroxi levothyroxi No 1capsul Q1D levothyrox [facility] ne 50 mcg ne 50 mcg e(s) ine 50 mcg Family capsule capsule capsule Practi c Take 1 Take 1 Take 1 e capsule capsule capsule every day every day every day by oral by oral by oral route. route. route. lovastatin lovastatin No 1 Q1D lovastatin [facility] 40 mg 40 mg 40 mg Family tablet Take tablet Take tablet Practic 1 tablet 1 tablet Take 1 e every day every day tablet by oral by oral every day route. route. by oral route. meloxicam meloxicam No 1 Q1D meloxicam [facility] 7.5 mg 7.5 mg 7.5 mg Family tablet Take tablet Take tablet Practic 1 tablet 1 tablet Take 1 e every day every day tablet by oral by oral every day route. route. by oral route. metoprolol metoprolol No 1capsul Q1D metoprolol [facility] succinate succinate e(s) succinate [facility] ER 25 mg ER 25 mg ER 25 mg Pra ctic capsule capsule capsule e sprinkle, sprinkle, sprinkle, ext. ext. ext. release 24 release 24 release 24 hr Take 1 hr Take 1 hr Take 1 capsule capsule capsule every day every day every day by oral by oral by oral route. route. route. potassium potassium No 1 Q1D potassium [facility] chloride ER chloride ER chloride [facility] 20 mEq 20 mEq ER 20 mEq Practi c tablet,exte tablet,exte tablet,ext e nded nded ended release release release Take 1 Take 1 Take 1 tablet tablet tablet every day every day every day by oral by oral by oral route. route. route. Symbicort Symbicort No 2puff(s BID Symbicort [facility] 160 mcg-4.5 160 mcg-4.5 ) 160 F amily mcg/actuati mcg/actuati mcg-4.5 Practic on HFA on HFA mcg/actuat e aerosol aerosol ion HFA inhaler inhaler aerosol Inhale 2 Inhale 2 inhaler puffs twice puffs twice Inhale 2 a day by a day by puffs inhalation inhalation twice a route. route. day by inhalation route. trazodone trazodone No 1 BID trazodone [facility] 100 mg 100 mg 100 mg Family tablet Take tablet Take tablet Practic 1 tablet 1 tablet Take 1 e twice a day twice a day tablet by oral by oral twice a route. route. day by oral route. Immunizations Ordered Immunization Filled Immunization Date Status Commen ts Source Name Name pneumococcal 2017-05-27 Completed [facility] 13-valent vaccine 13:58:00 Chemo pneumococcal 2017-05-27 Completed [facility] 13-valent vaccine 13:58:00 Chemo Vital Signs Vital Name Observation Time Observation Value Comments Source Systolic blood 2021-03-28 14:51:00 123 mm[Hg] Univer sity of pressure [facility] Diastolic blood 2021-03-28 14:51:00 77 mm[Hg] [facility] Heart rate 2021-03-28 14:51:00 86 /min [facility] Body temperature 2021-03-28 14:51:00 36.44 Jen [facility] Height 2020-08-31 00:00:00 67 [in_i] [facility] BMI (Body Mass 2020-08-31 00:00:00 21.1 kg/m2 [facility] Body Weight 2020-08-31 00:00:00 135 [lb_av] [facility] Systolic (mm Hg) 2017-05-27 13:42:00 Chase Mclain Diastolic (mm Hg) 2017-05-27 13:42:00 Mem oritiffany Mclain Heart Rate 2017-05-27 13:42:00 [facility] Chemo Respitory Rate 2017-05-27 13:42:00 Holly Mcnally Temperature Oral (F) 2017-05-27 13:42:00 98.1 F [facility] [place] Respitory Rate 2017-05-27 09:00:00 Holly Mcnally Systolic (mm Hg) 2017-05-27 09:00:00 Chase rial [place] Diastolic (mm Hg) 2017-05-27 09:00:00 Mem orial [place] Heart Rate 2017-05-27 09:00:00 [facility] Chemo Temperature Oral (F) 2017-05-27 09:00:00 [facility].4 [facility] Respitory Rate 2017-05-27 05:00:00 Holly allen [place] Systolic (mm Hg) 2017-05-27 05:00:00 Chase cullen [facility] Diastolic (mm Hg) 2017-05-27 05:00:00 Mem orial [place] Heart Rate 2017-05-27 05:00:00 [facility] Temperature Oral (F) 2017-05-27 05:00:00 99.0 F [facility] [place] BMI Calculated 2017-05-19 00:40:00 Blossomdotty allen [place] Weight 2017-05-19 00:40:00 [facility] Height 2017-05-19 00:40:00 170.18 cm [facility] [place] Weight 2017-05-18 18:42:00 [facility] [place] Procedures Procedure Date / Time Performed Performing Clinician [facility] e EXTERNAL PROVIDER 2022-03-15 05:01:00 Doctor Unassigned, No [facility] [place] [facility] EXTERNAL PROVIDER 2021-04-02 05:01:00 Doctor Unassigned, No [facility] [place] [facility] EXTERNAL PROVIDER 2021-03-04 05:01:00 Doctor Unassigned, No [facility] [place] [facility] Encounters Start End Encounter Admission Attending Care Care Encounter Source Date/Time Date/Time Type Type Clinicians Facility Department ID 2021-08-24 Inpatient [facility] Orthopaedic [id number] 10:52:58 [facility] 2022-04-20 2022-04-20 Outpatient Samina-Mbayo VFP VFP [id number] [facility] 12:50:00 12:50:00 _A_AH Family Practic e 2022-03-16 2022-03-16 Outpatient Samina-Mbayo VFP VFP [id number] [facility] 12:55:00 12:55:00 _A_AH Family Practic e 2022-03-15 2022-03-15 Orders Doctor MENDIETA 1.2.840.114 [id number] [facility] 00:00:00 00:00:00 Only Unassigned, YARY 350.1.13.10 [facility] [place] [facility] 4.2.7.2.686 Joe as [phone] [address] 2021-04-02 2021-04-02 Orders Doctor ANAM 1.2.840.114 [id number] [facility] 00:00:00 00:00:00 Only Unassigned, YARY 350.1.13.10 [facility] [place] [facility] 4.2.7.2.686 Joe as [phone] [address] 2021-03-28 2021-03-28 [facility] 1.2.166.005 [id number] Univers 09:42:53 09:54:12 Visit Luis [facility] 350.1.13.10 it y of Surgical 4.2.7.2.686 Joe as Specialti [phone] Ne dical [address] [facility] 2021-03-28 2021-03-28 [facility] [id number] Univers 09:45:00 09:45:00 [facility] 2021-03-13 2021-03-13 [facility] [address] [place] [address] 03:29:00 03:29:00 _A_AH 54646 Family Practic e 2021-03-04 2021-03-04 Orders Doctor ANAM 1.2.840.114 [id number] Univers 00:00:00 00:00:00 Only Unassigned, YARY 350.1.13.10 [facility] [place] [facility] 4.2.7.2.686 Joe as [phone] [address] 2021-02-14 2021-02-14 [facility] NUT [id number] Univers 00:00:00 00:00:00 [facility] 2020-12-14 2020-12-[address] [id number] [place] 12:14:00 12:14:00 _A_AH 15610 Family Practic e 2020-11-05 2020-11-05 [facility] Tarun Munoz [facility] 1.2.840.114 [id number] 11:30:00 23:59:00 Encounter Nirav Verdugo 350.1.13.10 [place] 4.2.7.2.686 [place] [id number] [facility] 2020-11-05 2020-11-05 [facility] 1.2.840.114 [id number] Univers 11:30:00 23:59:00 Encounter [facility] Verdu[facility].10 [facility] 4.2.7.2.686 [facility] [id number] [address] 2020-11-05 2020-11-05 Outpatient [facility] [id number] [facility]:00[facility]00 [facility] 2020-09-12 2020-09-12 Outpatient Samina-Mbayo VFP VFP [id number] [facility] 10:33:00 10:33:00 _A_AH 27722 Family Practic e 2020-09-07 2020-09-07 Outpatient Samina-Mbayo VFP VFP 794 [id number] [place] 06:11:00 06:11:00 _A_AH 98707 Family Practic e 2020-09-05 2020-09-05 Outpatient Samina-Mbayo VFP VFP 794 [id number] [place] 09:23:00 09:23:00 _A_AH 10375 Family Practic e 2020-09-04 2020-09-04 Outpatient Samina-Mbayo VFP VFP 794 [id number] [place] 09:33:00 09:33:00 _A_AH 09058 Family Practic e 2020-08-31 2020-08-31 [place] VFP [place] - [id number] V illage 00:00:00 00:00:00 Samina-Mbay [place] F[facility] mello morales BRANNER MACHINE TENDER: Medical - Practi c [address] VM_[email or web address]_[email or web address]_ e [facility], [address] [address], [place] [address] , Ph. 2020-08-25 2020-08-25 Outpatient Samina-Mbayo VFP VFP [id number] [id number] [facility] 12:39:00 12:39:00 _A_AH 20035 Family Practic e 2020-08-22 2020-08-22 Outpatient Samina-Mbayo VFP VFP [id number] [facility] 11:29:00 11:29:00 _A_AH 62670 Family Practic e 2020-08-21 2020-08-21 Outpatient Samina-Mbayo VFP VFP [id number] [facility] 08:53:00 08:53:00 _A_AH 48642 Family Practic e 2020-07-28 2020-07-28 Outpatient Samina-Mbayo VFP VFP [id number] [facility] 12:21:00 12:21:00 _A_AH 83599 Family Practic e 2020-07-13 2020-07-13 Outpatient Samina-Mbayo VFP VFP [id number] [facility] 07:53:00 07:53:00 _A_AH 64443 Family Practic e 2020-07-05 2020-07-05 Outpatient Samina-Mbayo VFP VFP [id number] [facility] 10:53:00 10:53:00 _A_AH 47843 Family Practic e 2020-07-04 2020-07-04 Outpatient Samina-Mbayo VFP VFP [id number] [facility] 10:27:00 10:27:00 _A_AH 28545 Family Practic e 2020-07-02 2020-07-02 [place] VFP [place] - [id number] V illage 00:00:00 00:00:00 SaminaMela [facility] Fam mello morales BRANNER MACHINE TENDER: Medical - Practi c [address] VM_[email or web address]_V@H_ e [facility], [place] [address], [place] [address] , Ph. 2020-06-27 2020-06-27 Outpatient Samina-Mbayo VFP VFP [id number] [facility] 07:09:00 07:09:00 _A_AH 75863 Family Practic e 2020-06-22 2020-06-22 Outpatient Samina-Mbayo VFP VFP [id number] [facility] 12:59:00 12:59:00 _A_AH 13355 Family Practic e 2020-06-20 2020-06-20 Outpatient Samina-Mbayo VFP VFP [id number] [facility] 06:16:00 06:16:00 _A_AH 11119 Family Practic e 2020-06-18 2020-06-18 Outpatient RYAN FIGUEROA [facility] [id number] Univers 14:50:44 23:59:00 ity [facility] 2020-06-18 2020-06-18 Producer Assistant Livan [facility] 1.2.840.114 [id number] 14:44:53 14:59:53 Visit Lab Main [place] 350.1.13.10 [place] 4.2.7.2.686 Professio [phone] [address] 2020-06-18 2020-06-18 Producer Assistant Livan [facility] Lab Main [facility] 1.2.8 40.114 [id number] Univers 14:44:53 14:59:53 Visit Ryan Lieberman [place] [facility].13.10 [facility] 4.2.7.2.686 Joethea luu Professio [id number] Ne dical [address] 2020-06-01 2020-06-01 Outpatient Samnia-Mbayo VFP VFP [id number] 07:09:00 07:09:00 _A_AH 60268 Family Practic e 2020-05-28 2020-05-28 [place] VFP [place] - [id number] [place] ill[place] 00:00:00 00:00:00 Samina-Mbay [facility] Fam mello morales BRANNER MACHINE TENDER: Medical - Practi keyon [address] YEUNG_HOU_V@_ e [facility], [place] [address], [place] [address] , Ph. 2020-05-18 2020-05-18 Outpatient Samina-Mbayo VFP VFP [id number] 12:40:00 12:40:00 _A_AH 69725 Family Practic e 2020-04-13 2020-04-13 Outpatient Samina-Mbayo VFP VFP [address] 12:53:00 12:53:00 _A_AH 49243 Family Practic e 2020-03-08 2020-03-08 Outpatient Samina-Mbayo VFP VFP [address] 10:27:00 10:27:00 _A_AH 34329 Family Practic e 2020-03-07 2020-03-07 Outpatient Samina-Mbayo VFP VFP [address] 06:42:00 06:42:00 _A_AH 02020 Family Practic e 2020-02-13 2020-02-13 [place] VFP [place] - [id number] [place] 00:00:00 00:00:00 Mickey [facility] Jourdan morales BRANNER MACHINE TENDER: Medical - Practi keyon [address] VM_HOU_V@H_ e [facility], [address] [place] [address], [place] [address] , Ph. 2020-02-02 2020-02-02 Outpatient Dodie VFP VFP 794 [id number] [facility] 02:33:00 02:33:00 _A_AH 74850 Family Practic e 2017-05-18 2017-05-27 Inpatient [facility] [id number] Mem[facility] 18:25:00 16:02:00 r [place] 00 l [facility] 2017-05-18 2017-05-27 Inpatient [facility] [id number] Mem[facility] 18:25:00 16:02:00 r Chemo 00 l [facility] 2017-05-18 2017-05-27 Outpatient [place], [facility] [id number] 13:25:00 11:02:00 Pastor 00 Faiz Results Test Description Test Time Test Comments Results Result Comments Source [facility] 2017-05-26 17:29:00 Test Item Value Reference Range Interpretation Comme nts Potassium Lvl (test code = Potassium Lvl) 3.7 3.5-5.1 [facility]pfipwuWHGQKJPZDBQE5996-72-50 17:29:00 Test Item Value Reference Range Interpretation Comments Potassium Lvl (test code = Potassium 3.7 3.5-5.1 Lvl) [facility] HospitalMjguhkkMONJRMGTGNCW4138-29-61 09:48:36 Test Item Value Reference Range Interpretation Comments AGAP (test code = AGAP) 9.1 10.0-20.0 [facility] HospitalEoibzqpEPFGLYDNXVFV3410-07-67 09:48:36 Test Item Value Reference Range Interpretation Comments Calcium Lvl (test code = Calcium Lvl) 8.7 8.5-10.5 [facility] HospitalGnkibxcEWGDWXHJKSFL7979-29-31 09:48:36 Test Item Value Reference Range Interpretation Comments Potassium Lvl (test code = Potassium 3.1 3.5-5.1 Lvl) [facility] HospitalTxfbmftYVMOCBDTOGNB5898-38-11 09:48:36 Test Item Value Reference Range Interpretation Comments Sodium Lvl (test code = Sodium Lvl) 139 135-145 [facility] HospitalIlwggbdZFGGINPKSCFE4129-29-00 09:48:36 Test Item Value Reference Range Interpretation Comments eGFR (test code = eGFR) 87 [facility] HospitalIlqwswqDKCHDOZOVCXK0107-47-96 09:48:36 Test Item Value Reference Range Interpretation Comments CO2 (test code = CO2) 31 24-32 [facility] HospitalYdttszlUKIJRDHEOITN7491-45-17 09:48:36 Test Item Value Reference Range Interpretation Comments Chloride Lvl (test code = Chloride Lvl) 102 95-109 [facility] HospitalTpokrceOHMWJVKQCFGY4516-81-02 09:48:36 Test Item Value Reference Range Interpretation Comments Glucose Lvl (test code = Glucose Lvl) 89 70-99 [facility] HospitalDkyltydUALQNXUWFOAD0632-45-33 09:48:36 Test Item Value Reference Range Interpretation Comments BUN (test code = BUN) 11 7-22 [facility] HospitalBowlasmUHBTOWGMAUMG3953-67-53 09:48:36 Test Item Value Reference Range Interpretation Comments Creatinine Lvl (test code = Creatinine 0.59 0.50-1.40 Lvl) [facility]QpkmlgfZMMCIDRAPP8023-34-63 09:48:36 Test Item Value Reference Range Interpretation Comments Hct (test code = Hct) 28.2 36.0-48.0 [facility]neFfxfzbzJMLERTLOLB2388-99-10 09:48:36 Test Item Value Reference Range Interpretation Comments MCH (test code = MCH) 31.5 pg 27.0-31.0 [facility]neYklypksCHLUVLWQWO4152-89-23 09:48:36 Test Item Value Reference Range Interpretation Comments Basophils # (test code 0.1 See_Comment [Aut omated message] The = Basophils #) system which generated this result tra nsmitted reference range : <=0.2. The reference r tye was not used to int erpret this result as normal/abnormal . [facility] HospitalZoufnxjTCGWILNPKCUD5247-51-53 09:48:36 Test Item Value Reference Range Interpretation Comments AGAP (test code = AGAP) 9.1 10.0-20.0 [facility] HospitalUazougxHGGBEZDIDSFE5021-90-15 09:48:36 Test Item Value Reference Range Interpretation Comments Calcium Lvl (test code = Calcium Lvl) 8.7 8.5-10.5 [facility] HospitalTyblifjZTFEPACSKMON9597-75-60 09:48:36 Test Item Value Reference Range Interpretation Comments Potassium Lvl (test code = Potassium 3.1 3.5-5.1 Lvl) [facility] HospitalCuluwfcGKRLITLFWLTZ1183-29-57 09:48:36 Test Item Value Reference Range Interpretation Comments Sodium Lvl (test code = Sodium Lvl) 139 135-145 [facility]neNdqxaywDCROGINISH1755-65-13 09:48:36 Test Item Value Reference Range Interpretation Comments Hgb (test code = Hgb) 9.8 12.0-16.0 [facility] HospitalUdivrhrTJXZVONIKKLG1530-50-24 09:48:36 Test Item Value Reference Range Interpretation Comments eGFR (test code = eGFR) 87 [facility] HospitalZehutgrHBXAJABWBFTY2082-21-08 09:48:36 Test Item Value Reference Range Interpretation Comments CO2 (test code = CO2) 31 24-32 [facility] HospitalBwpeznkDOQFHOMWWNXF1489-84-92 09:48:36 Test Item Value Reference Range Interpretation Comments Chloride Lvl (test code = Chloride Lvl) 102 95-109 [facility] HospitalAkvzdepNXMZASLWQCCT8791-74-36 09:48:36 Test Item Value Reference Range Interpretation Comments Glucose Lvl (test code = Glucose Lvl) 89 70-99 [facility] HospitalNjeqmodICCRKOMOVPEK5555-10-71 09:48:36 Test Item Value Reference Range Interpretation Comments BUN (test code = BUN) 11 7-22 [facility] HospitalDrvuweaCPBDIJEPUBWC2850-48-85 09:48:36 Test Item Value Reference Range Interpretation Comments Creatinine Lvl (test code = Creatinine 0.59 0.50-1.40 Lvl) [facility]neMdorhyeTXCFSAAMQU0181-35-94 09:48:36 Test Item Value Reference Range Interpretation Comments Hct (test code = Hct) 28.2 36.0-48.0 [facility]neOycgbabUNFTNKQHZV6724-41-07 09:48:36 Test Item Value Reference Range Interpretation Comments MCH (test code = MCH) 31.5 pg 27.0-31.0 [facility]neYlwkywcGDLMIRAUCH0209-74-18 09:48:36 Test Item Value Reference Range Interpretation Comments Hgb (test code = Hgb) 9.8 12.0-16.0 [facility]neShzaoocXYTKGQMGZX0764-55-15 09:48:36 Test Item Value Reference Range Interpretation Comments MCHC (test code = MCHC) 35.0 32.0-36.0 [facility]neTpzlxqlCTQLYAJLJE8145-78-65 09:48:36 Test Item Value Reference Range Interpretation Comments MCV (test code = MCV) 90.0 80.0-98.0 [facility] Cle[facility]neVhtaiboTEGWNFTBFW9905-35-49 09:48:36 Test Item Value Reference Range Interpretation Comments RDW (test code = RDW) 12.8 11.5-14.5 [facility]neGvkdgcpQIVDQNDACK8388-69-10 09:48:36 Test Item Value Reference Range Interpretation Comments Platelet (test code = Platelet) 274 133-450 [facility]neRrqhxmbRQKWDYJBDR1964-49-12 09:48:36 Test Item Value Reference Range Interpretation Comments MPV (test code = MPV) 8.1 7.4-10.4 [facility]neQuwbasnHECRFHXPSD6032-32-09 09:48:36 Test Item Value Reference Range Interpretation Comments WBC (test code = WBC) 6.6 3.7-10.4 [facility] Cle[facility]neZaiolmuBEUBBVKUYS1249-63-12 09:48:36 Test Item Value Reference Range Interpretation Comments RBC (test code = RBC) 3.13 4.20-5.40 [facility] Cle[facility]neDmatquoKSZTPKEMKF8166-66-68 09:48:36 Test Item Value Reference Range Interpretation Comments Segs (test code = Segs) 47.9 45.0-75.0 [facility] Cle[facility]neSuhjjucFZSCORDCFL9857-72-19 09:48:36 Test Item Value Reference Range Interpretation Comments Lymphocytes (test code = Lymphocytes) 31.3 20.0-40.0 [facility] Cle[facility]neNugxqbrXCADGYKKAZ8443-58-89 09:48:36 Test Item Value Reference Range Interpretation Comments Monocytes (test code = Monocytes) 14.8 2.0-12.0 [facility] Cle[facility]neOmwzmolBVTFNJUWVY3412-75-88 09:48:36 Test Item Value Reference Range Interpretation Comments Eosinophils (test code = 5.2 See_Comment [A utomated message] The Eosinophils) system which ge nerated this result tra nsmitted reference range : <=4.0. The reference r tye was not used to int erpret this result as normal/abnormal . [facility]neMekzknlSRSPDOIPKD1934-65-31 09:48:36 Test Item Value Reference Range Interpretation Comments Segs-Bands # (test code = Segs-Bands #) 3.1 1.5-8.1 [facility] CleburneZkzeiukVFUSFVOBIO2924-98-70 09:48:36 Test Item Value Reference Range Interpretation Comments Basophils (test code = 0.8 See_Comment [Aut omated message] The Basophils) system which ge nerated this result tra nsmitted reference range : <=1.0. The reference r tye was not used to int erpret this result as normal/abnormal . [facility]neCcggbnjRMYVEKDZGJ1878-68-19 09:48:36 Test Item Value Reference Range Interpretation Comments Eosinophils # (test code 0.3 See_Comment [A utomated message] The = Eosinophils #) system whic h generated this result tra nsmitted reference range : <=0.5. The reference r tye was not used to int erpret this result as normal/abnormal . [facility]neKkbggwaWRQPMKCLXM9584-04-44 09:48:36 Test Item Value Reference Range Interpretation Comments Monocytes # (test code 1.0 See_Comment [Aut omated message] The = Monocytes #) system which generated this result tra nsmitted reference range : <=0.8. The reference r tye was not used to int erpret this result as normal/abnormal . [facility] Cle[facility]neNvekoldHIGUPXPMLP7401-70-04 09:48:36 Test Item Value Reference Range Interpretation Comments Lymphocytes # (test code = Lymphocytes 2.1 1.0-5.5 #) [facility]neKtdhbxmAOFXRCYBRS9134-12-97 09:48:36 Test Item Value Reference Range Interpretation Comments MCHC (test code = MCHC) 35.0 32.0-36.0 [facility] Cle[facility]neLqfkubdUJFCQSWRRO0867-31-33 09:48:36 Test Item Value Reference Range Interpretation Comments MCV (test code = MCV) 90.0 80.0-98.0 [facility]neOipdzzmGKJFDCGOOO0803-81-69 09:48:36 Test Item Value Reference Range Interpretation Comments RDW (test code = RDW) 12.8 11.5-14.5 [facility] CleburneZvaajosSTUSWAKAIS3699-94-67 09:48:36 Test Item Value Reference Range Interpretation Comments Platelet (test code = Platelet) 274 133-450 [facility] CleburneSbypyvmZFPRUXMGXD9575-62-40 09:48:36 Test Item Value Reference Range Interpretation Comments MPV (test code = MPV) 8.1 7.4-10.4 [facility] Cle[facility]neMyruvkxHYTMWISJCL9124-58-46 09:48:36 Test Item Value Reference Range Interpretation Comments WBC (test code = WBC) 6.6 3.7-10.4 [facility]neNvhscbfDKQBYWJTXM3190-34-35 09:48:36 Test Item Value Reference Range Interpretation Comments RBC (test code = RBC) 3.13 4.20-5.40 [facility] CleburneRtcpshiKIVMCUYYQK9600-98-93 09:48:36 Test Item Value Reference Range Interpretation Comments Segs (test code = Segs) 47.9 45.0-75.0 [facility] Cle[facility]neHqaekrcBFMGSJYAST0858-66-55 09:48:36 Test Item Value Reference Range Interpretation Comments Lymphocytes (test code = Lymphocytes) 31.3 20.0-40.0 [facility] Cle[facility]neAyhnkflYIVSTNGZMF3375-14-76 09:48:36 Test Item Value Reference Range Interpretation Comments Monocytes (test code = Monocytes) 14.8 2.0-12.0 [facility] Cle[facility]neVafvxjwKKSCTUTYJL1334-01-84 09:48:36 Test Item Value Reference Range Interpretation Comments Eosinophils (test code = 5.2 See_Comment [A utomated message] The Eosinophils) system which ge nerated this result tra nsmitted reference range : <=4.0. The reference r tye was not used to int erpret this result as normal/abnormal . [facility] CleburneAetpxyiPXZDEDIFFT6655-44-00 09:48:36 Test Item Value Reference Range Interpretation Comments Segs-Bands # (test code = Segs-Bands #) 3.1 1.5-8.1 [facility] CleburneBmjjinqNXWUPOGPDS4498-88-63 09:48:36 Test Item Value Reference Range Interpretation Comments Basophils (test code = 0.8 See_Comment [Aut omated message] The Basophils) system which ge nerated this result tra nsmitted reference range : <=1.0. The reference r tye was not used to int erpret this result as normal/abnormal . [facility] Cle[facility]neOjaakvfTXYTBNABOF5431-89-07 09:48:36 Test Item Value Reference Range Interpretation Comments Eosinophils # (test code 0.3 See_Comment [A utomated message] The = Eosinophils #) system whic h generated this result tra nsmitted reference range : <=0.5. The reference r tye was not used to int erpret this result as normal/abnormal . [facility] CleburneBaelscvLZMJSINIVV0942-30-58 09:48:36 Test Item Value Reference Range Interpretation Comments Monocytes # (test code 1.0 See_Comment [Aut omated message] The = Monocytes #) system which generated this result tra nsmitted reference range : <=0.8. The reference r tye was not used to int erpret this result as normal/abnormal . [facility] CleburneUeqpmimKXEVQKGXZA3736-50-79 09:48:36 Test Item Value Reference Range Interpretation Comments Lymphocytes # (test code = Lymphocytes 2.1 1.0-5.5 #) [facility] CleburneDjvhpxgGFKJHYCCDX3025-54-24 09:48:36 Test Item Value Reference Range Interpretation Comments Basophils # (test code 0.1 See_Comment [Aut omated message] The = Basophils #) system which generated this result tra nsmitted reference range : <=0.2. The reference r tye was not used to int erpret this result as normal/abnormal . [facility]2017-07-10 15:09:00 Test Item Value Reference Range Interpretation Comments eGFR (test code = eGFR) 85 [facility]2017-07-10 15:09:00 Test Item Value Reference Range Interpretation Comments Sodium Lvl (test code = Sodium Lvl) 140 135-145 [facility]2017-07-10 15:09:00 Test Item Value Reference Range Interpretation Comments Creatinine Lvl (test code = Creatinine 0.64 0.50-1.40 Lvl) [facility]2017-07-10 15:09:00 Test Item Value Reference Range Interpretation Comments BUN (test code = BUN) 11 7-22 [facility]2017-07-10 15:09:00 Test Item Value Reference Range Interpretation Comments Chloride Lvl (test code = Chloride Lvl) 103 95-109 [facility]2017-07-10 15:09:00 Test Item Value Reference Range Interpretation Comments Potassium Lvl (test code = Potassium 3.3 3.5-5.1 Lvl) [facility]2017-07-10 15:09:00 Test Item Value Reference Range Interpretation Comments Glucose Lvl (test code = Glucose Lvl) 83 70-99 [facility]2017-07-10 15:09:00 Test Item Value Reference Range Interpretation Comments CO2 (test code = CO2) 29 24-32 [facility]2017-07-10 15:09:00 Test Item Value Reference Range Interpretation Comments Calcium Lvl (test code = Calcium Lvl) 8.0 8.5-10.5 [facility]2017-07-10 15:09:00 Test Item Value Reference Range Interpretation Comments AGAP (test code = AGAP) 11.3 10.0-20.0 [facility]2017-07-10 15:09:00 Test Item Value Reference Range Interpretation Comments eGFR (test code = eGFR) 85 [facility]2017-07-10 15:09:00 Test Item Value Reference Range Interpretation Comments Sodium Lvl (test code = Sodium Lvl) 140 135-145 [facility]2017-07-10 15:09:00 Test Item Value Reference Range Interpretation Comments Creatinine Lvl (test code = Creatinine 0.64 0.50-1.40 Lvl) [facility]2017-07-10 15:09:00 Test Item Value Reference Range Interpretation Comments BUN (test code = BUN) 11 7-22 [facility]2017-07-10 15:09:00 Test Item Value Reference Range Interpretation Comments Chloride Lvl (test code = Chloride Lvl) 103 95-109 [facility]2017-07-10 15:09:00 Test Item Value Reference Range Interpretation Comments Potassium Lvl (test code = Potassium 3.3 3.5-5.1 Lvl) [facility]2017-07-10 15:09:00 Test Item Value Reference Range Interpretation Comments Glucose Lvl (test code = Glucose Lvl) 83 70-99 [facility]2017-07-10 15:09:00 Test Item Value Reference Range Interpretation Comments CO2 (test code = CO2) 29 24-32 [facility]2017-07-10 15:09:00 Test Item Value Reference Range Interpretation Comments Calcium Lvl (test code = Calcium Lvl) 8.0 8.5-10.5 [facility]2017-07-10 15:09:00 Test Item Value Reference Range Interpretation Comments AGAP (test code = AGAP) 11.3 10.0-20.0 [facility]2017-07-10 12:31:00 Test Item Value Reference Range Interpretation Comments eGFR (test code = eGFR) 90 [facility]2017-07-10 12:31:00 Test Item Value Reference Range Interpretation Comments Calcium Lvl (test code = Calcium Lvl) 6.4 8.5-10.5 [facility]2017-07-10 12:31:00 Test Item Value Reference Range Interpretation Comments AGAP (test code = AGAP) 20.4 10.0-20.0 [facility]2017-07-10 12:31:00 Test Item Value Reference Range Interpretation Comments CO2 (test code = CO2) 25 24-32 [facility]2017-07-10 12:31:00 Test Item Value Reference Range Interpretation Comments Glucose Lvl (test code = Glucose Lvl) 69 70-99 [facility]2017-07-10 12:31:00 Test Item Value Reference Range Interpretation Comments Sodium Lvl (test code = Sodium Lvl) 155 135-145 [facility]2017-07-10 12:31:00 Test Item Value Reference Range Interpretation Comments BUN (test code = BUN) 10 7-22 [facility]2017-07-10 12:31:00 Test Item Value Reference Range Interpretation Comments Chloride Lvl (test code = Chloride Lvl) 112 95-109 [facility]2017-07-10 12:31:00 Test Item Value Reference Range Interpretation Comments Creatinine Lvl (test code = Creatinine 0.55 0.50-1.40 Lvl) [facility]WNXLTARW7881-47-99 12:31:00 Test Item Value Reference Range Interpretation Comments Hct (test code = Hct) 25.0 36.0-48.0 [facility]CvphcufWRXLUGPSAM4853-64-62 12:31:00 Test Item Value Reference Range Interpretation Comments MCV (test code = MCV) 90.5 80.0-98.0 [facility]neNiixnigTJFWYKZEUJ0869-79-43 12:31:00 Test Item Value Reference Range Interpretation Comments Hgb (test code = Hgb) 8.4 12.0-16.0 [facility]neZncvhzrFNUIGZDONV5484-28-43 12:31:00 Test Item Value Reference Range Interpretation Comments MCH (test code = MCH) 30.4 pg 27.0-31.0 [facility]neLyuyoqtWTDFZYSUQE0456-35-74 12:31:00 Test Item Value Reference Range Interpretation Comments MCHC (test code = MCHC) 33.6 32.0-36.0 [facility]neNbxbpsdDJWFFUBVJX2254-09-38 12:31:00 Test Item Value Reference Range Interpretation Comments RDW (test code = RDW) 13.2 11.5-14.5 [facility]neIxpeqwpAENIKRLELF4634-44-57 12:31:00 Test Item Value Reference Range Interpretation Comments MPV (test code = MPV) 8.1 7.4-10.4 [facility]neFvccwggYFSWZPTYQN6554-34-26 12:31:00 Test Item Value Reference Range Interpretation Comments Platelet (test code = Platelet) 212 133-450 [facility]neZgacdczFJCGXXJRKP7903-24-70 12:31:00 Test Item Value Reference Range Interpretation Comments RBC (test code = RBC) 2.76 4.20-5.40 [facility]nePbvoxonBVXDSJRFIZ9160-58-79 12:31:00 Test Item Value Reference Range Interpretation Comments WBC (test code = WBC) 5.7 3.7-10.4 [facility]neCtcufajHFGEDHSIQG2290-99-15 12:31:00 Test Item Value Reference Range Interpretation Comments Monocytes # (test code 0.8 See_Comment [Aut omated message] The = Monocytes #) system which generated this result tra nsmitted reference range : <=0.8. The reference r tye was not used to int erpret this result as normal/abnormal . [facility]neBddzcrlHGOTXMIALY0475-83-90 12:31:00 Test Item Value Reference Range Interpretation Comments Eosinophils # (test code 0.2 See_Comment [A utomated message] The = Eosinophils #) system whic h generated this result tra nsmitted reference range : <=0.5. The reference r tye was not used to int erpret this result as normal/abnormal . [facility]neUquivrcCGIRQBMRXY0498-46-98 12:31:00 Test Item Value Reference Range Interpretation Comments Lymphocytes (test code = Lymphocytes) 26.0 20.0-40.0 [facility]neGvognygGRNGXZBBXC8257-36-98 12:31:00 Test Item Value Reference Range Interpretation Comments Segs-Bands # (test code = Segs-Bands #) 3.2 1.5-8.1 [facility]neNdqxvwpXEMEEQBROB4070-80-39 12:31:00 Test Item Value Reference Range Interpretation Comments Lymphocytes # (test code = Lymphocytes 1.5 1.0-5.5 #) [facility]neAxiathxKQWLGSDEYN1745-04-85 12:31:00 Test Item Value Reference Range Interpretation Comments Eosinophils (test code = 3.7 See_Comment [A utomated message] The Eosinophils) system which ge nerated this result tra nsmitted reference range : <=4.0. The reference r tye was not used to int erpret this result as normal/abnormal . [facility]neLvlkpisGZXNTKMJYI1368-20-03 12:31:00 Test Item Value Reference Range Interpretation Comments Monocytes (test code = Monocytes) 14.4 2.0-12.0 [facility]neSvvvpopVCTQHISBCN8249-74-02 12:31:00 Test Item Value Reference Range Interpretation Comments Basophils (test code = 0.5 See_Comment [Aut omated message] The Basophils) system which ge nerated this result tra nsmitted reference range : <=1.0. The reference r tye was not used to int erpret this result as normal/abnormal . [facility]neNbgfznnRVHRZROVOQ2808-50-20 12:31:00 Test Item Value Reference Range Interpretation Comments Segs (test code = Segs) 55.4 45.0-75.0 [facility]2017-07-10 12:31:00 Test Item Value Reference Range Interpretation Comments eGFR (test code = eGFR) 90 [facility]2017-07-10 12:31:00 Test Item Value Reference Range Interpretation Comments Calcium Lvl (test code = Calcium Lvl) 6.4 8.5-10.5 [facility]2017-07-10 12:31:00 Test Item Value Reference Range Interpretation Comments AGAP (test code = AGAP) 20.4 10.0-20.0 [facility]2017-07-10 12:31:00 Test Item Value Reference Range Interpretation Comments CO2 (test code = CO2) 25 24-32 [facility]2017-07-10 12:31:00 Test Item Value Reference Range Interpretation Comments Glucose Lvl (test code = Glucose Lvl) 69 70-99 [facility]2017-07-10 12:31:00 Test Item Value Reference Range Interpretation Comments Sodium Lvl (test code = Sodium Lvl) 155 135-145 [facility]2017-07-10 12:31:00 Test Item Value Reference Range Interpretation Comments BUN (test code = BUN) 10 7-22 [facility]2017-07-10 12:31:00 Test Item Value Reference Range Interpretation Comments Chloride Lvl (test code = Chloride Lvl) 112 95-109 [facility]2017-07-10 12:31:00 Test Item Value Reference Range Interpretation Comments Creatinine Lvl (test code = Creatinine 0.55 0.50-1.40 Lvl) [facility]neRjihiqbKBEYEWXNAV7618-32-17 12:31:00 Test Item Value Reference Range Interpretation Comments Hct (test code = Hct) 25.0 36.0-48.0 [facility]nePniwjtwUSSQITGWYQ6566-99-41 12:31:00 Test Item Value Reference Range Interpretation Comments MCV (test code = MCV) 90.5 80.0-98.0 [facility]neLvfksnqWNXAYKXHWL2356-41-72 12:31:00 Test Item Value Reference Range Interpretation Comments Hgb (test code = Hgb) 8.4 12.0-16.0 [facility]neMjhaqfrHCLWZSMCOC5942-71-79 12:31:00 Test Item Value Reference Range Interpretation Comments MCH (test code = MCH) 30.4 pg 27.0-31.0 [facility]neXeothlfJHHLHPTWPU3123-56-35 12:31:00 Test Item Value Reference Range Interpretation Comments MCHC (test code = MCHC) 33.6 32.0-36.0 [facility]neDqmvkgmMQOAFBDSUG2410-42-34 12:31:00 Test Item Value Reference Range Interpretation Comments RDW (test code = RDW) 13.2 11.5-14.5 [facility]neTjfxhgfVXHSSACFYE9187-38-58 12:31:00 Test Item Value Reference Range Interpretation Comments MPV (test code = MPV) 8.1 7.4-10.4 [facility]neNqoxrcxDJLQAYINLA4776-74-71 12:31:00 Test Item Value Reference Range Interpretation Comments Platelet (test code = Platelet) 212 133-450 [facility]neRerrhhqSVUTNWUCPI6915-54-35 12:31:00 Test Item Value Reference Range Interpretation Comments RBC (test code = RBC) 2.76 4.20-5.40 [facility]neCzmjbtwFFHXKNEKBU8170-44-05 12:31:00 Test Item Value Reference Range Interpretation Comments WBC (test code = WBC) 5.7 3.7-10.4 [facility]neMblqeryKWXKBGXALB6825-25-79 12:31:00 Test Item Value Reference Range Interpretation Comments Monocytes # (test code 0.8 See_Comment [Aut omated message] The = Monocytes #) system which generated this result tra nsmitted reference range : <=0.8. The reference r tye was not used to int erpret this result as normal/abnormal . [facility]neVwhkwbwXHBUQDCWJK0849-12-32 12:31:00 Test Item Value Reference Range Interpretation Comments Eosinophils # (test code 0.2 See_Comment [A utomated message] The = Eosinophils #) system whic h generated this result tra nsmitted reference range : <=0.5. The reference r tye was not used to int erpret this result as normal/abnormal . [facility]neWdluwspQELLLGYTUY8252-48-32 12:31:00 Test Item Value Reference Range Interpretation Comments Lymphocytes (test code = Lymphocytes) 26.0 20.0-40.0 [facility]neMgnkhfjEXNYZSPYEQ8918-42-95 12:31:00 Test Item Value Reference Range Interpretation Comments Segs-Bands # (test code = Segs-Bands #) 3.2 1.5-8.1 [facility]neMyzovraKKHWNEJJVH9523-47-93 12:31:00 Test Item Value Reference Range Interpretation Comments Lymphocytes # (test code = Lymphocytes 1.5 1.0-5.5 #) [facility]neSmkpctePXPNLIEKFR5082-47-35 12:31:00 Test Item Value Reference Range Interpretation Comments Eosinophils (test code = 3.7 See_Comment [A utomated message] The Eosinophils) system which ge nerated this result tra nsmitted reference range : <=4.0. The reference r tye was not used to int erpret this result as normal/abnormal . [facility]neZeovmwiLRCNIJMQXY4093-71-35 12:31:00 Test Item Value Reference Range Interpretation Comments Monocytes (test code = Monocytes) 14.4 2.0-12.0 [facility]neMvrbhclWNDKXBHDTB2830-52-51 12:31:00 Test Item Value Reference Range Interpretation Comments Basophils (test code = 0.5 See_Comment [Aut omated message] The Basophils) system which ge nerated this result tra nsmitted reference range : <=1.0. The reference r tye was not used to int erpret this result as normal/abnormal . [facility]neFjybtsnWPKVODGPEN5827-52-98 12:31:00 Test Item Value Reference Range Interpretation Comments Segs (test code = Segs) 55.4 45.0-75.0 [facility]2017-07-09 13:15:00 Test Item Value Reference Range Interpretation Comments Folate Lvl (test code = Folate Lvl) 54.1 [facility]2017-07-09 13:15:00 Test Item Value Reference Range Interpretation Comments Vitamin B12 Lvl (test code = Vitamin [phone] B12 Lvl) [facility]2017-07-09 13:15:00 Test Item Value Reference Range Interpretation Comments Folate Lvl (test code = Folate Lvl) 54.1 [facility]2017-07-09 13:15:00 Test Item Value Reference Range Interpretation Comments Vitamin B12 Lvl (test code = Vitamin [phone] B12 Lvl) [facility]neHisjtnwNUENYEFCRG7375-36-21 11:45:00 Test Item Value Reference Range Interpretation Comments MPV (test code = MPV) 7.6 7.4-10.4 [facility]neUlpvvzyBWLLGFBJCH7187-00-95 11:45:00 Test Item Value Reference Range Interpretation Comments Platelet (test code = Platelet) 232 133-450 [facility]neEwvbjleDFODRQGBFD3279-93-93 11:45:00 Test Item Value Reference Range Interpretation Comments MCV (test code = MCV) 89.7 80.0-98.0 [facility]neFurhzhbVFGWLCTVYU6520-49-29 11:45:00 Test Item Value Reference Range Interpretation Comments Hct (test code = Hct) 30.2 36.0-48.0 [facility]neOrltuerFMHZCYBWHX9749-13-87 11:45:00 Test Item Value Reference Range Interpretation Comments RDW (test code = RDW) 13.4 11.5-14.5 [facility]neQogalzbQWNFTDLKFW6040-54-58 11:45:00 Test Item Value Reference Range Interpretation Comments MCHC (test code = MCHC) 34.5 32.0-36.0 [facility]neQxiqtzzXXFLKYUIAL8926-52-45 11:45:00 Test Item Value Reference Range Interpretation Comments MCH (test code = MCH) 31.0 pg 27.0-31.0 [facility]neMkmamutDRTAQRXQPR6645-12-97 11:45:00 Test Item Value Reference Range Interpretation Comments WBC (test code = WBC) 7.2 3.7-10.4 [facility]neRfgpzhyLDBUFXCDNS6921-26-91 11:45:00 Test Item Value Reference Range Interpretation Comments Hgb (test code = Hgb) 10.4 12.0-16.0 [facility]neJjybwldIVMZQDYGPT0317-00-97 11:45:00 Test Item Value Reference Range Interpretation Comments RBC (test code = RBC) 3.36 4.20-5.40 [facility]neSdyvgzeWVVQNCAXKH0429-41-75 11:45:00 Test Item Value Reference Range Interpretation Comments Eosinophils # (test code 0.2 See_Comment [A utomated message] The = Eosinophils #) system whic h generated this result tra nsmitted reference range : <=0.5. The reference r tye was not used to int erpret this result as normal/abnormal . [facility]neQauvbnvXGWMONXMYY1176-42-75 11:45:00 Test Item Value Reference Range Interpretation Comments Monocytes # (test code 0.9 See_Comment [Aut omated message] The = Monocytes #) system which generated this result tra nsmitted reference range : <=0.8. The reference r tye was not used to int erpret this result as normal/abnormal . [facility]neEckrkkvHTUBJMRBFY1727-87-27 11:45:00 Test Item Value Reference Range Interpretation Comments Lymphocytes # (test code = Lymphocytes 1.6 1.0-5.5 #) [facility]neHmhnfqbEZEBPUXRCK3933-94-83 11:45:00 Test Item Value Reference Range Interpretation Comments Segs-Bands # (test code = Segs-Bands #) 4.4 1.5-8.1 [facility]neZvtdthmWNKHCIBJJB4044-30-57 11:45:00 Test Item Value Reference Range Interpretation Comments Lymphocytes (test code = Lymphocytes) 22.1 20.0-40.0 [facility]nePmyjpunSHYNBTGVZY6607-12-35 11:45:00 Test Item Value Reference Range Interpretation Comments Eosinophils (test code = 3.3 See_Comment [A utomated message] The Eosinophils) system which ge nerated this result tra nsmitted reference range : <=4.0. The reference r tye was not used to int erpret this result as normal/abnormal . [facility]neDdyvramZDYSZENVZP5224-72-51 11:45:00 Test Item Value Reference Range Interpretation Comments Monocytes (test code = Monocytes) 12.6 2.0-12.0 [facility]neHbgxupuQAPXMBPNFJ4001-06-64 11:45:00 Test Item Value Reference Range Interpretation Comments Basophils (test code = 0.5 See_Comment [Aut omated message] The Basophils) system which ge nerated this result tra nsmitted reference range : <=1.0. The reference r tye was not used to int erpret this result as normal/abnormal . [facility]neSqexvxuKPUUYPOITG5380-97-32 11:45:00 Test Item Value Reference Range Interpretation Comments Segs (test code = Segs) 61.5 45.0-75.0 [facility]neNfhlcbsONCACGQDZI3941-58-07 11:45:00 Test Item Value Reference Range Interpretation Comments MPV (test code = MPV) 7.6 7.4-10.4 [facility]neJuiydptDMUUREFUEP3787-62-15 11:45:00 Test Item Value Reference Range Interpretation Comments Platelet (test code = Platelet) 232 133-450 [facility]neRpvzbgcRNEOACDWJG0803-92-52 11:45:00 Test Item Value Reference Range Interpretation Comments MCV (test code = MCV) 89.7 80.0-98.0 [facility]neBpbiapwDUKTWVNWVQ0238-66-82 11:45:00 Test Item Value Reference Range Interpretation Comments Hct (test code = Hct) 30.2 36.0-48.0 [facility]neXgtmzyvXGSWFDVFGW6621-16-06 11:45:00 Test Item Value Reference Range Interpretation Comments RDW (test code = RDW) 13.4 11.5-14.5 [facility]neLoasluiYPRWKKUYGQ5942-53-79 11:45:00 Test Item Value Reference Range Interpretation Comments MCHC (test code = MCHC) 34.5 32.0-36.0 [facility]neUuejrrhJWDNAZLQZL4457-75-85 11:45:00 Test Item Value Reference Range Interpretation Comments MCH (test code = MCH) 31.0 pg 27.0-31.0 [facility]neAkaxgsnAMCMIYHKUF8342-15-40 11:45:00 Test Item Value Reference Range Interpretation Comments WBC (test code = WBC) 7.2 3.7-10.4 [facility]neSoddessYMSBNYLBPX9793-19-75 11:45:00 Test Item Value Reference Range Interpretation Comments Hgb (test code = Hgb) 10.4 12.0-16.0 [facility]neDrqtxgjEGLUCWVPUJ4226-04-05 11:45:00 Test Item Value Reference Range Interpretation Comments RBC (test code = RBC) 3.36 4.20-5.40 [facility]neWwoolgoIKRTNQCCAS9452-95-13 11:45:00 Test Item Value Reference Range Interpretation Comments Eosinophils # (test code 0.2 See_Comment [A utomated message] The = Eosinophils #) system whic h generated this result tra nsmitted reference range : <=0.5. The reference r tye was not used to int erpret this result as normal/abnormal . [facility]neXcdtvwxCXDRZWHRZU0263-38-12 11:45:00 Test Item Value Reference Range Interpretation Comments Monocytes # (test code 0.9 See_Comment [Aut omated message] The = Monocytes #) system which generated this result tra nsmitted reference range : <=0.8. The reference r tye was not used to int erpret this result as normal/abnormal . [facility]neWeuxwdjRYOTXBZZTS6983-07-92 11:45:00 Test Item Value Reference Range Interpretation Comments Lymphocytes # (test code = Lymphocytes 1.6 1.0-5.5 #) [facility]neNilihtjGEMVQNXCAG6421-77-27 11:45:00 Test Item Value Reference Range Interpretation Comments Segs-Bands # (test code = Segs-Bands #) 4.4 1.5-8.1 [facility]neBuwkqrjCDAKDCZHOV8953-82-64 11:45:00 Test Item Value Reference Range Interpretation Comments Lymphocytes (test code = Lymphocytes) 22.1 20.0-40.0 [facility]neQcjzrdmDXHXNPOHKK7894-09-93 11:45:00 Test Item Value Reference Range Interpretation Comments Eosinophils (test code = 3.3 See_Comment [A utomated message] The Eosinophils) system which ge nerated this result tra nsmitted reference range : <=4.0. The reference r tye was not used to int erpret this result as normal/abnormal . [facility]neKupoojxZHSAXRMAOQ9894-13-42 11:45:00 Test Item Value Reference Range Interpretation Comments Monocytes (test code = Monocytes) 12.6 2.0-12.0 [id number] 11:45:00 Test Item Value Reference Range Interpretation Comments Basophils (test code = 0.5 See_Comment [Aut omated message] The Basophils) system which ge nerated this result tra nsmitted reference range : <=1.0. The reference r tye was not used to int erpret this result as normal/abnormal . [facility]nodCGNZMRWDER5922-[facility]-28 11:45:00 Test Item Value Reference Range Interpretation Comments Segs (test code = Segs) 61.5 45.0-75.0 [facility] AND [id number] 20:37:00 Test Item Value Reference Range Interpretation Comments UA WBC (test code = no gt See_Comment [Automa shar message] The UA WBC) system which ge nerated this result transmit shar reference range : <=5. The reference range was not used to interpr et this result as gloria l/abnormal. [facility] AND [id number] 20:37:00 Test Item Value Reference Range Interpretation Comments UA [place] Yeast (test code = UA Occasional /HPF [place] Yeast) [facility] AND [id number] 20:37:00 Test Item Value Reference Range Interpretation Comments UA Trans Epi (test code = UA Trans Epi) 1 [facility] AND [id number] 20:37:00 Test Item Value Reference Range Interpretation Comments UA RBC (test code = 1 See_Comment [Automa shar message] The UA RBC) system which ge nerated this result transmit shar reference range : <=2. The reference range was not used to interpr et this result as gloria l/abnormal. [facility] AND [id number] 20:37:00 Test Item Value Reference Range Interpretation Comments UA Bacteria (test code = UA Occasional /HPF Bacteria) [facility] AND [id number] 20:37:00 Test Item Value Reference Range Interpretation Comments UA Leuk Est (test Negative (05/18/17 3:37 code = UA Leuk Est) PM) [facility] AND [id number] 20:37:00 Test Item Value Reference Range Interpretation Comments UA Nitrite (test code Negative (05/18/17 3:37 = UA Nitrite) PM) [facility] AND [id number] 20:37:00 Test Item Value Reference Range Interpretation Comments UA Sq Epi (test code = UA Sq Epi) Few /LPF [facility] AND [id number] 20:37:00 Test Item Value Reference Range Interpretation Comments UA Bili (test code = Negative *NA*(05/18/17 UA Bili) 3:37 PM) [facility] AND [id number] 20:37:00 Test Item Value Reference Range Interpretation Comments UA Blood (test code = Negative (05/18/17 3:37 UA Blood) PM) [facility] AND [id number] 20:37:00 Test Item Value Reference Range Interpretation Comments UA Urobilinogen (test code = UA <=1.0 mg/dL 0.1-1.0 Urobilinogen) [facility] AND [id number] 20:37:00 Test Item Value Reference Range Interpretation Comments UA Color (test code = UA Color) Ltyellow [facility] AND [id number] 20:37:00 Test Item Value Reference Range Interpretation Comments UA Glucose (test code = UA Negative mg/dL Glucose) [facility] AND [id number] 20:37:00 Test Item Value Reference Range Interpretation Comments UA Ketones (test code = UA Negative mg/dL Ketones) [facility] AND [id number] 20:37:00 Test Item Value Reference Range Interpretation Comments UA pH (test code = UA pH) 7.0 5.0-8.0 [facility] AND [id number] 20:37:00 Test Item Value Reference Range Interpretation Comments UA Protein (test code = UA Negative mg/dL Protein) [facility] AND [id number] 20:37:00 Test Item Value Reference Range Interpretation Comments UA Turbidity (test code = Clear (05/18/17 3:37 UA Turbidity) PM) [facility] AND [id number] 20:37:00 Test Item Value Reference Range Interpretation Comments UA Spec Grav (test code = UA Spec Grav) 1.009 [facility] AND [id number] 20:37:00 Test Item Value Reference Range Interpretation Comments UA WBC (test code = no gt See_Comment [Automa shar message] The UA WBC) system which ge nerated this result transmit shar reference range : <=5. The reference range was not used to interpr et this result as gloria l/abnormal. [facility] [id number] 20:37:00 Test Item Value Reference Range Interpretation Comments UA [place] Yeast (test code = UA Occasional /HPF [place] Yeast) [facility] AND [id number] 20:37:00 Test Item Value Reference Range Interpretation Comments UA Trans Epi (test code = UA Trans Epi) 1 [facility] AND [id number] 20:37:00 Test Item Value Reference Range Interpretation Comments UA RBC (test code = 1 See_Comment [Automa shar message] The UA RBC) system which ge nerated this result transmit shar reference range : <=2. The reference range was not used to interpr et this result as gloria l/abnormal. [facility] AND [id number] 20:37:00 Test Item Value Reference Range Interpretation Comments UA Bacteria (test code = UA Occasional /HPF Bacteria) [facility] AND [id number] 20:37:00 Test Item Value Reference Range Interpretation Comments UA Leuk Est (test Negative (05/18/17 3:37 code = UA Leuk Est) PM) [facility] AND [id number] 20:37:00 Test Item Value Reference Range Interpretation Comments UA Nitrite (test code Negative (05/18/17 3:37 = UA Nitrite) PM) [facility] AND [id number] 20:37:00 Test Item Value Reference Range Interpretation Comments UA Sq Epi (test code = UA Sq Epi) Few /LPF [facility] AND [id number] 20:37:00 Test Item Value Reference Range Interpretation Comments UA Bili (test code = Negative *NA*(05/18/17 UA Bili) 3:37 PM) [facility] AND [id number] 20:37:00 Test Item Value Reference Range Interpretation Comments UA Blood (test code = Negative (05/18/17 3:37 UA Blood) PM) [facility] AND [id number] 20:37:00 Test Item Value Reference Range Interpretation Comments UA Urobilinogen (test code = UA <=1.0 mg/dL 0.1-1.0 Urobilinogen) [facility] AND [id number] 20:37:00 Test Item Value Reference Range Interpretation Comments UA Color (test code = UA Color) Ltyellow [facility] AND [id number] 20:37:00 Test Item Value Reference Range Interpretation Comments UA Glucose (test code = UA Negative mg/dL Glucose) [facility] AND [id number] 20:37:00 Test Item Value Reference Range Interpretation Comments UA Ketones (test code = UA Negative mg/dL Ketones) [facility] AND [id number] 20:37:00 Test Item Value Reference Range Interpretation Comments UA pH (test code = UA pH) 7.0 5.0-8.0 [facility] AND [id number] 20:37:00 Test Item Value Reference Range Interpretation Comments UA Protein (test code = UA Negative mg/dL Protein) [facility] AND [id number] 20:37:00 Test Item Value Reference Range Interpretation Comments UA Turbidity (test code = Clear (05/18/17 3:37 UA Turbidity) PM) [facility] AND [id number] 20:37:00 Test Item Value Reference Range Interpretation Comments UA Spec Grav (test code = UA Spec Grav) 1.009 [id number] 20:20:00 Test Item Value Reference Range Interpretation Comments PTT (test code = PTT) 28.0 s 22.9-35.8 [id number] 20:20:00 Test Item Value Reference Range Interpretation Comments INR (test code = INR) 0.99 0.85-1.17 [id number] 20:20:00 Test Item Value Reference Range Interpretation Comments PT (test code = PT) 13.3 s 12.0-14.7 [id number] 20:20:00 Test Item Value Reference Range Interpretation Comments PTT (test code = PTT) 28.0 s 22.9-35.8 [id number] 20:20:00 Test Item Value Reference Range Interpretation Comments INR (test code = INR) 0.99 0.85-1.17 [id number] 20:20:00 Test Item Value Reference Range Interpretation Comments PT (test code = PT) 13.3 s 12.0-14.7 [facility] [id number] 20:19:00 Test Item Value Reference Range Interpretation Comments Troponin-I (test code 0.20 See_Comment [Auto mated message] The = Troponin-I) system which g enerated this result transmit shar reference range : <=0.40. The reference r tye was not used to interpr et this result as gloria l/abnormal. [facility] [id number] 20:19:00 Test Item Value Reference Range Interpretation Comments ALT (test code = ALT) 17 See_Comment [Auto mated message] The system which ge nerated this result transmit shar reference range : <=65. The reference range was not used to interpr et this result as gloria l/abnormal. [facility] [id number] 20:19:00 Test Item Value Reference Range Interpretation Comments AST (test code = AST) 30 See_Comment [Auto mated message] The system which ge nerated this result transmit shar reference range : <=37. The reference range was not used to interpr et this result as gloria l/abnormal. [facility] [id number] 20:19:00 Test Item Value Reference Range Interpretation Comments Albumin Lvl (test code = Albumin Lvl) 3.1 3.5-5.0 [facility] [id number] 20:19:00 Test Item Value Reference Range Interpretation Comments Alk Phos (test code = Alk Phos) 63 39-136 [facility] [id number] 20:19:00 Test Item Value Reference Range Interpretation Comments Bili Total (test code = Bili Total) 0.6 0.2-1.3 [facility] [id number] 20:19:00 Test Item Value Reference Range Interpretation Comments Total Protein (test code = Total 7.1 6.4-8.4 Protein) [facility] [id number] 20:19:00 Test Item Value Reference Range Interpretation Comments Globulin (test code = Globulin) 4.0 2.7-4.2 [facility] [id number] 20:19:00 Test Item Value Reference Range Interpretation Comments A/G Ratio (test code = A/G Ratio) 0.8 0.7-1.6 [facility] [id number] 20:19:00 Test Item Value Reference Range Interpretation Comments B/C Ratio (test code = B/C Ratio) 15 6-25 [facility] [id number] 20:19:00 Test Item Value Reference Range Interpretation Comments Lactic Acid Lvl (test code = Lactic 0.8 0.5-2.2 Acid Lvl) [facility] [id number] 20:19:00 Test Item Value Reference Range Interpretation Comments Troponin-I (test code 0.20 See_Comment [Auto mated message] The = Troponin-I) system which g enerated this result transmit shar reference range : <=0.40. The reference r tye was not used to interpr et this result as gloria l/abnormal. [facility] [id number] 20:19:00 Test Item Value Reference Range Interpretation Comments ALT (test code = ALT) 17 See_Comment [Auto mated message] The system which ge nerated this result transmit shar reference range : <=65. The reference range was not used to interpr et this result as gloria l/abnormal. [facility] [id number] 20:19:00 Test Item Value Reference Range Interpretation Comments AST (test code = AST) 30 See_Comment [Auto mated message] The system which ge nerated this result transmit shar reference range : <=37. The reference range was not used to interpr et this result as gloria l/abnormal. [facility] [id number] 20:19:00 Test Item Value Reference Range Interpretation Comments Albumin Lvl (test code = Albumin Lvl) 3.1 3.5-5.0 [facility] [id number] 20:19:00 Test Item Value Reference Range Interpretation Comments Alk Phos (test code = Alk Phos) 63 39-136 [facility] [id number] 20:19:00 Test Item Value Reference Range Interpretation Comments Bili Total (test code = Bili Total) 0.6 0.2-1.3 [facility] [id number] 20:19:00 Test Item Value Reference Range Interpretation Comments Total Protein (test code = Total 7.1 6.4-8.4 Protein) [facility] [id number] 20:19:00 Test Item Value Reference Range Interpretation Comments Globulin (test code = Globulin) 4.0 2.7-4.2 [facility] [id number] 20:19:00 Test Item Value Reference Range Interpretation Comments A/G Ratio (test code = A/G Ratio) 0.8 0.7-1.6 [facility] [id number] 20:19:00 Test Item Value Reference Range Interpretation Comments B/C Ratio (test code = B/C Ratio) 15 6-25 [facility] [id number] 20:19:00 Test Item Value Reference Range Interpretation Comments Lactic Acid Lvl (test code = Lactic 0.8 0.5-2.2 Acid Lvl) [facility]
[2022-09-05] MEDS ORDERED: NA CHLORIDE 0.9% 1,000 ML ONE (16:46)
[2022-09-05] MEDS ORDERED: NA CHLORIDE 0.9% 500 ML ONE (16:46)
[2022-09-05] MEDS ORDERED: CIPROFLOXACIN 400mg IV 400 MG/200 ML BAG IV ONE (16:46)
[2022-09-05 17:46] LABS: Absolute Lymphocytes (CBC) 1.5 K/uL (0.7-4.9); Hematocrit 31.2 % (36.0-45.0); MCV 90.3 fL (80-100); MPV 7.8 fL (7.6-11.3); RBC Red Blood Cell Count 3.46 M/uL (3.86-4.86)
[2022-09-05 17:53] LABS: Protime INR 0.95
--- NOTE | 2022-09-05 17:54 | RAD REPORT ---
EXAM DESCRIPTION: RAD - Chest Single View - 09/05/2022 5:41 pm CLINICAL HISTORY: ABDOMINAL DISTENTION COMPARISON: Portable 02/13/2021 TECHNIQUE: AP portable chest image was obtained 09/05/2022 5:41 pm . FINDINGS: No peripheral mass consolidation. Chronic interstitial pattern is present not clearly diff erent from comparison. Severity of the lung pattern could mask a mild interstitial edema or infiltrat e. No bubba mass or lymphadenopathy identified. Left hemidiaphragm elevation is again noted. Heart and vasculature are normal. No measurable pleural effusion and no pneumothorax. No acute bony abnormality seen. No acute aortic findings suspected. IMPRESSION: No acute cardiopulmonary process. No significant change from comparison study.
--- NOTE | 2022-09-05 17:58 | RAD REPORT ---
EXAM DESCRIPTION: CT - Abdomen Pelvis Wo Contrast - 09/05/2022 5:41 pm CLINICAL HISTORY: Abdominal pain, acute, nonlocalized COMPARISON: Abdomen Pelvis Wo Contrast dated 12/20/2019 TECHNIQUE: Axial [address] imaging of the abdomen and pelvis was performed without IV contrast. No IV contrast was given because of allergy, abnormal renal function, patient refusal or physician re quest. No oral contrast administered. All CT scans are performed using dose optimization technique as appropriate and may include automated exposure control or mA/KV adjustment according to patient size. FINDINGS: No suspicious findings in the lung bases. Left hemidiaphragm elevation is again noted. No cardiomegaly or pericardial effusion. The liver, spleen and pancreas show no suspicious findings on non-contrast imaging. Pancreatic atroph y is present. Cholecystectomy clips are present. Biliary tree is dilated but not outside of normal ra nge for post cholecystectomy patient of this age. Biliary tree is not clearly different comparison. No hydronephrosis or suspicious renal mass. No significant adrenal finding. Isodense renal masses an d pyelonephritis cannot be excluded in the absence of IV contrast. Well filled urinary bladder shows no suspicious findings. No dilated bowel loops or bowel wall thickening. Duodenal bulb and C-loop are prominent without mass, wall thickening or other concerning finding. No acute large or small bowel abnormality identifiable. No free air, free fluid or inflammatory stranding. No mass or bulky lymphadenopathy. Prominent aorti c atherosclerotic calcifications are present. Prominent spinal degenerative changes seen. Severe left hip degenerative change present in addition to presence of surgical hardware. No suspicious bony findings. IMPRESSION: Non-contrast enhanced CT abdomen and pelvis imaging show no acute or emergent finding. No significant change from the December 2019 comparison Full assessment is limited is the absence of IV contrast.
[2022-09-05 18:06] LABS: ALT/SGPT 18 U/L (12-78); AST/SGOT 17 U/L (15-37); Albumin 3.2 g/dL (3.4-5.0); Alkaline Phosphatase 91 U/L (45-117); BUN Blood Urea Nitrogen 19 mg/dL (7-18); Bicarbonate 27 mmol/L (21-32); Bilirubin Total 0.2 mg/dL (0.2-1.0); Glomerular Filtration Rate 36 ml/min (=/>90); Glucose Level 109 mg/dL (74-106); Lipase 218 U/L (73-393); Magnesium 1.6 mg/dL (1.8-2.4); NT PRO-BNP 659 pg/mL (<450); Potassium 3.6 mmol/L (3.5-5.1); Protein, Total 7.1 g/dL (6.4-8.2); Sodium Level 135 mmol/L (136-145); Troponin High Sensitivity 9.7 pg/mL (<58.9)
[2022-09-05 18:12] LABS: Bilirubin Direct < 0.1 mg/dL (0-0.2)
[2022-09-05 18:15] LABS: SARS-CoV-2 Antigen Rapid Res Negative (Negative)
--- NOTE | 2022-09-05 18:57 | ER ---
Nurse's Notes [facility] Name: Dianna Marcano Age: 82 yrs Sex: Female : 1940 Arrival Date: 09/05/2022 Time: 15:46 Bed 3 Private MD: Carlos Portillo E Diagnosis: Abdominal pain, Generalized;Diarrhea, unspecified;Hypomagnesemia Presentation: 09/05 15:56 Chief complaint: Patient states: Pt reports diarrhea x5 days. Denies N/V, fever, kb3 abdominal pain. Coronavirus screen: Vaccine status: Patient reports receiving the 2nd dose of the covid vaccine. Client denies travel out of the [place] in the last 14 days. Ebola Screen: Patient negative for fever greater than or equal to 101.5 degrees Fahrenheit, and additional compatible Ebola Virus Disease symptoms Patient denies exposure to infectious person. Patient denies travel to an Ebola-affected area in the 21 days before illness onset. No symptoms or risks identified at this time. Initial Sepsis Screen: Does the patient meet any 2 criteria? No. Patient's initial sepsis screen is negative. Does the patient have a suspected source of infection? No. Patient's initial sepsis screen is negative. Risk Assessment: Do you want to hurt yourself or someone else? Patient reports no desire to harm self or others. Onset of symptoms was August 31, 2022. 15:56 Method Of Arrival: Wheelchair kb3 15:56 Acuity: SHERLYN 3 kb3 Triage Assessment: 15:59 General: Appears in no apparent distress. slender, unkempt, Behavior is calm, kb3 cooperative. Pain: Denies pain. GI: Reports diarrhea. Historical: - Allergies: 15:59 Iodine; kb3 15:59 Sulfa (Sulfonamide Antibiotics); kb3 15:59 Versed; kb3 - Home Meds: 15:59 amitriptyline 10 mg Oral tab daily [Active]; fentanyl 50 mcg/hr Topical pt72 1 patch kb3 every 72 hours [Active]; folic acid 1 mg Oral tab once daily [Active]; furosemide 40 mg Oral tab 1 tab 2 times per day [Active]; hydrocodone-acetaminophen 10-325 mg Oral tab 1 tab twice a day [Active]; levothyroxine 50 mcg tab 1 tab once daily [Active]; lovastatin 40 mg Oral tab 1 tab 2 times per day [Active]; metoprolol tartrate 50 mg Oral tab 1 tab 2 times per day [Active]; Nitrostat 0.4 mg SL subl 1 tab every 5 minutes [Active]; potassium chloride 20 mEq Oral TbER 1 tab once daily [Active]; trazadone nightly [Active]; Xanax 1 mg Oral tab 1 tab BID [Active]; - PMHx: 15:59 Anxiety; CHF; chronic back pain; Dementia; Hypertension; Hypothyroidism; kb3 - Immunization history:: Adult Immunizations up to date, Client reports receiving the 2nd dose of the Covid vaccine, Last tetanus immunization: up to date. - Social history:: Smoking status: Patient reports the use of cigarette tobacco products. Screenin:37 Abuse screen: Denies threats or abuse. Denies injuries from another. Nutritional tp1 screening: No deficits noted. Tuberculosis screening: No symptoms or risk factors identified. Fall Risk No fall in past 12 months (0 pts). No secondary diagnosis (0 pts). IV access (20 points). Ambulatory Aid- Crutches/Cane/Walker (15 pts). Gait- Weak (10 pts.). Mental Status- Oriented to own ability (0 pts). Total Gerardo Fall Scale indicates High Risk Score (45 or more points). Fall prevention measures have been instituted. Placed Close to Nursing Station Frequent Obs/Assessments Occuring Family Present and informed to notify staff if the need to leave the bedside As available patient and family educated on Fall Prevention Program and Strategies. Assessment: 16:00 General: Appears in no apparent distress. comfortable, Behavior is calm, cooperative. tp1 Pain: Denies pain. Neuro: Level of Consciousness is awake, alert, obeys commands, Oriented to person, place, time, situation. Neuro: Reports headache. Cardiovascular: Denies chest pain, Capillary refill is > 3 seconds in bilateral toes bilateral lower extremities appears dusky. . Patient's skin is warm and dry. Respiratory: Airway is patent Respiratory effort is even, unlabored, Denies shortness of breath. GI: Abdomen is flat, non-distended, Abd is soft Abdomen is tender to palpation in left lower quadrant Reports diarrhea, Patient currently denies nausea, vomiting. : No signs and/or symptoms were reported regarding the genitourinary system. EENT: No signs and/or symptoms were reported regarding the EENT system. Derm: Skin is pink, warm \T\ dry. Musculoskeletal: Swelling present in right leg and left leg. 16:40 Reassessment: assisted PT to bedside commode. tp1 17:00 Reassessment: Patient appears in no apparent distress at this time. No changes from tp1 previously documented assessment. Patient and/or family updated on plan of care and expected duration. Pain level reassessed. Patient is alert, oriented x 3, equal unlabored respirations, skin warm/dry/pink. Patient denies pain at this time. 17:30 Reassessment: Patient appears in no apparent distress at this time. No changes from tp1 previously documented assessment. Patient denies pain at this time. 17:35 Reassessment: escorted to CT via stretcher by [facility]. tp1 18:30 Reassessment: Patient appears in no apparent distress at this time. No changes from tp1 previously documented assessment. Patient is alert, oriented x 3, equal unlabored respirations, skin warm/dry/pink. Patient denies pain at this time. 19:30 Reassessment: Patient appears in no apparent distress at this time. Patient and/or jb4 family updated on plan of care and expected duration. Pain level reassessed. Patient is alert, oriented x 3, equal unlabored respirations, skin warm/dry/pink. Pt assisted to bedside commode, D/c pending completion of IV fluids. 20:21 Reassessment: Patient appears in no apparent distress at this time. Patient and/or jb4 family updated on plan of care and expected duration. Pain level reassessed. Patient is alert, oriented x 3, equal unlabored respirations, skin warm/dry/pink. 21:09 Reassessment: Patient and/or family updated on plan of care and expected duration. Pain ha1 level reassessed. Patient is alert, oriented x 3, equal unlabored respirations, skin warm/dry/pink. Vital Signs: 15:56 BP 106 / 62; Pulse 93; Resp 20; Temp 97.9; Weight 61.23 kg; Height 5 ft. 7 in. (170.18 kb3 cm); Pain 0/10; 16:30 BP 117 / 62; Pulse 64; Resp 18; Pulse Ox 100% on R/A; tp1 17:58 BP 129 / 78; Pulse 69; Resp 16; Pulse Ox 98% on R/A; tp1 18:45 BP 117 / 85; Pulse 92; Resp 16; Pulse Ox 100% on R/A; tp1 20:00 BP 123 / 56; Pulse 63; Resp 17; Pulse Ox 100% on R/A; jb4 15:56 Body Mass Index 21.14 (61.23 kg, 170.18 cm) kb3 ED Course: 15:46 Patient arrived in ED. mr 15:46 Carlos Portillo MD is Private Physician. mr 15:59 Triage completed. kb3 15:59 Arm band placed on right wrist. kb3 16:10 Virgilio Schneider MD is Attending Physician. margaret 16:34 Yulissa Arredondo RN is Primary Nurse. tp1 17:00 EKG done, by ED staff. tp1 17:20 Inserted saline lock: 22 gauge in right forearm, using aseptic technique. Blood tp1 collected. 17:43 XRAY Chest (1 view) In Process Unspecified. EDMS 17:43 CT Abd/Pelvis - Without Contrast In Process Unspecified. EDMS 17:52 Stool Culture Sent. tp1 17:52 Fecal Leukocyte Stain Sent. tp1 17:52 CDIFF Sent. tp1 18:56 Carlos Portillo MD is Referral Physician. margaret 18:56 Sobeida Bernal MD is Referral Physician. margaret 19:20 Fall risk band placed. Placed in gown. Bed in low position. Call light in reach. Side ha1 rails up X 1. 21:09 No provider procedures requiring assistance completed. IV discontinued, intact, ha1 bleeding controlled, No redness/swelling at site. Pressure dressing applied. Administered Medications: 17:49 Drug: NS 0.9% 500 ml Route: IV; Rate: bolus; Site: right forearm; tp1 17:50 Drug: Cipro (ciprofloxacin) 400 mg Volume: 200 ml; Route: IVPB; Infused Over: 60 mins; tp1 Site: right forearm; 19:10 Follow up: IV Status: Completed infusion; IV Intake: 200ml tp1 17:51 Drug: NS 0.9% 1000 ml Route: IV; Rate: 125 ml/hr; Site: right forearm; tp1 19:53 Drug: Magnesium Sulfate 1 grams Route: IVPB; Infused Over: 1 hrs; Site: right wrist; jb4 Medication: 21:11 VIS not applicable for this client. ha1 Intake: 19:10 IV: 200ml; Total: 200ml. tp1 Outcome: 18:56 Discharge ordered by . margaret 21:10 Discharged to home via wheelchair, with family. ha1 21:10 Condition: good 21:10 Discharge instructions given to patient, family, Instructed on discharge instructions, follow up and referral plans. medication usage, Demonstrated understanding of instructions, follow-up care, medications, Prescriptions given X 4. 21:11 Patient left the ED. ha1 Signatures: Dispatcher [employer] EDMS Virgilio Schneider MD MD cha Rivera, Gali mr MurilloClifton, RN RN jb4 Yulissa Arredondo RN RN tp1 Nathalie Booth RN RN ha1 Ema Martinez RN RN kb3 Corrections: (The following items were deleted from the chart) 17:55 14:00 General: Appears in no apparent distress. comfortable, Behavior is calm, tp1 cooperative, tp1 17: 14:00 Pain: Denies pain. tp1 tp1 17: 14:00 Neuro: Level of Consciousness is awake, alert, obeys commands, Oriented to tp1 person, place, time, situation, tp1 17: 14:00 Cardiovascular: Denies chest pain, Capillary refill is > 3 seconds in bilateral tp1 toes bilateral lower extremities appears dusky. . Patient's skin is warm and dry. tp1 17: 14:00 Respiratory: Airway is patent Respiratory effort is even, unlabored, Denies tp1 shortness of breath tp1 17:55 14:00 Neuro: Reports headache tp1 tp1 17: 14:00 GI: Abdomen is flat, non-distended, Abd is soft Abdomen is tender to palpation in tp1 left lower quadrant Reports diarrhea, Patient currently denies nausea, vomiting, tp1 17: 14:00 : No signs and/or symptoms were reported regarding the genitourinary system. tp1tp1 17: 14:00 EENT: No signs and/or symptoms were reported regarding the EENT system. tp1 tp1 17: 14:00 Derm: Skin is pink, warm \T\ dry. tp1 tp1 17: 14:00 Musculoskeletal: Swelling present in right leg and left leg tp1 tp1 17:55 15:00 Reassessment: Patient appears in no apparent distress at this time. No changes tp1 from previously documented assessment. Patient and/or family updated on plan of care and expected duration. Pain level reassessed. Patient is alert, oriented x 3, equal unlabored respirations, skin warm/dry/pink. Patient denies pain at this time. tp1 17:55 16:00 Reassessment: Patient appears in no apparent distress at this time. No changes tp1 from previously documented assessment. Patient is alert, oriented x 3, equal unlabored respirations, skin warm/dry/pink. Patient denies pain at this time. tp1
--- NOTE | 2022-09-05 18:57 | EDPHYS ---
Physician Documentation [facility] Name: Dianna Marcano Age: 82 yrs Sex: Female : 1940 Arrival Date: 09/05/2022 Time: 15:46 Bed 3 Private MD: Carlos Portillo E ED Physician Virgilio Schneider HPI: 09/05 17:19 This 82 yrs old Female presents to ER via Wheelchair with complaints of margaret Diarrhea. 17:19 This 82 yrs old Female presents to ER via Wheelchair with complaints of margaret Diarrhea. 17:19 The patient presents to the emergency department with nausea, that is mild. The patient margaret presents to the emergency department with diarrhea, that is intermittent. Onset: The symptoms/episode began/occurred 5 day(s) ago. Possible causes: unknown. The symptoms are aggravated by nothing. The symptoms are alleviated by nothing. Associated signs and symptoms: The patient has no apparent associated signs or symptoms. Severity of symptoms: At their worst the symptoms were mild moderate in the emergency department the symptoms are unchanged. The patient has not experienced similar symptoms in the past. Historical: - Allergies: 15:59 Iodine; kb3 15:59 Sulfa (Sulfonamide Antibiotics); kb3 15:59 Versed; kb3 - Home Meds: 15:59 amitriptyline 10 mg Oral tab daily [Active]; fentanyl 50 mcg/hr Topical pt72 1 patch kb3 every 72 hours [Active]; folic acid 1 mg Oral tab once daily [Active]; furosemide 40 mg Oral tab 1 tab 2 times per day [Active]; hydrocodone-acetaminophen 10-325 mg Oral tab 1 tab twice a day [Active]; levothyroxine 50 mcg tab 1 tab once daily [Active]; lovastatin 40 mg Oral tab 1 tab 2 times per day [Active]; metoprolol tartrate 50 mg Oral tab 1 tab 2 times per day [Active]; Nitrostat 0.4 mg SL subl 1 tab every 5 minutes [Active]; potassium chloride 20 mEq Oral TbER 1 tab once daily [Active]; trazadone nightly [Active]; Xanax 1 mg Oral tab 1 tab BID [Active]; - PMHx: 15:59 Anxiety; CHF; chronic back pain; Dementia; Hypertension; Hypothyroidism; kb3 - Immunization history:: Adult Immunizations up to date, Client reports receiving the 2nd dose of the Covid vaccine, Last tetanus immunization: up to date. - Social history:: Smoking status: Patient reports the use of cigarette tobacco products. ROS: 17:20 Constitutional: Negative for fever, chills, and weight loss, Eyes: Negative for injury, margaret pain, redness, and discharge, ENT: Negative for injury, pain, and discharge, Neck: Negative for injury, pain, and swelling, Cardiovascular: Negative for chest pain, palpitations, and edema, Respiratory: Negative for shortness of breath, cough, wheezing, and pleuritic chest pain, Back: Negative for injury and pain, : Negative for injury, bleeding, discharge, and swelling, MS/Extremity: Negative for injury and deformity, Skin: Negative for injury, rash, and discoloration, Neuro: Negative for headache, weakness, numbness, tingling, and seizure, Psych: Negative for depression, anxiety, suicide ideation, homicidal ideation, and hallucinations, Allergy/Immunology: Negative for hives, rash, and allergies, Endocrine: Negative for neck swelling, polydipsia, polyuria, polyphagia, and marked weight changes, Hematologic/Lymphatic: Negative for swollen nodes, abnormal bleeding, and unusual bruising. 17:20 Abdomen/GI: Positive for abdominal pain, nausea, diarrhea, abdominal cramps, of the right upper quadrant and left upper quadrant. Exam: 17:20 Constitutional: This is a well developed, well nourished patient who is awake, alert, margaret and in no acute distress. Head/Face: Normocephalic, atraumatic. Eyes: Pupils equal round and reactive to light, extra-ocular motions intact. Lids and lashes normal. Conjunctiva and sclera are non-icteric and not injected. Cornea within normal limits. Periorbital areas with no swelling, redness, or edema. ENT: Nares patent. No nasal discharge, no septal abnormalities noted. Tympanic membranes are normal and external auditory canals are clear. Oropharynx with no redness, swelling, or masses, exudates, or evidence of obstruction, uvula midline. Mucous membranes moist. Neck: Trachea midline, no thyromegaly or masses palpated, and no cervical lymphadenopathy. Supple, full range of motion without nuchal rigidity, or vertebral point tenderness. No Meningismus. Chest/axilla: Normal chest wall appearance and motion. Nontender with no deformity. No lesions are appreciated. Cardiovascular: Regular rate and rhythm with a normal S1 and S2. No gallops, murmurs, or rubs. Normal PMI, no JVD. No pulse deficits. Respiratory: Lungs have equal breath sounds bilaterally, clear to auscultation and percussion. No rales, rhonchi or wheezes noted. No increased work of breathing, no retractions or nasal flaring. Abdomen/GI: Soft, non-tender, with normal bowel sounds. No distension or tympany. No guarding or rebound. No evidence of tenderness throughout. Back: No spinal tenderness. No costovertebral tenderness. Full range of motion. Female : Normal external genitalia. Skin: Warm, dry with normal turgor. Normal color with no rashes, no lesions, and no evidence of cellulitis. MS/ Extremity: Pulses equal, no cyanosis. Neurovascular intact. Full, normal range of motion. Neuro: Awake and alert, GCS 15, oriented to person, place, time, and situation. Cranial nerves II-XII grossly intact. Motor strength 5/5 in all extremities. Sensory grossly intact. Cerebellar exam normal. Normal gait. Psych: Awake, alert, with orientation to person, place and time. Behavior, mood, and affect are within normal limits. 17:20 ECG was reviewed by the Attending Physician. Vital Signs: 15:56 BP 106 / 62; Pulse 93; Resp 20; Temp 97.9; Weight 61.23 kg; Height 5 ft. 7 in. (170.18 kb3 cm); Pain 0/10; 16:30 BP 117 / 62; Pulse 64; Resp 18; Pulse Ox 100% on R/A; tp1 17:58 BP 129 / 78; Pulse 69; Resp 16; Pulse Ox 98% on R/A; tp1 18:45 BP 117 / 85; Pulse 92; Resp 16; Pulse Ox 100% on R/A; tp1 20:00 BP 123 / 56; Pulse 63; Resp 17; Pulse Ox 100% on R/A; jb4 15:56 Body Mass Index 21.14 (61.23 kg, 170.18 cm) kb3 MDM: 16:10 Patient medically screened. margaret 17:24 Differential diagnosis: Nonspecific abd pain, pancreatitis, diverticulitis, viral margaret gastroenteritis, gastroenteritis. Data reviewed: vital signs, nurses notes, lab test result(s), EKG, radiologic studies, CT scan, plain films. Data interpreted: residential monitor: rate is 93 beats/min, rhythm is regular, Pulse oximetry: on room air is 96 %. Test interpretation: by ED physician or midlevel provider: ECG, plain radiologic studies. Counseling: I had a detailed discussion with the patient and/or guardian regarding: the historical points, exam findings, and any diagnostic results supporting the discharge/admit diagnosis, lab results, radiology results. 09/05 16:25 Order name: Basic Metabolic Panel; Complete Time: 18:52 [facility] 09/05 16:25 Order name: CBC with Diff; Complete Time: 18:52 [facility] 09/05 16:25 Order name: LFT's; Complete Time: 18:52 [facility] 09/05 16:25 Order name: Magnesium; Complete Time: 18:52 [facility] 09/05 16:25 Order name: NT PRO-BNP; Complete Time: 18:52 [facility] 09/05 16:25 Order name: PT-INR; Complete Time: 18:52 [facility] 09/05 16:25 Order name: Troponin HS; Complete Time: 18:52 [facility] 09/05 16:25 Order name: Lipase; Complete Time: 18:52 [facility] 09/05 16:25 Order name: Urine Culture [facility] 09/05 16:25 Order name: Urine Microscopic Only 09/05 16:27 Order name: Fecal Leukocyte Stain [facility] 09/05 16:27 Order name: Stool Culture [facility] 09/05 16:27 Order name: CDIFF [facility] 09/05 16:27 Order name: SARS RAPID; Complete Time: 18:52 09/05 16:25 Order name: XRAY Chest (1 view); Complete Time: 18:52 [facility] 09/05 16:25 Order name: EKG; Complete Time: 16:26 [facility] 09/05 16:25 Order name: Cardiac monitoring; Complete Time: 16:38 [facility] 09/05 16:25 Order name: EKG - Nurse/Tech; Complete Time: 17:52 [facility] 09/05 16:25 Order name: IV Saline Lock; Complete Time: 17:52 09/05 16:25 Order name: Labs collected and sent; Complete Time: 17:52 09/05 16:25 Order name: O2 Per Protocol; Complete Time: 16:38 [facility] 09/05 16:25 Order name: O2 Sat Monitoring; Complete Time: 16:38 [facility] 09/05 16:27 Order name: CT Abd/Pelvis - Without Contrast; Complete Time: 18:52 [facility] 09/05 20:58 Order name: Urine Dipstick-Ancillary EDMS EC:20 Rate is 73 beats/min. Rhythm is regular. QRS [place] is Normal. HI interval is normal. QRS margaret interval is normal. QT interval is normal. No Q waves. T waves are Normal. No ST changes noted. Clinical impression: NSR w/ Non-specific ST/T Changes and No evidence of ischemia. Interpreted by me. Reviewed by me. Administered Medications: 17:49 Drug: NS 0.9% 500 ml Route: IV; Rate: bolus; Site: right forearm; tp1 17:50 Drug: Cipro (ciprofloxacin) 400 mg Volume: 200 ml; Route: IVPB; Infused Over: 60 mins; tp1 Site: right forearm; 19:10 Follow up: IV Status: Completed infusion; IV Intake: 200ml tp1 17:51 Drug: NS 0.9% 1000 ml Route: IV; Rate: 125 ml/hr; Site: right forearm; tp1 19:53 Drug: Magnesium Sulfate 1 grams Route: IVPB; Infused Over: 1 hrs; Site: right wrist; jb4 Disposition Summary: 09/05/22 18:56 Discharge Ordered Location: Home margaret Problem: new margaret Symptoms: have improved margaret Condition: Stable margaret Diagnosis - Abdominal pain, Generalized margaret - Diarrhea, unspecified margaret - Hypomagnesemia margaret Followup: margaret - With: - When: 2 - 3 days - Reason: Recheck today's complaints, Continuance of care, Re-evaluation by your physician Followup: margaret - With: - When: 2 - 3 days - Reason: Recheck today's complaints, Re-evaluation by your physician Discharge Instructions: - Discharge Summary Sheet margaret - Abdominal Pain, Adult margaret - Food Choices to Help Relieve Diarrhea, Adult margaret - Diarrhea, Adult margaret - Hypomagnesemia margaret - Abdominal Pain, Adult, [id number] margaret - Diarrhea, Adult, [id number] margaret Forms: - Medication Reconciliation Form margaret - Thank You Letter margaret - Antibiotic Education margaret - Prescription Opioid Use margaret Prescriptions: - Pepcid 20 mg Oral Tablet - take 1 tablet by ORAL route every 12 hours for 10 days; 20 tablet; Refills: 0, margaret Product Selection Permitted - Zofran 4 mg Oral Tablet - take 1 tablet by ORAL route every 12 hours As needed; 20 tablet; Refills: 0, [facility] Product Selection Permitted - Cipro 500 mg Oral Tablet - take 1 tablet by ORAL route every 12 hours for 5 days; 10 tablet; Refills: 0, [facility] Product Selection Permitted - dicyclomine 20 mg Oral Tablet - take 1 tablet by ORAL route 4 times per day; 28 tablet; Refills: 0, Product [facility] Selection Permitted Signatures: Dispatcher [employer] Virgilio Dueñas MD MD cha Bryson, James RN RN jb4 Yulissa Arredondo RN RN tp1 Ema Martinez RN RN kb3
[2022-09-05] MEDS ORDERED: MAGNESIUM SULFATE 1 gm IVPB 1 GM/100 ML BAG IV ONE (19:42)
[2022-09-05 20:57] LABS: Urine Blood Trace-intact (Negative); Urine Glucose Negative (Negative); Urine Protein Negative (Negative); Urine Specific Gravity <=1.005 (1.005-1.030); Urine pH 5.5 (5.0-7.0)
[2022-09-05 21:34] LABS: Urine Bacteria 20-50 /HPF (<20); Urine Mucus Slight /HPF (None Seen); Urine RBC <5 /HPF (None Seen); Urine WBC Clump Rare /HPF (None Seen)
[2022-09-05 22:59] VITALS: TEMP 97.9
[2022-09-05 23:03] VITALS: O2SAT 100
[2022-09-05 23:04] VITALS: BP 123/56
[2022-09-06 11:38] LABS: C.diff Antigen/Toxin Ag neg : Tox neg (NEG : NEG)
--- NOTE | 2022-09-06 16:53 | EKG ---
Test Date: 2022-09-05 Test Time: 17:17:49 Medical Lab Technician: [place] MEASUREMENT RESULTS: Intervals: Rate: 73 FL: QRSD: 76 QT: 410 QTc: 451 [place]: P: FL: QRS: 73 T: 81 INTERPRETIVE STATEMENTS: Atrial fibrillation Nonspecific T wave abnormality Abnormal ECG Compared to ECG 02/10/2021 17:10:23 T-wave abnormality now present Sinus rhythm no longer present Electronically Signed On 09-06-22 16:52:50 CDT by Sin Ramsay
== END 2022-09-05 21:11 | disposition home or self-care (01) ==
LOC: ER 15:40
DX: R19.7 Diarrhea, unspecified (principal); R10.84 Generalized abdominal pain; E83.42 Hypomagnesemia; Z91.09 Other allergy status, other than to drugs and biological substances; Z88.2 Allergy status to sulfonamides; I10 Essential (primary) hypertension; F03.90 Unspecified dementia, unspecified severity, without behavioral disturbance, psychotic disturbance, mood disturbance, and anxiety; E03.9 Hypothyroidism, unspecified; F41.9 Anxiety disorder, unspecified; Z20.822 Contact with and (suspected) exposure to COVID-19
CPT/HCPCS: 96365; 93005; 87088; 87045; 85025; 87086; 80048; 36415; 83735; 89055; 85610; 80076; 87046; 87324; 84484; 83690; 83880; 74176; 71045; 96375; 99284; 87811; J3475; J7040; J7030; J0744; 81003; 81015

== ENCOUNTER 2022-10-31 08:21 | Observation (INO) | payer OTHER ==
--- OUTSIDE RECORDS SUMMARY | 2022-10-31 08:28 | XMS REPORT | Continuity of Care Document ---
:1940 Author Organization [facility] t Address [address] [place] [address] [place] [address] Care Team Providers Name Role Phone AASHISH RIZO Primary Care Physician Unavailable Dodie_A_AH Attending Clinician Unavailable Doctor Unassigned, [place] Attending Clinician Unavailable Luis Staley MD Attending Clinician LUIS STALEY Attending Clinician Unavailable TARUN MUNOZ Attending Clinician Unavailable Tarun Munoz Attending Clinician RYAN LIEBERMAN Attending Clinician Unavailable Pob, [facility] Attending Clinician Unavailable Ryan Lieberman MD Attending Clinician Pastro Baca Attending Clinician Dodie_A_AH Admitting Clinician Unavailable TARUN MUNOZ Admitting Clinician Unavailable Pastor Baca Admitting Clinician Payers Payer Name Policy Type Policy Number Effective Date Expiration Date S [facility] OF [place] - [id number] 2019 2020 [employer] 00:00:00 00:00:00 (MEDICARE REPLACEMENT/ADVAN [...] -related disorder Disorder Chronic Chronic Problem Active [facility] kidney Kidney 8-14 Family disease [...] 00 e Dementia Dementia Problem Active [place] 7- Family 00:00: Practic 00 e Anxiety Anxiety Problem Active [place] 7 Family 00:00: Practic 00 e Chronic Chronic Problem Active [facility] pain Pain 7 Family 00:00: Practic 00 e Essential Essential Problem Active [place] hypertensi Hypertensi - Fa ramses on on 00:00: Practic 00 e Chronic Chronic Problem Active [facility] obstructiv Obstructiv 05-16 Fa ramses e lung e Lung 00:00: Practic disease Disease 00 e Arthritis Arthritis Problem Active [place] 7 Family 00:00: Practic 00 e INFECTION INFECTION Diagnosis Active 2017-06-08 Memoria Active 05-18 22:00:00 l 05/18/2017 00:00: Alfredo rivera 00 [facility] WOUND WOUND Diagnosis Active 2017-05-18 Mem oria INFECTION INFECTION 05-18 15:19:00 l Active 00:00: Chemo 05/18/2017 00 [facility] No known No known Disease Unive rs active active ity of problems problems [facility] Alzheimer' Alzheimer Problem Active 2017-05-30 Memoria s disease 's disease 00:46:38 l (disorder) (disorder) He rmann Active Problem 05/30/2017 [facility] Chronic Chronic Problem Active 2017-05-30 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 (disorder) (disorder) Active Problem 05/30/2017 [facility] Hyperchole Problem Active 2017-05-30 M emoria sterolemia Hyperchole 00:46:38 l (disorder) sterolemia He [place] (disorder) Active Problem 05/30/2017 [facility] UNSPECIFIE UNSPECIFI Diagnosis Active 2017-06-08 Memoria D ED 22:00:00 l INFECTIOUS INFECTIOUS [place] DISEASE DISEASE Active [facility] Benign Benign Problem Resolve 2017-05-30 Mem oria hypertensi hypertensi d 00:46:38 l on on Chemo (disorder) (disorder) Resolved Problem 05/30/2017 [facility] Cerebral Cerebral Problem Resolve 2017-05-30 Memoria embolism embolism d 00:46:38 l (disorder) (disorder) He rmann Resolved Problem 05/30/2017 [facility] Allergies, Adverse Reactions, Alerts Allergy Allergy Status Severity Reaction(s) Onset Inactive Treating Comm ents Source Name Type Date Date Clinician NO KNOWN Drug Active Univers ALLERGIE Class ity of S [facility] iodine iodine Active Memoria l [place] sulfa sulfa Active Memoria drugs drugs l [place] Versed Versed Active [facility] [place] Social History Social Habit Start Date Stop Date Quantity Comments Source Exposure to Not sure [facility] SARS-CoV-2 (event) Medica l Branch Sex Assigned At [birth year] [facility] Medical 00:00:00 00:00:00 Center Smoking Status Start Date Stop Date Source Unknown if ever smoked [facility] Social History 2017-05-18 19:31:53 2017-05-18 19:31:53 [facility] Medications Ordered Filled Start Stop Current Ordering Indication Dosage Frequency Signature Comments Components Source Medication Medication Date Date Medication? Clinician (SIG) Name Name No known No Univers medications 5-13 ity of 09:53: [address] 24 HR Yes = 1 [...] (Same capsular as: antigen Prevnar diphtheria 13) [id number] protein conjugate vaccine / Streptococc us pneumoniae serotype 14 capsular antigen diphtheria [id number] protein conjugate vaccine / Streptococc us pneumoniae serotype 18C capsular antigen d Streptococc No Notes: Chase katie us 7-12 Shake well l pneumoniae 14:00: prior to Her [place] serotype 1 00 use (Same capsular as: antigen Prevnar diphtheria 13) [id number] protein conjugate vaccine / Streptococc us pneumoniae serotype 14 capsular antigen diphtheria [id number] protein conjugate vaccine / Streptococc us pneumoniae [...] Infuse at l 16:00: a rate of [place] 00 10 mEq/hr. (Same as: KCL) potassium No Notes: Memori a chloride 7-08 (Same as: l 14:32: K-Dur 20) [place] 00 "Do Not Crush" With food and full glass of water potassium No Notes: Memori a phosphate + 7-08 (Same as: l sodium 14:32: K Chemo chloride 00 Phosphate. 0.9% INJ ) 1 mMol 250 mL phoshate has 1.47 mEq potassium Infuse over 4 hours potassium No Notes: Memori a phosphate-s 7-08 (Same as: l odium 14:32: Phos-NaK) [place] phosphate 00 Each 1.5 250 mg-280 gm [...] WASTE: F/P l 14:32: - Sink; E [place] - Municipal Trash Bin Calcium No Notes: Memoria Gluconate 05-23 WASTE: F/P l 14:32: - Sink; E Chemo 00 - Municipal Trash Bin Magnesium No Notes: Memori a Oxide 05-23 (Same as: l 14:32: Mag-Ox Chemo 00 400) Magnesium oxide 019ty=717b g elemental magnesium Dose=____m g magnesium oxide [...] WASTE: F/P l 14:32: - Sink; E [place] - [facility] Trash Bin Calcium No Notes: Memoria Gluconate 05-23 WASTE: F/P l 14:32: - Sink; E Chemo 00 - Municipal Trash Bin Magnesium No Notes: Memori a Oxide 7-08 (Same as: l 14:32: Mag-Ox [place] 00 400) Magnesium oxide 310tq=092r g elemental magnesium Dose=____m g magnesium oxide (___mg elemental magnesium) Bacitracin No Notes: Memor ia 0.5 UNT/MG 7-06 (Same As: l / Polymyxin 22:00: Polysporin [place] B 10 UNT/MG 00 ) Topical Ointment Bacitracin No Notes: Memor ia 0.5 UNT/MG 7-06 (Same As: l / Polymyxin 22:00: Polysporin [place] B 10 UNT/MG 00 ) Topical Ointment potassium No Notes: Memori a chloride 7-06 Infuse at l 17:00: a rate of Chemo 00 10 mEq/hr. (Same as: KCL) potassium No Notes: Memori a chloride 7-06 Infuse at l 17:00: a rate of [place] 00 10 mEq/hr. (Same as: KCL) potassium [...] Chase katie 05-20 Route: l 14:00: TOP, [place] 00 Daily, Drug form: OINT, Start date: 05/20/17 9:00:00 CDT, Duration: 30 day, Stop date: 06/18/17 9:00:00 CDT Nicotine No Notes: Memoria -05 (Same as: l 14:00: Habitrol) Chemo 00 "Remove old patch before applicatio n of new patch" WASTE: F/P - P Waste Black; E - P Waste Black Bacitracin No 1 appl, Chase katie 7-05 Route: l 14:00: TOP, [place] 00 Daily, Drug form: OINT, Start date: 05/20/17 9:00:00 CDT, Duration: 30 day, Stop date: 06/18/17 9:00:00 CDT Nicotine No Notes: Memoria 7-05 (Same as: l 14:00: Habitrol) "Remove old patch before applicatio n of new patch" WASTE: F/P - P Waste Black; E - P Waste Black Thyroxine No Notes: Memori a 7-05 Take 1 l 11:30: hour [place] 00 before or 2 hours after meal; Enteral feeds may interefere with the absorption of this medication .(Same as:Levothr oid, Synthroid) Thyroxine No Notes: Memori a 7-05 Take 1 l 11:30: hour [place] 00 before or 2 hours after meal; Enteral feeds may interefere with the absorption of this medication .(Same as:Levothr oid, Synthroid) Lipitor No Notes: Memoria 7-05 (Same As: l 02:00: Lipitor) Chemo Trazodone No Notes: Memori a Hydrochlori 7-05 (Same As: l de 100 MG 02:00: Desyrel) Herm levy Oral Tablet 00 Lovastatin No 40 mg, Memor ia 7-05 Route: PO, l 02:00: Drug form: Chemo 00 TAB, Bedtime, Dosing Weight 55.909, kg, Start date: 05/19/17 21:00:00 CDT, Duration: 30 day, Stop date: 06/17/17 21:00:00 CDT Lipitor No Notes: Memoria 7-05 (Same As: l 02:00: Lipitor) Chemo Trazodone No Notes: Memori a Hydrochlori 7-05 (Same As: l de 100 MG 02:00: Desyrel) Herm levy Oral Tablet 00 Lovastatin No 40 mg, Memor ia 7-05 Route: PO, l 02:00: Drug form: Chemo [...] n of new patch" Amitriptyli No Notes: Cahse katie ne 7-04 (Same as: l 14:00: Elavil) [place] 00 Alprazolam No Notes: Memor ia 1 MG Oral 7-04 With food l Tablet 14:00: or milk Chemo (Same as: Xanax) metoprolol No Notes: Memor [...] Memoria 7-04 (Same as: l 14:00: Duragesic) [place] 00 Check for product integrity. Apply to intact skin "Remove old patch before applicatio n of new patch" Amitriptyli No Notes: Chase katie ne 7-04 (Same as: l 14:00: Elavil) [place] Alprazolam No Notes: Memor ia 1 MG Oral 7-04 With food l Tablet 14:00: or milk [place] 00 (Same as: Xanax) Nitroglycer No Notes: [...] tab, PO, l tablet 22:22: Daily, 0 [place] 00 Refill(s) clopidogrel Yes 75 mg = 1 M emoria 75 mg oral 7-03 tab, PO, l tablet 22:22: Daily, 0 [place] 00 Refill(s) potassium Yes 20 mEq = 1 Me moria chloride 20 7-03 tab, PO, l mEq oral 22:21: Daily, 0 Kamla nn tablet, 00 Refill(s) extended release Metoprolol Yes 50 mg = 1 Me moria Tartrate 50 7-03 tab, PO, l mg oral 22:21: BID, 0 [place] tablet 00 Refill(s) lovastatin Yes 40 mg = 1 Me moria 40 mg oral 7-03 tab, PO, l tablet 22:21: Bedtime, 0 Kamla nn 00 Refill(s) Furosemide Yes 40 mg = 1 Me moria 40 MG Oral 7-03 tab, PO, l Tablet 22:21: BID, 0 [place] 00 Refill(s) Folic Acid Yes 1 mg = 1 Mem oria 1 MG Oral 7-03 tab, PO, l Tablet 22:21: Daily, 0 [place] 00 Refill(s) Alprazolam 2017 Yes 1 mg = 1 Mem oria 1 MG Oral 7-03 tab, PO, l Tablet 22:21: BID, 0 [place] 00 Refill(s) potassium 2017 Yes 20 mEq = 1 Me moria chloride 20 7-03 tab, PO, l mEq oral 22:21: Daily, 0 Kamla nn tablet, 00 Refill(s) extended release Metoprolol 2017 Yes 50 mg = 1 Me moria Tartrate 50 7-03 tab, PO, l mg oral 22:21: BID, 0 Chemo tablet 00 Refill(s) lovastatin 2017 Yes 40 [...] 22:21: Daily, 0 Chemo 00 Refill(s) Alprazolam Yes 1 mg = [...] 4-6, 0 10 MG Oral Refill(s) Tablet [[place] 10/325] fentaNYL 50 Yes 50 Memori a mcg/hr 7-03 microgram/ l transdermal 22:20: hr =, TOP, [place] film, 00 Q72H, 0 extended Refill(s) release [...] 4-6, 0 10 MG Oral Refill(s) Tablet [[place] 10/325] fentaNYL 50 Yes 50 Memori a [...] / 05-18 (Same as: l Hydrocodone 21:45: [place] Kamla nn Bitartrate 00 325/5) Do 5 MG Oral not exceed Tablet 4gm/day of acetaminop hen. Acetaminoph No Notes: Do M emoria en 05-18 not exceed l 21:45: 4 gm/day. Chemo 00 (Same as: Tylenol) Ondansetron No Notes: Chase katie 05-18 (Same as: l 21:45: Zofran) [place] 00 MEDICATION WASTE Product Size: 4 mg [...] / 05-18 (Same as: l Hydrocodone 21:45: [place] Kamla nn Bitartrate 00 325/5) Do 5 MG Oral not exceed Tablet 4gm/day of acetaminop hen. Acetaminoph No Notes: Do M emoria en 05-18 not exceed l 21:45: 4 gm/day. Chemo 00 (Same as: Tylenol) Unasyn No Notes: Memoria 05-18 Dosing l 20:12: based on Chemo 00 Ampicillin component (Same as: Unasyn) Morphine No Notes: Memoria 05-18 (Same l 20:12: as:MORPhin [place] 00 e Sulfate) Unasyn No Notes: Memoria 05-18 Dosing l 20:12: based on Chemo 00 Ampicillin component (Same as: Unasyn) Morphine No Notes: Memoria 05-18 (Same l 20:12: as:MORPhin [place] 00 e Sulfate) Vancomycin No 2000 mg: Me moria 05-18 infuse l 18:43: over 2.5 [place] 00 hours MEDICATION WASTE Product Size: 1000 mg Product Wasted: ___ mg Vancomycin No 2000 mg: Me moria 05-18 infuse l 18:43: over 2.5 [place] 00 hours MEDICATION WASTE Product Size: 1000 mg Product Wasted: ___ mg No known No Univers medications ity [facility] No known No [facility] No known No [facility] No known No [facility] No known No [facility] No known No [facility] albuterol albuterol No 2puff(s Q4H albuterol [facility] sulf 90 sulf 90 ) [...] route. alprazolam alprazolam No 1 Q1D alprazolam [facility] 0.5 mg 0.5 mg 0.5 mg Family disintegrat disintegrat disintegra Practic ing tablet ing tablet ting e Take 1 Take 1 tablet tablet tablet Take 1 every day every day tablet by oral by oral every day route. route. by oral route. amitriptyli amitriptyli No 1 Q1D amitriptyl [facility] ne 50 mg ne 50 mg ine 50 mg Fa ramses tablet Take tablet Take tablet Practic 1 tablet 1 tablet Take 1 e every day every day tablet by oral by oral every day route. route. by oral route. furosemide furosemide No 1 Q1D furosemide [facility] 20 mg 20 mg 20 mg Family tablet Take tablet Take tablet Practic 1 tablet 1 tablet Take 1 e every day every day tablet by oral by oral every day route. route. by oral route. gabapentin gabapentin No 1capsul TID gabapentin [facility] 100 mg 100 mg e(s) 100 mg Family capsule capsule capsule Practi c Take 1 Take 1 Take 1 e capsule 3 capsule 3 capsule 3 times a day times a day times a by oral by oral day by route. route. oral route. levothyroxi levothyroxi No 1capsul Q1D levothyrox [facility] ne 50 mcg ne 50 mcg e(s) ine 50 mcg Family capsule capsule capsule Practi c Take 1 Take 1 Take 1 e capsule capsule capsule every day every day every day by oral by oral by oral route. route. route. lovastatin lovastatin No 1 Q1D lovastatin [facility] 40 mg 40 mg 40 mg Family tablet Take tablet Take tablet Practic 1 tablet 1 tablet Take 1 e every day every day tablet by oral by oral every day route. route. by oral route. meloxicam meloxicam No 1 Q1D meloxicam [facility] 7.5 mg 7.5 mg 7.5 mg Family tablet Take tablet Take tablet Practic 1 tablet 1 tablet Take 1 e every day every day tablet by oral by oral every day route. route. by oral route. metoprolol metoprolol No 1capsul Q1D metoprolol [facility] succinate succinate e(s) succinate [facility] ER 25 mg ER 25 mg ER 25 mg Pra ctic capsule capsule capsule e sprinkle, sprinkle, sprinkle, ext. ext. ext. release 24 release 24 release 24 hr Take 1 hr Take 1 hr Take 1 capsule capsule capsule every day every day every day by oral by oral by oral route. route. route. potassium potassium No 1 Q1D potassium [facility] chloride ER chloride ER chloride [facility] 20 mEq 20 mEq ER 20 mEq Practi c tablet,exte tablet,exte tablet,ext e nded nded ended release release release Take 1 Take 1 Take 1 tablet tablet tablet every day every day every day by oral by oral by oral route. route. route. Symbicort Symbicort No 2puff(s BID Symbicort [facility] 160 mcg-4.5 160 mcg-4.5 ) 160 F amily mcg/actuati mcg/actuati mcg-4.5 Practic on HFA on HFA mcg/actuat e aerosol aerosol ion HFA inhaler inhaler aerosol Inhale 2 Inhale 2 inhaler puffs twice puffs twice Inhale 2 a day by a day by puffs inhalation inhalation twice a route. route. day by inhalation route. trazodone trazodone No 1 BID trazodone [facility] 100 mg 100 mg 100 mg Family tablet Take tablet Take tablet Practic 1 tablet 1 tablet Take 1 e twice a day twice a day tablet by oral by oral twice a route. route. day by oral route. Immunizations Ordered Immunization Filled Immunization Date Status Commen ts Source Name Name pneumococcal 2017-05-27 Completed [facility] 13-valent vaccine 13:58:00 Chemo pneumococcal 2017-05-27 Completed [facility] 13-valent vaccine 13:58:00 Chemo Vital Signs Vital Name Observation Time Observation Value Comments Source Systolic blood 2021-03-28 14:51:00 123 mm[Hg] Univer sity of pressure [facility] Diastolic blood 2021-03-28 14:51:00 77 mm[Hg] [facility] Heart rate 2021-03-28 14:51:00 86 /min [facility] Body temperature 2021-03-28 14:51:00 36.44 [facility] Height 2020-08-31 00:00:00 67 [in_i] [facility] BMI (Body Mass 2020-08-31 00:00:00 21.1 kg/m2 [facility]a [facility]) Practice Body Weight 2020-08-31 00:00:00 135 [lb_av] [facility] Systolic (mm Hg) 2017-05-27 13:42:00 Chase Mclain Diastolic (mm Hg) 2017-05-27 13:42:00 Mem oritiffany Mclain Heart Rate 2017-05-27 13:42:00 Memorial Chemo Respitory Rate 2017-05-27 13:42:00 Holly Mcnally Temperature Oral (F) 2017-05-27 13:42:00 98.1 F [facility] [place] Respitory Rate 2017-05-27 09:00:00 Holly Mcnally Systolic (mm Hg) 2017-05-27 09:00:00 Chase rial [place] Diastolic (mm Hg) 2017-05-27 09:00:00 Mem orial Chemo Heart Rate 2017-05-27 09:00:00 [facility] [place] Temperature Oral (F) 2017-05-27 09:00:00 98.4 F [facility] Chemo Respitory Rate 2017-05-27 05:00:00 Holly allen [place] Systolic (mm Hg) 2017-05-27 05:00:00 Chase cullen [place] Diastolic (mm Hg) 2017-05-27 05:00:00 Mem orial [place] Heart Rate 2017-05-27 05:00:00 [facility] [place] Temperature Oral (F) 2017-05-27 05:00:00 99.0 F [facility] [place] BMI Calculated 2017-05-19 00:40:00 Blossomdotty allen [place] Weight 2017-05-19 00:40:00 [facility] [place] Height 2017-05-19 00:40:00 170.18 cm [facility] Chemo Weight 2017-05-18 18:42:00 [facility] [place] Procedures Procedure Date / Time Performed Performing Clinician [facility] e EXTERNAL PROVIDER 2022-03-15 05:01:00 Doctor Unassigned, No [facility] [place] RECORDS Name Medical Branch EXTERNAL PROVIDER 2021-04-02 05:01:00 Doctor Unassigned, No [facility] [place] RECORDS Name Medical Branch EXTERNAL PROVIDER 2021-03-04 05:01:00 Doctor Unassigned, No [facility] [place] RECORDS Name Medical Branch Encounters Start End Encounter Admission Attending Care Care Encounter Source Date/Time Date/Time Type Type Clinicians Facility Department ID 2021-08-24 Inpatient [facility] Orthopaedic [id number] 10:52:58 [facility] 2022-04-20 2022-04-20 Outpatient Samina-Mbayo VFP VFP [id number] [facility] 12:50:00 12:50:00 _A_AH Family Practic e 2022-03-16 2022-03-16 Outpatient Samina-Mbayo VFP VFP [id number] [facility] 12:55:00 12:55:00 _A_AH Family Practic e 2022-03-15 2022-03-15 Orders Doctor MENDIETA [id number] [facility] 00:00:00 00:00:00 Only Unassigned, YARY [id number] [facility] [place] [facility] [id number] Joe as [phone] [address] 2021-04-02 2021-04-02 Orders Doctor ANAM [id number] Univers 00:00:00 00:00:00 Only Unassigned, YARY [id number] [facility] [place] [facility] [id number] Joe as [phone] [address] 2021-03-28 2021-03-28 [facility] [id number] Univers 09:42:53 09:54:12 Visit Luis [facility] [id number] it y of Surgical [id number] Joe as Specialti [id number] Pr dical 198 [facility] 2021-03-28 2021-03-28 Outpatient Sergey [facility] [id number] Univers 09:45:00 09:45:00 [facility] 2021-03-13 2021-03-13 Outpatient [facility] [address] [place] [address] 03:29:00 03:29:00 _A_AH [id number] Family Practic e 2021-03-04 2021-03-04 Orders Doctor ANAM [id number] Univers 00:00:00 00:00:00 Only Unassigned, YARY [id number] [facility] [place] [facility] [id number] Joe as [phone] [address] 2021-02-14 2021-02-14 [facility] [id number] Univers 00:00:00 00:00:00 LUIS [facility] 2020-12-14 2020-12-14 Outpatient [facility] [id number] [place] 12:14:00 12:14:00 _A_AH [id number] Family Practic e 2020-11-05 2020-11-05 Outpatient TARUN [facility] [id number] Univers 11:32:32 23:59:00 ity [facility] Branch 2020-11-05 2020-11-05 [facility] [id number] Univers 11:30:00 23:59:00 [id number] [facility] [id number] [place] [address] Branch 2020-11-05 2020-11-05 [facility] [id number] 11:30:00 23:59:00 Encounter Nirav Verdugo [id number] [place] [id number] [place] [id number] 2020-09-12 2020-09-12 Outpatient Samina-Mbayo VFP VFP [id number] [facility] 10:33:00 10:33:00 _A_AH [id number] Family Practic e 2020-09-07 2020-09-07 Outpatient Samina-Mbayo VFP VFP [id number] [facility] 06:11:00 06:11:00 _A_AH [id number] Family Practic e 2020-09-05 2020-09-05 Outpatient Samina-Mbayo VFP VFP [id number] [place] 09:23:00 09:23:00 _A_AH [id number] Family Practic e 2020-09-04 2020-09-04 Outpatient Samina-Mbayo VFP VFP [id number] [place] 09:33:00 09:33:00 _A_AH 15751 Family Practic e 2020-08-31 2020-08-31 Ada VFP [place] - [id number] V illage 00:00:00 00:00:00 Samina-Mbay [place] Fam mello morales MECHANICAL ASSEMBLY: Medical - Practi c [address] [email or web address] [facility], [address] [place] [address], [place] [address] , Ph. 2020-08-25 2020-08-25 Outpatient Samina-Mbayo VFP VFP [id number] [facility] 12:39:00 12:39:00 _A_AH [id number] Family Practic e 2020-08-22 2020-08-22 Outpatient Samina-Mbayo VFP VFP [id number] [facility] 11:29:00 11:29:00 _A_AH [id number] Family Practic e 2020-08-21 2020-08-21 Outpatient Samina-Mbayo VFP VFP [id number] [facility] 08:53:00 08:53:00 _A_AH [id number] Family Practic e 2020-07-28 2020-07-28 Outpatient Samina-Mbayo VFP VFP [id number] [facility] 12:21:00 12:21:00 _A_AH [id number] Family Practic e 2020-07-13 2020-07-13 Outpatient Samina-Mbayo VFP VFP [id number] [facility] 07:53:00 07:53:00 _A_AH [id number] Family Practic e 2020-07-05 2020-07-05 Outpatient Samina-Mbayo VFP VFP [id number] [facility] 10:53:00 10:53:00 _A_AH [id number] Family Practic e 2020-07-04 2020-07-04 Outpatient Samina-Mbayo VFP VFP [id number] [facility] 10:27:00 10:27:00 _A_AH 18157 Family Practic e 2020-07-02 2020-07-02 Ada VFP [place] - [id number] V illage 00:00:00 00:00:00 SaminaMela [facility] Fam mello morales MECHANICAL ASSEMBLY: Medical - Practi c [address] [email or web address] [facility], [place] [address], [place] [address] , Ph. 2020-06-27 2020-06-27 Outpatient Samina-Mbayo VFP VFP [id number] [facility] 07:09:00 07:09:00 _A_AH [id number] Family Practic e 2020-06-22 2020-06-22 Outpatient Samina-Mbayo VFP VFP [id number] [facility] 12:59:00 12:59:00 _A_AH [id number] Family Practic e 2020-06-20 2020-06-20 Outpatient Samina-Mbayo VFP VFP [id number] [facility] 06:16:00 06:16:00 _A_AH [id number] Family Practic e 2020-06-18 2020-06-18 Outpatient RYAN FIGUEROA [facility] [id number] Univers 14:50:44 23:59:00 ity [facility] 2020-06-18 2020-06-18 Quencher Operator Livan, [facility] Lab Main [facility] [id number] [facility] 14:44:53 14:59:53 Visit [place] [id number] ity [facility] [id number] Randy luu Professio [id number] Pr dical [address] 2020-06-18 2020-06-18 Quencher Operator Livan, [facility] [id number] 14:44:53 14:59:53 Visit Lab Main [place] [id number] [place] [id number] Professio [id number] [address] 2020-06-01 2020-06-01 Outpatient Samina-Mbayo VFP VFP [id number] [facility] 07:09:00 07:09:00 _A_AH 82115 Family Practic e 2020-05-28 2020-05-28 Ada VFP [place] - [id number] V illage 00:00:00 00:00:00 Samina-Mbay [facility] Fam mello morales MECHANICAL ASSEMBLY: Medical - Practi keyon [address] [email or web address] [facility], [place] [address], [place] [address] , Ph. 2020-05-18 2020-05-18 Outpatient Samina-Mbayo VFP VFP [id number] 12:40:00 12:40:00 _A_AH 82131 Family Practic e 2020-04-13 2020-04-13 Outpatient Samina-Mbayo VFP VFP [id number] [address] 12:53:00 12:53:00 _A_AH [id number] [facility] Practic e 2020-03-08 2020-03-08 Outpatient Samina-Mbayo VFP VFP [id number] [facility] 10:27:00 10:27:00 _A_AH 24619 Family Practic e 2020-03-07 2020-03-07 Outpatient Samina-Mbayo VFP VFP [id number] [facility] 06:42:00 06:42:00 _A_AH [id number] Family Practic e 2020-02-13 2020-02-13 [place] VFP [place] - [id number] [facility] 00:00:00 00:00:00 Mickey [facility] Jourdan morales MECH[employer]ICAL ASSEMBLY: Medical - Practi keyon [id number] [email or web address]_ [email or web address] [facility], [address], [place] [address] , Ph. 2020-02-02 2020-02-02 Outpatient Dodie VFP VFP [phone] [facility] 02:33:00 02:33:00 _A_AH 07252 Family Practic e 2017-05-18 2017-05-27 Inpatient [facility] [id number] [facility] 18:25:00 16:02:00 r [place] 00 l [facility] 2017-05-18 2017-05-27 Inpatient [facility] [id number] [facility] 18:25:00 16:02:00 r Chemo 00 l [facility] 2017-05-18 2017-05-27 Outpatient [place], [facility] [id number] 13:25:00 11:02:00 [place] 00 Faiz Results Test Description Test Time Test Comments Results Result Comments Source [facility] 2017-05-26 17:29:00 Test Item Value Reference Range Interpretation Comme nts Potassium Lvl (test code = Potassium Lvl) 3.7 3.5-5.1 [facility]mkAKSRALGHZWSY8697-60-10 17:29:00 Test Item Value Reference Range Interpretation Comments Potassium Lvl (test code = Potassium 3.7 3.5-5.1 Lvl) [facility]BsfygfbATEAPXPRDOBL0683-31-63 09:48:36 Test Item Value Reference Range Interpretation Comments AGAP (test code = AGAP) 9.1 10.0-20.0 [facility]OinifxhCWRWLRMQOKKT4389-75-27 09:48:36 Test Item Value Reference Range Interpretation Comments Calcium Lvl (test code = Calcium Lvl) 8.7 8.5-10.5 [facility]TjgfunjBOWKQRYCFQZW0692-54-81 09:48:36 Test Item Value Reference Range Interpretation Comments Potassium Lvl (test code = Potassium 3.1 3.5-5.1 Lvl) [facility]AdwtrotMPPXJTKJVEEY9252-31-50 09:48:36 Test Item Value Reference Range Interpretation Comments Sodium Lvl (test code = Sodium Lvl) 139 135-145 [facility] HospitalUsqvgkrBVXWSNGOKGWT8125-41-93 09:48:36 Test Item Value Reference Range Interpretation Comments eGFR (test code = eGFR) 87 [facility] HospitalCpixqewQZGLCGPPOINP8962-54-99 09:48:36 Test Item Value Reference Range Interpretation Comments CO2 (test code = CO2) 31 24-32 [facility]IcvdyjoZCWGWFSRPNUK2029-51-35 09:48:36 Test Item Value Reference Range Interpretation Comments Chloride Lvl (test code = Chloride Lvl) 102 95-109 [facility] HospitalSjxenowXNGIHFXFBZQS3960-88-19 09:48:36 Test Item Value Reference Range Interpretation Comments Glucose Lvl (test code = Glucose Lvl) 89 70-99 [facility] HospitalGjcwzkwJADRLPBWGAGJ9421-16-81 09:48:36 Test Item Value Reference Range Interpretation Comments BUN (test code = BUN) 11 7-22 [facility]HteidfzODHDZZOMKEOA5293-63-80 09:48:36 Test Item Value Reference Range Interpretation Comments Creatinine Lvl (test code = Creatinine 0.59 0.50-1.40 Lvl) [facility]huegazXEIVVGDYKJ1848-68-57 09:48:36 Test Item Value Reference Range Interpretation Comments Hct (test code = Hct) 28.2 36.0-48.0 [facility] HospitalZhprwgiYMXWJRHMYQ8108-89-68 09:48:36 Test Item Value Reference Range Interpretation Comments MCH (test code = MCH) 31.5 pg 27.0-31.0 [facility] HospitalLituzcpWXDWVNVNKE4843-88-11 09:48:36 Test Item Value Reference Range Interpretation Comments Hgb (test code = Hgb) 9.8 12.0-16.0 [facility] HospitalEzjexisAWJYTHYIPB4450-32-63 09:48:36 Test Item Value Reference Range Interpretation Comments Basophils # (test code 0.1 See_Comment [Aut omated message] The = Basophils #) system which generated this result tra nsmitted reference range : <=0.2. The reference r tye was not used to int erpret this result as normal/abnormal . [facility] HospitalJgqpcviQQZWDCXJSTNU0900-69-56 09:48:36 Test Item Value Reference Range Interpretation Comments AGAP (test code = AGAP) 9.1 10.0-20.0 [facility] HospitalAmaoxrlLEFDPYOYYOJD9455-33-85 09:48:36 Test Item Value Reference Range Interpretation Comments Calcium Lvl (test code = Calcium Lvl) 8.7 8.5-10.5 [facility] HospitalYlhzeefZYAMLMSRYWLT2910-22-89 09:48:36 Test Item Value Reference Range Interpretation Comments Potassium Lvl (test code = Potassium 3.1 3.5-5.1 Lvl) [facility] HospitalBoofttwIRGKXTNOTMVZ8592-02-90 09:48:36 Test Item Value Reference Range Interpretation Comments Sodium Lvl (test code = Sodium Lvl) 139 135-145 [facility] HospitalZtazoxjJMLNHYWFXOXP8465-92-80 09:48:36 Test Item Value Reference Range Interpretation Comments eGFR (test code = eGFR) 87 [facility] HospitalCcjnvgaZOUAVAQMDKLA2547-45-76 09:48:36 Test Item Value Reference Range Interpretation Comments CO2 (test code = CO2) 31 24-32 [facility] HospitalWlwqbmxWAOVOCDZZXXU6792-41-28 09:48:36 Test Item Value Reference Range Interpretation Comments Chloride Lvl (test code = Chloride Lvl) 102 95-109 [facility] HospitalAqkvmgqCIXSVZWHJCMD6354-45-45 09:48:36 Test Item Value Reference Range Interpretation Comments Glucose Lvl (test code = Glucose Lvl) 89 70-99 [facility] HospitalQjlkwhdVYROPNMZPCVF0174-07-89 09:48:36 Test Item Value Reference Range Interpretation Comments BUN (test code = BUN) 11 7-22 [facility] HospitalIcfvgvwOHOUFLIAVVAH1607-98-75 09:48:36 Test Item Value Reference Range Interpretation Comments Creatinine Lvl (test code = Creatinine 0.59 0.50-1.40 Lvl) [facility]UuwpjzwNJWFKVVPFV7896-18-90 09:48:36 Test Item Value Reference Range Interpretation Comments Hct (test code = Hct) 28.2 36.0-48.0 [facility] HospitalSoolicnUBLXXUFAIH5293-79-08 09:48:36 Test Item Value Reference Range Interpretation Comments MCH (test code = MCH) 31.5 pg 27.0-31.0 [facility] HospitalToufegwUDMLNMPHMY7645-09-92 09:48:36 Test Item Value Reference Range Interpretation Comments Hgb (test code = Hgb) 9.8 12.0-16.0 [facility] HospitalCaiwlupNGMPAVZCRA0318-78-34 09:48:36 Test Item Value Reference Range Interpretation Comments MCHC (test code = MCHC) 35.0 32.0-36.0 [facility] HospitalWnryyigCPFECIBZYC6686-88-64 09:48:36 Test Item Value Reference Range Interpretation Comments MCV (test code = MCV) 90.0 80.0-98.0 [facility] HospitalZltlrlvGAVJGAGISZ1850-09-70 09:48:36 Test Item Value Reference Range Interpretation Comments RDW (test code = RDW) 12.8 11.5-14.5 [facility] HospitalFdejmxiZZOJLODIIQ3784-83-89 09:48:36 Test Item Value Reference Range Interpretation Comments Platelet (test code = Platelet) 274 133-450 [facility] HospitalQjkxiopYHGGRZLIYW0607-86-82 09:48:36 Test Item Value Reference Range Interpretation Comments MPV (test code = MPV) 8.1 7.4-10.4 [facility] HospitalHatxidlXGAMKCVSLN1556-72-10 09:48:36 Test Item Value Reference Range Interpretation Comments WBC (test code = WBC) 6.6 3.7-10.4 [facility] HospitalDqlvlhsLXEEMQONFM3175-58-24 09:48:36 Test Item Value Reference Range Interpretation Comments RBC (test code = RBC) 3.13 4.20-5.40 [facility] HospitalQsvdbjuPKHJRXWRNC2883-11-69 09:48:36 Test Item Value Reference Range Interpretation Comments Segs (test code = Segs) 47.9 45.0-75.0 [facility] HospitalThnlxjxPJZEGNIWDA8932-20-90 09:48:36 Test Item Value Reference Range Interpretation Comments Lymphocytes (test code = Lymphocytes) 31.3 20.0-40.0 [facility] HospitalOcaenxxIMGUOPJZVT3947-46-00 09:48:36 Test Item Value Reference Range Interpretation Comments Monocytes (test code = Monocytes) 14.8 2.0-12.0 [facility] HospitalZtgcmceHZGBCRUNPC9021-51-50 09:48:36 Test Item Value Reference Range Interpretation Comments Eosinophils (test code = 5.2 See_Comment [A utomated message] The Eosinophils) system which ge nerated this result tra nsmitted reference range : <=4.0. The reference r tye was not used to int erpret this result as normal/abnormal . [facility] HospitalYuvghrqHCBKUVDWIT5662-00-41 09:48:36 Test Item Value Reference Range Interpretation Comments MCHC (test code = MCHC) 35.0 32.0-36.0 [facility] HospitalIapybyzEVZBIHAIIC5667-59-79 09:48:36 Test Item Value Reference Range Interpretation Comments Segs-Bands # (test code = Segs-Bands #) 3.1 1.5-8.1 [facility] HospitalSxlngfeIPTXTDAUMT9971-49-52 09:48:36 Test Item Value Reference Range Interpretation Comments Basophils (test code = 0.8 See_Comment [Aut omated message] The Basophils) system which ge nerated this result tra nsmitted reference range : <=1.0. The reference r tye was not used to int erpret this result as normal/abnormal . [facility] HospitalHjskcxoNVGDFVVUZM4691-77-17 09:48:36 Test Item Value Reference Range Interpretation Comments Eosinophils # (test code 0.3 See_Comment [A utomated message] The = Eosinophils #) system whic h generated this result tra nsmitted reference range : <=0.5. The reference r tye was not used to int erpret this result as normal/abnormal . [facility] HospitalEgwqopbKRXTCXNYTP7038-80-11 09:48:36 Test Item Value Reference Range Interpretation Comments Monocytes # (test code 1.0 See_Comment [Aut omated message] The = Monocytes #) system which generated this result tra nsmitted reference range : <=0.8. The reference r tye was not used to int erpret this result as normal/abnormal . [facility] HospitalOmtilzbEGBPWUFPSH9989-92-08 09:48:36 Test Item Value Reference Range Interpretation Comments Lymphocytes # (test code = Lymphocytes 2.1 1.0-5.5 #) [facility] HospitalNtqbmlfCOMMVBHNRC6947-37-98 09:48:36 Test Item Value Reference Range Interpretation Comments MCV (test code = MCV) 90.0 80.0-98.0 [facility] HospitalKfrmgirSHUEUPUKME0364-89-53 09:48:36 Test Item Value Reference Range Interpretation Comments RDW (test code = RDW) 12.8 11.5-14.5 [facility] HospitalHkgqctiNIPLKYHSXM4222-58-07 09:48:36 Test Item Value Reference Range Interpretation Comments Platelet (test code = Platelet) 274 133-450 [facility] HospitalAgvszukHYYFBUNFIK9071-42-35 09:48:36 Test Item Value Reference Range Interpretation Comments MPV (test code = MPV) 8.1 7.4-10.4 [facility] HospitalLnzbslsRNVIQOFYJR8879-71-54 09:48:36 Test Item Value Reference Range Interpretation Comments WBC (test code = WBC) 6.6 3.7-10.4 [facility] HospitalPcyzodnJYBKFQAKIE4379-12-77 09:48:36 Test Item Value Reference Range Interpretation Comments RBC (test code = RBC) 3.13 4.20-5.40 [facility] HospitalHcrdqsoGTVUZNMAZT5201-09-71 09:48:36 Test Item Value Reference Range Interpretation Comments Segs (test code = Segs) 47.9 45.0-75.0 [facility] HospitalGgrtwidZYPCCWHGKF9070-95-20 09:48:36 Test Item Value Reference Range Interpretation Comments Lymphocytes (test code = Lymphocytes) 31.3 20.0-40.0 [facility] HospitalVhhruveZKJFXMMRMV1782-27-53 09:48:36 Test Item Value Reference Range Interpretation Comments Monocytes (test code = Monocytes) 14.8 2.0-12.0 [facility] HospitalJbmsxhhYCPZXAJFDJ0991-01-23 09:48:36 Test Item Value Reference Range Interpretation Comments Eosinophils (test code = 5.2 See_Comment [A utomated message] The Eosinophils) system which ge nerated this result tra nsmitted reference range : <=4.0. The reference r tye was not used to int erpret this result as normal/abnormal . [facility] HospitalUzokyrxVJANTXYHRL7028-84-23 09:48:36 Test Item Value Reference Range Interpretation Comments Segs-Bands # (test code = Segs-Bands #) 3.1 1.5-8.1 [facility] HospitalFpnuomvKEBAODNTYU3803-44-35 09:48:36 Test Item Value Reference Range Interpretation Comments Basophils (test code = 0.8 See_Comment [Aut omated message] The Basophils) system which ge nerated this result tra nsmitted reference range : <=1.0. The reference r tye was not used to int erpret this result as normal/abnormal . [facility] HospitalWltbnzvPKNQAWVTRA1867-72-64 09:48:36 Test Item Value Reference Range Interpretation Comments Eosinophils # (test code 0.3 See_Comment [A utomated message] The = Eosinophils #) system whic h generated this result tra nsmitted reference range : <=0.5. The reference r tye was not used to int erpret this result as normal/abnormal . [facility] HospitalMwcpsycPYHAKZGGJA0142-43-81 09:48:36 Test Item Value Reference Range Interpretation Comments Monocytes # (test code 1.0 See_Comment [Aut omated message] The = Monocytes #) system which generated this result tra nsmitted reference range : <=0.8. The reference r tye was not used to int erpret this result as normal/abnormal . [facility] HospitalZidyrloPARRGVBYFW8316-84-20 09:48:36 Test Item Value Reference Range Interpretation Comments Lymphocytes # (test code = Lymphocytes 2.1 1.0-5.5 #) [facility] HospitalVwwuwmxOUFCDJUJEQ4089-62-03 09:48:36 Test Item Value Reference Range Interpretation Comments Basophils # (test code 0.1 See_Comment [Aut omated message] The = Basophils #) system which generated this result tra nsmitted reference range : <=0.2. The reference r tye was not used to int erpret this result as normal/abnormal . [facility]2017-07-10 15:09:00 Test Item Value Reference Range Interpretation Comments Glucose Lvl (test code = Glucose Lvl) 83 70-99 [facility]2017-07-10 15:09:00 Test Item Value Reference Range Interpretation Comments CO2 (test code = CO2) 29 24-32 [facility]2017-07-10 15:09:00 Test Item Value Reference Range Interpretation Comments Calcium Lvl (test code = Calcium Lvl) 8.0 8.5-10.5 [facility]2017-07-10 15:09:00 Test Item Value Reference Range Interpretation Comments AGAP (test code = AGAP) 11.3 10.0-20.0 [facility]2017-07-10 15:09:00 Test Item Value Reference Range Interpretation Comments eGFR (test code = eGFR) 85 [facility]2017-07-10 15:09:00 Test Item Value Reference Range Interpretation Comments Sodium Lvl (test code = Sodium Lvl) 140 135-145 [facility]2017-07-10 15:09:00 Test Item Value Reference Range Interpretation Comments Creatinine Lvl (test code = Creatinine 0.64 0.50-1.40 Lvl) [facility]2017-07-10 15:09:00 Test Item Value Reference Range Interpretation Comments BUN (test code = BUN) 11 7-22 [facility]2017-07-10 15:09:00 Test Item Value Reference Range Interpretation Comments Chloride Lvl (test code = Chloride Lvl) 103 95-109 [facility]2017-07-10 15:09:00 Test Item Value Reference Range Interpretation Comments Potassium Lvl (test code = Potassium 3.3 3.5-5.1 Lvl) [facility]2017-07-10 15:09:00 Test Item Value Reference Range Interpretation Comments Glucose Lvl (test code = Glucose Lvl) 83 70-99 [facility]2017-07-10 15:09:00 Test Item Value Reference Range Interpretation Comments CO2 (test code = CO2) 29 24-32 [facility]2017-07-10 15:09:00 Test Item Value Reference Range Interpretation Comments Calcium Lvl (test code = Calcium Lvl) 8.0 8.5-10.5 [facility]2017-07-10 15:09:00 Test Item Value Reference Range Interpretation Comments AGAP (test code = AGAP) 11.3 10.0-20.0 [facility]2017-07-10 15:09:00 Test Item Value Reference Range Interpretation Comments eGFR (test code = eGFR) 85 [facility]2017-07-10 15:09:00 Test Item Value Reference Range Interpretation Comments Sodium Lvl (test code = Sodium Lvl) 140 135-145 [facility]2017-07-10 15:09:00 Test Item Value Reference Range Interpretation Comments Creatinine Lvl (test code = Creatinine 0.64 0.50-1.40 Lvl) [facility]2017-07-10 15:09:00 Test Item Value Reference Range Interpretation Comments BUN (test code = BUN) 11 7-22 [facility]2017-07-10 15:09:00 Test Item Value Reference Range Interpretation Comments Chloride Lvl (test code = Chloride Lvl) 103 95-109 [facility]2017-07-10 15:09:00 Test Item Value Reference Range Interpretation Comments Potassium Lvl (test code = Potassium 3.3 3.5-5.1 Lvl) [facility]2017-07-10 12:31:00 Test Item Value Reference Range Interpretation Comments eGFR (test code = eGFR) 90 [facility]2017-07-10 12:31:00 Test Item Value Reference Range Interpretation Comments Calcium Lvl (test code = Calcium Lvl) 6.4 8.5-10.5 [facility]2017-07-10 12:31:00 Test Item Value Reference Range Interpretation Comments AGAP (test code = AGAP) 20.4 10.0-20.0 [facility]2017-07-10 12:31:00 Test Item Value Reference Range Interpretation Comments CO2 (test code = CO2) 25 24-32 [facility]2017-07-10 12:31:00 Test Item Value Reference Range Interpretation Comments Glucose Lvl (test code = Glucose Lvl) 69 70-99 [facility]2017-07-10 12:31:00 Test Item Value Reference Range Interpretation Comments Sodium Lvl (test code = Sodium Lvl) 155 135-145 [facility]2017-07-10 12:31:00 Test Item Value Reference Range Interpretation Comments BUN (test code = BUN) 10 7-22 [facility]2017-07-10 12:31:00 Test Item Value Reference Range Interpretation Comments Chloride Lvl (test code = Chloride Lvl) 112 95-109 [facility]2017-07-10 12:31:00 Test Item Value Reference Range Interpretation Comments Creatinine Lvl (test code = Creatinine 0.55 0.50-1.40 Lvl) [facility]QblnanpWYMWRMDEHI7622-05-57 12:31:00 Test Item Value Reference Range Interpretation Comments Hct (test code = Hct) 25.0 36.0-48.0 [facility] HospitalCcaxhrvKGTOOTAEAO5397-10-30 12:31:00 Test Item Value Reference Range Interpretation Comments MCV (test code = MCV) 90.5 80.0-98.0 [facility] HospitalParuyihGJCQZPOKWY7701-08-32 12:31:00 Test Item Value Reference Range Interpretation Comments Hgb (test code = Hgb) 8.4 12.0-16.0 [facility] HospitalEecszjfALPDAKFZQB5011-24-19 12:31:00 Test Item Value Reference Range Interpretation Comments MCH (test code = MCH) 30.4 pg 27.0-31.0 [facility] HospitalXuoegyaRWRDXTCSXD7783-09-67 12:31:00 Test Item Value Reference Range Interpretation Comments MCHC (test code = MCHC) 33.6 32.0-36.0 [facility] HospitalQphxuaxGNSJYCBDNI7439-00-80 12:31:00 Test Item Value Reference Range Interpretation Comments RDW (test code = RDW) 13.2 11.5-14.5 [facility] HospitalIfmbvhsHHUNHAOYDC0642-53-05 12:31:00 Test Item Value Reference Range Interpretation Comments MPV (test code = MPV) 8.1 7.4-10.4 [facility] HospitalPedosmaRIMTICGJRW5587-72-98 12:31:00 Test Item Value Reference Range Interpretation Comments Platelet (test code = Platelet) 212 133-450 [facility] HospitalMfiwwesJGIKJEPJEX5026-51-15 12:31:00 Test Item Value Reference Range Interpretation Comments RBC (test code = RBC) 2.76 4.20-5.40 [facility] HospitalNmqlgyoZGAUXDGAJU1986-22-93 12:31:00 Test Item Value Reference Range Interpretation Comments WBC (test code = WBC) 5.7 3.7-10.4 [facility] HospitalWroccfsOCQZKFQPHN4079-06-18 12:31:00 Test Item Value Reference Range Interpretation Comments Monocytes # (test code 0.8 See_Comment [Aut omated message] The = Monocytes #) system which generated this result tra nsmitted reference range : <=0.8. The reference r tye was not used to int erpret this result as normal/abnormal . [facility] HospitalKjokoslLILWDZKTZB2427-55-85 12:31:00 Test Item Value Reference Range Interpretation Comments Eosinophils # (test code 0.2 See_Comment [A utomated message] The = Eosinophils #) system whic h generated this result tra nsmitted reference range : <=0.5. The reference r tye was not used to int erpret this result as normal/abnormal . [facility] HospitalWqwdvipNMGOOPKLAP1803-28-29 12:31:00 Test Item Value Reference Range Interpretation Comments Lymphocytes (test code = Lymphocytes) 26.0 20.0-40.0 [facility] HospitalSlcfjyhIDGTVSTRQD2201-29-36 12:31:00 Test Item Value Reference Range Interpretation Comments Segs-Bands # (test code = Segs-Bands #) 3.2 1.5-8.1 [facility] HospitalBcsmjfoXABVUGGXTS6554-39-59 12:31:00 Test Item Value Reference Range Interpretation Comments Lymphocytes # (test code = Lymphocytes 1.5 1.0-5.5 #) [facility] HospitalKhbucteOGJDBCUAVM9251-92-04 12:31:00 Test Item Value Reference Range Interpretation Comments Eosinophils (test code = 3.7 See_Comment [A utomated message] The Eosinophils) system which ge nerated this result tra nsmitted reference range : <=4.0. The reference r tye was not used to int erpret this result as normal/abnormal . [facility] HospitalIuwaaenIQPVCCXSKY2228-80-59 12:31:00 Test Item Value Reference Range Interpretation Comments Monocytes (test code = Monocytes) 14.4 2.0-12.0 [facility] HospitalWkkibyjHTJVMUSZMH0202-01-44 12:31:00 Test Item Value Reference Range Interpretation Comments Basophils (test code = 0.5 See_Comment [Aut omated message] The Basophils) system which ge nerated this result tra nsmitted reference range : <=1.0. The reference r tye was not used to int erpret this result as normal/abnormal . [facility] HospitalEajuiuaIHABWWCPDK1813-49-67 12:31:00 Test Item Value Reference Range Interpretation Comments Segs (test code = Segs) 55.4 45.0-75.0 [facility]2017-07-10 12:31:00 Test Item Value Reference Range Interpretation Comments eGFR (test code = eGFR) 90 [facility]2017-07-10 12:31:00 Test Item Value Reference Range Interpretation Comments Calcium Lvl (test code = Calcium Lvl) 6.4 8.5-10.5 [facility]2017-07-10 12:31:00 Test Item Value Reference Range Interpretation Comments AGAP (test code = AGAP) 20.4 10.0-20.0 [facility]2017-07-10 12:31:00 Test Item Value Reference Range Interpretation Comments CO2 (test code = CO2) 25 24-32 [facility]2017-07-10 12:31:00 Test Item Value Reference Range Interpretation Comments Glucose Lvl (test code = Glucose Lvl) 69 70-99 [facility]2017-07-10 12:31:00 Test Item Value Reference Range Interpretation Comments Sodium Lvl (test code = Sodium Lvl) 155 135-145 [facility]2017-07-10 12:31:00 Test Item Value Reference Range Interpretation Comments BUN (test code = BUN) 10 7-22 [facility]2017-07-10 12:31:00 Test Item Value Reference Range Interpretation Comments Chloride Lvl (test code = Chloride Lvl) 112 95-109 [facility]2017-07-10 12:31:00 Test Item Value Reference Range Interpretation Comments Creatinine Lvl (test code = Creatinine 0.55 0.50-1.40 Lvl) [facility] HospitalDqoslxiQZTNAOGCIR7058-82-43 12:31:00 Test Item Value Reference Range Interpretation Comments Hct (test code = Hct) 25.0 36.0-48.0 [facility] HospitalJpxsxiiZZDYLWALJD9941-77-63 12:31:00 Test Item Value Reference Range Interpretation Comments MCV (test code = MCV) 90.5 80.0-98.0 [facility] HospitalLnzvyndEQRWNGZOCR2575-11-03 12:31:00 Test Item Value Reference Range Interpretation Comments Hgb (test code = Hgb) 8.4 12.0-16.0 [facility] HospitalJzzjkgePSDVRVSHBG8334-92-54 12:31:00 Test Item Value Reference Range Interpretation Comments MCH (test code = MCH) 30.4 pg 27.0-31.0 [facility] HospitalVsqnymgNTAYNBMRBZ9207-43-80 12:31:00 Test Item Value Reference Range Interpretation Comments MCHC (test code = MCHC) 33.6 32.0-36.0 [facility] HospitalXlespnnTLDCOAQCUQ9897-46-49 12:31:00 Test Item Value Reference Range Interpretation Comments RDW (test code = RDW) 13.2 11.5-14.5 [facility] HospitalEjwpmlzACBQSVACSA2423-10-68 12:31:00 Test Item Value Reference Range Interpretation Comments MPV (test code = MPV) 8.1 7.4-10.4 [facility] HospitalBjvgstnZDABRLJHWY0970-31-55 12:31:00 Test Item Value Reference Range Interpretation Comments Platelet (test code = Platelet) 212 133-450 [facility] HospitalFjbrpgjYKQDHGAAPO3564-27-83 12:31:00 Test Item Value Reference Range Interpretation Comments RBC (test code = RBC) 2.76 4.20-5.40 [facility] HospitalFlqeadwPWIHWPUUGC8040-67-77 12:31:00 Test Item Value Reference Range Interpretation Comments WBC (test code = WBC) 5.7 3.7-10.4 [facility] HospitalXwjntrsWWGLWYBHVF0104-29-06 12:31:00 Test Item Value Reference Range Interpretation Comments Monocytes # (test code 0.8 See_Comment [Aut omated message] The = Monocytes #) system which generated this result tra nsmitted reference range : <=0.8. The reference r tye was not used to int erpret this result as normal/abnormal . [facility] HospitalVnzqgxfTLJRERXDLX9749-66-47 12:31:00 Test Item Value Reference Range Interpretation Comments Eosinophils # (test code 0.2 See_Comment [A utomated message] The = Eosinophils #) system whic h generated this result tra nsmitted reference range : <=0.5. The reference r tye was not used to int erpret this result as normal/abnormal . [facility]JtgzfhqSWKQASAVBB4954-85-54 12:31:00 Test Item Value Reference Range Interpretation Comments Lymphocytes (test code = Lymphocytes) 26.0 20.0-40.0 [facility] HospitalDxrgantTRMVVAKNCI8064-27-24 12:31:00 Test Item Value Reference Range Interpretation Comments Segs-Bands # (test code = Segs-Bands #) 3.2 1.5-8.1 [facility] HospitalTgugpjeMBUNNROOAP1306-28-44 12:31:00 Test Item Value Reference Range Interpretation Comments Lymphocytes # (test code = Lymphocytes 1.5 1.0-5.5 #) [facility] HospitalNohaslwVSRXSWLPDO5226-31-17 12:31:00 Test Item Value Reference Range Interpretation Comments Eosinophils (test code = 3.7 See_Comment [A utomated message] The Eosinophils) system which ge nerated this result tra nsmitted reference range : <=4.0. The reference r tye was not used to int erpret this result as normal/abnormal . [facility] HospitalNxcdsiuDCREZPCVNB9590-05-10 12:31:00 Test Item Value Reference Range Interpretation Comments Monocytes (test code = Monocytes) 14.4 2.0-12.0 [facility] HospitalRlzlwiiJZMBMQBMEB3546-55-44 12:31:00 Test Item Value Reference Range Interpretation Comments Basophils (test code = 0.5 See_Comment [Aut omated message] The Basophils) system which ge nerated this result tra nsmitted reference range : <=1.0. The reference r tye was not used to int erpret this result as normal/abnormal . [facility] HospitalJkktnkeHQWKUQTHKG2002-32-56 12:31:00 Test Item Value Reference Range Interpretation Comments Segs (test code = Segs) 55.4 45.0-75.0 [facility]2017-07-09 13:15:00 Test Item Value Reference Range Interpretation Comments Folate Lvl (test code = Folate Lvl) 54.1 [facility]2017-07-09 13:15:00 Test Item Value Reference Range Interpretation Comments Vitamin B12 Lvl (test code = Vitamin 2667 [id number] B12 Lvl) [facility]2017-07-09 13:15:00 Test Item Value Reference Range Interpretation Comments Folate Lvl (test code = Folate Lvl) 54.1 [facility]2017-07-09 13:15:00 Test Item Value Reference Range Interpretation Comments Vitamin B12 Lvl (test code = Vitamin [phone] B12 Lvl) [facility] HospitalAkdooruUCHEZHRBLI4738-59-00 11:45:00 Test Item Value Reference Range Interpretation Comments MPV (test code = MPV) 7.6 7.4-10.4 [facility] HospitalYwmqxwlVGRBBATJKZ1705-80-53 11:45:00 Test Item Value Reference Range Interpretation Comments Platelet (test code = Platelet) 232 133-450 [facility] HospitalMtvpvvbUQMDQMFBUL4186-38-35 11:45:00 Test Item Value Reference Range Interpretation Comments MCV (test code = MCV) 89.7 80.0-98.0 [facility] HospitalUqbhymkSPBSCAVZFV0081-90-38 11:45:00 Test Item Value Reference Range Interpretation Comments Hct (test code = Hct) 30.2 36.0-48.0 [facility] HospitalIuuqnxxVQSLKTZNBJ3805-30-76 11:45:00 Test Item Value Reference Range Interpretation Comments RDW (test code = RDW) 13.4 11.5-14.5 [facility] HospitalDcwjzwcNSQVKJGYPN1215-05-39 11:45:00 Test Item Value Reference Range Interpretation Comments MCHC (test code = MCHC) 34.5 32.0-36.0 [facility] HospitalVotjcucVLSJDYIBFE6131-66-26 11:45:00 Test Item Value Reference Range Interpretation Comments MCH (test code = MCH) 31.0 pg 27.0-31.0 [facility] HospitalFltlwdfCVVSCFJTAC2191-29-95 11:45:00 Test Item Value Reference Range Interpretation Comments WBC (test code = WBC) 7.2 3.7-10.4 [facility] HospitalGektbevFNCEDVQSOH6472-00-33 11:45:00 Test Item Value Reference Range Interpretation Comments Hgb (test code = Hgb) 10.4 12.0-16.0 [facility] HospitalMfbxdtxJRFIMQXAEO1564-79-59 11:45:00 Test Item Value Reference Range Interpretation Comments RBC (test code = RBC) 3.36 4.20-5.40 [facility] HospitalJesnpkhHDGZICJUTR9561-44-29 11:45:00 Test Item Value Reference Range Interpretation Comments Eosinophils # (test code 0.2 See_Comment [A utomated message] The = Eosinophils #) system whic h generated this result tra nsmitted reference range : <=0.5. The reference r tye was not used to int erpret this result as normal/abnormal . [facility] HospitalPsjyfcbRSVYGGODRR3606-95-94 11:45:00 Test Item Value Reference Range Interpretation Comments Monocytes # (test code 0.9 See_Comment [Aut omated message] The = Monocytes #) system which generated this result tra nsmitted reference range : <=0.8. The reference r tye was not used to int erpret this result as normal/abnormal . [facility] HospitalUhyhrhnTXQJWSDNMV1740-14-26 11:45:00 Test Item Value Reference Range Interpretation Comments Lymphocytes # (test code = Lymphocytes 1.6 1.0-5.5 #) [facility] HospitalCcifucnXRWSGFIHAC8225-73-65 11:45:00 Test Item Value Reference Range Interpretation Comments Segs-Bands # (test code = Segs-Bands #) 4.4 1.5-8.1 [facility] HospitalUkguzzpUNYXTYFXCF0377-28-30 11:45:00 Test Item Value Reference Range Interpretation Comments Lymphocytes (test code = Lymphocytes) 22.1 20.0-40.0 [facility] HospitalXnqxopqUEGCYNHBQS0558-39-03 11:45:00 Test Item Value Reference Range Interpretation Comments Eosinophils (test code = 3.3 See_Comment [A utomated message] The Eosinophils) system which ge nerated this result tra nsmitted reference range : <=4.0. The reference r tye was not used to int erpret this result as normal/abnormal . [facility] HospitalOlkryrfNTHONVFTNE7139-69-90 11:45:00 Test Item Value Reference Range Interpretation Comments Monocytes (test code = Monocytes) 12.6 2.0-12.0 [facility] HospitalZbcnbvtSTPWLEMKID1303-48-45 11:45:00 Test Item Value Reference Range Interpretation Comments Basophils (test code = 0.5 See_Comment [Aut omated message] The Basophils) system which ge nerated this result tra nsmitted reference range : <=1.0. The reference r tye was not used to int erpret this result as normal/abnormal . [facility] HospitalTqytwsuXDPCKAXKFX7899-20-61 11:45:00 Test Item Value Reference Range Interpretation Comments Segs (test code = Segs) 61.5 45.0-75.0 [facility] HospitalLphyqxdCAGOJKYSSO7055-15-79 11:45:00 Test Item Value Reference Range Interpretation Comments MPV (test code = MPV) 7.6 7.4-10.4 [facility] HospitalBzihggpBGMSKPTIEE3053-21-06 11:45:00 Test Item Value Reference Range Interpretation Comments Platelet (test code = Platelet) 232 133-450 [facility] HospitalXkfczulONNHJMQGBD6196-93-68 11:45:00 Test Item Value Reference Range Interpretation Comments MCV (test code = MCV) 89.7 80.0-98.0 [facility] HospitalDymencxLEADBKXUDM2695-43-69 11:45:00 Test Item Value Reference Range Interpretation Comments Hct (test code = Hct) 30.2 36.0-48.0 [facility] HospitalZrjjrsqCWIDMPBDGN9537-54-48 11:45:00 Test Item Value Reference Range Interpretation Comments RDW (test code = RDW) 13.4 11.5-14.5 [facility] HospitalUytatfhQFDYRKTYIC5497-02-36 11:45:00 Test Item Value Reference Range Interpretation Comments MCHC (test code = MCHC) 34.5 32.0-36.0 [facility] HospitalVffexqsMIXSRWFGYX5971-17-21 11:45:00 Test Item Value Reference Range Interpretation Comments MCH (test code = MCH) 31.0 pg 27.0-31.0 [facility] HospitalMhfzqduEHARUTEAIB9703-66-85 11:45:00 Test Item Value Reference Range Interpretation Comments WBC (test code = WBC) 7.2 3.7-10.4 [facility] HospitalMssamkqVFTIDJGENL3472-24-51 11:45:00 Test Item Value Reference Range Interpretation Comments Hgb (test code = Hgb) 10.4 12.0-16.0 [facility] HospitalClnxjixYERBMXRKBT1452-22-84 11:45:00 Test Item Value Reference Range Interpretation Comments RBC (test code = RBC) 3.36 4.20-5.40 [facility] HospitalPpfainwVUEVNLBUZH8700-33-69 11:45:00 Test Item Value Reference Range Interpretation Comments Eosinophils # (test code 0.2 See_Comment [A utomated message] The = Eosinophils #) system whic h generated this result tra nsmitted reference range : <=0.5. The reference r tye was not used to int erpret this result as normal/abnormal . [facility] HospitalIadqiknLDDOPJYLUM7962-73-18 11:45:00 Test Item Value Reference Range Interpretation Comments Monocytes # (test code 0.9 See_Comment [Aut omated message] The = Monocytes #) system which generated this result tra nsmitted reference range : <=0.8. The reference r tye was not used to int erpret this result as normal/abnormal . [facility] HospitalAjgxgjjIFVTRQWBUE5177-74-20 11:45:00 Test Item Value Reference Range Interpretation Comments Lymphocytes # (test code = Lymphocytes 1.6 1.0-5.5 #) [facility] HospitalVfenoomJWPRBGEFVJ9028-22-80 11:45:00 Test Item Value Reference Range Interpretation Comments Segs-Bands # (test code = Segs-Bands #) 4.4 1.5-8.1 [facility] HospitalElliagxZSYJIGEUYP1407-13-09 11:45:00 Test Item Value Reference Range Interpretation Comments Lymphocytes (test code = Lymphocytes) 22.1 20.0-40.0 [facility] HospitalPgggwcmCGGOINQSGT5413-36-84 11:45:00 Test Item Value Reference Range Interpretation Comments Eosinophils (test code = 3.3 See_Comment [A utomated message] The Eosinophils) system which ge nerated this result tra nsmitted reference range : <=4.0. The reference r tye was not used to int erpret this result as normal/abnormal . [facility] HospitalTodzuvkHEQECJNQKH8491-73-18 11:45:00 Test Item Value Reference Range Interpretation Comments Monocytes (test code = Monocytes) 12.6 2.0-12.0 [facility] HospitalDnfgethKQHKGCOLUD9320-55-74 11:45:00 Test Item Value Reference Range Interpretation Comments Basophils (test code = 0.5 See_Comment [Aut omated message] The Basophils) system which ge nerated this result tra nsmitted reference range : <=1.0. The reference r tye was not used to int erpret this result as normal/abnormal . [facility]FpiheasEPMUQHYXJD1033-41-43 11:45:00 Test Item Value Reference Range Interpretation Comments Segs (test code = Segs) 61.5 45.0-75.0 [facility] AND [id number] 20:37:00 Test Item Value Reference Range Interpretation Comments UA WBC (test code = no gt See_Comment [Automa shar message] The UA WBC) system which ge nerated this result transmit shar reference range : <=5. The reference range was not used to interpr et this result as gloria l/abnormal. [facility] AND [id number] 20:37:00 Test Item Value Reference Range Interpretation Comments UA [place] Yeast (test code = UA Occasional /HPF [place] Yeast) [facility] AND [id number] 20:37:00 Test Item Value Reference Range Interpretation Comments UA Trans Epi (test code = UA Trans Epi) 1 [facility] AND [id number] 20:37:00 Test Item Value Reference Range Interpretation Comments UA RBC (test code = 1 See_Comment [Automa shar message] The UA RBC) system which ge nerated this result transmit shar reference range : <=2. The reference range was not used to interpr et this result as gloria l/abnormal. [facility] AND [id number] 20:37:00 Test Item Value Reference Range Interpretation Comments UA Bacteria (test code = UA Occasional /HPF Bacteria) [facility] AND [id number] 20:37:00 Test Item Value Reference Range Interpretation Comments UA Leuk Est (test Negative (05/18/17 3:37 code = UA Leuk Est) PM) [facility] AND [id number] 20:37:00 Test Item Value Reference Range Interpretation Comments UA Nitrite (test code Negative (05/18/17 3:37 = UA Nitrite) PM) [facility] AND [id number] 20:37:00 Test Item Value Reference Range Interpretation Comments UA Sq Epi (test code = UA Sq Epi) Few /LPF [facility] AND [id number] 20:37:00 Test Item Value Reference Range Interpretation Comments UA Bili (test code = Negative *NA*(05/18/17 UA Bili) 3:37 PM) [facility] AND [id number] 20:37:00 Test Item Value Reference Range Interpretation Comments UA Blood (test code = Negative (05/18/17 3:37 UA Blood) PM) [facility] AND [id number] 20:37:00 Test Item Value Reference Range Interpretation Comments UA Urobilinogen (test code = UA <=1.0 mg/dL 0.1-1.0 Urobilinogen) [facility] AND [id number] 20:37:00 Test Item Value Reference Range Interpretation Comments UA Color (test code = UA Color) Ltyellow [facility] AND [id number] 20:37:00 Test Item Value Reference Range Interpretation Comments UA Glucose (test code = UA Negative mg/dL Glucose) [facility] AND [id number] 20:37:00 Test Item Value Reference Range Interpretation Comments UA Ketones (test code = UA Negative mg/dL Ketones) [facility] AND [id number] 20:37:00 Test Item Value Reference Range Interpretation Comments UA pH (test code = UA pH) 7.0 5.0-8.0 [facility] AND [id number] 20:37:00 Test Item Value Reference Range Interpretation Comments UA Protein (test code = UA Negative mg/dL Protein) [facility] AND [id number] 20:37:00 Test Item Value Reference Range Interpretation Comments UA Turbidity (test code = Clear (05/18/17 3:37 UA Turbidity) PM) [facility] AND [id number] 20:37:00 Test Item Value Reference Range Interpretation Comments UA Spec Grav (test code = UA Spec Grav) 1.009 [facility] AND [id number] 20:37:00 Test Item Value Reference Range Interpretation Comments UA WBC (test code = no gt See_Comment [Automa shar message] The UA WBC) system which ge nerated this result transmit shar reference range : <=5. The reference range was not used to interpr et this result as gloria l/abnormal. [facility] [id number] 20:37:00 Test Item Value Reference Range Interpretation Comments UA [place] Yeast (test code = UA Occasional /HPF [place] Yeast) [facility] AND [id number] 20:37:00 Test Item Value Reference Range Interpretation Comments UA Trans Epi (test code = UA Trans Epi) 1 [facility] AND [id number] 20:37:00 Test Item Value Reference Range Interpretation Comments UA RBC (test code = 1 See_Comment [Automa shar message] The UA RBC) system which ge nerated this result transmit shar reference range : <=2. The reference range was not used to interpr et this result as gloria l/abnormal. [facility] AND [id number] 20:37:00 Test Item Value Reference Range Interpretation Comments UA Bacteria (test code = UA Occasional /HPF Bacteria) [facility] AND [id number] 20:37:00 Test Item Value Reference Range Interpretation Comments UA Leuk Est (test Negative (05/18/17 3:37 code = UA Leuk Est) PM) [facility] AND [id number] 20:37:00 Test Item Value Reference Range Interpretation Comments UA Nitrite (test code Negative (05/18/17 3:37 = UA Nitrite) PM) [facility] AND [id number] 20:37:00 Test Item Value Reference Range Interpretation Comments UA Sq Epi (test code = UA Sq Epi) Few /LPF [facility] AND [id number] 20:37:00 Test Item Value Reference Range Interpretation Comments UA Bili (test code = Negative *NA*(05/18/17 UA Bili) 3:37 PM) [facility] AND [id number] 20:37:00 Test Item Value Reference Range Interpretation Comments UA Blood (test code = Negative (05/18/17 3:37 UA Blood) PM) [facility] AND [id number] 20:37:00 Test Item Value Reference Range Interpretation Comments UA Urobilinogen (test code = UA <=1.0 mg/dL 0.1-1.0 Urobilinogen) [facility] AND [id number] 20:37:00 Test Item Value Reference Range Interpretation Comments UA Color (test code = UA Color) Ltyellow [facility] AND [id number] 20:37:00 Test Item Value Reference Range Interpretation Comments UA Glucose (test code = UA Negative mg/dL Glucose) [facility] AND [id number] 20:37:00 Test Item Value Reference Range Interpretation Comments UA Ketones (test code = UA Negative mg/dL Ketones) [facility] AND [id number] 20:37:00 Test Item Value Reference Range Interpretation Comments UA pH (test code = UA pH) 7.0 5.0-8.0 [facility] AND [id number] 20:37:00 Test Item Value Reference Range Interpretation Comments UA Protein (test code = UA Negative mg/dL Protein) [facility] AND [id number] 20:37:00 Test Item Value Reference Range Interpretation Comments UA Turbidity (test code = Clear (05/18/17 3:37 UA Turbidity) PM) [facility] AND [id number] 20:37:00 Test Item Value Reference Range Interpretation Comments UA Spec Grav (test code = UA Spec Grav) 1.009 [id number] 20:20:00 Test Item Value Reference Range Interpretation Comments PTT (test code = PTT) 28.0 s 22.9-35.8 [facility] Hospit[id number] 20:20:00 Test Item Value Reference Range Interpretation Comments INR (test code = INR) 0.99 0.85-1.17 [facility] Hospit[id number] 20:20:00 Test Item Value Reference Range Interpretation Comments PT (test code = PT) 13.3 s 12.0-14.7 [facility] [id number] 20:20:00 Test Item Value Reference Range Interpretation Comments PTT (test code = PTT) 28.0 s 22.9-35.8 [facility] HospitalQljikbnEMQAEPEAZY1129-42-48 20:20:00 Test Item Value Reference Range Interpretation Comments INR (test code = INR) 0.99 0.85-1.17 [facility] Hospit[id number] 20:20:00 Test Item Value Reference Range Interpretation Comments PT (test code = PT) 13.3 s 12.0-14.7 [facility] [id number] 20:19:00 Test Item Value Reference Range Interpretation Comments Troponin-I (test code 0.20 See_Comment [Auto mated message] The = Troponin-I) system which g enerated this result transmit shar reference range : <=0.40. The reference r tye was not used to interpr et this result as gloria l/abnormal. [facility] [id number] 20:19:00 Test Item Value Reference Range Interpretation Comments ALT (test code = ALT) 17 See_Comment [Auto mated message] The system which ge nerated this result transmit shar reference range : <=65. The reference range was not used to interpr et this result as gloria l/abnormal. [facility] [id number] 20:19:00 Test Item Value Reference Range Interpretation Comments AST (test code = AST) 30 See_Comment [Auto mated message] The system which ge nerated this result transmit shar reference range : <=37. The reference range was not used to interpr et this result as gloria l/abnormal. [facility] [id number] 20:19:00 Test Item Value Reference Range Interpretation Comments Albumin Lvl (test code = Albumin Lvl) 3.1 3.5-5.0 [facility] [id number] 20:19:00 Test Item Value Reference Range Interpretation Comments Alk Phos (test code = Alk Phos) 63 39-136 [facility] [id number] 20:19:00 Test Item Value Reference Range Interpretation Comments Bili Total (test code = Bili Total) 0.6 0.2-1.3 [facility] [id number] 20:19:00 Test Item Value Reference Range Interpretation Comments Total Protein (test code = Total 7.1 6.4-8.4 Protein) [facility] [id number] 20:19:00 Test Item Value Reference Range Interpretation Comments Globulin (test code = Globulin) 4.0 2.7-4.2 [facility] [id number] 20:19:00 Test Item Value Reference Range Interpretation Comments A/G Ratio (test code = A/G Ratio) 0.8 0.7-1.6 [facility] [id number] 20:19:00 Test Item Value Reference Range Interpretation Comments B/C Ratio (test code = B/C Ratio) 15 6-25 [facility] [id number] 20:19:00 Test Item Value Reference Range Interpretation Comments Lactic Acid Lvl (test code = Lactic 0.8 0.5-2.2 Acid Lvl) [facility] [id number] 20:19:00 Test Item Value Reference Range Interpretation Comments Troponin-I (test code 0.20 See_Comment [Auto mated message] The = Troponin-I) system which g enerated this result transmit shar reference range : <=0.40. The reference r tye was not used to interpr et this result as gloria l/abnormal. [facility] [id number] 20:19:00 Test Item Value Reference Range Interpretation Comments ALT (test code = ALT) 17 See_Comment [Auto mated message] The system which ge nerated this result transmit shar reference range : <=65. The reference range was not used to interpr et this result as gloria l/abnormal. [facility] [id number] 20:19:00 Test Item Value Reference Range Interpretation Comments AST (test code = AST) 30 See_Comment [Auto mated message] The system which ge nerated this result transmit shar reference range : <=37. The reference range was not used to interpr et this result as gloria l/abnormal. [facility] [id number] 20:19:00 Test Item Value Reference Range Interpretation Comments Albumin Lvl (test code = Albumin Lvl) 3.1 3.5-5.0 [facility] [id number] 20:19:00 Test Item Value Reference Range Interpretation Comments Alk Phos (test code = Alk Phos) 63 39-136 [facility] [id number] 20:19:00 Test Item Value Reference Range Interpretation Comments Bili Total (test code = Bili Total) 0.6 0.2-1.3 [facility] [id number] 20:19:00 Test Item Value Reference Range Interpretation Comments Total Protein (test code = Total 7.1 6.4-8.4 Protein) [facility] [id number] 20:19:00 Test Item Value Reference Range Interpretation Comments Globulin (test code = Globulin) 4.0 2.7-4.2 [facility] [id number] 20:19:00 Test Item Value Reference Range Interpretation Comments A/G Ratio (test code = A/G Ratio) 0.8 0.7-1.6 [facility] [id number] 20:19:00 Test Item Value Reference Range Interpretation Comments B/C Ratio (test code = B/C Ratio) 15 6-25 [facility] [id number] 20:19:00 Test Item Value Reference Range Interpretation Comments Lactic Acid Lvl (test code = Lactic 0.8 0.5-2.2 Acid Lvl) [facility]
[2022-10-31 08:56] LABS: Absolute Lymphocytes (CBC) 1.4 K/uL (0.7-4.9); Hematocrit 33.9 % (36.0-45.0); Lymphocytes % 19.2 % (15.3-44.8); MCV 89.9 fL (80-100); MPV 7.4 fL (7.6-11.3); RBC Red Blood Cell Count 3.76 M/uL (3.86-4.86)
[2022-10-31 09:18] LABS: Albumin 3.5 g/dL (3.4-5.0); Bilirubin Direct 0.1 mg/dL (0-0.2); Bilirubin Total 0.4 mg/dL (0.2-1.0); Magnesium 1.7 mg/dL (1.6-2.4); Potassium 3.1 mmol/L (3.5-5.1); Protein, Total 7.2 g/dL (6.4-8.2); Troponin High Sensitivity 18.1 pg/mL (<58.9)
[2022-10-31] MEDS ORDERED: NA CHLORIDE 0.9% 1,000 ML ONE ×2 (09:29→13:48)
[2022-10-31] MEDS ORDERED: POTASSIUM CL SA 10 MEQ TAB PO ONE (09:29)
--- NOTE | 2022-10-31 10:13 | RAD REPORT ---
EXAM DESCRIPTION: Bhargavi Single View10/31/2022 9:48 am CLINICAL HISTORY: Syncope COMPARISON: 2020 FINDINGS: Chronic elevation left hemidiaphragm The lungs appear clear of acute infiltrate. The heart is normal size IMPRESSION: No acute abnormalities displayed
--- NOTE | 2022-10-31 11:35 | ER ---
Nurse's Notes [facility] Name: Dianna Marcano Age: 82 yrs Sex: Female : 1940 Arrival Date: 10/31/2022 Time: 08:23 Bed 6 Private MD: Diagnosis: Orthostatic hypotension;Dizziness and giddiness Presentation: 10/31 08:15 Chief complaint: EMS states: patient called for dizziness when standing up. Coronavirus ko1 screen: At this time, the client does not indicate any symptoms associated with coronavirus-19. Ebola Screen: No symptoms or risks identified at this time. Initial Sepsis Screen: Does the patient meet any 2 criteria? No. Patient's initial sepsis screen is negative. Does the patient have a suspected source of infection? No. Patient's initial sepsis screen is negative. Risk Assessment: Do you want to hurt yourself or someone else? Patient reports no desire to harm self or others. Onset of symptoms was October 31, 2022. Transition of care: patient was not received from another setting of care. 08:15 Method Of Arrival: EMS: [facility] ko1 08:15 Acuity: SHERLYN 3 ko1 Triage Assessment: 09:22 General: Appears in no apparent distress. comfortable, unkempt, Behavior is ko1 cooperative, appropriate for age, anxious. Pain: Denies pain. Historical: - Allergies: 09:22 Iodine; ko1 09:22 Sulfa (Sulfonamide Antibiotics); ko1 09:22 Versed; ko1 - PMHx: 09:22 Anxiety; CHF; chronic back pain; Dementia; Hypertension; Hypothyroidism; ko1 - Immunization history:: Adult Immunizations unknown. - Social history:: Smoking status: Patient reports the use of cigarette tobacco products, smokes one pack cigarettes per day. - Family history:: not pertinent. Screenin:00 Abuse screen: Denies threats or abuse. Denies injuries from another. Nutritional ko1 screening: No deficits noted. Tuberculosis screening: No symptoms or risk factors identified. 12:01 [facility] ED Fall Risk Assessment (Adult) History of falling in the last 3 months, iw including since admission. Fall Risk Fall in past 12 months (25 points). IV access (20 points). Assessment: 11:45 Reassessment: Patient appears in no apparent distress at this time. Patient and/or iw family updated on plan of care and expected duration. Pain level reassessed. Patient is alert, oriented x 3, equal unlabored respirations, skin warm/dry/pink. Dr. Baca at bedside speaking to pt. 13:52 Reassessment: No changes from previously documented assessment. Patient is alert, ko1 oriented x 3, equal unlabored respirations, skin warm/dry/pink. Patient states feeling better. Patient states symptoms have improved. Vital Signs: 08:30 BP 112 / 63; Pulse 62; Resp 16 S; Pulse Ox 99% on R/A; iw 09:06 BP 98 / 49 Sitting; Pulse 64; Resp 18; Pulse Ox 97% on R/A; ko1 09:06 BP 78 / 42; Pulse 62; Resp 22; Pulse Ox 97% on R/A; ko1 09:06 BP 119 / 51 Supine; Pulse 60; Resp 20; Pulse Ox 95% on R/A; Weight 63.5 kg (R); Height ko1 5 ft. 7 in. (170.18 cm) (R); 10:00 BP 115 / 53; Pulse 58; Pulse Ox 96% on R/A; ko1 11:00 BP 98 / 75; Pulse 64; Pulse Ox 97% on R/A; ko1 12:01 BP 130 / 49; Pulse 61; Resp 16; Pulse Ox 95% on R/A; iw 13:00 BP 117 / 62; Pulse 61; Pulse Ox 97% on R/A; ko1 09:06 Body Mass Index 21.93 (63.50 kg, 170.18 cm) ko1 ED Course: 08:23 Patient arrived in ED. ko1 08:25 Amaury Pickett MD is Attending Physician. rt 08:33 Remedios Hernandez, JOSE ALBERTO is Primary Nurse. ko1 08:40 Inserted saline lock: 22 gauge in left antecubital area, using aseptic technique. Blood ko1 collected. 08:46 Basic Metabolic Panel Sent. ko1 08:46 CBC with Diff Sent. ko1 08:46 CPK Sent. ko1 08:46 Hepatic Function Sent. ko1 08:46 Magnesium Sent. ko1 08:46 Troponin High Sensitivity Sent. ko1 09:22 Triage completed. ko1 09:22 Arm band placed on right wrist. ko1 09:50 Chest Single View XRAY In Process Unspecified. EDMS 11:34 Emmy Baca MD is Hospitalizing Provider. rt 12:00 No provider procedures requiring assistance completed. ko1 12:00 Patient has correct armband on for positive identification. Placed in gown. Bed in low ko1 position. Call light in reach. Side rails up X2. Client placed on continuous cardiac and pulse oximetry monitoring. NIBP monitoring applied. pepper picker on. Door closed. Noise minimized. Lights dimmed. Warm blanket given. 12:01 COVID-19/FLU A+B Sent. iw 16:30 Report given to JOSE ALBERTO Sanchez. ko1 Administered Medications: :34 Drug: NS 0.9% 1000 ml Route: IV; Rate: 1 bolus; Site: left antecubital; ko1 :34 Drug: Potassium Chloride 40 mEq Route: PO; ko1 Medication: 16:08 VIS not applicable for this client. ko1 Outcome: 11:34 Decision to Hospitalize by Provider. rt 16:30 Admitted to Med/surg accompanied by tech, via stretcher, room 201, Report called to koMarielle Sanchez rn 16:30 Transferred 16:30 Condition: stable 16:30 Instructed on the need for admit, Demonstrated understanding of 16:58 Patient left the ED. iw Signatures: Dispatcher [employer] EDMS Amaya Chaparro RN RN iw Remedios Hernandez RN RN ko1 Amaury Pickett MD MD rt Corrections: (The following items were deleted from the chart) 14:31 09:06 BP 119 / 51 Supine; Pulse 60bpm; Resp 20bpm; Pulse Ox 95% RA; ko1 ko1
--- NOTE | 2022-10-31 11:35 | EDPHYS ---
Physician Documentation [facility] Name: Dianna Marcano Age: 82 yrs Sex: Female : 1940 Arrival Date: 10/31/2022 Time: 08:23 Bed 6 Private MD: RAGHAVENDRA Physician Amaury Pickett HPI: 10/31 08:39 This 82 yrs old Female presents to ER via Unassigned with complaints of Dizziness. rt 08:39 The patient presents with lightheadedness. Onset: The symptoms/episode began/occurred rt just prior to arrival. Context: occurred at home. Modifying factors: The symptoms are alleviated by nothing, the symptoms are aggravated by nothing. Associated signs and symptoms: The patient has no apparent associated signs or symptoms. Severity of symptoms: At their worst the symptoms were moderate in the emergency department the symptoms have resolved. Presents to the ED with a dizziness described as a lightheadedness starting just prior to arrival. Patient states that she eased herself down, did not injure self or hit her head. She stated the symptoms have subsequently resolved. No chest pain, shortness of breath. Denies other acute complaints, symptoms are moderate severity, no other aggravating alleviating factors.. Historical: - Allergies: 09:22 Iodine; ko1 09:22 Sulfa (Sulfonamide Antibiotics); ko1 09:22 Versed; ko1 - PMHx: 09:22 Anxiety; CHF; chronic back pain; Dementia; Hypertension; Hypothyroidism; ko1 - Immunization history:: Adult Immunizations unknown. - Social history:: Smoking status: Patient reports the use of cigarette tobacco products, smokes one pack cigarettes per day. - Family history:: not pertinent. ROS: 08:42 Constitutional: Negative for fever, chills, and weight loss, Eyes: Negative for injury, rt pain, redness, and discharge, ENT: Negative for injury, pain, and discharge, Neck: Negative for injury, pain, and swelling, Cardiovascular: Negative for chest pain, palpitations, and edema, Respiratory: Negative for shortness of breath, cough, wheezing, and pleuritic chest pain, Abdomen/GI: Negative for abdominal pain, nausea, vomiting, diarrhea, and constipation, Back: Negative for injury and pain, MS/Extremity: Negative for injury and deformity, Skin: Negative for injury, rash, and discoloration, Psych: Negative for depression, anxiety, suicide ideation, homicidal ideation, and hallucinations. 08:42 Neuro: Positive for near syncope, Negative for altered mental status. Exam: 08:42 Constitutional: This is a well developed, well nourished patient who is awake, alert, rt and in no acute distress. Head/Face: Normocephalic, atraumatic. Eyes: Pupils equal round and reactive to light, extra-ocular motions intact. Lids and lashes normal. Conjunctiva and sclera are non-icteric and not injected. Cornea within normal limits. Periorbital areas with no swelling, redness, or edema. ENT: Nares patent. No nasal discharge, no septal abnormalities noted. Tympanic membranes are normal and external auditory canals are clear. Oropharynx with no redness, swelling, or masses, exudates, or evidence of obstruction, uvula midline. Mucous membranes moist. Neck: Trachea midline, no thyromegaly or masses palpated, and no cervical lymphadenopathy. Supple, full range of motion without nuchal rigidity, or vertebral point tenderness. No Meningismus. Chest/axilla: Normal chest wall appearance and motion. Nontender with no deformity. No lesions are appreciated. Cardiovascular: Regular rate and rhythm with a normal S1 and S2. No gallops, murmurs, or rubs. Normal PMI, no JVD. No pulse deficits. Respiratory: Lungs have equal breath sounds bilaterally, clear to auscultation and percussion. No rales, rhonchi or wheezes noted. No increased work of breathing, no retractions or nasal flaring. Abdomen/GI: Soft, non-tender, with normal bowel sounds. No distension or tympany. No guarding or rebound. No evidence of tenderness throughout. Skin: Warm, dry with normal turgor. Normal color with no rashes, no lesions, and no evidence of cellulitis. MS/ Extremity: Pulses equal, no cyanosis. Neurovascular intact. Full, normal range of motion. Neuro: Awake and alert, GCS 15, oriented to person, place, time, and situation. Cranial nerves II-XII grossly intact. Motor strength 5/5 in all extremities. Sensory grossly intact. Cerebellar exam normal. Normal gait. Psych: Awake, alert, with orientation to person, place and time. Behavior, mood, and affect are within normal limits. Vital Signs: 08:30 BP 112 / 63; Pulse 62; Resp 16 S; Pulse Ox 99% on R/A; iw 09:06 BP 98 / 49 Sitting; Pulse 64; Resp 18; Pulse Ox 97% on R/A; ko1 09:06 BP 78 / 42; Pulse 62; Resp 22; Pulse Ox 97% on R/A; ko1 09:06 BP 119 / 51 Supine; Pulse 60; Resp 20; Pulse Ox 95% on R/A; Weight 63.5 kg (R); Height ko1 5 ft. 7 in. (170.18 cm) (R); 10:00 BP 115 / 53; Pulse 58; Pulse Ox 96% on R/A; ko1 11:00 BP 98 / 75; Pulse 64; Pulse Ox 97% on R/A; ko1 12:01 BP 130 / 49; Pulse 61; Resp 16; Pulse Ox 95% on R/A; iw 13:00 BP 117 / 62; Pulse 61; Pulse Ox 97% on R/A; ko1 09:06 Body Mass Index 21.93 (63.50 kg, 170.18 cm) ko1 MDM: 08:25 Patient medically screened. rt 11:34 Differential diagnosis: cardiac arrhythmia, generalized weakness, GI bleed, rt hypovolemia, near-syncope. Data reviewed: vital signs, nurses notes, lab test result(s), EKG, radiologic studies. 10/31 08:31 Order name: Basic Metabolic Panel; Complete Time: 09:25 rt 10/31 08:31 Order name: CBC with Diff; Complete Time: 09:25 rt 10/31 08:31 Order name: CPK; Complete Time: 09:25 rt 10/31 08:31 Order name: Hepatic Function; Complete Time: 09:25 rt 12 08:31 Order name: Magnesium; Complete Time: 09:25 rt 12 08:31 Order name: Troponin High Sensitivity; Complete Time: 09:25 rt 12 08:31 Order name: Chest Single View XRAY; Complete Time: 10:23 rt 10/31 11:35 Order name: COVID-19/FLU A+B rt 10/31 12:30 Order name: Echo with Doppler EDMS 10/31 12:30 Order name: CBC with Automated Diff EDMS 10/31 12:30 Order name: CBC with Automated Diff EDMS 10/31 12:30 Order name: Comprehensive Metabolic Panel EDMS 10/31 12:30 Order name: Comprehensive Metabolic Panel EDMS 10/31 13:20 Order name: Urine Dipstick-Ancillary EDMS 10/31 08:31 Order name: EKG; Complete Time: 08:32 rt 10/31 08:31 Order name: Cardiac monitoring; Complete Time: 08:46 rt 10/31 08:31 Order name: EKG - Nurse/Tech; Complete Time: 08:54 rt 10/31 08:31 Order name: IV Saline Lock; Complete Time: 08:46 rt 10/31 08:31 Order name: Labs collected and sent; Complete Time: 08:46 rt 10/31 08:31 Order name: NPO; Complete Time: 08:46 rt 10/31 08:31 Order name: O2 Per Protocol; Complete Time: 08:46 rt 10/31 08:31 Order name: O2 Sat Monitoring; Complete Time: 08:46 rt 10/31 08:31 Order name: Orthostatics; Complete Time: 09:08 rt 10/31 08:31 Order name: Urine Dipstick-Ancillary (obtain specimen); Complete Time: 13:19 rt 10/31 12:30 Order name: Heart Healthy EDMS 10/31 12:30 Order name: Carotid Artery Bilateral EDMS Administered Medications: 09:34 Drug: NS 0.9% 1000 ml Route: IV; Rate: 1 bolus; Site: left antecubital; ko1 09:34 Drug: Potassium Chloride 40 mEq Route: PO; ko1 Disposition Summary: 10/31/22 11:34 Hospitalization Ordered Hospitalization Status: Observation rt Provider: Emmy Baca rt Location: Telemetry/MedSurg (observation) rt Condition: Stable rt Problem: new rt Symptoms: have improved rt Bed/Room Type: Standard rt Room Assignment: 201(10/31/22 16:03) eb Diagnosis - Orthostatic hypotension rt - Dizziness and giddiness rt Forms: - Medication Reconciliation Form rt - SBAR form rt Signatures: Dispatcher [employer] EDTegan Nicole Kathy RN RN ko1 Amaury Pickett MD MD rt Corrections: (The following items were deleted from the chart) 16:03 11:34 rt eb
[2022-10-31] MEDS ORDERED: ACETAMINOPHEN 500 MG TAB PO PRN (12:26)
[2022-10-31] MEDS ORDERED: ONDANSETRON 4 MG/2 ML VIAL IV PRN (12:26)
--- NOTE | 2022-10-31 12:38 | P.HP ---
Certification for Inpatient Patient admitted to: Observation With expected LOS: <2 Midnights Patient will require the following post-hospital care: None Practitioner: I am a practitioner with admitting privileges, knowledge of patient current condition, hospital course, and medical plan of care. Services: Services provided to patient in accordance with Admission requirements found in Title 42 Section 412.3 of the Code of Federal Regulations Patient History Date of Service: 10/31/22 Reason for admission: Near syncope History of Present Illness: Patient is an 82-year-old female with a history of hypertension, hypothyroidism, depression with anxiety, who comes into the hospital with lightheadedness. She states she was in her living room when she felt lightheaded. She fell towards a coffee table and stopped herself. She felt lightheaded. She came into the emergency room for further evaluation. In the emergency room, patient had labs and EKG which were unremarkable. Patient's vital signs were stable. Patient will be admitted to the hospital for further evaluation. Allergies iodine Allergy (Verified 02/11/21 00:02) Anaphylaxis midazolam [From Versed] Allergy (Verified 02/11/21 00:02) Unknown Sulfa (Sulfonamide Antibiotics) Allergy (Verified 02/11/21 00:02) Unknown Home Medications: Furosemide 40 mg PO DAILY PRN 08/01/17 Lovastatin 40 mg PO BEDTIME 08/01/17 Potassium Chloride 20 meq PO DAILY 08/01/17 Folic Acid 1 mg PO DAILY 11/20/18 Metoprolol Tartrate [Lopressor*] 25 mg PO DAILY 11/20/18 Albuterol Inhaler [Ventolin Inhaler*] 2 puff IH Q6HP PRN 12/20/19 Amitriptyline [Elavil*] 50 mg PO DAILY 12/20/19 Gabapentin [Neurontin*] 100 mg PO BID 12/20/19 Levothyroxine [Synthroid*] 0.05 mg PO DAILY 12/20/19 clonazePAM [Klonopin*] 0.5 mg PO BID 02/10/21 Hydrocodone 5/APAP 325 [Mulberry 5/325] 1 tab PO Q6H PRN #20 tab 02/22/21 Loperamide [Imodium*] 2 mg PO Q4H PRN cap 02/22/21 Melatonin 5 mg PO BEDTIME PRN PRN tablet 02/22/21 Nicotine [Nicoderm*] 7 mg TD DAILY patch.td24 02/22/21 Rivaroxaban [Xarelto*] 10 mg PO DAILY #22 tablet 02/22/21 - Past Medical/Surgical History Diabetic: No -: History TIA -: HTN -: Hypothyroidism -: Depression with anxiety -: Chronic back pain -: Dementia -: Cholecystectomy -: Appendititis -: Hysterectomy Psychosocial/ Personal History: Patient lives at home - Family History Father Family History: Reviewed- Non-Contributory - Social History Smoking Status: Never smoker Alcohol use: Yes CD- Drugs: No Caffeine use: Yes Review of Systems 10-point ROS is otherwise unremarkable Physical Examination - Vital Signs Temperature: 98 F Blood Pressure: 110/70 Pulse: 80 Respirations: 18 Pulse Ox (%): 95 - Physical Exam General: Alert, In no apparent distress, Oriented x3 HEENT: Atraumatic, PERRLA, Mucous membr. moist/pink, EOMI, Sclerae nonicteric Neck: Supple, 2+ carotid pulse no bruit, No LAD, Without JVD or thyroid abnormality Respiratory: Clear to auscultation bilaterally, Normal air movement Cardiovascular: Regular rate/rhythm, Normal S1 S2, Systolic murmur Gastrointestinal: Normal bowel sounds, Soft and benign, Non-distended, No tenderness Musculoskeletal: No clubbing, No swelling, No tenderness Integumentary: No rashes Neurological: Normal gait, Normal speech, Normal strength at 5/5 x4 extr, Normal tone, Sensation intact, Cranial nerves 3-12 intact, Normal affect Lymphatics: No axilla or inguinal lymphadenopathy - Studies Laboratory Data (last 24 hrs) 10/31/22 08:42: WBC 7.10, Hgb 11.3 L, Hct 33.9 L, Plt Count 300 10/31/22 08:42: Sodium 137, Potassium 3.1 L, BUN 21 H, Creatinine 1.32 H, Glucose 95, Magnesium 1.7, Total Bilirubin 0.4, AST 16, ALT 14, Alkaline Phosphatase 72 Assessment & Plan - Problems (Diagnosis) (1) Near syncope Current Visit: Yes Status: Acute (2) Vascular dementia Current Visit: No Status: Acute (3) Anemia Onset Date: 04/06/17 Current Visit: No Status: Chronic (4) Chronic obstructive pulmonary disease Onset Date: 03/12/17 Current Visit: No Status: Chronic Qualifiers: COPD type: chronic bronchitis Chronic bronchitis type: simple Qualified Code(s): J41.0 - Simple chronic bronchitis (5) Essential (primary) hypertension Onset Date: 03/12/17 Current Visit: No Status: Chronic (6) Hyperlipidemia Onset Date: 03/12/17 Current Visit: No Status: Chronic Qualifiers: Hyperlipidemia type: mixed hyperlipidemia Qualified Code(s): E78.2 - Mixed hyperlipidemia (7) Hypothyroidism Onset Date: 03/12/17 Current Visit: No Status: Chronic Qualifiers: Hypothyroidism type: acquired Qualified Code(s): E03.9 - Hypothyroidism, unspecified - Plan Plan: 1. Continue with echocardiogram and carotid Doppler 2. Return on telemetry 3. Gentle hydration 4. Plan for discharge in a.m. if work-up is negative Discharge Plan: Home Plan to discharge in: 24 Hours - Advance Directives Does patient have a Living Will: No Does patient have a Durable POA for Healthcare: No - Code Status/Comfort Care Code Status Assessed: Yes Code Status: Full Code Critical Care: No Time Spent Managing PTS Care (In Minutes): 45
[2022-10-31] MEDS ORDERED: NA CHLORIDE 0.9% 1,000 ML IV SCH (13:00)
--- NOTE | 2022-10-31 13:10 | RAD REPORT ---
EXAM DESCRIPTION: - CP - 10/31/2022 1:02 pm CLINICAL HISTORY: Syncope Headache, drowsiness COMPARISON: Carotid Artery Bilateral dated 12/20/2019 TECHNIQUE: Real-time sonographic evaluation of both carotid systems was performed. Doppler interroga tion was performed with waveform tracing bilaterally. FINDINGS: Normal high resistance waveforms are noted in both external carotid arteries. The common c arotid arteries and internal carotid arteries show normal low resistance waveforms. Moderate hard plaque is seen right carotid bulb. Peak systolic and end diastolic velocity values and the ICA/CCA ratios are in the non-hemodynamically significant range. Antegrade flow seen in both vertebral arteries. IMPRESSION: Moderate hard plaque is seen right carotid bulb. No evidence of a hemodynamically significant stenosis.
[2022-10-31 13:19] LABS: Urine Blood Negative (Negative); Urine Glucose Negative (Negative); Urine Protein Negative (Negative); Urine pH 5.5 (5.0-7.0)
[2022-10-31 13:21] LABS: SARS-COV-2 RT PCR NEGATIVE (NEGATIVE)
[2022-10-31 17:18] VITALS: O2SAT 97
[2022-10-31] MEDS ORDERED: LOPERAMIDE HCL 2 MG CAPSULE PO ONE (18:45)
[2022-10-31 18:51] VITALS: BMI 21.9
[2022-10-31] MEDS ORDERED: HYDROCODONE/APAP 5/325 MG TAB PO PRN (21:44)
[2022-10-31] MEDS ORDERED: MELATONIN 5 MG TABLET PO PRN (21:44)
[2022-10-31] MEDS: GABAPENTIN 100 MG CAP PO SCH (22:09)
[2022-10-31] MEDS: TRAZODONE 50 MG TABLET PO SCH (22:10)
[2022-11-01 06:45] LABS: Albumin 2.9 g/dL (3.4-5.0); Bilirubin Total 0.3 mg/dL (0.2-1.0); Potassium 4.2 mmol/L (3.5-5.1); Protein, Total 5.9 g/dL (6.4-8.2)
[2022-11-01] MEDS ORDERED: LEVOTHYROXINE SOD 0.05 MG TABLET PO SCH (07:30)
[2022-11-01 08:12] LABS: Absolute Lymphocytes (CBC) 1.3 K/uL (0.7-4.9); Hematocrit 32.1 % (36.0-45.0); Lymphocytes % 20.8 % (15.3-44.8); MCV 90.7 fL (80-100); RBC Red Blood Cell Count 3.54 M/uL (3.86-4.86)
[2022-11-01] MEDS: GABAPENTIN 100 MG CAP PO SCH (08:29)
[2022-11-01] MEDS ORDERED: METOPROLOL XL 25 MG TAB PO SCH (09:00)
[2022-11-01] MEDS ORDERED: POTASSIUM CL SA 10 MEQ TAB PO SCH (09:00)
[2022-11-01] MEDS ORDERED: FOLIC ACID 1 MG TABLET PO SCH (09:00)
[2022-11-01] MEDS ORDERED: FUROSEMIDE 40 MG TABLET PO SCH (09:00)
[2022-11-01] MEDS ORDERED: AMITRIPTYLINE 50 MG TAB PO SCH (09:00)
[2022-11-01 12:49] VITALS: BP 118/64; TEMP 97.4
[2022-11-01] MEDS ORDERED: ATORVASTATIN 20 MG TAB PO SCH (21:00)
--- NOTE | 2022-11-02 15:56 | EKG ---
Test Date: 2022-10-31 Test Time: 08:52:06 Front Desk Representative: CRISSY MEASUREMENT RESULTS: Intervals: Rate: 62 KS: 162 QRSD: 90 QT: 472 QTc: 479 [place]: P: 87 KS: 162 QRS: 82 T: 80 INTERPRETIVE STATEMENTS: Sinus rhythm with premature supraventricular complexes Otherwise normal ECG Compared to ECG 09/05/2022 17:17:49 Atrial premature complex(es) now present Atrial fibrillation no longer present T-wave abnormality no longer present Electronically Signed On 11-02-22 15:55:00 COMMUTATOR UNDERCUTTER by Sin Ramsay
== END 2022-11-01 13:16 | disposition home or self-care (01) ==
LOC: ER 08:21 → ERHOLD 12:26 → 2ND 16:29
PROVIDERS: ADMIT Hospitalist; ATTEND Hospitalist
DX: R55 Syncope and collapse (principal); I10 Essential (primary) hypertension; E03.9 Hypothyroidism, unspecified; F32.A Depression, unspecified; F41.9 Anxiety disorder, unspecified; F01.50 Vascular dementia, unspecified severity, without behavioral disturbance, psychotic disturbance, mood disturbance, and anxiety; D64.9 Anemia, unspecified; J41.0 Simple chronic bronchitis; E78.5 Hyperlipidemia, unspecified; Z88.2 Allergy status to sulfonamides; Z91.09 Other allergy status, other than to drugs and biological substances; Z20.822 Contact with and (suspected) exposure to COVID-19
CPT/HCPCS: 93005; 85025 ×2; 80048; 36415; 83735; 82550; 80076; 81003; 84484; 80053; 0240U; 71045; 93880; 99285; J7030 ×2

== ENCOUNTER 2023-07-20 13:04 | Observation (INO) | payer OTHER ==
--- OUTSIDE RECORDS SUMMARY | 2023-07-20 13:21 | XMS REPORT | Continuity of Care Document ---
:1940 Author Organization [facility] t Address [address] [place] [id number] Care Team Providers Name Role Phone AASHISH RIZO Primary Care Physician Unavailable Dodie_A_AH Attending Clinician Unavailable Doctor Unassigned, [place] Attending Clinician Unavailable Luis Staley MD Attending Clinician LUIS STALEY Attending Clinician Unavailable TARUN MUNOZ Attending Clinician Unavailable Tarun Munoz Attending Clinician RYAN LIEBERMAN Attending Clinician Unavailable Pob, [facility] Attending Clinician Unavailable Ryan Lieberman MD Attending Clinician Pastor Baca Attending Clinician Dodie_A_AH Admitting Clinician Unavailable TARUN MUNOZ Admitting Clinician Unavailable Pastor Baca Admitting Clinician Payers Payer Name Policy Type Policy Number Effective Date Expiration Date S [facility] [place] - [id number] 2019 2020 [employer] 00:00:00 00:00:00 (MEDICARE REPLACEMENT/ADVAN [...] -related disorder Disorder Chronic Chronic Problem Active [facility] kidney Kidney 8-14 Family disease Disease 00:00: Practic stage 3 Stage 3 00 e Recurrent Recurrent Problem Active [place] 3-30 Family 00:00: Practic 00 e 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 00 e 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 1-13 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 Failure 00:00: Practic 00 e Dementia Dementia Problem Active [place] 7- Family 00:00: Practic 00 e Anxiety Anxiety Problem Active [place] 7 Family 00:00: Practic 00 e Chronic Chronic Problem Active [facility] pain Pain 7 Family 00:00: Practic 00 e Essential Essential Problem Active [place] hypertensi Hypertensi - Fa ramses on on 00:00: Practic 00 e Chronic Chronic Problem Active [facility] obstructiv Obstructiv 05-16 Fa ramses e lung e Lung 00:00: Practic disease Disease 00 e Arthritis Arthritis Problem Active [place] 7- Family 00:00: Practic 00 e INFECTION INFECTION Diagnosis Active 2017-06-08 Memoria Active 05-18 22:00:00 l 05/18/2017 00:00: Alfredo rivera 00 [facility] WOUND WOUND Diagnosis Active 2017-05-18 Mem oria INFECTION INFECTION 05-18 15:19:00 l Active 00:00: Chemo 05/18/2017 00 [facility] No known No known Disease Unive rs active active ity of problems problems [facility] Alzheimer' Alzheimer Problem Active 2017-05-30 Memoria s disease 's disease 00:46:38 l (disorder) (disorder) He rmann Active Problem 05/30/2017 [facility] Chronic Chronic Problem Active 2017-05-30 Me moria congestive congestive 00:46:38 l heart heart [place] failure failure (disorder) (disorder) Active Problem 05/30/2017 [facility] Hyperchole Problem Active 2017-05-30 M emoria sterolemia Hyperchole 00:46:38 l (disorder) sterolemia He [place] (disorder) Active Problem 05/30/2017 [facility] UNSPECIFIE UNSPECIFI Diagnosis Active 2017-06-08 Memoria D ED 22:00:00 l INFECTIOUS INFECTIOUS Zeyad rmlevy DISEASE DISEASE Active [facility] Benign Benign Problem Resolve 2017-05-30 Mem oria hypertensi hypertensi d 00:46:38 l on on [place] (disorder) (disorder) Resolved Problem 05/30/2017 [facility] Cerebral Cerebral Problem Resolve 2017-05-30 Memoria embolism embolism d 00:46:38 l (disorder) (disorder) [place] Resolved Problem 05/30/2017 [facility] Allergies, Adverse Reactions, Alerts Allergy Allergy Status Severity Reaction(s) Onset Inactive Treating Comm ents Source Name Type Date Date Clinician iodine iodine Active Memoria l Chemo sulfa sulfa Active Memoria drugs drugs l Chemo Versed Versed Active Memoria l Chemo NO KNOWN Drug Active Univers ALLERGIE Class ity of S [facility] Social History Social Habit Start Date Stop Date Quantity Comments Source Exposure to Not sure [facility] SARS-CoV-2 (event) Medica l Branch Sex Assigned At [birth year] [facility] 00:00:00 00:00:00 Center Smoking Status Start Date Stop Date Source Unknown if ever smoked [facility] Social History 2017-05-18 19:31:53 2017-05-18 19:31:53 [facility] Medications Ordered Filled Start Stop Current Ordering Indication Dosage Frequency Signature Comments Components Source Medication Medication Date Date Medication? Clinician (SIG) Name Name No known No Univers medications 5-13 ity of 09:53: [address] 24 HR Yes = 1 patch, [...] (Same capsular as: antigen Prevnar diphtheria 13) [id number] protein conjugate vaccine / Streptococc us pneumoniae serotype 14 capsular antigen diphtheria [id number] protein conjugate vaccine / Streptococc us pneumoniae serotype 18C capsular antigen d Streptococc No Notes: Chase katie us 7-12 Shake well l pneumoniae 14:00: prior to Her [place] serotype 1 00 use (Same capsular as: antigen Prevnar diphtheria 13) [id number] protein conjugate vaccine / Streptococc us pneumoniae serotype 14 capsular antigen diphtheria [id number] protein conjugate vaccine / Streptococc us pneumoniae serotype 18C capsular antigen d Streptococc No Notes: Chase katie us 7-12 Shake well l pneumoniae 14:00: prior to Her [place] serotype 1 00 use (Same capsular as: antigen Prevnar diphtheria 13) [id number] protein conjugate vaccine / Streptococc us pneumoniae serotype 14 capsular antigen diphtheria [id number] protein conjugate vaccine / Streptococc us pneumoniae serotype 18C capsular antigen d tramadol Yes 50 mg = 1 Chase katie hydrochlori 7-11 tab, PO, l de 50 MG 19:32: Q6H, PRN Kamla nn Oral Tablet 00 Pain, X 10 day, # 40 tab, 0 Refill(s) Acetaminoph Yes 1 tab, PO, Memoria en 300 MG / 711 Q4H, PRN l Codeine 19:32: Pain, X [...] 50 mg = 1 Chase katie hydrochlori -11 tab, PO, l de 50 MG 19:32: [...] day, Stop date: 06/23/17 8:03:00 CDT sodium No 1,000 mL, Memori a chloride 05-24 Rate: 75 l 0.9% 1000 13:04: ml/hr, Alfredo n ml INJ 00 Infuse 1,000 mL over: 13.3 hr, Route: IV, Dosing Weight 55.909 kg, Total Volume: 1,000, Start date: 05/24/17 8:04:00 CDT, Duration: 30 day, Stop date: 06/23/17 8:03:00 CDT sodium No 1,000 mL, Memori a chloride 7-09 [...] Infuse at l 16:00: a rate of [place] 00 10 mEq/hr. (Same as: KCL) potassium [...] -08 (Same as: l odium 14:32: Phos-NaK) [place] phosphate 00 Each 1.5 250 mg-280 gm [...] CDT Magnesium No Notes: Memori a Sulfate 7-08 WASTE: F/P l 14:32: - Sink; E Chemo - [facility] Calcium No Notes: Memoria Gluconate 05-23 WASTE: F/P l 14:32: - Sink; E Chemo - [facility] Magnesium No Notes: Memori a Oxide 05-23 (Same as: l 14:32: Mag-Ox Chemo 00 400) Magnesium oxide 140qh=942v g elemental magnesium Dose=____m g magnesium oxide (___mg elemental magnesium) potassium No Notes: Memori a chloride -08 (Same as: l 14:32: K-Dur 20) Chemo 00 "Do Not Crush" With food and full glass of water potassium No Notes: Memori a phosphate + -08 (Same as: l sodium 14:32: K [place] chloride 00 Phosphate. 0.9% INJ ) 1 mMol 250 mL phoshate has 1.47 mEq potassium Infuse over 4 hours potassium No Notes: Memori a phosphate-s 05-23 (Same as: l odium 14:32: Phos-NaK) [place] phosphate 00 Each 1.5 250 mg-280 gm [...] Sink; E Chemo - [facility] Magnesium No Notes: Memori a Oxide -08 (Same as: l 14:32: Mag-Ox [place] 00 400) Magnesium oxide 813lb=161q g elemental magnesium Dose=____m g magnesium oxide (___mg elemental magnesium) potassium No Notes: Memori a chloride 05-23 (Same as: l 14:32: K-Dur 20) [place] "Do Not Crush" With food and full glass of water potassium No Notes: Memori a phosphate + -08 (Same as: l sodium 14:32: K [place] chloride 00 Phosphate. 0.9% INJ ) 1 mMol 250 mL phoshate has 1.47 mEq potassium Infuse over 4 hours potassium No Notes: Memori a phosphate-s 05-23 (Same as: l odium 14:32: Phos-NaK) [place] phosphate 00 Each 1.5 250 mg-280 gm [...] WASTE: F/P l 14:32: - Sink; E [place] 00 - [facility] Calcium No Notes: Memoria Gluconate 05-23 WASTE: F/P l 14:32: - Sink; E [place] - [facility] Magnesium No Notes: Memori a Oxide 05-23 (Same as: l 14:32: Mag-Ox Chemo 00 400) Magnesium oxide 352oh=669v g elemental magnesium Dose=____m g magnesium oxide (___mg elemental magnesium) Bacitracin No Notes: Memor ia 0.5 UNT/MG 05-21 (Same As: l / Polymyxin 22:00: Polysporin Chemo B 10 UNT/MG 00 ) Topical Ointment Bacitracin No Notes: Memor ia 0.5 UNT/MG 7-06 (Same As: l / Polymyxin 22:00: Polysporin [place] B 10 UNT/MG 00 ) Topical Ointment Bacitracin No Notes: Memor ia 0.5 UNT/MG 7-06 (Same As: l / Polymyxin 22:00: Polysporin [place] B 10 UNT/MG 00 ) Topical Ointment potassium No Notes: Memori a chloride 7-06 Infuse at l 17:00: a rate of Chemo 00 10 mEq/hr. (Same as: KCL) potassium No Notes: Memori a chloride 7-06 Infuse at l 17:00: a rate of Chemo 00 10 mEq/hr. (Same as: KCL) potassium No Notes: Memori a chloride 7-06 Infuse at l 17:00: a rate of [place] 00 10 mEq/hr. (Same as: KCL) potassium [...] water Bacitracin No 1 appl, Chase katie 05 Route: l 14:00: TOP, [place] 00 Daily, Drug form: OINT, Start date: 05/20/17 9:00:00 CDT, Duration: 30 day, Stop date: 06/18/17 9:00:00 CDT Nicotine No Notes: Memoria -05 (Same as: l 14:00: Habitrol) Chemo 00 "Remove old patch before applicatio n of new patch" WASTE: F/P - P Waste Black; E - P Waste Black Bacitracin No 1 appl, Chase katie 7-05 Route: l 14:00: TOP, [place] 00 Daily, Drug form: OINT, Start date: 05/20/17 9:00:00 CDT, Duration: 30 day, Stop date: 06/18/17 9:00:00 CDT Nicotine No Notes: Memoria 05-20 (Same as: l 14:00: Habitrol) Chemo "Remove old patch before applicatio n of new patch" WASTE: F/P - P Waste Black; E - P Waste Black Bacitracin No 1 appl, Chase katie 05-20 Route: l 14:00: TOP, Chemo 00 Daily, Drug form: OINT, Start date: 05/20/17 9:00:00 CDT, Duration: 30 day, Stop date: 06/18/17 9:00:00 CDT Nicotine No Notes: Memoria 05-20 (Same as: l 14:00: Habitrol) Chemo "Remove old patch before applicatio n of new patch" WASTE: F/P - P Waste Black; E - P Waste Black Thyroxine No Notes: Memori a 05-20 Take 1 l 11:30: hour Chemo 00 before or 2 hours after meal; Enteral feeds may interefere with the absorption of this medication .(Same as:Levothr oid, Synthroid) Thyroxine No Notes: Memori a 05-20 Take 1 l 11:30: hour Chemo 00 before or 2 hours after meal; Enteral feeds may interefere with the absorption of this medication .(Same as:Levothr oid, Synthroid) Thyroxine No Notes: Memori a 05 Take 1 l 11:30: hour Chemo 00 before or 2 hours after meal; Enteral feeds may interefere with the absorption of this medication .(Same as:Levothr oid, Synthroid) Lipitor No Notes: Memoria 05-20 (Same As: l 02:00: Lipitor) [place] Trazodone No Notes: Memori a Hydrochlori 05-20 (Same As: l de 100 MG 02:00: Desyrel) Herm levy Oral Tablet 00 Lovastatin No 40 mg, Memor ia 05-20 Route: PO, l 02:00: Drug form: Chemo 00 TAB, Bedtime, Dosing Weight 55.909, kg, Start date: 05/19/17 21:00:00 CDT, Duration: 30 day, Stop date: 06/17/17 21:00:00 CDT Lipitor No Notes: Memoria 7-05 (Same As: l 02:00: Lipitor) Trazodone No Notes: Memori a Hydrochlori 7-05 (Same As: l de 100 MG 02:00: Desyrel) Herm levy Oral Tablet 00 Lovastatin No 40 mg, Memor ia 7-05 Route: PO, l 02:00: Drug form: [place] 00 TAB, Bedtime, Dosing Weight 55.909, kg, Start date: 05/19/17 21:00:00 CDT, Duration: 30 day, Stop date: 06/17/17 21:00:00 CDT Lipitor No Notes: Memoria 7-05 (Same As: l 02:00: Lipitor) Trazodone No Notes: Memori a Hydrochlori 7-05 [...] ne 7-04 (Same as: l 14:00: Elavil) Alprazolam No Notes: Memor ia 1 MG [...] Memoria 7-04 (Same as: l 14:00: Duragesic) [place] 00 Check for product integrity. Apply to intact skin "Remove old patch before applicatio n of new patch" Amitriptyli No Notes: Chase katie ne 7-04 (Same as: l 14:00: Elavil) Alprazolam No Notes: Memor ia 1 MG Oral 7-04 With food l Tablet 14:00: or milk (Same as: Xanax) metoprolol No Notes: Memor ia tartrate 7-04 (Same as: l 14:00: Lopressor) Furosemide No Notes: Memor ia 40 MG Oral 7-04 (Same as: l Tablet 14:00: Lasix) March Kamla nn cause GI upset. Give with food or milk. Folic Acid No Notes: Memor ia 7-04 (Same as: l 14:00: Folvite) Chemo clopidogrel No Notes: Chase katie 7-04 (Same As: l 14:00: Plavix) Chemo Fentanyl No Notes: Memoria 7-04 (Same as: l 14:00: Duragesic) Check for product integrity. Apply to intact skin "Remove old patch before applicatio n of new patch" Amitriptyli No Notes: Chase katie ne 05-19 (Same as: l 14:00: Elavil) Alprazolam No Notes: Memor ia 1 MG Oral 05-19 With food l Tablet 14:00: or milk (Same as: Xanax) Nitroglycer No Notes: Chase katie in 0.4 MG - (Same l Sublingual 13:09: as:Nitroqu H ermann Tablet 00 ick, Nitrostat) "Do Not Crush" Sublingual tablet Nitroglycer No Notes: Chase katie in 0.4 MG 7-04 (Same l Sublingual 13:09: as:Nitroqu H ermann Tablet 00 ick, Nitrostat) "Do Not Crush" Sublingual tablet Nitroglycer No Notes: Chase katie in 0.4 MG - (Same l Sublingual 13:09: as:Nitroqu H ermann Tablet 00 ick, Nitrostat) "Do Not Crush" Sublingual tablet potassium No Notes: Memori a chloride 20 - (Same as: l mEq oral 12:56: K-Dur 20) Herm levy tablet, 00 "Do Not extended Crush" release With food and full glass of water potassium No Notes: Memori a chloride 20 - (Same as: l mEq oral 12:56: K-Dur [...] tab, PO, l tablet 22:22: Daily, 0 Refill(s) clopidogrel Yes 75 mg = 1 M emoria 75 mg oral 7-03 tab, PO, l tablet 22:22: Daily, 0 Refill(s) clopidogrel 2017 Yes 75 mg = 1 M emoria 75 mg oral 7-03 tab, PO, l tablet 22:22: Daily, 0 [place] 00 Refill(s) potassium 2017 Yes 20 mEq = 1 Me moria chloride 20 7-03 tab, PO, l mEq oral 22:21: Daily, 0 Kamla nn tablet, 00 Refill(s) extended release Metoprolol Yes 50 mg = 1 Me moria Tartrate 50 7-03 tab, PO, l mg oral 22:21: BID, 0 Chemo tablet 00 Refill(s) lovastatin Yes 40 mg [...] tab, PO, l Tablet 22:21: Daily, 0 [place] 00 Refill(s) Alprazolam Yes 1 mg = 1 Mem oria 1 MG Oral 7-03 tab, PO, l Tablet 22:21: BID, 0 [place] 00 Refill(s) potassium Yes 20 mEq = 1 Me moria chloride 20 7-03 tab, PO, l mEq oral 22:21: Daily, 0 Kamla nn tablet, 00 Refill(s) extended release Metoprolol Yes 50 mg = 1 Me moria Tartrate 50 7-03 tab, PO, l mg oral 22:21: BID, 0 [place] tablet 00 Refill(s) lovastatin Yes 40 mg [...] tab, PO, l Tablet 22:21: BID, 0 [place] 00 Refill(s) potassium Yes 20 mEq = 1 Me moria chloride 20 7-03 tab, PO, l mEq oral 22:21: Daily, 0 Kamla nn tablet, 00 Refill(s) extended release Metoprolol Yes 50 mg = 1 Me moria Tartrate 50 7-03 tab, PO, l mg oral 22:21: BID, 0 Chemo tablet 00 Refill(s) lovastatin Yes 40 mg = 1 Me moria 40 mg oral 7-03 tab, PO, l tablet 22:21: Bedtime, 0 Kamla nn 00 Refill(s) Furosemide Yes 40 mg = 1 Me moria 40 MG Oral 7-03 tab, PO, l Tablet 22:21: BID, 0 [place] 00 Refill(s) Folic Acid Yes 1 mg = 1 Mem oria 1 MG Oral 7-03 tab, PO, l Tablet 22:21: Daily, 0 [place] 00 Refill(s) Alprazolam Yes 1 mg = 1 Mem oria 1 MG Oral 7-03 tab, PO, l Tablet 22:21: BID, 0 [place] 00 Refill(s) Trazodone Yes 100 mg = 1 Me moria Hydrochlori 7-03 tab, PO, l de 100 MG 22:20: Bedtime, 0 He rmann Oral Tablet 00 Refill(s) amitriptyli Yes 10 mg = 1 emoria ne 10 mg 7-03 tab, PO, l oral tablet 22:20: Daily, 0 [place] r[place] 00 Refill(s) Acetaminoph Yes 1 tab, PO, Memoria en 325 MG / 7-03 Q6H, PRN l Hydrocodone 22:20: Pain Score [place] Bitartrate 00 4-6, 0 10 MG Oral Refill(s) Tablet [[place] 10/325] fentaNYL 50 Yes 50 Memori a mcg/hr 7-03 microgram/ l transdermal 22:20: hr =, TOP, [place] film, 00 Q72H, 0 extended Refill(s) release [...] tab, PO, Memoria en 325 MG / 7-03 Q6H, PRN l Hydrocodone 22:20: Pain Score [place] Bitartrate 00 4-6, 0 10 MG Oral Refill(s) Tablet [[place] 10/325] fentaNYL 50 Yes 50 Memori a mcg/hr 7-03 microgram/ l transdermal 22:20: hr =, TOP, [place] film, 00 Q72H, 0 extended Refill(s) release [...] tab, PO, Memoria en 325 MG / 7-03 Q6H, PRN l Hydrocodone 22:20: Pain Score [place] Bitartrate 00 4-6, 0 10 MG Oral Refill(s) Tablet [[place] 10/325] fentaNYL 50 Yes 50 Memori a mcg/hr 7-03 microgram/ l transdermal 22:20: hr =, TOP, Chemo film, 00 Q72H, 0 extended Refill(s) release Nitroglycer Yes 0.4 mg = 1 Memoria in 0.4 MG 03 tab, SL, l Sublingual 22:20: Q5Min, PRN [...] / 05-18 (Same as: l Hydrocodone 21:45: [place] Kamla nn Bitartrate 00 325/5) Do 5 MG Oral not exceed Tablet 4gm/day of acetaminop hen. Acetaminoph No Notes: Do M emoria en 05-18 not exceed l 21:45: 4 gm/day. [place] 00 (Same as: Tylenol) Ondansetron No Notes: [...] / 05-18 (Same as: l Hydrocodone 21:45: [place] Kamla nn Bitartrate 00 325/5) Do 5 MG Oral not exceed Tablet 4gm/day of acetaminop hen. Acetaminoph No Notes: Do M emoria en 05-18 not exceed l 21:45: 4 gm/day. [place] 00 (Same as: Tylenol) Ondansetron No Notes: Chase katie 05-18 (Same as: l 21:45: Zofran) [place] MEDICATION WASTE Product Size: 4 mg Product Wasted: ___ mg Morphine No 2 mg, 1 Memori a 05-18 mL, Route: l 21:45: IVP, Drug form: SOLN, Q4H, Dosing Weight 55.455, kg, PRN Pain Score 7-10, Start date: 05/18/17 16:45:00 CDT, Duration: 30 day, Stop date: 06/17/17 16:44:00 CDT Acetaminoph No Notes: Chase katie en 325 MG / 05-18 (Same as: l Hydrocodone 21:45: [place] Kamla nn Bitartrate 00 325/5) Do 5 MG Oral not exceed Tablet 4gm/day of acetaminop hen. Acetaminoph No Notes: Do M emoria en 05-18 not exceed l 21:45: 4 gm/day. Chemo 00 (Same as: Tylenol) Unasyn No Notes: Memoria 05-18 Dosing l 20:12: based on [place] 00 Ampicillin component (Same as: Unasyn) Morphine No Notes: Memoria 05-18 (Same l 20:12: as:MORPhin [place] 00 e Sulfate) Unasyn No Notes: Memoria 05-18 Dosing l 20:12: based on Chemo 00 Ampicillin component (Same as: Unasyn) Morphine No Notes: Memoria 05-18 (Same l 20:12: as:MORPhin [place] 00 e Sulfate) Unasyn No Notes: Memoria 05-18 Dosing l 20:12: based on Chemo 00 Ampicillin component (Same as: Unasyn) Morphine No Notes: Memoria 05-18 (Same l 20:12: as:MORPhin Chemo 00 e Sulfate) Vancomycin No 2001 mg: Me moria 05-18 infuse l 18:43: over 2.5 [place] 00 hours MEDICATION WASTE Product Size: 1000 mg Product Wasted: ___ mg Vancomycin No 2001 mg: Me moria 7 infuse l 18:43: over 2.5 [place] 00 hours MEDICATION WASTE Product Size: 1000 mg Product Wasted: ___ mg Vancomycin No 2001 mg: Me moria 05-18 infuse l 18:43: over 2.5 [place] 00 hours MEDICATION WASTE Product Size: 1000 mg Product Wasted: ___ mg No known No [facility] No [facility] medications ity [facility] No known No [facility] No known No [facility] medications ity [facility] No known No [facility] medications ity [facility] No known No [facility] medications ity [facility] albuterol albuterol No 2puff(s Q4H albuterol [place] sulf 90 sulf 90 ) sulf 90 [...] route. alprazolam alprazolam No 1 Q1D alprazolam [facility] 0.5 mg 0.5 mg 0.5 mg Family disintegrat disintegrat disintegra Practic ing tablet ing tablet ting e Take 1 Take 1 tablet tablet tablet Take 1 every day every day tablet by oral by oral every day route. route. by oral route. amitriptyli amitriptyli No 1 Q1D amitriptyl [facility] ne 50 mg ne 50 mg ine 50 mg Fa ramses tablet Take tablet Take tablet Practic 1 tablet 1 tablet Take 1 e every day every day tablet by oral by oral every day route. route. by oral route. furosemide furosemide No 1 Q1D furosemide [facility] 20 mg 20 mg 20 mg Family tablet Take tablet Take tablet Practic 1 tablet 1 tablet Take 1 e every day every day tablet by oral by oral every day route. route. by oral route. gabapentin gabapentin No 1capsul TID gabapentin [facility] 100 mg 100 mg e(s) 100 mg Family capsule capsule capsule Practi c Take 1 Take 1 Take 1 e capsule 3 capsule 3 capsule 3 times a day times a day times a by oral by oral day by route. route. oral route. levothyroxi levothyroxi No 1capsul Q1D levothyrox [facility] ne 50 mcg ne 50 mcg e(s) ine 50 mcg Family capsule capsule capsule Practi c Take 1 Take 1 Take 1 e capsule capsule capsule every day every day every day by oral by oral by oral route. route. route. lovastatin lovastatin No 1 Q1D lovastatin [facility] 40 mg 40 mg 40 mg Family tablet Take tablet Take tablet Practic 1 tablet 1 tablet Take 1 e every day every day tablet by oral by oral every day route. route. by oral route. meloxicam meloxicam No 1 Q1D meloxicam [facility] 7.5 mg 7.5 mg 7.5 mg Family tablet Take tablet Take tablet Practic 1 tablet 1 tablet Take 1 e every day every day tablet by oral by oral every day route. route. by oral route. metoprolol metoprolol No 1capsul Q1D metoprolol [facility] succinate succinate e(s) succinate Family ER 25 mg ER 25 mg ER 25 mg Pra ctic capsule capsule capsule e sprinkle, sprinkle, sprinkle, ext. ext. ext. release 24 release 24 release 24 hr Take 1 hr Take 1 hr Take 1 capsule capsule capsule every day every day every day by oral by oral by oral route. route. route. potassium potassium No 1 Q1D potassium [facility] chloride ER chloride ER chloride Family 20 mEq 20 mEq ER 20 mEq Practi c tablet,exte tablet,exte tablet,ext e nded nded ended release release release Take 1 Take 1 Take 1 tablet tablet tablet every day every day every day by oral by oral by oral route. route. route. Symbicort Symbicort No 2puff(s BID Symbicort [facility] 160 mcg-4.5 160 mcg-4.5 ) 160 F amily mcg/actuati mcg/actuati mcg-4.5 Practic on HFA on HFA mcg/actuat e aerosol aerosol ion HFA inhaler inhaler aerosol Inhale 2 Inhale 2 inhaler puffs twice puffs twice Inhale 2 a day by a day by puffs inhalation inhalation twice a route. route. day by inhalation route. trazodone trazodone No 1 BID trazodone [facility] 100 mg 100 mg 100 mg Family tablet Take tablet Take tablet Practic 1 tablet 1 tablet Take 1 e twice a day twice a day tablet by oral by oral twice a route. route. day by oral route. Immunizations Ordered Immunization Filled Immunization Date Status Commen ts Source Name Name pneumococcal 2017-05-27 Completed [facility] 13-valent vaccine 13:58:00 [place] pneumococcal 2017-05-27 Completed [facility] 13-valent vaccine 13:58:00 [place] pneumococcal 2017-05-27 Completed [facility] 13-valent vaccine 13:58:00 [place] Vital Signs Vital Name Observation Time Observation Value Comments Source Systolic blood 2021-03-28 14:51:00 123 mm[Hg] [facility] Diastolic blood 2021-03-28 14:51:00 77 [facility]Hg[facility] 2021-03-28 14:51:00 86 /min [facility] Body temperature 2021-03-28 14:51:00 36.44 Jen [facility] Height 2020-08-31 00:00:00 67 [in_i] [facility] BMI (Body Mass 2020-08-31 00:00:00 21.1 kg/m2 [facility] Family Index) Practice Body Weight 2020-08-31 00:00:00 135 [lb_av] [facility] Systolic (mm Hg) 2017-05-27 13:42:00 Chase rial Chemo Diastolic (mm Hg) 2017-05-27 13:42:00 Mem orial Chemo Heart Rate 2017-05-27 13:42:00 [facility] [place] Respitory Rate 2017-05-27 13:42:00 Memori al Chemo Temperature Oral (F) 2017-05-27 13:42:00 98.1 F [facility] [place] Respitory Rate 2017-05-27 09:00:00 Memori al Chemo Systolic (mm Hg) 2017-05-27 09:00:00 Chase rial [place] Diastolic (mm Hg) 2017-05-27 09:00:00 Mem orial [place] Heart Rate 2017-05-27 09:00:00 [facility] Chemo Temperature Oral (F) 2017-05-27 09:00:00 98.4 F [facility] [place] Respitory Rate 2017-05-27 05:00:00 Memori al Chemo Systolic (mm Hg) 2017-05-27 05:00:00 Chase rial [place] Diastolic (mm Hg) 2017-05-27 05:00:00 Mem orial Chemo Heart Rate 2017-05-27 05:00:00 [facility] [place] Temperature Oral (F) 2017-05-27 05:00:00 99.0 F [facility] [place] BMI Calculated 2017-05-19 00:40:00 [facility] Weight 2017-05-19 00:40:00 [facility] Height 2017-05-19 00:40:00 170.18 cm [facility] Weight 2017-05-18 18:42:00 [facility] Procedures Procedure Date / Time Performed Performing Clinician [facility] e EXTERNAL PROVIDER 2022-03-15 05:01:00 Doctor Unassigned, No [facility] [place] REC[facility]DS Name Medical Branch EXTERNAL PROVIDER 2021-04-02 05:01:00 Doctor Unassigned, No [facility] [place] RECORDS Name Medical Branch EXTERNAL PROVIDER 2021-03-04 05:01:00 Doctor Rosiessjessenia, No Univ [facility] [place] RECORDS Name Medical Branch Encounters Start End Encounter Admission Attending Care Care Encounter Source Date/Time Date/Time Type Type Clinicians Facility Department ID 2021-08-[address] [facility] Orthopaedic [id number] 10:52:58 [facility] 2022-04-20 2022-04-20 Outpatient Samina[facility]Mbayo [facility] 794 137 [facility] 12:50:00 12:50:00 _A_AH Family Practic e 2022-03-16 2022-03-16 Out[address] Samina-Mbjoseyo [facility] 794 137 [facility] 12:55:00 12:55:00 _A_AH Family Practic e 2022-03-15 2022-03-15 Orders Doctor ANAM [id number] Univers 00:00:00 00:00:00 Only Unassigned, YARY 350.1.13.10 [facility] [place] [facility] 4.2.7.2.686 Joe as [id number] [address] 2021-04-02 2021-04-02 Orders Doctor ANAM [id number] Univers 00:00:00 00:00:00 Only Unassigned, YARY 350.1.13.10 [facility] [place] [facility] 4.2.7.2.686 Joe as [id number] [address] 2021-03-28 2021-03-28 Office Rebeka HIFORREST 1.2.038.165 [id number] Univers 09:42:53 09:54:12 Visit [facility] 350.1.13.10 it y of Surgical 4.2.7.2.686 Joe as Specialti [phone] Md dical 198 [facility] 2021-03-28 2021-03-28 Outpatient R REBEKA [facility] [id number] Univers 09:45:00 09:45:00 LUIS steele of [facility] 2021-03-13 2021-03-13 Outpatient [facility]Mbjose[facility] [id number] [facility] 03:29:00 03:29:00 _A_AH 28119 Family Practic e 2021-03-04 2021-03-04 Orders Doctor ANAM [id number] Univers 00:00:00 00:00:00 Only Unassigned, YARY 350.1.13.10 [facility] 4.2.7.2.686 [facility] [phone] [address] 2021-02-14 2021-02-14 [facility] [id number] Univers 00:00:00 00:00:00 LUIS ity [facility] 2020-12-14 2020-12-14 Outpatient Samina-Mbayo VFP VFP [address] 12:14:00 12:14:00 _A_AH 61210 Family Practic e 2020-11-05 2020-11-05 Outpatient Sergey [facility] [id number] Univers 11:32:32 23:59:00 ity [facility] 2020-11-05 2020-11-05 [facility] 1.2.840.114 [id number] Univers 11:30:00 23:59:00 Encounter Nirav Verdugo 350.1.13.10 ity [facility] 4.2.7.2.686 [facility] [id number] [facility] [address] [place] [address] 2020-11-05 2020-11-05 [facility] 1.2.840.114 [id number] 11:30:00 23:59:00 Encounter Nirav Verdugo 350.1.13.10 [place] 4.2.7.2.686 [place] [id number] 80 2020-09-12 2020-09-12 Outpatient Samina-Mbayo VFP VFP 794 137 [facility] 10:33:00 10:33:00 _A_AH 42374 Family Practic e 2020-09-07 2020-09-07 Outpatient Samina-Mbayo VFP VFP 794 [facility] 06:11:00 06:11:00 _A_AH 06896 Family Practic e 2020-09-05 2020-09-05 Outpatient Smaina-Mbayo VFP VFP 794 137 [facility] 09:23:00 09:23:00 _A_AH 59990 Family Practic e 2020-09-04 2020-09-04 Outpatient Samina-Mbayo VFP VFP 794 137-202 [facility] 09:33:00 09:33:00 _A_AH 25679 Family Practic e 2020-08-31 2020-08-31 [place] VFP [place] - [id number] V illage 00:00:00 00:00:00 SaminaZak [facility] mello moralse, OFFICE MESSENGER HELPER: Medical - Practi c [address] _[email or web address]_ e [facility], [address] [address], [place] [address] , Ph. 2020-08-25 2020-08-25 Outpatient Samina-Mbayo VFP VFP [id number] [facility] 12:39:00 12:39:00 _A_AH 64283 Family Practic e 2020-08-22 2020-08-22 Outpatient Samina-Mbayo VFP VFP 794 137-202 [facility] 11:29:00 11:29:00 _A_AH 22976 Family Practic e 2020-08-21 2020-08-21 Outpatient Samina-Mbayo VFP VFP 794 137-202 [facility] 08:53:00 08:53:00 _A_AH 17381 Family Practic e 2020-07-28 2020-07-28 Outpatient Samina-Mbayo VFP VFP 794 137-202 [facility] 12:21:00 12:21:00 _A_AH 86608 Family Practic e 2020-07-13 2020-07-13 Outpatient Samina-Mbayo VFP VFP 794 137-202 [facility] 07:53:00 07:53:00 _A_AH 02967 Family Practic e 2020-07-05 2020-07-05 Outpatient Samina-Mbayo VFP VFP 794 137-202 [facility] 10:53:00 10:53:00 _A_AH 10300 Family Practic e 2020-07-04 2020-07-04 Outpatient Samina-Mbayo VFP VFP 794 137-202 [facility] 10:27:00 10:27:00 _A_AH 47657 Family Practic e 2020-07-02 2020-07-02 Ada VFP [place] - [id number] V illage 00:00:00 00:00:00 [facility] OFF[facility] MESSENGER HELPER: Medical - Practi c [address] [email or web address]_ [email or web address] [facility], [address] [place] [address], [place] [address] , Ph. 2020-06-27 2020-06-27 Outpatient Samina-Mbayo VFP VFP [address] [place] [address] 07:09:00 07:09:00 _A_AH 03578 Family Practic e 2020-06-22 2020-06-22 Outpatient Samina-Mbayo VFP VFP [address] [place] [address] 12:59:00 12:59:00 _A_AH 29628 Family Practic e 2020-06-20 2020-06-20 Outpatient Samina-Mbayo VFP VFP [address] [place] [address] 06:16:00 06:16:00 _A_AH 03778 Family Practic e 2020-06-18 2020-06-18 Outpatient R RYAN LIEBERMAN [facility] [id number] [facility] 14:50:44 23:59:00 ity [facility] 2020-06-18 2020-06-18 [place] Guide Livan, [facility] Lab Main [facility] 1.2.8 40.114 [id number] [facility] 14:44:53 14:59:53 Visit Ryan [place] [facility].13.10 [facility] 4.2.7.2.686 Joe bell Professio [phone] Md dical [address] 2020-06-18 2020-06-18 [place] Guide Livan [facility] 1.2.840.114 [id number] 14:44:53 14:59:53 Visit Lab Main [place] 350.1.13.10 [place] 4.2.7.2.686 Professio [id number] [address] 2020-06-01 2020-06-01 Outpatient Samina-Mbayo VFP VFP [address] [place] [address] 07:09:00 07:09:00 _A_AH 14282 Family Practic e 2020-05-28 2020-05-28 [place] VFP [place] - [id number] V illage 00:00:00 00:00:00 [facility] Jourdan morales, OFFICE MESSENGER HELPER: Medical - Practi c [address] [email or web address], [address] [address], [place] [address] , Ph. 2020-05-18 2020-05-18 Outpatient Samina-Mbayo VFP VFP [id number] [facility] 12:40:00 12:40:00 _A_AH 00624 Family Practic e 2020-04-13 2020-04-13 Outpatient Samina-Mbayo VFP VFP 794 [id number] [facility] 12:53:00 12:53:00 _A_AH 75253 Family Practic e 2020-03-08 2020-03-08 Outpatient Samina-Mbayo VFP VFP 794 [id number] [facility] 10:27:00 10:27:00 _A_AH 02913 Family Practic e 2020-03-07 2020-03-07 Outpatient Samina-Mbayo VFP VFP 794 [id number] [facility] 06:42:00 06:42:00 _A_AH 23761 Family Practic e 2020-02-13 2020-02-13 Ada VFP [place] - [id number] V illage 00:00:00 00:00:00 Samina-Mbay [facility] mello o, OFFICE MESSENGER HELPER: Medical - Practi c [address] [email or web address], [place] [address] , Ph. 2020-02-02 2020-02-02 Outpatient Samina-Mbayo VFP VFP [address] [place] [address] 02:33:00 02:33:00 _A_AH 72123 Family Practic e 2017-05-18 2017-05-27 [facility] [id number] [facility] 18:25:00 16:02:00 r [place] 00 [facility] 2017-05-18 2017-05-27 [facility] 85525 [id number] Memoria 18:25:00 16:02:00 r Chemo 00 [facility] 2017-05-18 2017-05-27 Outpatient ROGER Baca [id number] 13:25:00 11:02:00 Pastor 00 Faiz Results Test Description Test Time Test Comments Results Result Comments Source ELECTROLYTES 2017-05-26 17:29:00 Test Item Value Reference Range Interpretation Comme nts Potassium Lvl (test code = Potassium Lvl) 3.7 3.5-5.1 [facility]jtBHBLJPEVIMPD6142-22-33 17:29:00 Test Item Value Reference Range Interpretation Comments Potassium Lvl (test code = Potassium 3.7 3.5-5.1 Lvl) [facility] SystemLbohsupTHJJTYCPBHIO5428-44-40 17:29:00 Test Item Value Reference Range Interpretation Comments Potassium Lvl (test code = Potassium 3.7 3.5-5.1 Lvl) [facility] SystemUoqawipVQFDLXIMBYBB7200-30-44 09:48:36 Test Item Value Reference Range Interpretation Comments AGAP (test code = AGAP) 9.1 10.0-20.0 [facility] SystemPlidmnzJHWPYALCOBOK6303-94-15 09:48:36 Test Item Value Reference Range Interpretation Comments Calcium Lvl (test code = Calcium Lvl) 8.7 8.5-10.5 [facility] SystemGojzkkqCVYANBSNSFKC1618-03-16 09:48:36 Test Item Value Reference Range Interpretation Comments Potassium Lvl (test code = Potassium 3.1 3.5-5.1 Lvl) [facility] SystemRboxgakQSTUPUXSAVFC3754-47-61 09:48:36 Test Item Value Reference Range Interpretation Comments Sodium Lvl (test code = Sodium Lvl) 139 135-145 [facility] SystemTawmmddGOAQBBHXNSLD2963-81-31 09:48:36 Test Item Value Reference Range Interpretation Comments eGFR (test code = eGFR) 87 [facility] SystemHszeaxcYMXQWAXORUOA7128-03-97 09:48:36 Test Item Value Reference Range Interpretation Comments CO2 (test code = CO2) 31 24-32 [facility] SystemIcjfeytXESYAVQYTYNM6208-70-99 09:48:36 Test Item Value Reference Range Interpretation Comments Chloride Lvl (test code = Chloride Lvl) 102 95-109 [facility] SystemBbkatkrLTSITYMQYGNF4019-14-80 09:48:36 Test Item Value Reference Range Interpretation Comments Glucose Lvl (test code = Glucose Lvl) 89 70-99 [facility] SystemNbkfnraRNHABPAFHCUL1536-75-21 09:48:36 Test Item Value Reference Range Interpretation Comments BUN (test code = BUN) 11 7-22 [facility] SystemHsvzkyfYVWHFPKZXAQR3982-67-18 09:48:36 Test Item Value Reference Range Interpretation Comments Creatinine Lvl (test code = Creatinine 0.59 0.50-1.40 Lvl) [facility]thmosdIBUWDVCSTD7547-99-57 09:48:36 Test Item Value Reference Range Interpretation Comments Hct (test code = Hct) 28.2 36.0-48.0 [facility] HospitalZlqpfduGSWQQUQGSK9791-37-07 09:48:36 Test Item Value Reference Range Interpretation Comments MCH (test code = MCH) 31.5 pg 27.0-31.0 [facility] HospitalVyjqyifGVXZSKXSYC9149-02-86 09:48:36 Test Item Value Reference Range Interpretation Comments Hgb (test code = Hgb) 9.8 12.0-16.0 [facility] HospitalMceexusEYJJVUWWRC5313-00-12 09:48:36 Test Item Value Reference Range Interpretation Comments MCHC (test code = MCHC) 35.0 32.0-36.0 [facility] HospitalGbftiqbCUFKVWVCLB4017-83-14 09:48:36 Test Item Value Reference Range Interpretation Comments MCV (test code = MCV) 90.0 80.0-98.0 [facility] HospitalJoojfffZZRVZUDPDW2457-32-72 09:48:36 Test Item Value Reference Range Interpretation Comments RDW (test code = RDW) 12.8 11.5-14.5 [facility] HospitalKounqypSGDBGPHUOQ0927-45-84 09:48:36 Test Item Value Reference Range Interpretation Comments Platelet (test code = Platelet) 274 133-450 [facility] HospitalMkuuojmPFMMIYPGYJ9543-11-12 09:48:36 Test Item Value Reference Range Interpretation Comments MPV (test code = MPV) 8.1 7.4-10.4 [facility] HospitalOfwfopeYAULHUDKIC0445-79-31 09:48:36 Test Item Value Reference Range Interpretation Comments WBC (test code = WBC) 6.6 3.7-10.4 [facility] HospitalUffmurkMFJNXBHDRN5414-82-85 09:48:36 Test Item Value Reference Range Interpretation Comments RBC (test code = RBC) 3.13 4.20-5.40 [facility] HospitalUlbibxgQQHHOOJVOH2573-76-38 09:48:36 Test Item Value Reference Range Interpretation Comments Segs (test code = Segs) 47.9 45.0-75.0 [facility] HospitalNvffzybIBUKAWZLTL6241-15-40 09:48:36 Test Item Value Reference Range Interpretation Comments Lymphocytes (test code = Lymphocytes) 31.3 20.0-40.0 [facility] HospitalEpufyniOCVEIRKDFI2456-03-86 09:48:36 Test Item Value Reference Range Interpretation Comments Monocytes (test code = Monocytes) 14.8 2.0-12.0 [facility] HospitalQudxukvHPZNNSIIIO9475-20-81 09:48:36 Test Item Value Reference Range Interpretation Comments Eosinophils (test code = 5.2 See_Comment [A utomated message] The Eosinophils) system which ge nerated this result tra nsmitted reference range : <=4.0. The reference r tye was not used to int erpret this result as normal/abnormal . [facility] HospitalYdiqnfiWOWDDKCWXT0953-36-66 09:48:36 Test Item Value Reference Range Interpretation Comments Segs-Bands # (test code = Segs-Bands #) 3.1 1.5-8.1 [facility] HospitalEumjcryESEJNMWJKS0821-49-96 09:48:36 Test Item Value Reference Range Interpretation Comments Basophils (test code = 0.8 See_Comment [Aut omated message] The Basophils) system which ge nerated this result tra nsmitted reference range : <=1.0. The reference r tye was not used to int erpret this result as normal/abnormal . [facility] HospitalEqqrnacFXFWUVWZVK9475-66-25 09:48:36 Test Item Value Reference Range Interpretation Comments Eosinophils # (test code 0.3 See_Comment [A utomated message] The = Eosinophils #) system [facility] generated this result tra nsmitted reference range : <=0.5. The reference r yte was not used to int erpret this result as normal/abnormal . [facility] HospitalPfmndfdAILPOVQCLT6414-90-09 09:48:36 Test Item Value Reference Range Interpretation Comments Monocytes # (test code 1.0 See_Comment [Aut omated message] The = Monocytes #) system which generated this result tra nsmitted reference range : <=0.8. The reference r tye was not used to int erpret this result as normal/abnormal . [facility] HospitalYexqlwkSURBQGMGBS2032-89-77 09:48:36 Test Item Value Reference Range Interpretation Comments Lymphocytes # (test code = Lymphocytes 2.1 1.0-5.5 #) [facility] HospitalXaglpbqQTXVUOKDIZ1179-69-28 09:48:36 Test Item Value Reference Range Interpretation Comments Basophils # (test code 0.1 See_Comment [Aut omated message] The = Basophils #) system which generated this result tra nsmitted reference range : <=0.2. The reference r tye was not used to int erpret this result as normal/abnormal . [facility] SystemPunkqeuVKGELLTFYWMB0243-94-55 09:48:36 Test Item Value Reference Range Interpretation Comments AGAP (test code = AGAP) 9.1 10.0-20.0 [facility] SystemZavydfcRTNMDCGNSSLB0986-75-49 09:48:36 Test Item Value Reference Range Interpretation Comments Calcium Lvl (test code = Calcium Lvl) 8.7 8.5-10.5 [facility] SystemKagphaeDGEIAZLGVBVU3632-34-42 09:48:36 Test Item Value Reference Range Interpretation Comments Potassium Lvl (test code = Potassium 3.1 3.5-5.1 Lvl) [facility] SystemFcqrgxoBOFQRDNWOEXD3213-81-03 09:48:36 Test Item Value Reference Range Interpretation Comments Sodium Lvl (test code = Sodium Lvl) 139 135-145 [facility] SystemIyhsmkzVPPEMJLZTPZR9442-12-83 09:48:36 Test Item Value Reference Range Interpretation Comments eGFR (test code = eGFR) 87 [facility] SystemCydffxjXMWEZZFLXEUV1538-33-30 09:48:36 Test Item Value Reference Range Interpretation Comments CO2 (test code = CO2) 31 24-32 [facility] SystemTljkwlcBYHUXHDOZAHX9976-26-21 09:48:36 Test Item Value Reference Range Interpretation Comments Chloride Lvl (test code = Chloride Lvl) 102 95-109 [facility] SystemSgjifqlKVASIUIMGAQU5670-42-31 09:48:36 Test Item Value Reference Range Interpretation Comments Glucose Lvl (test code = Glucose Lvl) 89 70-99 [facility] SystemEwjcwqbZTLBNFTOPTWH3436-63-15 09:48:36 Test Item Value Reference Range Interpretation Comments BUN (test code = BUN) 11 7-22 [facility] SystemJvtmniwQWSBYTXJSWOV8728-42-34 09:48:36 Test Item Value Reference Range Interpretation Comments Creatinine Lvl (test code = Creatinine 0.59 0.50-1.40 Lvl) [facility] HospitalMsqwxosSJHERYIIOX1997-38-15 09:48:36 Test Item Value Reference Range Interpretation Comments Hct (test code = Hct) 28.2 36.0-48.0 [facility] HospitalOvaytnqCFOBSDKBSE8981-08-43 09:48:36 Test Item Value Reference Range Interpretation Comments MCH (test code = MCH) 31.5 pg 27.0-31.0 [facility] HospitalFbylujeWYKJKEYIFC6487-96-24 09:48:36 Test Item Value Reference Range Interpretation Comments Hgb (test code = Hgb) 9.8 12.0-16.0 [facility] HospitalJciepcnRKSYYHWSSP6335-87-97 09:48:36 Test Item Value Reference Range Interpretation Comments MCHC (test code = MCHC) 35.0 32.0-36.0 [facility] HospitalQliwgajQYLGYNJJLQ9750-35-73 09:48:36 Test Item Value Reference Range Interpretation Comments MCV (test code = MCV) 90.0 80.0-98.0 [facility] HospitalPrebszdYSDPJIWVEN9289-19-20 09:48:36 Test Item Value Reference Range Interpretation Comments RDW (test code = RDW) 12.8 11.5-14.5 [facility] HospitalHtauugsSUDJYBBEKB6766-97-44 09:48:36 Test Item Value Reference Range Interpretation Comments Platelet (test code = Platelet) 274 133-450 [facility] HospitalMyrgasuBDCNCNRYMI6119-04-36 09:48:36 Test Item Value Reference Range Interpretation Comments MPV (test code = MPV) 8.1 7.4-10.4 [facility] HospitalFszwyciSXYJZXMVMI3110-42-64 09:48:36 Test Item Value Reference Range Interpretation Comments WBC (test code = WBC) 6.6 3.7-10.4 [facility] HospitalOfwyriqUCIGMKJHPM7040-97-51 09:48:36 Test Item Value Reference Range Interpretation Comments RBC (test code = RBC) 3.13 4.20-5.40 [facility] HospitalLubhkilOMTQPLAJHR4409-17-65 09:48:36 Test Item Value Reference Range Interpretation Comments Segs (test code = Segs) 47.9 45.0-75.0 [facility] HospitalYnfcstjWMOROXWMUP2527-57-72 09:48:36 Test Item Value Reference Range Interpretation Comments Lymphocytes (test code = Lymphocytes) 31.3 20.0-40.0 [facility] HospitalAonjewuHIVVYAOKPT8683-29-27 09:48:36 Test Item Value Reference Range Interpretation Comments Monocytes (test code = Monocytes) 14.8 2.0-12.0 [facility] HospitalWgvzxviJOYKSJVQDI1834-15-50 09:48:36 Test Item Value Reference Range Interpretation Comments Eosinophils (test code = 5.2 See_Comment [A utomated message] The Eosinophils) system which ge nerated this result tra nsmitted reference range : <=4.0. The reference r tye was not used to int erpret this result as normal/abnormal . [facility] HospitalDkaptnrGINFBUHMRE6791-48-59 09:48:36 Test Item Value Reference Range Interpretation Comments Segs-Bands # (test code = Segs-Bands #) 3.1 1.5-8.1 [facility] HospitalGlvvytjCPFVXVIPAV3150-06-62 09:48:36 Test Item Value Reference Range Interpretation Comments Basophils (test code = 0.8 See_Comment [Aut omated message] The Basophils) system which ge nerated this result tra nsmitted reference range : <=1.0. The reference r tye was not used to int erpret this result as normal/abnormal . [facility] HospitalFflclzcCDSTLWJXTJ1752-93-26 09:48:36 Test Item Value Reference Range Interpretation Comments Eosinophils # (test code 0.3 See_Comment [A utomated message] The = Eosinophils #) system [facility] generated this result tra nsmitted reference range : <=0.5. The reference r tye was not used to int erpret this result as normal/abnormal . [facility] HospitalIwcvezvZMUMAEELTG2738-07-48 09:48:36 Test Item Value Reference Range Interpretation Comments Monocytes # (test code 1.0 See_Comment [Aut omated message] The = Monocytes #) system which generated this result tra nsmitted reference range : <=0.8. The reference r tye was not used to int erpret this result as normal/abnormal . [facility] HospitalDkyajksXNYBLWCEXJ2943-40-58 09:48:36 Test Item Value Reference Range Interpretation Comments Lymphocytes # (test code = Lymphocytes 2.1 1.0-5.5 #) [facility] HospitalFwhfdewAWHUOTSKYF8674-04-29 09:48:36 Test Item Value Reference Range Interpretation Comments Basophils # (test code 0.1 See_Comment [Aut omated message] The = Basophils #) system which generated this result tra nsmitted reference range : <=0.2. The reference r tye was not used to int erpret this result as normal/abnormal . [facility] HospitalSvgxkkuVOZNRNEPXU9915-78-37 09:48:36 Test Item Value Reference Range Interpretation Comments Basophils # (test code 0.1 See_Comment [Aut omated message] The = Basophils #) system which generated this result tra nsmitted reference range : <=0.2. The reference r tye was not used to int erpret this result as normal/abnormal . [facility] SystemNjujumjSAUWQXPNPQNM0937-91-20 09:48:36 Test Item Value Reference Range Interpretation Comments AGAP (test code = AGAP) 9.1 10.0-20.0 [facility] SystemGibtbagDMBAYMNVSLNX8552-58-28 09:48:36 Test Item Value Reference Range Interpretation Comments Calcium Lvl (test code = Calcium Lvl) 8.7 8.5-10.5 [facility] SystemNawxlvgPETOHVDVRTJK2414-91-52 09:48:36 Test Item Value Reference Range Interpretation Comments Potassium Lvl (test code = Potassium 3.1 3.5-5.1 Lvl) [facility] SystemIftpgwmNIBAZUWMOUFW5732-05-75 09:48:36 Test Item Value Reference Range Interpretation Comments Sodium Lvl (test code = Sodium Lvl) 139 135-145 [facility] SystemMaqoyzcRFYRZVVDPHFS1923-43-28 09:48:36 Test Item Value Reference Range Interpretation Comments eGFR (test code = eGFR) 87 [facility] SystemQojxysxIPTJVKJWOHQS4616-01-49 09:48:36 Test Item Value Reference Range Interpretation Comments CO2 (test code = CO2) 31 24-32 [facility] SystemVywbvpkTUMTDSGOJRXM6045-74-99 09:48:36 Test Item Value Reference Range Interpretation Comments Chloride Lvl (test code = Chloride Lvl) 102 95-109 [facility] SystemYrvvivjUNWGAIVOAEYQ5889-89-25 09:48:36 Test Item Value Reference Range Interpretation Comments Glucose Lvl (test code = Glucose Lvl) 89 70-99 [facility] SystemNjncnabBPCYQLRFISEF1998-74-98 09:48:36 Test Item Value Reference Range Interpretation Comments BUN (test code = BUN) 11 7-22 [facility] SystemGpdjrtbLOAFVLJWIGVR5017-12-10 09:48:36 Test Item Value Reference Range Interpretation Comments Creatinine Lvl (test code = Creatinine 0.59 0.50-1.40 Lvl) [facility] HospitalAqfklvsSNEIWOHBKB9294-95-16 09:48:36 Test Item Value Reference Range Interpretation Comments Hct (test code = Hct) 28.2 36.0-48.0 [facility] HospitalMbhbssyEULGANSZIM0919-61-70 09:48:36 Test Item Value Reference Range Interpretation Comments MCH (test code = MCH) 31.5 pg 27.0-31.0 [facility] HospitalMawhrxhGSSXHWSGCM7120-64-83 09:48:36 Test Item Value Reference Range Interpretation Comments Hgb (test code = Hgb) 9.8 12.0-16.0 [facility] HospitalGzezzrdFBHZHKICBI8664-60-49 09:48:36 Test Item Value Reference Range Interpretation Comments MCHC (test code = MCHC) 35.0 32.0-36.0 [facility] HospitalQcsmqnlFDRBYAXBBR4058-97-36 09:48:36 Test Item Value Reference Range Interpretation Comments MCV (test code = MCV) 90.0 80.0-98.0 [facility] HospitalCysjqmfSZWYHLLZOD5835-23-33 09:48:36 Test Item Value Reference Range Interpretation Comments RDW (test code = RDW) 12.8 11.5-14.5 [facility] HospitalOyqsbwxMQLCIWLZSN0975-06-06 09:48:36 Test Item Value Reference Range Interpretation Comments Platelet (test code = Platelet) 274 133-450 [facility] HospitalKhryqaiIEGBZPYGIR9448-35-20 09:48:36 Test Item Value Reference Range Interpretation Comments MPV (test code = MPV) 8.1 7.4-10.4 [facility] HospitalNrggiiwWLGKHEHIHP4294-62-90 09:48:36 Test Item Value Reference Range Interpretation Comments WBC (test code = WBC) 6.6 3.7-10.4 [facility] HospitalFdatktaQQJHCEGOPM3639-83-43 09:48:36 Test Item Value Reference Range Interpretation Comments RBC (test code = RBC) 3.13 4.20-5.40 [facility]RqouuiyKGJKALLGIH5846-50-64 09:48:36 Test Item Value Reference Range Interpretation Comments Segs (test code = Segs) 47.9 45.0-75.0 [facility] HospitalTfyrroxVHBPQEGJAI5490-69-90 09:48:36 Test Item Value Reference Range Interpretation Comments Lymphocytes (test code = Lymphocytes) 31.3 20.0-40.0 [facility] HospitalMckjtocRUFHHZMIFB5459-84-76 09:48:36 Test Item Value Reference Range Interpretation Comments Monocytes (test code = Monocytes) 14.8 2.0-12.0 [facility] HospitalWtexlpgFROYXSLVCA5321-37-15 09:48:36 Test Item Value Reference Range Interpretation Comments Eosinophils (test code = 5.2 See_Comment [A utomated message] The Eosinophils) system which ge nerated this result tra nsmitted reference range : <=4.0. The reference r tye was not used to int erpret this result as normal/abnormal . [facility] HospitalRxaffftNOTXABMVKA7341-84-17 09:48:36 Test Item Value Reference Range Interpretation Comments Segs-Bands # (test code = Segs-Bands #) 3.1 1.5-8.1 [facility] HospitalCbrcsgcVKTZUSHMMK0313-90-28 09:48:36 Test Item Value Reference Range Interpretation Comments Basophils (test code = 0.8 See_Comment [Aut omated message] The Basophils) system which ge nerated this result tra nsmitted reference range : <=1.0. The reference r tye was not used to int erpret this result as normal/abnormal . [facility] HospitalPapmkoeJUCFTGQVWL7395-20-74 09:48:36 Test Item Value Reference Range Interpretation Comments Eosinophils # (test code 0.3 See_Comment [A utomated message] The = Eosinophils #) system whic h generated this result tra nsmitted reference range : <=0.5. The reference r tye was not used to int erpret this result as normal/abnormal . [facility] HospitalRtcreitHJUVQTOVBH4287-88-51 09:48:36 Test Item Value Reference Range Interpretation Comments Monocytes # (test code 1.0 See_Comment [Aut omated message] The = Monocytes #) system which generated this result tra nsmitted reference range : <=0.8. The reference r tye was not used to int erpret this result as normal/abnormal . [facility] HospitalRknkaqfCFXSRFGCPP9637-48-63 09:48:36 Test Item Value Reference Range Interpretation Comments Lymphocytes # (test code = Lymphocytes 2.1 1.0-5.5 #) [facility]2017-07-10 15:09:00 Test Item Value Reference Range Interpretation Comments eGFR (test code = eGFR) 85 [facility]2017-07-10 15:09:00 Test Item Value Reference Range Interpretation Comments Sodium Lvl (test code = Sodium Lvl) 140 135-145 [facility]2017-07-10 15:09:00 Test Item Value Reference Range Interpretation Comments Creatinine Lvl (test code = Creatinine 0.64 0.50-1.40 Lvl) [facility]2017-07-10 15:09:00 Test Item Value Reference Range Interpretation Comments BUN (test code = BUN) 11 - [facility]2017-07-10 15:09:00 Test Item Value Reference Range Interpretation Comments Chloride Lvl (test code = Chloride Lvl) 103 95-109 [facility]2017-07-10 15:09:00 Test Item Value Reference Range Interpretation Comments Potassium Lvl (test code = Potassium 3.3 3.5-5.1 Lvl) [facility]2017-07-10 15:09:00 Test Item Value Reference Range Interpretation Comments Glucose Lvl (test code = Glucose Lvl) 83 70-99 [facility]2017-07-10 15:09:00 Test Item Value Reference Range Interpretation Comments CO2 (test code = CO2) 29 24-32 [facility]2017-07-10 15:09:00 Test Item Value Reference Range Interpretation Comments Calcium Lvl (test code = Calcium Lvl) 8.0 8.5-10.5 [facility]2017-07-10 15:09:00 Test Item Value Reference Range Interpretation Comments AGAP (test code = AGAP) 11.3 10.0-20.0 [facility]2017-07-10 15:09:00 Test Item Value Reference Range Interpretation Comments eGFR (test code = eGFR) 85 [facility]2017-07-10 15:09:00 Test Item Value Reference Range Interpretation Comments Sodium Lvl (test code = Sodium Lvl) 140 135-145 [facility]2017-07-10 15:09:00 Test Item Value Reference Range Interpretation Comments Creatinine Lvl (test code = Creatinine 0.64 0.50-1.40 Lvl) [facility]2017-07-10 15:09:00 Test Item Value Reference Range Interpretation Comments BUN (test code = BUN) 11 06-06 [facility]2017-07-10 15:09:00 Test Item Value Reference Range Interpretation Comments Chloride Lvl (test code = Chloride Lvl) 103 95-109 [facility]2017-07-10 15:09:00 Test Item Value Reference Range Interpretation Comments Potassium Lvl (test code = Potassium 3.3 3.5-5.1 Lvl) [facility]2017-07-10 15:09:00 Test Item Value Reference Range Interpretation Comments Glucose Lvl (test code = Glucose Lvl) 83 70-99 [facility]2017-07-10 15:09:00 Test Item Value Reference Range Interpretation Comments CO2 (test code = CO2) 29 24-32 [facility]2017-07-10 15:09:00 Test Item Value Reference Range Interpretation Comments Calcium Lvl (test code = Calcium Lvl) 8.0 8.5-10.5 [facility]2017-07-10 15:09:00 Test Item Value Reference Range Interpretation Comments AGAP (test code = AGAP) 11.3 10.0-20.0 [facility]2017-07-10 15:09:00 Test Item Value Reference Range Interpretation Comments eGFR (test code = eGFR) 85 [facility]2017-07-10 15:09:00 Test Item Value Reference Range Interpretation Comments Sodium Lvl (test code = Sodium Lvl) 140 135-145 [facility]2017-07-10 15:09:00 Test Item Value Reference Range Interpretation Comments Creatinine Lvl (test code = Creatinine 0.64 0.50-1.40 Lvl) [facility]2017-07-10 15:09:00 Test Item Value Reference Range Interpretation Comments BUN (test code = BUN) 11 7-22 [facility]2017-07-10 15:09:00 Test Item Value Reference Range Interpretation Comments Chloride Lvl (test code = Chloride Lvl) 103 95-109 [facility]2017-07-10 15:09:00 Test Item Value Reference Range Interpretation Comments Potassium Lvl (test code = Potassium 3.3 3.5-5.1 Lvl) [facility]2017-07-10 15:09:00 Test Item Value Reference Range Interpretation Comments Glucose Lvl (test code = Glucose Lvl) 83 70-99 [facility]2017-07-10 15:09:00 Test Item Value Reference Range Interpretation Comments CO2 (test code = CO2) 29 24-32 [facility]2017-07-10 15:09:00 Test Item Value Reference Range Interpretation Comments Calcium Lvl (test code = Calcium Lvl) 8.0 8.5-10.5 [facility]2017-07-10 15:09:00 Test Item Value Reference Range Interpretation Comments AGAP (test code = AGAP) 11.3 10.0-20.0 [facility]2017-07-10 12:31:00 Test Item Value Reference Range Interpretation Comments eGFR (test code = eGFR) 90 [facility]2017-07-10 12:31:00 Test Item Value Reference Range Interpretation Comments Calcium Lvl (test code = Calcium Lvl) 6.4 8.5-10.5 [facility]2017-07-10 12:31:00 Test Item Value Reference Range Interpretation Comments AGAP (test code = AGAP) 20.4 10.0-20.0 [facility]2017-07-10 12:31:00 Test Item Value Reference Range Interpretation Comments CO2 (test code = CO2) 25 24-32 [facility]2017-07-10 12:31:00 Test Item Value Reference Range Interpretation Comments Glucose Lvl (test code = Glucose Lvl) 69 70-99 [facility]2017-07-10 12:31:00 Test Item Value Reference Range Interpretation Comments Sodium Lvl (test code = Sodium Lvl) 155 135-145 [facility]2017-07-10 12:31:00 Test Item Value Reference Range Interpretation Comments BUN (test code = BUN) 10 7-22 [facility]2017-07-10 12:31:00 Test Item Value Reference Range Interpretation Comments Chloride Lvl (test code = Chloride Lvl) 112 95-109 [facility]2017-07-10 12:31:00 Test Item Value Reference Range Interpretation Comments Creatinine Lvl (test code = Creatinine 0.55 0.50-1.40 Lvl) [facility] HospitalWpcyqhiSQOKTCMOQM8062-55-21 12:31:00 Test Item Value Reference Range Interpretation Comments Hct (test code = Hct) 25.0 36.0-48.0 [facility] HospitalEskthneYRGVPIRSKB8786-74-84 12:31:00 Test Item Value Reference Range Interpretation Comments MCV (test code = MCV) 90.5 80.0-98.0 [facility] HospitalDiiaulwLIRWXNISLD3331-15-63 12:31:00 Test Item Value Reference Range Interpretation Comments Hgb (test code = Hgb) 8.4 12.0-16.0 [facility] HospitalSzrntwhAZIPFVNCYC5776-25-31 12:31:00 Test Item Value Reference Range Interpretation Comments MCH (test code = MCH) 30.4 pg 27.0-31.0 [facility] HospitalQsdqqrfEITXPPCZCI7571-82-69 12:31:00 Test Item Value Reference Range Interpretation Comments MCHC (test code = MCHC) 33.6 32.0-36.0 [facility] HospitalBiffjppPXMIPLHSNY6165-77-29 12:31:00 Test Item Value Reference Range Interpretation Comments RDW (test code = RDW) 13.2 11.5-14.5 [facility] HospitalVdyzbxeSSOBTEWOIJ1248-81-38 12:31:00 Test Item Value Reference Range Interpretation Comments MPV (test code = MPV) 8.1 7.4-10.4 [facility] HospitalMnrxalvKFFGLUXMKW9910-77-82 12:31:00 Test Item Value Reference Range Interpretation Comments Platelet (test code = Platelet) 212 133-450 [facility] HospitalCsjjqneAINTSTVHUO3941-36-68 12:31:00 Test Item Value Reference Range Interpretation Comments RBC (test code = RBC) 2.76 4.20-5.40 [facility] HospitalOacfigoTJVSWXRDTO5531-26-54 12:31:00 Test Item Value Reference Range Interpretation Comments WBC (test code = WBC) 5.7 3.7-10.4 [facility] HospitalLelpqbpUEQGGYBGLS5851-16-84 12:31:00 Test Item Value Reference Range Interpretation Comments Monocytes # (test code 0.8 See_Comment [Aut omated message] The = Monocytes #) system which generated this result tra nsmitted reference range : <=0.8. The reference r tye was not used to int erpret this result as normal/abnormal . [facility] HospitalRnarcmcSQXUNMDPKQ6730-60-40 12:31:00 Test Item Value Reference Range Interpretation Comments Eosinophils # (test code 0.2 See_Comment [A utomated message] The = Eosinophils #) system whic h generated this result tra nsmitted reference range : <=0.5. The reference r tye was not used to int erpret this result as normal/abnormal . [facility] HospitalJoevzqyFBHGEHIRFC9095-07-18 12:31:00 Test Item Value Reference Range Interpretation Comments Lymphocytes (test code = Lymphocytes) 26.0 20.0-40.0 [facility] HospitalPkkqdkaXUYQXVWOFF8887-99-40 12:31:00 Test Item Value Reference Range Interpretation Comments Segs-Bands # (test code = Segs-Bands #) 3.2 1.5-8.1 [facility] HospitalXgdcrzvZPISQMDJWW5451-44-93 12:31:00 Test Item Value Reference Range Interpretation Comments Lymphocytes # (test code = Lymphocytes 1.5 1.0-5.5 #) [facility] HospitalIdhtgqkDAFGPWIPJK6885-36-03 12:31:00 Test Item Value Reference Range Interpretation Comments Eosinophils (test code = 3.7 See_Comment [A utomated message] The Eosinophils) system which ge nerated this result tra nsmitted reference range : <=4.0. The reference r tye was not used to int erpret this result as normal/abnormal . [facility] HospitalAofrnmoGFYAULAFCE8859-82-06 12:31:00 Test Item Value Reference Range Interpretation Comments Monocytes (test code = Monocytes) 14.4 2.0-12.0 [facility] HospitalYsdxdrgFXXECDCAMI4265-40-88 12:31:00 Test Item Value Reference Range Interpretation Comments Basophils (test code = 0.5 See_Comment [Aut omated message] The Basophils) system which ge nerated this result tra nsmitted reference range : <=1.0. The reference r tye was not used to int erpret this result as normal/abnormal . [facility] HospitalCimehotOCXMHOOQRA2760-72-34 12:31:00 Test Item Value Reference Range Interpretation Comments Segs (test code = Segs) 55.4 45.0-75.0 [facility]2017-07-10 12:31:00 Test Item Value Reference Range Interpretation Comments eGFR (test code = eGFR) 90 [facility]2017-07-10 12:31:00 Test Item Value Reference Range Interpretation Comments Calcium Lvl (test code = Calcium Lvl) 6.4 8.5-10.5 [facility]2017-07-10 12:31:00 Test Item Value Reference Range Interpretation Comments AGAP (test code = AGAP) 20.4 10.0-20.0 [facility]2017-07-10 12:31:00 Test Item Value Reference Range Interpretation Comments CO2 (test code = CO2) 25 24-32 [facility]2017-07-10 12:31:00 Test Item Value Reference Range Interpretation Comments Glucose Lvl (test code = Glucose Lvl) 69 70-99 [facility]2017-07-10 12:31:00 Test Item Value Reference Range Interpretation Comments Sodium Lvl (test code = Sodium Lvl) 155 135-145 [facility]2017-07-10 12:31:00 Test Item Value Reference Range Interpretation Comments BUN (test code = BUN) 10 7-22 [facility]2017-07-10 12:31:00 Test Item Value Reference Range Interpretation Comments Chloride Lvl (test code = Chloride Lvl) 112 95-109 [facility]2017-07-10 12:31:00 Test Item Value Reference Range Interpretation Comments Creatinine Lvl (test code = Creatinine 0.55 0.50-1.40 Lvl) [facility] HospitalHaeuwxlBIVQXQGUDB0892-91-29 12:31:00 Test Item Value Reference Range Interpretation Comments Hct (test code = Hct) 25.0 36.0-48.0 [facility] HospitalQkdjnztQJLXEHKGKJ2365-99-66 12:31:00 Test Item Value Reference Range Interpretation Comments MCV (test code = MCV) 90.5 80.0-98.0 [facility] HospitalLemujxcBEJSQVSVXS9548-26-82 12:31:00 Test Item Value Reference Range Interpretation Comments Hgb (test code = Hgb) 8.4 12.0-16.0 [facility] HospitalGffpwgwUHKOZSZDWS9534-36-15 12:31:00 Test Item Value Reference Range Interpretation Comments MCH (test code = MCH) 30.4 pg 27.0-31.0 [facility] HospitalDzqkbctADAVGWKHVG4178-30-06 12:31:00 Test Item Value Reference Range Interpretation Comments MCHC (test code = MCHC) 33.6 32.0-36.0 [facility] HospitalOgsvgldSWWEFHZPGT6916-83-89 12:31:00 Test Item Value Reference Range Interpretation Comments RDW (test code = RDW) 13.2 11.5-14.5 [facility] HospitalJgxtqltBJORSDZCLN4110-32-41 12:31:00 Test Item Value Reference Range Interpretation Comments MPV (test code = MPV) 8.1 7.4-10.4 [facility] HospitalBjyylcgDYHXQTUNBG2785-53-03 12:31:00 Test Item Value Reference Range Interpretation Comments Platelet (test code = Platelet) 212 133-450 [facility] HospitalFejrifwXHQDEWUKMA5700-27-97 12:31:00 Test Item Value Reference Range Interpretation Comments RBC (test code = RBC) 2.76 4.20-5.40 [facility] HospitalTjsyfgyRZVWFUOIFZ8559-68-50 12:31:00 Test Item Value Reference Range Interpretation Comments WBC (test code = WBC) 5.7 3.7-10.4 [facility] HospitalMqredtsKMUFQQAETT4460-63-66 12:31:00 Test Item Value Reference Range Interpretation Comments Monocytes # (test code 0.8 See_Comment [Aut omated message] The = Monocytes #) system which generated this result tra nsmitted reference range : <=0.8. The reference r tye was not used to int erpret this result as normal/abnormal . [facility] HospitalAifergbKLELQNNUKY4613-54-10 12:31:00 Test Item Value Reference Range Interpretation Comments Eosinophils # (test code 0.2 See_Comment [A utomated message] The = Eosinophils #) system whic h generated this result tra nsmitted reference range : <=0.5. The reference r tye was not used to int erpret this result as normal/abnormal . [facility] HospitalRhnnrtwGLTWPSUMEQ9970-41-29 12:31:00 Test Item Value Reference Range Interpretation Comments Lymphocytes (test code = Lymphocytes) 26.0 20.0-40.0 [facility] HospitalHoyiultVVMEZRLGLI4034-98-96 12:31:00 Test Item Value Reference Range Interpretation Comments Segs-Bands # (test code = Segs-Bands #) 3.2 1.5-8.1 [facility] HospitalBcmwjkoYWGMZEJOYZ4641-86-19 12:31:00 Test Item Value Reference Range Interpretation Comments Lymphocytes # (test code = Lymphocytes 1.5 1.0-5.5 #) [facility] HospitalZciifoqPXBLXOMKHE7471-83-86 12:31:00 Test Item Value Reference Range Interpretation Comments Eosinophils (test code = 3.7 See_Comment [A utomated message] The Eosinophils) system which ge nerated this result tra nsmitted reference range : <=4.0. The reference r tye was not used to int erpret this result as normal/abnormal . [facility] HospitalBsfeqiwSDMHNKXPZM2467-43-96 12:31:00 Test Item Value Reference Range Interpretation Comments Monocytes (test code = Monocytes) 14.4 2.0-12.0 [place] 737297-07-10 12:31:00 Test Item Value Reference Range Interpretation Comments Basophils (test code = 0.5 See_Comment [Aut omated message] The Basophils) system which ge nerated this result tra nsmitted reference range : <=1.0. The reference r tye was not used to int erpret this result as normal/abnormal . [facility] HospitalOqbbcadWJVPAQBGXD8307-82-48 12:31:00 Test Item Value Reference Range Interpretation Comments Segs (test code = Segs) 55.4 45.0-75.0 [facility]2017-07-10 12:31:00 Test Item Value Reference Range Interpretation Comments eGFR (test code = eGFR) 90 [facility]2017-07-10 12:31:00 Test Item Value Reference Range Interpretation Comments Calcium Lvl (test code = Calcium Lvl) 6.4 8.5-10.5 [facility]2017-07-10 12:31:00 Test Item Value Reference Range Interpretation Comments AGAP (test code = AGAP) 20.4 10.0-20.0 [facility]2017-07-10 12:31:00 Test Item Value Reference Range Interpretation Comments CO2 (test code = CO2) 25 24-32 [facility]2017-07-10 12:31:00 Test Item Value Reference Range Interpretation Comments Glucose Lvl (test code = Glucose Lvl) 69 70-99 [facility]2017-07-10 12:31:00 Test Item Value Reference Range Interpretation Comments Sodium Lvl (test code = Sodium Lvl) 155 135-145 [facility]2017-07-10 12:31:00 Test Item Value Reference Range Interpretation Comments BUN (test code = BUN) 10 7-22 [facility]2017-07-10 12:31:00 Test Item Value Reference Range Interpretation Comments Chloride Lvl (test code = Chloride Lvl) 112 95-109 [facility]2017-07-10 12:31:00 Test Item Value Reference Range Interpretation Comments Creatinine Lvl (test code = Creatinine 0.55 0.50-1.40 Lvl) [facility] HospitalFjesvlfNZOKQBDPLY2713-49-78 12:31:00 Test Item Value Reference Range Interpretation Comments Hct (test code = Hct) 25.0 36.0-48.0 [facility] HospitalYdsenetNXYKLNVBOT3151-63-19 12:31:00 Test Item Value Reference Range Interpretation Comments MCV (test code = MCV) 90.5 80.0-98.0 [facility] HospitalBwvagwkDOYVFCCQEY6233-63-80 12:31:00 Test Item Value Reference Range Interpretation Comments Hgb (test code = Hgb) 8.4 12.0-16.0 [facility] HospitalKkymbvsPBWVKQGILG7536-21-65 12:31:00 Test Item Value Reference Range Interpretation Comments MCH (test code = MCH) 30.4 pg 27.0-31.0 [facility] HospitalItuaawhENZQUVHOPU0496-93-15 12:31:00 Test Item Value Reference Range Interpretation Comments MCHC (test code = MCHC) 33.6 32.0-36.0 [facility] HospitalDdmfspdEDWLCCQSVA1805-05-02 12:31:00 Test Item Value Reference Range Interpretation Comments RDW (test code = RDW) 13.2 11.5-14.5 [facility] HospitalFxsujvmLXZKJGRLFN9529-14-88 12:31:00 Test Item Value Reference Range Interpretation Comments MPV (test code = MPV) 8.1 7.4-10.4 [facility] HospitalWjiwyddOUUKQAKXTD1844-40-70 12:31:00 Test Item Value Reference Range Interpretation Comments Platelet (test code = Platelet) 212 133-450 [facility] HospitalRttqutyPCLSARDNYT0862-68-23 12:31:00 Test Item Value Reference Range Interpretation Comments RBC (test code = RBC) 2.76 4.20-5.40 [facility] HospitalZuyabnvPSYAGDOPFG7103-02-35 12:31:00 Test Item Value Reference Range Interpretation Comments WBC (test code = WBC) 5.7 3.7-10.4 [facility] HospitalSeaebzaNUXJHLXAQY6911-28-84 12:31:00 Test Item Value Reference Range Interpretation Comments Monocytes # (test code 0.8 See_Comment [Aut omated message] The = Monocytes #) system which generated this result tra nsmitted reference range : <=0.8. The reference r tye was not used to int erpret this result as normal/abnormal . [facility] HospitalSgxpsquFTCKTPDJLE0610-41-79 12:31:00 Test Item Value Reference Range Interpretation Comments Eosinophils # (test code 0.2 See_Comment [A utomated message] The = Eosinophils #) system whic h generated this result tra nsmitted reference range : <=0.5. The reference r tye was not used to int erpret this result as normal/abnormal . [facility] HospitalYuwbnhnFKSAGYOPWR8671-32-72 12:31:00 Test Item Value Reference Range Interpretation Comments Lymphocytes (test code = Lymphocytes) 26.0 20.0-40.0 [facility] HospitalZwlcpxbJQYBVGYNMQ0329-80-39 12:31:00 Test Item Value Reference Range Interpretation Comments Segs-Bands # (test code = Segs-Bands #) 3.2 1.5-8.1 [facility] HospitalVztkhghKFABPORALO6270-38-69 12:31:00 Test Item Value Reference Range Interpretation Comments Lymphocytes # (test code = Lymphocytes 1.5 1.0-5.5 #) [facility] HospitalNrmkoloAOZSETTFWZ5584-66-42 12:31:00 Test Item Value Reference Range Interpretation Comments Eosinophils (test code = 3.7 See_Comment [A utomated message] The Eosinophils) system which ge nerated this result tra nsmitted reference range : <=4.0. The reference r tye was not used to int erpret this result as normal/abnormal . [facility] HospitalWmtmnwyMVNSUVQYJE9348-78-11 12:31:00 Test Item Value Reference Range Interpretation Comments Monocytes (test code = Monocytes) 14.4 2.0-12.0 [facility] HospitalUnkbrwvUWLPWBNQLE3332-35-38 12:31:00 Test Item Value Reference Range Interpretation Comments Basophils (test code = 0.5 See_Comment [Aut omated message] The Basophils) system which ge nerated this result tra nsmitted reference range : <=1.0. The reference r tye was not used to int erpret this result as normal/abnormal . [facility] HospitalOjzanriMWPNCKVCSZ2864-64-68 12:31:00 Test Item Value Reference Range Interpretation Comments Segs (test code = Segs) 55.4 45.0-75.0 [facility]2017-07-09 13:15:00 Test Item Value Reference Range Interpretation Comments Folate Lvl (test code = Folate Lvl) 54.1 [facility]2017-07-09 13:15:00 Test Item Value Reference Range Interpretation Comments Vitamin B12 Lvl (test code = Vitamin [phone] B12 Lvl) [facility]2017-07-09 13:15:00 Test Item Value Reference Range Interpretation Comments Folate Lvl (test code = Folate Lvl) 54.1 [facility]2017-07-09 13:15:00 Test Item Value Reference Range Interpretation Comments Vitamin B12 Lvl (test code = Vitamin [phone] B12 Lvl) [facility]2017-07-09 13:15:00 Test Item Value Reference Range Interpretation Comments Folate Lvl (test code = Folate Lvl) 54.1 [facility]2017-07-09 13:15:00 Test Item Value Reference Range Interpretation Comments Vitamin B12 Lvl (test code = Vitamin [phone] B12 Lvl) [facility] HospitalJeqqluuDFZYJEIDJY0244-28-17 11:45:00 Test Item Value Reference Range Interpretation Comments MPV (test code = MPV) 7.6 7.4-10.4 [facility] HospitalJhsvlfjBSTQTKWYKL4260-18-87 11:45:00 Test Item Value Reference Range Interpretation Comments Platelet (test code = Platelet) 232 133-450 [facility] HospitalQykjgrsLLRMBVAVPW1939-48-70 11:45:00 Test Item Value Reference Range Interpretation Comments MCV (test code = MCV) 89.7 80.0-98.0 [facility] [facility]NAR7317-99-04 11:45:00 Test Item Value Reference Range Interpretation Comments Hct (test code = Hct) 30.2 36.0-48.0 [facility]VgjwvsoHVOYRKOADV7981-77-14 11:45:00 Test Item Value Reference Range Interpretation Comments RDW (test code = RDW) 13.4 11.5-14.5 [facility] HospitalBxztcysVPJRAMTPHU2943-09-94 11:45:00 Test Item Value Reference Range Interpretation Comments MCHC (test code = MCHC) 34.5 32.0-36.0 [facility] HospitalEfupureEALZOWKPVN5304-42-52 11:45:00 Test Item Value Reference Range Interpretation Comments MCH (test code = MCH) 31.0 pg 27.0-31.0 [facility] HospitalCgngqzgDQLFQJZJIK3961-87-40 11:45:00 Test Item Value Reference Range Interpretation Comments WBC (test code = WBC) 7.2 3.7-10.4 [facility] HospitalGgogpplWSDQXQANCK8703-71-33 11:45:00 Test Item Value Reference Range Interpretation Comments Hgb (test code = Hgb) 10.4 12.0-16.0 [facility] HospitalOjahhsvUNKYCUUNBT3438-28-63 11:45:00 Test Item Value Reference Range Interpretation Comments RBC (test code = RBC) 3.36 4.20-5.40 [facility] HospitalWlsllqjSGSEDKOTBV1086-02-56 11:45:00 Test Item Value Reference Range Interpretation Comments Eosinophils # (test code 0.2 See_Comment [A utomated message] The = Eosinophils #) system wh h generated this result tra nsmitted reference range : <=0.5. The reference r tye was not used to int erpret this result as normal/abnormal . [facility] HospitalCnjwyvaOPNDOEXEZV2466-77-17 11:45:00 Test Item Value Reference Range Interpretation Comments Monocytes # (test code 0.9 See_Comment [Aut omated message] The = Monocytes #) system which generated this result tra nsmitted reference range : <=0.8. The reference r tye was not used to int erpret this result as normal/abnormal . [facility] HospitalEfknystAAKFUHILCZ8456-28-40 11:45:00 Test Item Value Reference Range Interpretation Comments Lymphocytes # (test code = Lymphocytes 1.6 1.0-5.5 #) [facility] HospitalBqquxscEDJBYOYPBM2572-14-47 11:45:00 Test Item Value Reference Range Interpretation Comments Segs-Bands # (test code = Segs-Bands #) 4.4 1.5-8.1 [facility] HospitalLafnysdMSUTGGNRME9437-43-32 11:45:00 Test Item Value Reference Range Interpretation Comments Lymphocytes (test code = Lymphocytes) 22.1 20.0-40.0 [facility] HospitalHuefgzsAVRSBCLVLK9374-40-30 11:45:00 Test Item Value Reference Range Interpretation Comments Eosinophils (test code = 3.3 See_Comment [A utomated message] The Eosinophils) system which ge nerated this result tra nsmitted reference range : <=4.0. The reference r tye was not used to int erpret this result as normal/abnormal . [facility] HospitalGafiyxhBRXIMOHCYM2724-06-01 11:45:00 Test Item Value Reference Range Interpretation Comments Monocytes (test code = Monocytes) 12.6 2.0-12.0 [facility] HospitalPyqzjbjSUNEWEERJZ9205-06-88 11:45:00 Test Item Value Reference Range Interpretation Comments Basophils (test code = 0.5 See_Comment [Aut omated message] The Basophils) system which ge nerated this result tra nsmitted reference range : <=1.0. The reference r tye was not used to int erpret this result as normal/abnormal . [facility] HospitalHekonpoQHFBACKHNZ6517-65-12 11:45:00 Test Item Value Reference Range Interpretation Comments Segs (test code = Segs) 61.5 45.0-75.0 [facility] HospitalDqvairfCMWGAFFMVJ2589-21-37 11:45:00 Test Item Value Reference Range Interpretation Comments MPV (test code = MPV) 7.6 7.4-10.4 [facility] HospitalKeebwvaSJQUOLIJRJ1533-64-57 11:45:00 Test Item Value Reference Range Interpretation Comments Platelet (test code = Platelet) 232 133-450 [facility] HospitalWeqwxayOIDBORECPH8553-62-82 11:45:00 Test Item Value Reference Range Interpretation Comments MCV (test code = MCV) 89.7 80.0-98.0 [facility] HospitalCotiholQZQBAOILUJ3325-55-16 11:45:00 Test Item Value Reference Range Interpretation Comments Hct (test code = Hct) 30.2 36.0-48.0 [facility] HospitalMiwclyxHVWLHNOUGF4146-58-97 11:45:00 Test Item Value Reference Range Interpretation Comments RDW (test code = RDW) 13.4 11.5-14.5 [facility] HospitalNjidwfmYONLUZYKVI4673-38-07 11:45:00 Test Item Value Reference Range Interpretation Comments MCHC (test code = MCHC) 34.5 32.0-36.0 [facility] HospitalSfcrhlhTVRSNXILBA4874-68-01 11:45:00 Test Item Value Reference Range Interpretation Comments MCH (test code = MCH) 31.0 pg 27.0-31.0 [facility] HospitalFypayqqTTNLREJHLB0568-57-07 11:45:00 Test Item Value Reference Range Interpretation Comments WBC (test code = WBC) 7.2 3.7-10.4 [facility] HospitalDfucjwcDMEBPRBDFL6488-04-51 11:45:00 Test Item Value Reference Range Interpretation Comments Hgb (test code = Hgb) 10.4 12.0-16.0 [facility] HospitalKvzxxmsZYDIQHOGDN4444-90-68 11:45:00 Test Item Value Reference Range Interpretation Comments RBC (test code = RBC) 3.36 4.20-5.40 [facility] HospitalQtwvfvhHAIETKGWKW5806-37-25 11:45:00 Test Item Value Reference Range Interpretation Comments Eosinophils # (test code 0.2 See_Comment [A utomated message] The = Eosinophils #) system whic h generated this result tra nsmitted reference range : <=0.5. The reference r tye was not used to int erpret this result as normal/abnormal . [facility] HospitalUpvpywdADVXAHSFOM4971-58-86 11:45:00 Test Item Value Reference Range Interpretation Comments Monocytes # (test code 0.9 See_Comment [Aut omated message] The = Monocytes #) system which generated this result tra nsmitted reference range : <=0.8. The reference r tye was not used to int erpret this result as normal/abnormal . [facility] HospitalIxtzldnOFRXALSNRV3596-78-00 11:45:00 Test Item Value Reference Range Interpretation Comments Lymphocytes # (test code = Lymphocytes 1.6 1.0-5.5 #) [facility] HospitalLvzofwgVUKBUVIHFB5092-91-51 11:45:00 Test Item Value Reference Range Interpretation Comments Segs-Bands # (test code = Segs-Bands #) 4.4 1.5-8.1 [facility] HospitalTnvfxahLVKBMRQBEC3903-89-58 11:45:00 Test Item Value Reference Range Interpretation Comments Lymphocytes (test code = Lymphocytes) 22.1 20.0-40.0 [facility] HospitalPxfwuzfXHYUOPSIHJ3468-62-99 11:45:00 Test Item Value Reference Range Interpretation Comments Eosinophils (test code = 3.3 See_Comment [A utomated message] The Eosinophils) system which ge nerated this result tra nsmitted reference range : <=4.0. The reference r tye was not used to int erpret this result as normal/abnormal . [facility] HospitalVeheflsLOQNPPPRZP3775-73-42 11:45:00 Test Item Value Reference Range Interpretation Comments Monocytes (test code = Monocytes) 12.6 2.0-12.0 [facility] HospitalEiacqfrLDANOURIWT8747-64-25 11:45:00 Test Item Value Reference Range Interpretation Comments Basophils (test code = 0.5 See_Comment [Aut omated message] The Basophils) system which ge nerated this result tra nsmitted reference range : <=1.0. The reference r tye was not used to int erpret this result as normal/abnormal . [facility] HospitalZcwmewyFGMLVLTAAN0423-91-99 11:45:00 Test Item Value Reference Range Interpretation Comments Segs (test code = Segs) 61.5 45.0-75.0 [facility] HospitalCpcybtpVXZHZAKDCS1902-14-17 11:45:00 Test Item Value Reference Range Interpretation Comments MPV (test code = MPV) 7.6 7.4-10.4 [facility] HospitalKfimmesHPTOTUJTTY8044-14-92 11:45:00 Test Item Value Reference Range Interpretation Comments Platelet (test code = Platelet) 232 133-450 [facility] HospitalCmbqkksRJDNTSMUQK9665-86-56 11:45:00 Test Item Value Reference Range Interpretation Comments MCV (test code = MCV) 89.7 80.0-98.0 [facility] HospitalSkztwjuFAWRVJSJDU6318-42-33 11:45:00 Test Item Value Reference Range Interpretation Comments Hct (test code = Hct) 30.2 36.0-48.0 [facility] HospitalYexfdekJJUHHPOEHV7305-69-88 11:45:00 Test Item Value Reference Range Interpretation Comments RDW (test code = RDW) 13.4 11.5-14.5 [facility] HospitalVphgbwgRORTTYXRBH7000-31-27 11:45:00 Test Item Value Reference Range Interpretation Comments MCHC (test code = MCHC) 34.5 32.0-36.0 [facility] HospitalTojidmpVQTJJPUKQQ9453-53-66 11:45:00 Test Item Value Reference Range Interpretation Comments MCH (test code = MCH) 31.0 pg 27.0-31.0 [facility] HospitalRwcvjwrDVLCOKXENC0460-60-87 11:45:00 Test Item Value Reference Range Interpretation Comments WBC (test code = WBC) 7.2 3.7-10.4 [facility] HospitalYtawjndGRABHEHLCM0731-57-87 11:45:00 Test Item Value Reference Range Interpretation Comments Hgb (test code = Hgb) 10.4 12.0-16.0 [facility] HospitalHghxwcxWWTXFEDPHN3916-57-42 11:45:00 Test Item Value Reference Range Interpretation Comments RBC (test code = RBC) 3.36 4.20-5.40 [facility] HospitalPuyeumqWYIZYUGDRN4287-97-68 11:45:00 Test Item Value Reference Range Interpretation Comments Eosinophils # (test code 0.2 See_Comment [A utomated message] The = Eosinophils #) system [facility] h generated this result tra nsmitted reference range : <=0.5. The reference r tye was not used to int erpret this result as normal/abnormal . [facility] HospitalCjmpxswTHQBSJNKOI1318-28-61 11:45:00 Test Item Value Reference Range Interpretation Comments Monocytes # (test code 0.9 See_Comment [Aut omated message] The = Monocytes #) system which generated this result tra nsmitted reference range : <=0.8. The reference r tye was not used to int erpret this result as normal/abnormal . [facility] HospitalOnpuuuuEVCJSQCLKR4337-49-79 11:45:00 Test Item Value Reference Range Interpretation Comments Lymphocytes # (test code = Lymphocytes 1.6 1.0-5.5 #) [facility] HospitalLfsxjymIMDLPWLPPZ3345-42-57 11:45:00 Test Item Value Reference Range Interpretation Comments Segs-Bands # (test code = Segs-Bands #) 4.4 1.5-8.1 [facility] HospitalClqgwymPZUEIRLAOK1358-77-09 11:45:00 Test Item Value Reference Range Interpretation Comments Lymphocytes (test code = Lymphocytes) 22.1 20.0-40.0 [facility] HospitalZdgmghaTUHPSNZLTZ8000-41-50 11:45:00 Test Item Value Reference Range Interpretation Comments Eosinophils (test code = 3.3 See_Comment [A utomated message] The Eosinophils) system which ge nerated this result tra nsmitted reference range : <=4.0. The reference r tye was not used to int erpret this result as normal/abnormal . [facility] HospitalTgoivgrAVEGKHLRWN3814-41-74 11:45:00 Test Item Value Reference Range Interpretation Comments Monocytes (test code = Monocytes) 12.6 2.0-12.0 [facility] HospitalKqmaqcfORZNXEKMFR9657-54-87 11:45:00 Test Item Value Reference Range Interpretation Comments Basophils (test code = 0.5 See_Comment [Aut omated message] The Basophils) system which ge nerated this result tra nsmitted reference range : <=1.0. The reference r tye was not used to int erpret this result as normal/abnormal . [facility] HospitalFuwdeclVSYISRKHTO8209-46-48 11:45:00 Test Item Value Reference Range Interpretation Comments Segs (test code = Segs) 61.5 45.0-75.0 [facility]2017-07-03 20:37:00 Test Item Value Reference Range Interpretation Comments UA WBC (test code = no gt See_Comment [Automa shar message] The UA WBC) system which ge nerated this result transmit shar reference range : <=5. The reference range was not used to interpr et this result as gloria l/abnormal. [facility] AND [id number] 20:37:00 Test Item Value Reference Range Interpretation Comments UA [place] Yeast (test code = UA Occasional /HPF [place] Yeast) [facility] AND [id number] 20:37:00 Test Item Value Reference Range Interpretation Comments UA Trans Epi (test code = UA Trans Epi) 1 [facility] AND [id number] 20:37:00 Test Item Value Reference Range Interpretation Comments UA RBC (test code = 1 See_Comment [Automa shar message] The UA RBC) system which ge nerated this result transmit shar reference range : <=2. The reference range was not used to interpr et this result as gloria l/abnormal. [facility] AND [id number] 20:37:00 Test Item Value Reference Range Interpretation Comments UA Bacteria (test code = UA Occasional /HPF Bacteria) [facility] AND [id number] 20:37:00 Test Item Value Reference Range Interpretation Comments UA Leuk Est (test Negative (05/18/17 3:37 code = UA Leuk Est) PM) [facility] AND [id number] 20:37:00 Test Item Value Reference Range Interpretation Comments UA Nitrite (test code Negative (05/18/17 3:37 = UA Nitrite) PM) [facility] AND [id number] 20:37:00 Test Item Value Reference Range Interpretation Comments UA Sq Epi (test code = UA Sq Epi) Few /LPF [facility] AND [id number] 20:37:00 Test Item Value Reference Range Interpretation Comments UA Bili (test code = Negative *NA*(05/18/17 UA Bili) 3:37 PM) [facility] AND [id number] 20:37:00 Test Item Value Reference Range Interpretation Comments UA Blood (test code = Negative (05/18/17 3:37 UA Blood) PM) [facility] AND [id number] 20:37:00 Test Item Value Reference Range Interpretation Comments UA Urobilinogen (test code = UA <=1.0 mg/dL 0.1-1.0 Urobilinogen) [facility] AND [id number] 20:37:00 Test Item Value Reference Range Interpretation Comments UA Color (test code = UA Color) Ltyellow [facility] AND [id number] 20:37:00 Test Item Value Reference Range Interpretation Comments UA Glucose (test code = UA Negative mg/dL Glucose) [facility] AND [id number] 20:37:00 Test Item Value Reference Range Interpretation Comments UA Ketones (test code = UA Negative mg/dL Ketones) [facility] AND [id number] 20:37:00 Test Item Value Reference Range Interpretation Comments UA pH (test code = UA pH) 7.0 5.0-8.0 [facility] AND [id number] 20:37:00 Test Item Value Reference Range Interpretation Comments UA Protein (test code = UA Negative mg/dL Protein) [facility] AND [id number] 20:37:00 Test Item Value Reference Range Interpretation Comments UA Turbidity (test code = Clear (05/18/17 3:37 UA Turbidity) PM) [facility] AND [id number] 20:37:00 Test Item Value Reference Range Interpretation Comments UA Spec Grav (test code = UA Spec Grav) 1.009 [facility] AND [id number] 20:37:00 Test Item Value Reference Range Interpretation Comments UA WBC (test code = no gt See_Comment [Automa shar message] The UA WBC) system which ge nerated this result transmit shar reference range : <=5. The reference range was not used to interpr et this result as gloria l/abnormal. [facility] AND [id number] 20:37:00 Test Item Value Reference Range Interpretation Comments UA [place] Yeast (test code = UA Occasional /HPF [place] Yeast) [facility] AND [id number] 20:37:00 Test Item Value Reference Range Interpretation Comments UA Trans Epi (test code = UA Trans Epi) 1 [facility] AND [id number] 20:37:00 Test Item Value Reference Range Interpretation Comments UA RBC (test code = 1 See_Comment [Automa shar message] The UA RBC) system which ge nerated this result transmit shar reference range : <=2. The reference range was not used to interpr et this result as gloria l/abnormal. [facility] AND [id number] 20:37:00 Test Item Value Reference Range Interpretation Comments UA Bacteria (test code = UA Occasional /HPF Bacteria) [facility] AND [id number] 20:37:00 Test Item Value Reference Range Interpretation Comments UA Leuk Est (test Negative (05/18/17 3:37 code = UA Leuk Est) PM) [facility] AND [id number] 20:37:00 Test Item Value Reference Range Interpretation Comments UA Nitrite (test code Negative (05/18/17 3:37 = UA Nitrite) PM) [facility] AND [id number] 20:37:00 Test Item Value Reference Range Interpretation Comments UA Sq Epi (test code = UA Sq Epi) Few /LPF [facility] AND [id number] 20:37:00 Test Item Value Reference Range Interpretation Comments UA Bili (test code = Negative *NA*(05/18/17 UA Bili) 3:37 PM) [facility] AND [id number] 20:37:00 Test Item Value Reference Range Interpretation Comments UA Blood (test code = Negative (05/18/17 3:37 UA Blood) PM) [facility] AND [id number] 20:37:00 Test Item Value Reference Range Interpretation Comments UA Urobilinogen (test code = UA <=1.0 mg/dL 0.1-1.0 Urobilinogen) [facility] AND [id number] 20:37:00 Test Item Value Reference Range Interpretation Comments UA Color (test code = UA Color) Ltyellow [facility] AND [id number] 20:37:00 Test Item Value Reference Range Interpretation Comments UA Glucose (test code = UA Negative mg/dL Glucose) [facility] AND [id number] 20:37:00 Test Item Value Reference Range Interpretation Comments UA Ketones (test code = UA Negative mg/dL Ketones) [facility] AND [id number] 20:37:00 Test Item Value Reference Range Interpretation Comments UA pH (test code = UA pH) 7.0 5.0-8.0 [facility] [id number] 20:37:00 Test Item Value Reference Range Interpretation Comments UA Protein (test code = UA Negative mg/dL Protein) [facility] [id number] 20:37:00 Test Item Value Reference Range Interpretation Comments UA Turbidity (test code = Clear (05/18/17 3:37 UA Turbidity) PM) [facility] [id number] 20:37:00 Test Item Value Reference Range Interpretation Comments UA Spec Grav (test code = UA Spec Grav) 1.009 [facility] [id number] 20:37:00 Test Item Value Reference Range Interpretation Comments UA WBC (test code = no gt See_Comment [Automa shar message] The UA WBC) system which ge nerated this result transmit shar reference range : <=5. The reference range was not used to interpr et this result as gloria l/abnormal. [facility] [id number] 20:37:00 Test Item Value Reference Range Interpretation Comments UA [place] Yeast (test code = UA Occasional /HPF [place] Yeast) [facility] [id number] 20:37:00 Test Item Value Reference Range Interpretation Comments UA Trans Epi (test code = UA Trans Epi) 1 [facility] [id number] 20:37:00 Test Item Value Reference Range Interpretation Comments UA RBC (test code = 1 See_Comment [Automa shar message] The UA RBC) system which ge nerated this result transmit shar reference range : <=2. The reference range was not used to interpr et this result as gloria l/abnormal. [facility] [id number] 20:37:00 Test Item Value Reference Range Interpretation Comments UA Bacteria (test code = UA Occasional /HPF Bacteria) [facility] [id number] 20:37:00 Test Item Value Reference Range Interpretation Comments UA Leuk Est (test Negative (05/18/17 3:37 code = UA Leuk Est) PM) [facility] [id number] 20:37:00 Test Item Value Reference Range Interpretation Comments UA Nitrite (test code Negative (05/18/17 3:37 = UA Nitrite) PM) [facility] [id number] 20:37:00 Test Item Value Reference Range Interpretation Comments UA Sq Epi (test code = UA Sq Epi) Few /LPF [facility] AND [id number] 20:37:00 Test Item Value Reference Range Interpretation Comments UA Bili (test code = Negative *NA*(05/18/17 UA Bili) 3:37 PM) [facility] AND [id number] 20:37:00 Test Item Value Reference Range Interpretation Comments UA Blood (test code = Negative (05/18/17 3:37 UA Blood) PM) [facility] AND [id number] 20:37:00 Test Item Value Reference Range Interpretation Comments UA Urobilinogen (test code = UA <=1.0 mg/dL 0.1-1.0 Urobilinogen) [facility] AND [id number] 20:37:00 Test Item Value Reference Range Interpretation Comments UA Color (test code = UA Color) Ltyellow [facility] AND [id number] 20:37:00 Test Item Value Reference Range Interpretation Comments UA Glucose (test code = UA Negative mg/dL Glucose) [facility] AND [id number] 20:37:00 Test Item Value Reference Range Interpretation Comments UA Ketones (test code = UA Negative mg/dL Ketones) [facility] AND [id number] 20:37:00 Test Item Value Reference Range Interpretation Comments UA pH (test code = UA pH) 7.0 5.0-8.0 [facility] AND [id number] 20:37:00 Test Item Value Reference Range Interpretation Comments UA Protein (test code = UA Negative mg/dL Protein) [facility] AND [id number] 20:37:00 Test Item Value Reference Range Interpretation Comments UA Turbidity (test code = Clear (05/18/17 3:37 UA Turbidity) PM) [facility] AND [id number] 20:37:00 Test Item Value Reference Range Interpretation Comments UA Spec Grav (test code = UA Spec Grav) 1.009 [facility] Hospit[id number] 20:20:00 Test Item Value Reference Range Interpretation Comments PTT (test code = PTT) 28.0 s 22.9-35.8 [facility] HospitalHrmrdwkZKUSRFEBEZ7535-22-57 20:20:00 Test Item Value Reference Range Interpretation Comments INR (test code = INR) 0.99 0.85-1.17 [facility]whbVZELJCJZZW2271-13-16 20:20:00 Test Item Value Reference Range Interpretation Comments PT (test code = PT) 13.3 s 12.0-14.7 [facility] HospitalUddenmgRQPGRSAQNK9690-77-16 20:20:00 Test Item Value Reference Range Interpretation Comments PTT (test code = PTT) 28.0 s 22.9-35.8 [facility]PgghiyzWSSUECUBGH0996-15-04 20:20:00 Test Item Value Reference Range Interpretation Comments INR (test code = INR) 0.99 0.85-1.17 [facility] Hospit[id number] 20:20:00 Test Item Value Reference Range Interpretation Comments PT (test code = PT) 13.3 s 12.0-14.7 [facility] HospitalShqeticPLUNNZTBFA3775-39-48 20:20:00 Test Item Value Reference Range Interpretation Comments PTT (test code = PTT) 28.0 s 22.9-35.8 [facility]FxrvojrYYJMXFUEGW2321-96-27 20:20:00 Test Item Value Reference Range Interpretation Comments INR (test code = INR) 0.99 0.85-1.17 [facility] HospitalOevbmptIDIGYTYLZZ1438-36-03 20:20:00 Test Item Value Reference Range Interpretation Comments PT (test code = PT) 13.3 s 12.0-14.7 [facility] [id number] 20:19:00 Test Item Value Reference Range Interpretation Comments Troponin-I (test code 0.20 See_Comment [Auto mated message] The = Troponin-I) system which g enerated this result transmit shar reference range : <=0.40. The reference r tye was not used to interpr et this result as gloria l/abnormal. [facility]RevolucionaTuPrecio.[facility] [id number] 20:19:00 Test Item Value Reference Range Interpretation Comments ALT (test code = ALT) 17 See_Comment [Auto mated message] The system which ge nerated this result transmit shar reference range : <=65. The reference range was not used to interpr et this result as gloria l/abnormal. [facility] [id number] 20:19:00 Test Item Value Reference Range Interpretation Comments AST (test code = AST) 30 See_Comment [Auto mated message] The system which ge nerated this result transmit shar reference range : <=37. The reference range was not used to interpr et this result as gloria l/abnormal. [facility] CenterRevolucionaTuPrecio.[facility] [id number] 20:19:00 Test Item Value Reference Range Interpretation Comments Albumin Lvl (test code = Albumin Lvl) 3.1 3.5-5.0 [facility] CenterRevolucionaTuPrecio.[facility] [id number] 20:19:00 Test Item Value Reference Range Interpretation Comments Alk Phos (test code = Alk Phos) 63 39-136 [facility] CenterRevolucionaTuPrecio.[facility] [id number] 20:19:00 Test Item Value Reference Range Interpretation Comments Bili Total (test code = Bili Total) 0.6 0.2-1.3 [facility] [id number] 20:19:00 Test Item Value Reference Range Interpretation Comments Total Protein (test code = Total 7.1 6.4-8.4 Protein) [email or web address] [id number] 20:19:00 Test Item Value Reference Range Interpretation Comments Globulin (test code = Globulin) 4.0 2.7-4.2 [email or web address] [id number] 20:19:00 Test Item Value Reference Range Interpretation Comments A/G Ratio (test code = A/G Ratio) 0.8 0.7-1.6 [facility] [id number] 20:19:00 Test Item Value Reference Range Interpretation Comments B/C Ratio (test code = B/C Ratio) 15 6-25 [email or web address] [id number] 20:19:00 Test Item Value Reference Range Interpretation Comments Lactic Acid Lvl (test code = Lactic 0.8 0.5-2.2 Acid Lvl) [facility] [id number] 20:19:00 Test Item Value Reference Range Interpretation Comments Troponin-I (test code 0.20 See_Comment [Auto mated message] The = Troponin-I) system which g enerated this result transmit shar reference range : <=0.40. The reference r tye was not used to interpr et this result as gloria l/abnormal. [email or web address] [id number] 20:19:00 Test Item Value Reference Range Interpretation Comments ALT (test code = ALT) 17 See_Comment [Auto mated message] The system which ge nerated this result transmit shar reference range : <=65. The reference range was not used to interpr et this result as gloria l/abnormal. [facility] [id number] 20:19:00 Test Item Value Reference Range Interpretation Comments AST (test code = AST) 30 See_Comment [Auto mated message] The system which ge nerated this result transmit shar reference range : <=37. The reference range was not used to interpr et this result as gloria l/abnormal. [facility] [employer] [id number] 20:19:00 Test Item Value Reference Range Interpretation Comments Albumin Lvl (test code = Albumin Lvl) 3.1 3.5-5.0 [email or web address] [id number] 20:19:00 Test Item Value Reference Range Interpretation Comments Alk Phos (test code = Alk Phos) 63 39-136 [facility] [id number] 20:19:00 Test Item Value Reference Range Interpretation Comments Bili Total (test code = Bili Total) 0.6 0.2-1.3 [email or web address] [id number] 20:19:00 Test Item Value Reference Range Interpretation Comments Total Protein (test code = Total 7.1 6.4-8.4 Protein) [facility] [id number] 20:19:00 Test Item Value Reference Range Interpretation Comments Globulin (test code = Globulin) 4.0 2.7-4.2 [facility] [id number] 20:19:00 Test Item Value Reference Range Interpretation Comments A/G Ratio (test code = A/G Ratio) 0.8 0.7-1.6 [email or web address] [id number] 20:19:00 Test Item Value Reference Range Interpretation Comments B/C Ratio (test code = B/C Ratio) 15 6-25 [facility] [employer] [id number] 20:19:00 Test Item Value Reference Range Interpretation Comments Lactic Acid Lvl (test code = Lactic 0.8 0.5-2.2 Acid Lvl) [facility] [id number] 20:19:00 Test Item Value Reference Range Interpretation Comments Troponin-I (test code 0.20 See_Comment [Auto mated message] The = Troponin-I) system which g enerated this result transmit shar reference range : <=0.40. The reference r tye was not used to interpr et this result as gloria l/abnormal. [facility]2017-07-03 20:19:00 Test Item Value Reference Range Interpretation Comments ALT (test code = ALT) 17 See_Comment [Auto mated message] The system which ge nerated this result transmit shar reference range : <=65. The reference range was not used to interpr et this result as gloria l/abnormal. [facility] CenterFetise.comATRI[facility] [id number] 20:19:00 Test Item Value Reference Range Interpretation Comments AST (test code = AST) 30 See_Comment [Auto mated message] The system which ge nerated this result transmit shar reference range : <=37. The reference range was not used to interpr et this result as gloria l/abnormal. [facility]2017-07-03 20:19:00 Test Item Value Reference Range Interpretation Comments Albumin Lvl (test code = Albumin Lvl) 3.1 3.5-5.0 [facility]2017-07-03 20:19:00 Test Item Value Reference Range Interpretation Comments Alk Phos (test code = Alk Phos) 63 39-136 [facility]2017-07-03 20:19:00 Test Item Value Reference Range Interpretation Comments Bili Total (test code = Bili Total) 0.6 0.2-1.3 [facility]2017-07-03 20:19:00 Test Item Value Reference Range Interpretation Comments Total Protein (test code = Total 7.1 6.4-8.4 Protein) [facility]2017-07-03 20:19:00 Test Item Value Reference Range Interpretation Comments Globulin (test code = Globulin) 4.0 2.7-4.2 [facility]2017-07-03 20:19:00 Test Item Value Reference Range Interpretation Comments A/G Ratio (test code = A/G Ratio) 0.8 0.7-1.6 [facility]2017-07-03 20:19:00 Test Item Value Reference Range Interpretation Comments B/C Ratio (test code = B/C Ratio) 15 6-25 [facility] [id number] 20:19:00 Test Item Value Reference Range Interpretation Comments Lactic Acid Lvl (test code = Lactic 0.8 0.5-2.2 Acid Lvl) Tatianna Mclain Notes Date/Time Note Provider Source 2017-05-21 14:27:00-00:00 Patient Name: REX VIVEROS [facility] : 1940; Age: 77 years y/o Female MR: [id number] * CHEST, portable, 1 view HISTORY: Status post PICC placement COMPARISON: None TECHNIQUE: A portable fronta l radiograph of the chest was obtained following PICC placement IMPRESSION: 1. The tip of the right uppe r extremity PICC is in the lower superior vena cava. The catheter appears to be in good position to utilize for venous access. 2. No evidence of an active or acute process. The lungs are clear. There are no pleural effusions. 3. The heart is normal in size. 4. The regional skeleton is unremarkable. SL: [id number] 2017-05-18 14:15:00-00:00 Study: Right hand, 4 views [facility] Clinical Indication: Right hand pain post injury Comparison: None FINDINGS: Multiple views of the [...] IMPRESSION: No acute bony abnormality of the rig ht hand. SL: [id number]
[2023-07-20 14:18] LABS: Absolute Lymphocytes (CBC) 1.1 K/uL (0.7-4.9); Hematocrit 30.2 % (36.0-45.0); MCV 89.4 fL (80-100); MPV 7.6 fL (7.6-11.3); Platelets 327 thou/uL (152-406); RBC Red Blood Cell Count 3.37 M/uL (3.86-4.86)
[2023-07-20 14:25] LABS: Protime INR 1.03
--- NOTE | 2023-07-20 14:33 | RAD REPORT ---
EXAM DESCRIPTION: CTAbdomen Pelvis Wo Contrast - 07/20/2023 2:17 pm CLINICAL HISTORY: abd pain COMPARISON: Abdomen Pelvis Wo Contrast dated 09/05/2022; Abdomen Pelvis Wo Contrast dated 12/20/19 TECHNIQUE: CT of the abdomen and pelvis was performed. All CT scans are performed using dose optimization technique as appropriate and may include automated exposure control or mA/KV adjustment according to patient size. FINDINGS: Lower chest: Aortic valve and coronary artery calcifications. Liver: No acute abnormality or suspicious lesions. Biliary: Cholecystectomy. No biliary duct dilatation. Stomach: No significant focal abnormality. Duodenum: Large duodenum diverticulum. Pancreas: Pancreatic atrophy. Spleen: No significant abnormality. Adrenal: No suspicious lesions. Kidney/ureter: No hydronephrosis. No renal calculi. Retroperitoneum: No retroperitoneal adenopathy. Vascular: No aneurysm. Atherosclerosis . Bowel: Scattered air-fluid levels are present within the ascending transverse colon. This likely refl ects diarrheal disease.. Peritoneum: No ascites or free air. Bladder: Grossly unremarkable. Reproductive: No adnexal masses. Bones: No acute fracture. 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 Advanced left hip degenerative change s. Grade 1 anterolisthesis of L4 on L5. Other: n/a IMPRESSION: No acute intra-abdominal or pelvic finding. Air-fluid levels in the ascending and transv erse colon likely representing diarrheal disease.
[2023-07-20 14:39] LABS: Albumin 3.4 g/dL (3.4-5.0); Bilirubin Direct 0.1 mg/dL (0-0.2); Bilirubin Indirect, Calculated 0.3 mg/dL (0.2-0.8); Bilirubin Total 0.4 mg/dL (0.2-1.0); Magnesium 1.9 mg/dL (1.6-2.4); Protein, Total 6.9 g/dL (6.4-8.2); Troponin High Sensitivity 4.7 pg/mL (<58.9)
--- NOTE | 2023-07-20 15:29 | EDPHYS ---
Physician Documentation [facility] Name: Dianna Marcano Age: 83 yrs Sex: Female : 1940 Arrival Date: 07/20/2023 Time: 13:04 Bed 14 Private MD: ED Physician Swapnil Layton HPI: 07/20 13:27 This 83 yrs old Female presents to ER via Ambulatory with complaints of Diarrhea. snw 13:27 The patient presents to the emergency department with diarrhea. Onset: The snw symptoms/episode began/occurred acutely, 3 week(s) ago. Possible causes: unknown. Associated signs and symptoms: The patient has no apparent associated signs or symptoms. Pt went to Dr. Hernandez for eval and was told to have a colonoscopy, she attempted but needs cardiology clearance. Appt with cardio has been rescheduled 4 times as a result of diarrhea. Historical: - Allergies: 13:17 Sulfa (Sulfonamide Antibiotics); ll1 13:17 Versed; ll1 13:17 Iodine; ll1 - Home Meds: 17:41 amitriptyline 10 mg Oral tab daily [Active]; fentanyl 50 mcg/hr Topical pt72 1 patch eh3 every 72 hours [Active]; folic acid 1 mg Oral tab once daily [Active]; furosemide 40 mg Oral tab 1 tab 2 times per day [Active]; hydrocodone-acetaminophen 10-325 mg Oral tab 1 tab twice a day [Active]; levothyroxine 50 mcg tab 1 tab once daily [Active]; lovastatin 40 mg Oral tab 1 tab 2 times per day [Active]; metoprolol tartrate 50 mg Oral tab 1 tab 2 times per day [Active]; Nitrostat 0.4 mg SL subl 1 tab every 5 minutes [Active]; potassium chloride 20 mEq Oral TbER 1 tab once daily [Active]; trazadone nightly [Active]; Xanax 1 mg Oral tab 1 tab BID [Active]; - PMHx: 13:17 Anxiety; Dementia; Hypertension; chronic back pain; CHF; Hypothyroidism; ll1 - Immunization history:: Adult Immunizations up to date. - Social history:: Smoking status: Patient reports the use of cigarette tobacco products, smokes one pack cigarettes per day. ROS: 13:29 Constitutional: Negative for fever, chills, and weight loss, Eyes: Negative for injury, snw pain, redness, and discharge, ENT: Negative for injury, pain, and discharge, Neck: Negative for injury, pain, and swelling, Cardiovascular: Negative for chest pain, palpitations, and edema, Respiratory: Negative for shortness of breath, cough, wheezing, and pleuritic chest pain, Back: Negative for injury and pain, : Negative for injury, bleeding, discharge, and swelling, MS/Extremity: Negative for injury and deformity, Skin: Negative for injury, rash, and discoloration, Neuro: Negative for headache, weakness, numbness, tingling, and seizure, Psych: Negative for depression, anxiety, suicide ideation, homicidal ideation, and hallucinations. 13:29 Abdomen/GI: Positive for diarrhea. Exam: 13:26 Constitutional: This is a well developed, well nourished patient who is awake, alert, snw and in no acute distress. Head/Face: Normocephalic, atraumatic. Eyes: Pupils equal round and reactive to light, extra-ocular motions intact. Lids and lashes normal. Conjunctiva and sclera are non-icteric and not injected. Cornea within normal limits. Periorbital areas with no swelling, redness, or edema. ENT: Nares patent. No nasal discharge, no septal abnormalities noted. Tympanic membranes are normal and external auditory canals are clear. Oropharynx with no redness, swelling, or masses, exudates, or evidence of obstruction, uvula midline. Mucous membranes moist. multiple missing teeth Neck: Trachea midline, no thyromegaly or masses palpated, and no cervical lymphadenopathy. Supple, full range of motion without nuchal rigidity, or vertebral point tenderness. No Meningismus. Chest/axilla: Normal chest wall appearance and motion. Nontender with no deformity. No lesions are appreciated. Cardiovascular: Regular rate and rhythm with a normal S1 and S2. No gallops, murmurs, or rubs. Normal PMI, no JVD. No pulse deficits. Abdomen/GI: Soft, non-tender, with normal bowel sounds. No distension or tympany. No guarding or rebound. No evidence of tenderness throughout. Back: No spinal tenderness. No costovertebral tenderness. Full range of motion. Skin: Warm, dry with normal turgor. Normal color with no lesions, and no evidence of cellulitis. Psoriatic appearing rash to bilateral lower extremities. MS/ Extremity: Pulses equal, no cyanosis. Neurovascular intact. Full, normal range of motion. Neuro: Awake and alert, GCS 15, oriented to person, place, time, and situation. Cranial nerves II-XII grossly intact. Motor strength 5/5 in all extremities. Sensory grossly intact. Cerebellar exam normal. Normal gait. Psych: Awake, alert, with orientation to person, place and time. Behavior, mood, and affect are within normal limits. 13:26 Respiratory: the patient does not display signs of respiratory distress, Respirations: shallow respirations, Breath sounds: wheezing: expiratory is heard diffusely. Vital Signs: 13:16 BP 126 / 63; Pulse 65; Resp 17; Temp 98.5; Pulse Ox 98% on R/A; Weight 61.23 kg; Height ll1 5 ft. 7 in. ; Pain 9/10; 14:00 BP 121 / 81; Pulse 68; Resp 20; Pulse Ox 99% on R/A; eh3 15:00 BP 121 / 65; Pulse 58; Resp 14; Pulse Ox 100% on R/A; eh3 16:00 BP 121 / 43; Pulse 62; Resp 15; Pulse Ox 100% on R/A; eh3 17:00 BP 112 / 63; Pulse 56; Resp 14; Pulse Ox 100% on R/A; eh3 13:16 Body Mass Index 21.14 (61.23 kg, 170.18 cm) ll1 13:16 Pain Scale: Adult ll1 MDM: 13:18 Patient medically screened. snw 15:16 Differential diagnosis: Nonspecific abd pain, gastritis, cholecystitis, diverticulitis, snw viral gastroenteritis, gastroenteritis. Data reviewed: vital signs, nurses notes, radiologic studies. 15:28 Management of patient was discussed with the following: Hospitalist: Damon Ruiz NP. snw Historians other than the Patient: Family Member: Son. Counseling: I had a detailed discussion with the patient and/or guardian regarding the historical points, exam findings, and any diagnostic results supporting the discharge/admit diagnosis, lab results, radiology results, the need for further work-up and treatment in the hospital. 07/20 13:20 Order name: Basic Metabolic Panel [facility] 07/20 13:20 Order name: CBC with Diff [facility] 07/20 13:20 Order name: LFT's [facility] 07/20 13:20 Order name: Magnesium snw 07/20 13:20 Order name: NT PRO-BNP sn 07/20 13:20 Order name: PT-INR sn 07/20 13:20 Order name: Troponin HS snw 07/20 13:20 Order name: Fecal Leukocyte Stain w 07/20 13:20 Order name: Ova And Parasites sn 07/20 13:20 Order name: Stool Culture [facility] 07/20 13:20 Order name: CDIFF [facility] 07/20 14:10 Order name: Basic Metabolic Panel; Complete Time: 14:42 EDMS 07/20 14:10 Order name: Liver (Hepatic) Function; Complete Time: 14:42 EDMS 07/20 14:10 Order name: Troponin High Sensitivity; Complete Time: 14:42 EDMS 07/20 14:10 Order name: NT PRO-BNP; Complete Time: 14:42 EDMS 07/20 14:10 Order name: Magnesium; Complete Time: 14:42 EDMS 07/20 14:10 Order name: CBC with Automated Diff; Complete Time: 14:24 EDMS 07/20 14:10 Order name: Protime (+INR); Complete Time: 14:28 EDMS 07/20 14:10 Order name: C.difficile GDH Ag EDMS 07/20 14:10 Order name: Fecal Leukocyte Stain EDMS 07/20 14:10 Order name: Stool Culture EDMS 07/20 14:10 Order name: Ova and Parasites EDMS 07/20 16:14 Order name: T4 Free EDMS 07/20 16:14 Order name: Thyroid Stimulating Hormone EDMS 07/20 16:14 Order name: Urinalysis w/ reflexes EDMS 07/20 16:14 Order name: Basic Metabolic Panel EDMS 07/20 16:14 Order name: Basic Metabolic Panel EDMS 07/20 16:14 Order name: CBC with Automated Diff EDMS 07/20 16:14 Order name: CBC with Automated Diff EDMS 07/20 16:14 Order name: Lipid Profile EDMS 07/20 16:14 Order name: Lipid Profile EDMS 07/20 16:14 Order name: Magnesium EDMS 07/20 16:14 Order name: Magnesium EDMS 07/20 16:14 Order name: NT PRO-BNP EDMS 07/20 16:14 Order name: NT PRO-BNP EDMS 07/20 16:14 Order name: Phosphorus EDMS 07/20 16:14 Order name: Phosphorus EDMS 07/20 13:20 Order name: XRAY Chest (1 view); Complete Time: 15:39 snw 07/20 13:30 Order name: CT Abd/Pelvis - IV Contrast Only snw 07/20 13:44 Order name: Abdomen ; Complete Time: 14:35 EDMS 07/20 13:20 Order name: EKG; Complete Time: 14:34 snw 07/20 16:14 Order name: Heart Healthy EDMS 07/20 13:20 Order name: Cardiac monitoring; Complete Time: 13:41 snw 07/20 13:20 Order name: EKG - Nurse/Tech; Complete Time: 13:51 snw 07/20 13:20 Order name: IV Saline Lock; Complete Time: 13:51 snw 07/20 13:20 Order name: Labs collected and sent; Complete Time: 13:51 snw 07/20 13:20 Order name: O2 Per Protocol; Complete Time: 13:41 snw 07/20 13:20 Order name: O2 Sat Monitoring; Complete Time: 13:41 snw EC:57 Rate is 70 beats/min. Rhythm is irregular. QRS interval is normal. QT interval is snw normal. Clinical impression: NSR w/ Non-specific ST/T Changes. Administered Medications: 15:43 Drug: metroNIDAZOLE IVPB 500 mg Volume: 100 ml; Route: IVPB; Rate: 200 ml/hr; Infused eh3 Over: 30 mins; Site: left antecubital; 16:46 Follow up: Response: No adverse reaction; IV Status: Completed infusion; IV Intake: eh3 100ml Disposition: 07/21 13:51 Co-signature as Attending Physician, Swapnil Layton MD I reviewed the patient's care rn provided by the Advanced Practice Provider and agree with the diagnosis and treatment plan. Disposition Summary: 07/20/23 15:28 Hospitalization Ordered Hospitalization Status: Inpatient Admission snw Provider: Spencer Layton Location: Telemetry/MedSurg (Inpatient) snw Condition: Stable snw Problem: an ongoing problem snw Symptoms: are unchanged snw Bed/Room Type: Standard snw Room Assignment: 207(07/20/23 17:14) ds4 Diagnosis - Diarrhea, unspecified - intractable snw Forms: - Medication Reconciliation Form snw - SBAR form snw - Leadership Thank You Letter snw Signatures: Dispatcher [employer] EDIN Lydia Norman, EXPLOSIVE OPERATOR FUSE-C EXPLOSIVE OPERATOR FUSE-Csnw Swapnil Layton MD MD rn Swanson, Donovan ds4 Shara Browne RN RN ll1 Zeynep Munoz, JOSE ALBERTO RN eh3 Corrections: (The following items were deleted from the chart) 07/20 13:44 13:40 CT-ABD ordered. EDIN EDIN 16:27 13:26 Constitutional: This is a well developed, well nourished patient who is awake, snw alert, and in no acute distress. Head/Face: Normocephalic, atraumatic. Eyes: Pupils equal round and reactive to light, extra-ocular motions intact. Lids and lashes normal. Conjunctiva and sclera are non-icteric and not injected. Cornea within normal limits. Periorbital areas with no swelling, redness, or edema. ENT: Nares patent. No nasal discharge, no septal abnormalities noted. Tympanic membranes are normal and external auditory canals are clear. Oropharynx with no redness, swelling, or masses, exudates, or evidence of obstruction, uvula midline. Mucous membranes moist. multiple missing teeth Neck: Trachea midline, no thyromegaly or masses palpated, and no cervical lymphadenopathy. Supple, full range of motion without nuchal rigidity, or vertebral point tenderness. No Meningismus. Chest/axilla: Normal chest wall appearance and motion. Nontender with no deformity. No lesions are appreciated. Cardiovascular: Regular rate and rhythm with a normal S1 and S2. No gallops, murmurs, or rubs. Normal PMI, no JVD. No pulse deficits. Abdomen/GI: Soft, non-tender, with normal bowel sounds. No distension or tympany. No guarding or rebound. No evidence of tenderness throughout. Back: No spinal tenderness. No costovertebral tenderness. Full range of motion. Skin: Warm, dry with normal turgor. Normal color with no rashes, no lesions, and no evidence of cellulitis. MS/ Extremity: Pulses equal, no cyanosis. Neurovascular intact. Full, normal range of motion. Neuro: Awake and alert, GCS 15, oriented to person, place, time, and situation. Cranial nerves II-XII grossly intact. Motor strength 5/5 in all extremities. Sensory grossly intact. Cerebellar exam normal. Normal gait. Psych: Awake, alert, with orientation to person, place and time. Behavior, mood, and affect are within normal limits. snw 17:14 15:28 snw ds4
--- NOTE | 2023-07-20 15:29 | ER ---
Nurse's Notes [facility] Name: Dianna Marcano Age: 83 yrs Sex: Female : 1940 Arrival Date: 07/20/2023 Time: 13:04 Bed 14 Private MD: Diagnosis: Diarrhea, unspecified-intractable Presentation: 07/20 13:16 Chief complaint: Patient states: Diarrhea, weak, dizzy for 2-3 weeks. Coronavirus ll1 screen: Vaccine status: Patient reports receiving the 2nd dose of the covid vaccine. Client denies travel out of the [place] in the last 14 days. At this time, the client does not indicate any symptoms associated with coronavirus-19. Ebola Screen: Patient denies travel to an Ebola-affected area in the 21 days before illness onset. Initial Sepsis Screen: Does the patient meet any 2 criteria? No. Patient's initial sepsis screen is negative. Does the patient have a suspected source of infection? No. Patient's initial sepsis screen is negative. Risk Assessment: Do you want to hurt yourself or someone else? Patient reports no desire to harm self or others. Onset of symptoms was June 30, 2023. 13:16 Method Of Arrival: Ambulatory ll1 13:16 Acuity: SHERLYN 3 ll1 Triage Assessment: 13:18 General: Appears uncomfortable, ill, Behavior is calm, cooperative, appropriate for 1 age. Pain: Complains of pain in abdomen Quality of pain is described as aching. Neuro: Reports dizziness, weakness. GI: Reports lower abdominal pain, upper abdominal pain, cramping, diarrhea. Historical: - Allergies: 13:17 Sulfa (Sulfonamide Antibiotics); ll1 13:17 Versed; ll1 13:17 Iodine; ll1 - Home Meds: 17:41 amitriptyline 10 mg Oral tab daily [Active]; fentanyl 50 mcg/hr Topical pt72 1 patch eh3 every 72 hours [Active]; folic acid 1 mg Oral tab once daily [Active]; furosemide 40 mg Oral tab 1 tab 2 times per day [Active]; hydrocodone-acetaminophen 10-325 mg Oral tab 1 tab twice a day [Active]; levothyroxine 50 mcg tab 1 tab once daily [Active]; lovastatin 40 mg Oral tab 1 tab 2 times per day [Active]; metoprolol tartrate 50 mg Oral tab 1 tab 2 times per day [Active]; Nitrostat 0.4 mg SL subl 1 tab every 5 minutes [Active]; potassium chloride 20 mEq Oral TbER 1 tab once daily [Active]; trazadone nightly [Active]; Xanax 1 mg Oral tab 1 tab BID [Active]; - PMHx: 13:17 Anxiety; Dementia; Hypertension; chronic back pain; CHF; Hypothyroidism; ll1 - Immunization history:: Adult Immunizations up to date. - Social history:: Smoking status: Patient reports the use of cigarette tobacco products, smokes one pack cigarettes per day. Screenin:20 [facility] ED Fall Risk Assessment (Adult) Score/Fall Risk Level 0 - 2 = Low Risk. Abuse eh3 screen: Denies threats or abuse. Denies injuries from another. Nutritional screening: No deficits noted. Tuberculosis screening: No symptoms or risk factors identified. Assessment: 13:20 General: Appears in no apparent distress. uncomfortable, Behavior is calm, cooperative, eh3 appropriate for age. Pain: Complains of pain in abdomen, rectum. Neuro: Level of Consciousness is awake, alert, obeys commands, Oriented to person, place, time, situation. Cardiovascular: Capillary refill < 3 seconds Patient's skin is warm and dry. Respiratory: Airway is patent Respiratory effort is even, unlabored, Respiratory pattern is regular, symmetrical. GI: Abdomen is round non-distended. Derm: Skin is pink, warm \T\ dry. Musculoskeletal: Circulation, motion, and sensation intact. Reports weakness in right leg and left leg. 14:00 Reassessment: Patient appears in no apparent distress at this time. Patient and/or eh3 family updated on plan of care and expected duration. Pain level reassessed. Patient is alert, oriented x 3, equal unlabored respirations, skin warm/dry/pink. Pt assisted to bathroom with walker, stated she could not provide stool sample. 15:00 Reassessment: Patient appears in no apparent distress at this time. Patient and/or eh3 family updated on plan of care and expected duration. Pain level reassessed. Patient is alert, oriented x 3, equal unlabored respirations, skin warm/dry/pink. 16:00 Reassessment: Patient appears in no apparent distress at this time. Patient and/or eh3 family updated on plan of care and expected duration. Pain level reassessed. Patient is alert, oriented x 3, equal unlabored respirations, skin warm/dry/pink. 17:00 Reassessment: Patient appears in no apparent distress at this time. Patient and/or eh3 family updated on plan of care and expected duration. Pain level reassessed. Patient is alert, oriented x 3, equal unlabored respirations, skin warm/dry/pink. 17:35 Reassessment: Nurse to nurse report received by Christy on 2nd floor. eh3 Vital Signs: 13:16 BP 126 / 63; Pulse 65; Resp 17; Temp 98.5; Pulse Ox 98% on R/A; Weight 61.23 kg; Height ll1 5 ft. 7 in. ; Pain 9/10; 14:00 BP 121 / 81; Pulse 68; Resp 20; Pulse Ox 99% on R/A; eh3 15:00 BP 121 / 65; Pulse 58; Resp 14; Pulse Ox 100% on R/A; eh3 16:00 BP 121 / 43; Pulse 62; Resp 15; Pulse Ox 100% on R/A; eh3 17:00 BP 112 / 63; Pulse 56; Resp 14; Pulse Ox 100% on R/A; eh3 13:16 Body Mass Index 21.14 (61.23 kg, 170.18 cm) ll1 13:16 Pain Scale: Adult ll1 ED Course: 13:08 Patient arrived in ED. ts1 13:13 Arm band placed on Patient placed in an exam room, on a stretcher. ll1 13:17 Triage completed. ll1 13:18 Lydia Norman FNP-C [facility]. snw 13:18 Swapnil Layton MD is Attending Physician. snw 13:20 Patient has correct armband on for positive identification. Bed in low position. Call eh3 light in reach. Side rails up X2. Adult w/ patient. Provided Education on: Use of call snell. Client placed on continuous cardiac and pulse oximetry monitoring. NIBP monitoring applied. 13:23 Zeynep Munoz, RN is Primary Nurse. eh3 13:45 Inserted saline lock: 22 gauge in left antecubital area, using aseptic technique. Blood eh3 collected. 14:17 Abdomen In Process Unspecified. EDMS 15:25 XRAY Chest (1 view) In Process Unspecified. EDMS 15:28 Spencer Layton MD is Hospitalizing Provider. sn 17:41 No provider procedures requiring assistance completed. Patient admitted, IV remains in eh3 place. Administered Medications: 15:43 Drug: metroNIDAZOLE IVPB 500 mg Volume: 100 ml; Route: IVPB; Rate: 200 ml/hr; Infused eh3 Over: 30 mins; Site: left antecubital; 16:46 Follow up: Response: No adverse reaction; IV Status: Completed infusion; IV Intake: eh3 100ml Medication: 17:41 VIS not applicable for this client. eh3 Intake: 16:46 IV: 100ml; Total: 100ml. 3 Outcome: 15:28 Decision to Hospitalize by Provider. snw 17:45 Admitted to Med/surg accompanied by tech, via wheelchair, room 207, Report called to [facility] Christy 17:45 Condition: stable 17:45 Instructed on the need for admit. 17:59 Patient left the ED. [facility] Signatures: Dispatcher [employer] EDOH Lydia Norman, ENDOSCOPY TECH-C ENDOSCOPY TECH-Csnw Shara Browne RN RN 1 Zeynep Munoz RN RN 3 Kadie Blackwell, PAS PAS ts1
--- NOTE | 2023-07-20 15:38 | RAD REPORT ---
EXAM DESCRIPTION: RAD - Chest Single View - 07/20/2023 3:23 pm CLINICAL HISTORY: diarrhea COMPARISON: Chest Single View dated 10/31/2022; Chest Single View dated 09/05/2022; Chest Single Vie w dated 02/13/2021; Chest Single View dated 02/10/2021; Abdomen Pelvis Wo Contrast dated 07/20/2023 FINDINGS: Lines: None. Lungs: No evidence of edema or pneumonia. Pleural: No significant pleural effusions or pneumothorax. Cardiac: The heart size is within normal limits. Mediastinum: Within normal limits. Bones: No acute fractures. Other: None IMPRESSION: No acute cardiopulmonary disease.
[2023-07-20] MEDS ORDERED: METRONIDAZOLE 500mg IVPB 500 MG/100 ML BAG IV ONE (15:44)
[2023-07-20] MEDS ORDERED: ACETAMINOPHEN 325 MG TABLET PO PRN (16:04)
[2023-07-20] MEDS ORDERED: TRAMADOL HCL 50 MG TAB PO PRN (16:04)
[2023-07-20] MEDS ORDERED: ONDANSETRON 4 MG/2 ML VIAL IV PRN (16:11)
--- NOTE | 2023-07-20 16:16 | P.HP ---
Certification for Inpatient Patient admitted to: Inpatient With expected LOS: >2 Midnights Patient will require the following post-hospital care: None Practitioner: I am a practitioner with admitting privileges, knowledge of patient current condition, hospital course, and medical plan of care. Services: Services provided to patient in accordance with Admission requirements found in Title 42 Section 412.3 of the Code of Federal Regulations Patient History Date of Service: 07/20/23 Reason for admission: Diarrhea History of Present Illness: Patient is an 83-year-old female with a past medical history significant for TIA, hypertension, hypothyroidism, depression, anxiety disorder, dementia who presents with complaint of diarrhea that has been going for the past 3 weeks. Patient reports lower quadrants pain rated as 10/10 in severity and described as throbbing in quality. Patient reported associated signs and symptoms of poor appetite and dizziness. Patient denies any other signs or symptoms. Symptoms are aggravated or relieved by nothing. Patient decided to present to the hospital due to worsening symptoms. Allergies iodine Allergy (Verified 02/11/21 00:02) Anaphylaxis midazolam [From Versed] Allergy (Verified 02/11/21 00:02) Unknown Sulfa (Sulfonamide Antibiotics) Allergy (Verified 02/11/21 00:02) Unknown Home Medications: Furosemide 40 mg PO BID 08/01/17 Lovastatin 40 mg PO BEDTIME 08/01/17 Potassium Chloride 20 meq PO DAILY 08/01/17 Folic Acid 1 mg PO DAILY 11/20/18 Amitriptyline [Elavil*] 50 mg PO BEDTIME 12/20/19 Gabapentin [Neurontin*] 100 mg PO BID 12/20/19 Levothyroxine [Synthroid*] 0.05 mg PO DAILY 12/20/19 Metoprolol Succinate [Toprol Xl*] 25 mg PO DAILY 10/31/22 Trazodone HCl [Desyrel] 100 mg PO BEDTIME 10/31/22 Aspirin [Aspirin EC 81 MG] 81 mg PO DAILY #30 tab 11/01/22 - Past Medical/Surgical History Diabetic: No -: History TIA -: HTN -: Hypothyroidism -: Depression with anxiety -: Chronic back pain -: Dementia -: Cholecystectomy -: Appendititis -: Hysterectomy Psychosocial/ Personal History: Patient lives at home - Social History Smoking Status: Never smoker Alcohol use: No CD- Drugs: No Caffeine use: No Place of Residence: Home Review of Systems General: Other (Poor appetite ) Eyes: Unremarkable ENT: Unremarkable Respiratory: Unremarkable Cardiovascular: Unremarkable Gastrointestinal: Abdominal Pain, Diarrhea Genitourinary: Unremarkable Musculoskeletal: Unremarkable Integumentary: Unremarkable Neurological: Other (Dizziness) Lymphatics: Unremarkable Physical Examination - Physical Exam General: Alert, In no apparent distress, Oriented x3, Cooperative HEENT: Atraumatic, PERRLA, Mucous membr. moist/pink, EOMI, Sclerae nonicteric Neck: Supple, 2+ carotid pulse no bruit, No LAD, Without JVD or thyroid abnormality Respiratory: Clear to auscultation bilaterally, Normal air movement Cardiovascular: No edema, Regular rate/rhythm, Normal S1 S2 Capillary refill: <2 Seconds Gastrointestinal: Normal bowel sounds, Non-distended, No tenderness Musculoskeletal: No clubbing, No swelling, No tenderness Integumentary: No rashes Neurological: Normal speech, Normal tone, Normal affect Lymphatics: No axilla or inguinal lymphadenopathy - Studies Laboratory Data (last 24 hrs) 07/20/23 07/20/23 07/20/23 13:58 13:58 13:58 WBC 8.30 Hgb 10.3 L Hct 30.2 L Plt Count 327 PT 11.3 INR 1.03 Sodium 133 L Potassium 4.0 BUN 20 H Creatinine 1.48 H Glucose 93 Magnesium 1.9 Total Bilirubin 0.4 AST 14 L ALT 14 Alkaline Phosphatase 72 Assessment and Plan - Plan --Diarrhea. CT abdomen indicates "Air-fluid levels in the ascending and transverse colon likely representing diarrheal disease". Stool studies pending to rule out any infectious process. Continue IV hydration. -- UTI POA. Continue antibiotics. Urine culture pending. --Hypertension. Stable. Continue home medications. --Hypothyroidism. Continue Synthroid. --Hyperlipidemia. Continue statin. --Peripheral neuropathy. Continue gabapentin. --History of TIA. Continue aspirin. --Anxiety disorder\\depression. Continue home medications. --PEGGY. Likely prerenal. Secondary to dehydration. Continue IV hydration. We will continue to monitor renal functions. -- Anemia of chronic disease. H&H stable. We will continue to monitor hemogl obin and transfuse if less than 7.0. --Dementia. Stable. Continue supportive care --DVT prophylaxis with Lovenox subQ. Discharge Plan: Home Plan to discharge in: 48 Hours - Advance Directives Does patient have a Living Will: No Does patient have a Durable POA for Healthcare: No - Code Status/Comfort Care Code Status Assessed: Yes Physician Review: Patient Assessed, Agree with Above Assessment and Plan Critical Care: No
[2023-07-20] MEDS ORDERED: ENOXAPARIN 30 MG/0.3 ML SQ SCH (18:00)
[2023-07-20 18:17] VITALS: BMI 21.1
[2023-07-20] MEDS: NA CHLORIDE 0.9% 1,000 ML IV SCH (18:23)
[2023-07-20 18:54] LABS: Specific Gravity 1.008 (1.005-1.030); Urine Bacteria 20-50 /HPF (<20); Urine Bilirubin NEGATIVE (Negative); Urine Blood Trace (Negative); Urine Clarity Extremely Turbid (Clear); Urine Color Light-Yellow (Yellow); Urine Glucose NEGATIVE (Negative); Urine Protein NEGATIVE (Negative); Urine RBC <5 /HPF (None Seen); Urine Urobilinogen Normal (Normal); Urine WBC Clump Rare /HPF (None Seen)
[2023-07-20 19:58] LABS: Thyroid Stimulating Hormone 1.26 uIU/mL (0.358-3.740)
[2023-07-20] MEDS ORDERED: CEFTRIAXONE 1,000 MG in NA CHLORIDE 0.9% 50 ML IVPB SCH (22:30)
[2023-07-20] MEDS ORDERED: TRAZODONE 50 MG TABLET PO SCH (23:00)
[2023-07-21 00:20] VITALS: O2SAT 91
[2023-07-21 04:49] LABS: C.diff Antigen/Toxin Ag neg : Tox neg (NEG : NEG)
[2023-07-21 05:08] LABS: Absolute Lymphocytes (CBC) 1.5 K/uL (0.7-4.9); Lymphocytes % 17.9 % (15.3-44.8); MCV 89.2 fL (80-100); MPV 7.7 fL (7.6-11.3); Platelets 311 thou/uL (152-406); RBC Red Blood Cell Count 3.36 M/uL (3.86-4.86)
[2023-07-21 05:21] LABS: Magnesium 1.8 mg/dL (1.6-2.4); Phosphorus 2.9 mg/dL (2.5-4.9); Potassium 3.9 mEq/L (3.5-5.1)
[2023-07-21] MEDS: NA CHLORIDE 0.9% 1,000 ML IV SCH (07:08)
[2023-07-21] MEDS ORDERED: LEVOTHYROXINE SOD 0.05 MG TABLET PO SCH (07:30)
[2023-07-21] MEDS ORDERED: PNEUMOCOCCAL VACCINE 0.5 ML IMVAC ONE (08:00)
[2023-07-21 08:25] VITALS: BP 145/60; TEMP 97.2
[2023-07-21] MEDS ORDERED: FOLIC ACID 1 MG TABLET PO SCH (09:00)
[2023-07-21] MEDS ORDERED: METOPROLOL XL 25 MG TAB PO SCH (09:00)
[2023-07-21] MEDS ORDERED: MAGNESIUM SULFATE 1 gm IVPB 1 GM/100 ML BAG IV ONE (09:00)
[2023-07-21] MEDS ORDERED: GABAPENTIN 100 MG CAP PO SCH (09:00)
[2023-07-21] MEDS ORDERED: ASPIRIN 81 MG CHEWABLE TABLET PO SCH (09:00)
[2023-07-21] MEDS ORDERED: POTASSIUM 25 MEQ EFFERV TAB PO ONE (09:00)
[2023-07-21] MEDS ORDERED: POTASSIUM CL SA 10 MEQ TAB PO SCH (09:00)
--- NOTE | 2023-07-21 10:58 | P.DS ---
Admission Date: 07/20/23 Discharge Date: 07/21/23 Disposition: ROUTINE DISCHARGE Discharge Condition: FAIR Reason for Admission: Diarrhea - Problems (1) Generalized weakness Status: Acute (2) Diarrhea Status: Acute (3) Hypothyroidism Onset Date: 03/12/17 Status: Chronic Qualifiers: Hypothyroidism type: acquired Qualified Code(s): E03.9 - Hypothyroidism, unspecified Brief History of Present Illness: Patient is an 83-year-old female with a past medical history significant for TIA, hypertension, hypothyroidism, depression, anxiety disorder, dementia who presented with complaint of diarrhea that has been going for 3 weeks. Patient reported lower quadrants pain rated as 10/10 in severity and described as throbbing in quality. Patient reported associated signs and symptoms of poor appetite and dizziness. CT abdomen pelvis showed air-fluid levels in the colon suggestive of diarrhea. Patient was hospitalized for further management Hospital Course: Patient placed on observation on the medical floor and hydrated with IV fluid. UA also suggested UTI. Patient was treated with IV Rocephin. She tolerated diet and was able to ambulate with a walker without any assistance. Patient is at baseline. He is discharged with oral antibiotics to continue treatment for the diarrhea and UTI. Patient referred to GI for further evaluation of chronic diarrhea. She also has follow-up with Dr. Ramsay for stress test/ Vital Signs/Physical Exam: Temp Pulse Resp BP Pulse Ox 97.2 F 66 16 145/60 H 95 07/21/23 08:00 07/21/23 08:00 07/21/23 08:00 07/21/23 08:00 07/21/23 08:00 Laboratory Data at Discharge: WBC 8.10 thou/uL (4.3-10.9) 07/21/23 04:02 Hgb 10.3 g/dL (12.0-15.0) L 07/21/23 04:02 Hct 30.0 % (36.0-45.0) L 07/21/23 04:02 Plt Count 311 thou/uL (152-406) 07/21/23 04:02 PT 11.3 SECONDS (9.5-12.5) 07/20/23 13:58 INR 1.03 07/20/23 13:58 Sodium 138 mEq/L (136-145) D 07/21/23 04:02 Potassium 3.9 mEq/L (3.5-5.1) 07/21/23 04:02 BUN 22 mg/dL (7-18) H 07/21/23 04:02 Creatinine 1.36 mg/dL (0.55-1.02) H 07/21/23 04:02 Glucose 92 mg/dL (74-106) 07/21/23 04:02 Phosphorus 2.9 mg/dL (2.5-4.9) 07/21/23 04:02 Magnesium 1.8 mg/dL (1.6-2.4) 07/21/23 04:02 Total Bilirubin 0.4 mg/dL (0.2-1.0) 07/20/23 13:58 AST 14 U/L (15-37) L 07/20/23 13:58 ALT 14 U/L (13-56) 07/20/23 13:58 Alkaline Phosphatase 72 U/L (45-117) 07/20/23 13:58 Triglycerides 112 mg/dL (<150) 07/21/23 04:02 Cholesterol 99 mg/dL (<200) 07/21/23 04:02 HDL Cholesterol 39 mg/dL (40-60) L 07/21/23 04:02 Cholesterol/HDL Ratio 2.54 07/21/23 04:02 Home Medications: Furosemide 40 mg PO BID 08/01/17 Lovastatin 40 mg PO BEDTIME 08/01/17 Potassium Chloride 20 meq PO DAILY 08/01/17 Folic Acid 1 mg PO DAILY 11/20/18 Amitriptyline [Elavil*] 50 mg PO BEDTIME 12/20/19 Gabapentin [Neurontin*] 100 mg PO BID 12/20/19 Levothyroxine [Synthroid*] 0.05 mg PO DAILY 12/20/19 Metoprolol Succinate [Toprol Xl*] 25 mg PO DAILY 10/31/22 Trazodone HCl [Desyrel] 100 mg PO BEDTIME 10/31/22 Aspirin [Aspirin EC 81 MG] 81 mg PO DAILY #30 tab 11/01/22 Ciprofloxacin HCl [Cipro] 500 mg PO BID #10 tab 07/21/23 New Medications: Ciprofloxacin HCl [Cipro] 500 mg PO BID #10 tab Followup: Sin Ramsay MD [ACTIVE - CAN ADMIT] - (1-2 weeks for stress test and echo. ) Carlos Marie MD [ASSOCIATE-ACTIVE - CAN ADMIT] - (1-2 weeks. Diagnosis: Chronic diarrhea) Unknown,U [Primary Care Provider] -
--- NOTE | 2023-07-21 16:46 | EKG ---
Test Date: 2023-07-20 Test Time: 13:32:58 Director Of Group Counseling Program: L[place]ERNE MEASUREMENT RESULTS: Intervals: Rate: 70 [place]: 168 QRSD: 88 QT: 452 QTc: 488 [place]: P: 88 [place]: 168 QRS: 89 T: 90 INTERPRETIVE STATEMENTS: Sinus rhythm with premature atrial complexes Otherwise normal ECG Compared to ECG 10/31/2022 08:52:06 No significant changes Electronically Signed On 07-21-23 16:43:32 CDT by Sin Ramsay
[2023-07-21] MEDS ORDERED: AMITRIPTYLINE 50 MG TAB PO SCH (21:00)
[2023-07-21] MEDS ORDERED: ATORVASTATIN 20 MG TAB PO SCH (21:00)
== END 2023-07-21 12:40 | disposition home health service (06) ==
LOC: ER 13:04 → ERHOLD 16:02 → INTOOBSV 16:02 → 2ND 17:39
PROVIDERS: ADMIT Hospitalist; ATTEND Internal Medicine
DX: R19.7 Diarrhea, unspecified (principal); R53.1 Weakness; N39.0 Urinary tract infection, site not specified; E03.9 Hypothyroidism, unspecified; I10 Essential (primary) hypertension; F32.A Depression, unspecified; F41.9 Anxiety disorder, unspecified; F03.90 Unspecified dementia, unspecified severity, without behavioral disturbance, psychotic disturbance, mood disturbance, and anxiety; R42 Dizziness and giddiness; R63.0 Anorexia; E78.5 Hyperlipidemia, unspecified; G62.9 Polyneuropathy, unspecified; D63.1 Anemia in chronic kidney disease; N17.9 Acute kidney failure, unspecified; Z88.2 Allergy status to sulfonamides; Z91.09 Other allergy status, other than to drugs and biological substances; Z88.8 Allergy status to other drugs, medicaments and biological substances; Z79.82 Long term (current) use of aspirin; Z79.899 Other long term (current) drug therapy; Z86.73 Personal history of transient ischemic attack (TIA), and cerebral infarction without residual deficits
CPT/HCPCS: 96365; 93005; 87088; 87045; 85025 ×2; 81001; 87086; 80048 ×2; 36415; 83735 ×2; 89055; 87177; 84100; 85610; 80061; 80076; 87046; 87209; 84443; 87324; 84484; 84439; 83880 ×2; 74176; 71045; 99285; J3475; J1650; J7030 ×2; J0696; G0378

== ENCOUNTER 2024-12-02 12:02 | Emergency (ER) | payer OTHER ==
[2024-12-02] MEDS ORDERED: IBUPROFEN 400 MG TAB ONE (12:17)
[2024-12-02] MEDS ORDERED: TRAMADOL HCL 50 MG TAB ONE (12:18)
--- NOTE | 2024-12-02 12:24 | ER ---
Nurse's Notes [facility] Name: Dianna Marcano Age: 84 yrs Sex: Female : 1940 Arrival Date: 12/02/2024 Time: 12:02 Bed IW1 Private MD: Diagnosis: Dental root caries;Acute gingivitis Presentation: 12/02 12:14 Chief complaint: Patient states: I have a bad toothache for 3 days, went to pcp but was ko1 late to appt and they wouldn't see me. Coronavirus screen: At this time, the client does not indicate any symptoms associated with coronavirus-19. Ebola Screen: No symptoms or risks identified at this time. Initial Sepsis Screen: Does the patient meet any 2 criteria? No. Patient's initial sepsis screen is negative. Does the patient have a suspected source of infection? No. Patient's initial sepsis screen is negative. Risk Assessment: Do you want to hurt yourself or someone else? Patient reports no desire to harm self or others. Onset of symptoms is unknown. 12:14 Method Of Arrival: Ambulatory ko1 12:14 Acuity: SHERLYN 5 ko1 Triage Assessment: 12:17 General: Appears in no apparent distress. Behavior is calm, cooperative, appropriate ko1 for age. Pain: Complains of pain in lower left second bicuspid. EENT: Reports pain in mouth. Historical: - Allergies: 12:17 Iodine; ko1 12:17 Sulfa (Sulfonamide Antibiotics); ko1 12:17 Versed; ko1 - PMHx: 12:17 Anxiety; CHF; chronic back pain; Hypertension; Dementia; Hypothyroidism; ko1 - Immunization history:: Adult Immunizations up to date. - Infectious Disease History:: Denies. - Social history:: Smoking status: Patient reports the use of cigarette tobacco products, smokes one pack cigarettes per day. - Family history:: not pertinent. - Hospitalizations: : No recent hospitalization is reported. Screenin:19 [facility] ED Fall Risk Assessment (Adult) History of falling in the last 3 months, ko1 including since admission No falls in past 3 months (0 pts) Confusion or Disorientation No (0 pts) Intoxicated or Sedated No (0 pts) Impaired Gait Yes (1 pt) Mobility Assist Device Used Yes (1 pt) Altered Elimination No (0 pt) Score/Fall Risk Level 0 - 2 = Low Risk Oriented to surroundings, Maintained a safe environment, Educated pt \T\ family on fall prevention, incl call for assistance when getting out of bed. Abuse screen: Denies threats or abuse. Denies injuries from another. Nutritional screening: No deficits noted. Tuberculosis screening: No symptoms or risk factors identified. Vital Signs: 12:14 BP 152 / 75; Pulse 88; Resp 16; Temp 97; Pulse Ox 100% ; ko1 ED Course: 12:08 Patient arrived in ED. ra3 12:09 Swapnil Layton MD is Attending Physician. rn 12:17 Triage completed. ko1 12:17 Arm band placed on right wrist. Patient placed in an exam room, on a stretcher, on ko1 pulse oximetry, Patient notified of wait time. 12:19 Patient has correct armband on for positive identification. Allergy band placed. ko1 Provided Education on: meds. 12:19 No provider procedures requiring assistance completed. Patient did not have IV access ko1 during this emergency room visit. Administered Medications: 12:23 Drug: traMADol PO 50 mg PO once Route: PO; ko1 12:36 Follow up: Response: No adverse reaction; Medication administered at discharge. ko1 12:23 Drug: Ibuprofen PO 400 mg PO once Route: PO; ko1 12:36 Follow up: Response: No adverse reaction; Medication administered at discharge. ko1 12:23 Drug: Clindamycin PO 300 mg PO once Route: PO; ko1 12:36 Follow up: Response: No adverse reaction; Medication administered at discharge. ko1 Medication: 12:19 VIS not applicable for this client. ko1 Outcome: 12:23 Discharge ordered by . rn 12:38 Patient left the ED. ss Signatures: Swapnil Layton MD MD rn Blanchard, Shelby, RN RN ss Remedios Hernandez RN RN ko1 Kinza Montano ra3
--- NOTE | 2024-12-02 12:24 | EDPHYS ---
Physician Documentation [facility] Name: Dianna Marcano Age: 84 yrs Sex: Female : 1940 Arrival Date: 12/02/2024 Time: 12:02 Bed IW1 Private MD: ED Physician Swapnil Layton HPI: 12/02 12:20 This 84 yrs old Female presents to ER via Ambulatory with complaints of Toothache. rn 12:20 The patient presents with pain, swelling. Onset: The symptoms/episode began/occurred 2 rn day(s) ago. Duration: The symptoms are continuous. Modifying factors: The symptoms are alleviated by nothing, the symptoms are aggravated by chewing, talking. Severity of symptoms: At their worst the symptoms were moderate, in the emergency department the symptoms are unchanged. The patient has experienced similar episodes in the past. Patient reports dental pain that began 2 days ago. No trauma. Missing the majority of her teeth. Reports subjective swelling and pain to left lower teeth. No patient reports subjective fever as well. Had an appointment with her PCP today to address this but missed appointment. Has not seen a dentist.. Historical: - Allergies: 12:17 Iodine; ko1 12:17 Sulfa (Sulfonamide Antibiotics); ko1 12:17 Versed; ko1 - PMHx: 12:17 Anxiety; CHF; chronic back pain; Hypertension; Dementia; Hypothyroidism; ko1 - Immunization history:: Adult Immunizations up to date. - Infectious Disease History:: Denies. - Social history:: Smoking status: Patient reports the use of cigarette tobacco products, smokes one pack cigarettes per day. - Family history:: not pertinent. - Hospitalizations: : No recent hospitalization is reported. ROS: 12:20 Constitutional: Negative for fever, chills, and weight loss, ENT: Positive for dental rn pain Cardiovascular: Negative for chest pain, palpitations, and edema, Respiratory: Negative for shortness of breath, cough, wheezing, and pleuritic chest pain, Abdomen/GI: Negative for abdominal pain, nausea, vomiting, diarrhea, and constipation, Exam: 12:20 Constitutional: This is a well developed, well nourished patient who is awake, alert, rn and in no acute distress. ENT: Poor dentition, no evidence of gingival swelling or abscess but does have tenderness left lower gingiva. Oropharynx with no redness, swelling, or masses, exudates, or evidence of obstruction, uvula midline. Mucous membranes moist. Vital Signs: 12:14 BP 152 / 75; Pulse 88; Resp 16; Temp 97; Pulse Ox 100% ; ko1 MDM: 12:09 Medical Screening Exam initiated rn 12:20 Differential diagnosis: dental caries, gingivitis, dental abscess. Data reviewed: vital rn signs, nurses notes, and as a result, I will discharge patient. Counseling: I had a detailed discussion with the patient and/or guardian regarding the historical points, exam findings, and any diagnostic results supporting the discharge/admit diagnosis, the need for outpatient follow up, to return to the emergency department if symptoms worsen or persist or if there are any questions or concerns that arise at home. Special discussion: I discussed with the patient/guardian in detail that at this point there is no indication for admission to the hospital. It is understood, however, that if the symptoms persist or worsen the patient needs to return immediately for re-evaluation. Administered Medications: 12:23 Drug: traMADol PO 50 mg PO once Route: PO; ko1 12:36 Follow up: Response: No adverse reaction; Medication administered at discharge. ko1 12:23 Drug: Ibuprofen PO 400 mg PO once Route: PO; ko1 12:36 Follow up: Response: No adverse reaction; Medication administered at discharge. ko1 12:23 Drug: Clindamycin PO 300 mg PO once Route: PO; ko1 12:36 Follow up: Response: No adverse reaction; Medication administered at discharge. 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
[2024-12-02 13:11] VITALS: BP 152/75; TEMP 97; O2SAT 100
== END 2024-12-02 12:38 | disposition home or self-care (01) ==
LOC: ER 12:02
DX: K02.7 Dental root caries (principal); K05.00 Acute gingivitis, plaque induced
CPT/HCPCS: 99283

== ENCOUNTER 2025-01-24 17:27 | Emergency (ER) | payer OTHER ==
--- NOTE | 2025-01-24 18:31 | EDPHYS ---
Physician Documentation [facility] Name: Dianna Marcano Age: 84 yrs Sex: Female : 1940 Arrival Date: 01/24/2025 Time: 17:27 Bed 8 Private MD: ED Physician Francisco Cote HPI: 01/24 18:20 The patient presents with broken tooth/teeth. jj9 18:24 84-year-old female comes emergency department for evaluation of toothache. Patient has jj9 chronic dental problems with broken teeth. She denies any other problem. Denies fever, chills, nausea, vomiting or any other problem.. Historical: - Allergies: 17:39 Iodine; ap3 17:39 Sulfa (Sulfonamide Antibiotics); ap3 17:39 Versed; ap3 - PMHx: 17:39 Anxiety; CHF; chronic back pain; Dementia; Hypertension; Hypothyroidism; ap3 - Immunization history:: Client reports having NOT received the Covid vaccine. Flu vaccine is not up to date. - Infectious Disease History:: Denies. - Social history:: Smoking status: Patient reports the use of cigarette tobacco products, smokes one pack cigarettes per day. ROS: 18:25 Constitutional: Negative for fever, chills, and weight loss, Eyes: Negative for injury, jj9 pain, redness, and discharge, ENT: Dental pain Neck: Negative for injury, pain, and swelling, Cardiovascular: Negative for chest pain, palpitations, and edema, Respiratory: Negative for shortness of breath, cough, wheezing, and pleuritic chest pain, Abdomen/GI: Negative for abdominal pain, nausea, vomiting, diarrhea, and constipation, Back: Negative for injury and pain, : Negative for injury, bleeding, discharge, and swelling, MS/Extremity: Negative for injury and deformity, Skin: Negative for injury, rash, and discoloration, Neuro: Negative for headache, weakness, numbness, tingling, and seizure, Psych: Negative for depression, anxiety, suicide ideation, homicidal ideation, and hallucinations, Exam: 18:25 Constitutional: This is a well developed, well nourished patient who is awake, alert, jj9 and in no acute distress. Head/Face: Normocephalic, atraumatic. Eyes: Pupils equal round and reactive to light, extra-ocular motions intact. Lids and lashes normal. Conjunctiva and sclera are non-icteric and not injected. Cornea within normal limits. Periorbital areas with no swelling, redness, or edema. ENT: Widespread dental decay with gingivitis, broken and rotted teeth Neck: Trachea midline, no thyromegaly or masses palpated, and no cervical lymphadenopathy. Supple, full range of motion without nuchal rigidity, or vertebral point tenderness. No Meningismus. Chest/axilla: Normal chest wall appearance and motion. Nontender with no deformity. No lesions are appreciated. Cardiovascular: Regular rate and rhythm with a normal S1 and S2. No gallops, murmurs, or rubs. Normal PMI, no JVD. No pulse deficits. Respiratory: Lungs have equal breath sounds bilaterally, clear to auscultation and percussion. No rales, rhonchi or wheezes noted. No increased work of breathing, no retractions or nasal flaring. Vital Signs: 17:38 BP 136 / 85; Pulse 79; Resp 18; Temp 98.7; Pulse Ox 100% ; Weight 61.23 kg; Pain 10/10; ap3 18:56 BP 129 / 84; Pulse 82; Resp 19; Temp 98.6; Pulse Ox 98% ; me1 17:38 Pain Scale: Adult ap3 MDM: 17:54 Medical Screening Exam initiated jj9 18:27 Differential diagnosis: dental caries, gingivitis, dental abscess, pericoronitis, jj9 aphthous ulcers. 18:27 ED course: 84-year-old female comes emergency department for evaluation of dental pain. jj9 Symptoms have been present for several months. The patient denies any other problems. She has not been able to follow-up with dental. Advised to continue antibiotics, pain medications, follow with dental and return to the ED if worsening of symptoms and the patient understands and agrees with plan. Administered Medications: 18:54 Drug: traMADol PO 50 mg PO once Route: PO; me1 18:56 Follow up: Response: No adverse reaction me1 18:54 Drug: Amoxicillin PO 500 mg PO once Route: PO; me1 18:56 Follow up: Response: No adverse reaction me1 Disposition Summary: 01/24/25 18:30 Discharge Ordered Notes: Location: Home jj9 Problem: chronic jj9 Symptoms: have worsened jj9 Condition: Stable jj9 Diagnosis - Dental root caries jj9 Followup: jj9 - With: Private Physician - When: - Reason: Re-evaluation by your physician Discharge Instructions: - Discharge Summary Sheet jj9 - Dental Caries, Adult jj9 Forms: - Medication Reconciliation Form jj9 - Antibiotic Education jj9 - Prescription Opioid Use jj9 - Patient Portal Instructions jj9 - Leadership Thank You Letter jj9 Prescriptions: - Amoxicillin 500 mg Oral capsule - take 1 capsule ORAL route 2 times per day for 7 days; 14 tablet; Refills: 0, jj9 Product Selection Permitted - Tramadol 50 mg Oral Tablet - take 1 tablet ORAL route every 8 hours as needed; 12 tablet; Refills: 0, jj9 Product Selection Permitted Signatures: Aaliyah Dockery RN RN ap3 Shelley Barlow RN RN me1 Francisco Cote MD MD jj9
--- NOTE | 2025-01-24 18:31 | ER ---
Nurse's Notes [facility] Name: Dianna Marcano Age: 84 yrs Sex: Female : 1940 Arrival Date: 01/24/2025 Time: 17:27 Bed 8 Private MD: Diagnosis: Dental root caries Presentation: 01/24 17:38 Chief complaint: Patient states: she has been having a right lower tooth ache for three ap3 days. patient currently rates her pain as a 10/10 on the pain scale. Coronavirus screen: At this time, the client does not indicate any symptoms associated with coronavirus-19. Ebola Screen: No symptoms or risks identified at this time. Initial Sepsis Screen: Does the patient meet any 2 criteria? No. Patient's initial sepsis screen is negative. Does the patient have a suspected source of infection? No. Patient's initial sepsis screen is negative. Risk Assessment: Do you want to hurt yourself or someone else? Patient reports no desire to harm self or others. Onset of symptoms was January 21, 2025. 17:38 Method Of Arrival: Ambulatory ap3 17:38 Acuity: SHERLYN 4 ap3 Triage Assessment: 17:39 General: Appears in no apparent distress. Behavior is calm, cooperative, appropriate ap3 for age. Pain: Complains of pain in mouth Pain currently is 10 out of 10 on a pain scale. EENT: Poor dentition noted. Reports pain. Neuro: Level of Consciousness is awake, alert, obeys commands, Oriented to person, place, time, situation, Appropriate for age. Cardiovascular: Patient's skin is warm and dry. Respiratory: Airway is patent Respiratory effort is even, unlabored, Respiratory pattern is regular, symmetrical. Historical: - Allergies: 17:39 Iodine; ap3 17:39 Sulfa (Sulfonamide Antibiotics); ap3 17:39 Versed; ap3 - PMHx: 17:39 Anxiety; CHF; chronic back pain; Dementia; Hypertension; Hypothyroidism; ap3 - Immunization history:: Client reports having NOT received the Covid vaccine. Flu vaccine is not up to date. - Infectious Disease History:: Denies. - Social history:: Smoking status: Patient reports the use of cigarette tobacco products, smokes one pack cigarettes per day. Screenin:40 Abuse screen: Denies threats or abuse. Nutritional screening: No deficits noted. ap3 Tuberculosis screening: No symptoms or risk factors identified. 17:45 [facility] ED Fall Risk Assessment (Adult) History of falling in the last 3 months, me1 including since admission No falls in past 3 months (0 pts) Confusion or Disorientation No (0 pts) Intoxicated or Sedated No (0 pts) Impaired Gait Yes (1 pt) Mobility Assist Device Used No (0 pt) Altered Elimination No (0 pt) Score/Fall Risk Level 0 - 2 = Low Risk Maintained a safe environment, Provided non-skid footwear, Hourly rounding (assess needs \T\ fall precautionary measures) done. Assessment: 17:45 General: Appears uncomfortable, slender, well developed, Behavior is calm, cooperative, me1 appropriate for age, Reports she has been having a right lower tooth ache for three days. patient currently rates her pain as a 10/10 on the pain scale. Pain: Complains of pain in mouth Pain does not radiate. Pain currently is 10 out of 10 on a pain scale. Quality of pain is described as throbbing, Pain began gradually, Is continuous. Neuro: Level of Consciousness is awake, alert, obeys commands, Oriented to person, place, time, situation, Appropriate for age. Cardiovascular: Patient's skin is warm and dry. Respiratory: Airway is patent Respiratory effort is even, unlabored, Respiratory pattern is regular, symmetrical. GI: No signs and/or symptoms were reported involving the gastrointestinal system. : No signs and/or symptoms were reported regarding the genitourinary system. EENT: Reports pain right lower tooth. Derm: Skin is intact, is healthy with good turgor, Skin is pink, warm \T\ dry. Musculoskeletal: No signs and/or symptoms reported regarding the musculoskeletal system. Vital Signs: 17:38 BP 136 / 85; Pulse 79; Resp 18; Temp 98.7; Pulse Ox 100% ; Weight 61.23 kg; Pain 10/10; ap3 18:56 BP 129 / 84; Pulse 82; Resp 19; Temp 98.6; Pulse Ox 98% ; me1 17:38 Pain Scale: Adult ap3 ED Course: 17:30 Patient arrived in ED. im 17:39 Triage completed. ap3 17:40 Arm band placed on left wrist. ap3 17:45 Patient has correct armband on for positive identification. Bed in low position. Call me1 light in reach. Side rails up X2. Provided Education on: POC. Verbalized understanding.. Client placed on continuous cardiac and pulse oximetry monitoring. NIBP monitoring applied. Pulse ox on. NIBP on. 17:45 No provider procedures requiring assistance completed. Patient did not have IV access me1 during this emergency room visit. 17:54 Francisco Cote MD is Attending Physician. jj9 18:38 Shelley Barlow, RN is Primary Nurse. me1 Administered Medications: 18:54 Drug: traMADol PO 50 mg PO once Route: PO; me1 18:56 Follow up: Response: No adverse reaction me1 18:54 Drug: Amoxicillin PO 500 mg PO once Route: PO; me1 18:56 Follow up: Response: No adverse reaction me1 Medication: 17:45 VIS not applicable for this client. me1 Outcome: 18:30 Discharge ordered by . jj9 18:57 Discharged to home ambulatory, with family, me1 18:57 Condition: stable 18:57 Discharge instructions given to patient, family, Instructed on discharge instructions, follow up and referral plans. medication usage, Demonstrated understanding of instructions, follow-up care, medications, Prescriptions given X 2, 18:57 Patient left the ED. me1 Signatures: Aaliyah Dockery RN RN ap3 Pallavi Carrillo Shelley Barlow, RN RN me1 Francisco Cote MD MD jj9 Corrections: (The following items were deleted from the chart) 18:54 17:38 Chief complaint: Patient states: she has been having a right lower tooth ache for me1 three days. patient currently rates her pain as a 10/10 on the pain scale. ap3
[2025-01-24] MEDS ORDERED: AMOXICILLIN TRIHYDR 250 MG CAP ONE (18:51)
[2025-01-24] MEDS ORDERED: TRAMADOL HCL 50 MG TAB ONE (18:51)
[2025-01-24 19:20] VITALS: BP 129/84; TEMP 98.6; O2SAT 98
== END 2025-01-24 18:57 | disposition home or self-care (01) ==
LOC: ER 17:27
DX: K02.7 Dental root caries (principal); F17.210 Nicotine dependence, cigarettes, uncomplicated
CPT/HCPCS: 99284